=== PATIENT | male | born 1930 | race Caucasian/White ===

== ENCOUNTER 2017-06-01 20:09 | Inpatient (IN) | payer MEDICARE, MEDICAID ==
[~2017-06-01] VITALS: Ht 172.7 cm; Wt 104.2 kg
[2017-06-01 20:31] LABS: ADD SCAN DIFF NO
[2017-06-01 20:34] LABS: AADO2 Arterial 125.3 mmHg (7.0-24.0); Allen Test ACCEPTAB; Arterial Base Excess 6.6 mmol/L (-3.0-3); Arterial COHb 0.5 % (0.0-3.0); Arterial Fraction of Oxyhgb 78.7 % (93.0-99.0); Arterial HCO3 32.7 mmol/L (22.0-26.0); Arterial MetHb 0.9 % (0.0-1.5); MODE NASAL CANNULA
[2017-06-01 20:36] LABS: ABNORMAL IP MESSAGE 1; BASOPHILS % 0.1 % (0.0-2.0); EOSINOPHILS % 0.2 % (0.0-7.0); HEMOGLOBIN 7.2 g/dl (14.0-18.0); LYMPHOCYTES # 1.5 10^3/ul (0.8-2.9); LYMPHOCYTES % 13.6 % (15.0-51.0); MEAN CORPUSCULAR HEMOGLOBIN 25.4 pg (29.0-33.0); MEAN CORPUSCULAR HGB CONC 28.8 g/dl (32.0-37.0); MEAN CORPUSCULAR VOLUME 88.3 fl (82.0-101.0); MEAN PLATELET VOLUME 10.5 fl (7.4-10.4); MONOCYTE # 1.1 10^3/ul (0.3-0.9); MONOCYTES % 9.6 % (0.0-11.0); NEUTROPHIL # 8.3 10^3/ul (1.6-7.5); NEUTROPHILS % 75.5 % (39.0-77.0); PLATELET COUNT 152 10^3/UL (140-415); RED BLOOD COUNT 2.83 10^6/ul (4.70-6.10)
[2017-06-01] MEDS ORDERED: ACET-2047 PO (20:42)
[2017-06-01] MEDS ORDERED: ACET250T22 PO (20:43)
[2017-06-01] MEDS ORDERED: ASPI81TA3 PO (20:45)
[2017-06-01] MEDS ORDERED: ALBU2.5V3 NEB (20:45)
[2017-06-01] MEDS ORDERED: DOCU250C58 PO (20:46)
[2017-06-01] MEDS ORDERED: ENOX40DI2 SC (20:46)
[2017-06-01] MEDS ORDERED: MULT-105 PO (20:49)
[2017-06-01] MEDS ORDERED: UDMYL PO (20:50)
[2017-06-01] MEDS ORDERED: NIT4 SL (20:50)
[2017-06-01] MEDS ORDERED: HYDR-906 PO (20:51)
[2017-06-01] MEDS ORDERED: PROT946L PO (20:53)
[2017-06-01] MEDS ORDERED: PANT40TA3 PO (20:54)
[2017-06-01] MEDS ORDERED: TUBE5VIA3 ID (20:59)
[2017-06-01] MEDS ORDERED: ASCO500C7 PO (21:00)
[2017-06-01] MEDS ORDERED: ONDA-43 PO (21:01)
[2017-06-01 21:02] LABS: INR 1.16; PROTIME 14.8 Sec (12.2-14.2); PT RATIO 1.2
[2017-06-01 21:03] LABS: PARTIAL THROMBOPLASTIN TIME 33.2 Sec (25.0-35.0)
[2017-06-01 21:05] LABS: ALBUMIN 2.8 g/dl (3.3-4.9); ALBUMIN/GLOBULIN RATIO 0.66; BILIRUBIN,INDIRECT 0.3 mg/dl (0-1.1); BILIRUBIN,TOTAL 0.3 mg/dl (0.2-1.3); CALCIUM 9.7 mg/dl (8.4-10.2); CREATININE 1.29 mg/dl (0.61-1.24); POTASSIUM 4.7 mmol/L (3.5-5.1)
[2017-06-01 21:16] LABS: TROPONIN-I 0.028 ng/ml (0.00-0.12)
--- NOTE | 2017-06-01 21:38 | RADRPT ---
PROCEDURE: XR Chest. CLINICAL INDICATION: Possible sepsis. TECHNIQUE: Single frontal view of the chest. COMPARISON: None. FINDINGS: Cardiomegaly. Pulmonary vascular congestion and bilateral patchy air space disease with elevated le ft hemidiaphragm. No signs of pleural fluid or pneumothorax are seen. The osseous structures and sof t tissues are unremarkable. IMPRESSION: Moderate failure. RPTAT: [facility] Physician Sara Date Time Electronically viewed and signed by Thomas Fenton Physician on 06/01/2017 21:38 RS/
[2017-06-01] MEDS ORDERED: ONDANSETRON 4 MG INJ IV PRN (22:00)
[2017-06-01] MEDS ORDERED: FUROSEMIDE 40 MG INJ IV ONE (22:00)
[2017-06-01] MEDS ORDERED: ACETAMINOPHEN 325 MG TAB PO PRN (22:00)
[2017-06-01 22:07] LABS: AADO2 Arterial 282.8 mmHg (7.0-24.0); Allen Test ACCEPTAB; Arterial Base Excess 5.5 mmol/L (-3.0-3); Arterial COHb 0.7 % (0.0-3.0); Arterial HCO3 33.7 mmol/L (22.0-26.0); Blood Gas IEPAP 18/6; MODE MASK - BIPAP
--- NOTE | 2017-06-01 22:11 | ERA ---
ER Documentation Chief Complaint Date/Time DATE: 06/01/17 TIME: 22:02 Chief Complaint HPI This 86-year-old male presents to the emergency room after being brought in by EMS from his nursing facility for evaluation of respiratory distress. This patient does have a history of lymphoma and according to EMS when they arrived at the patient's [facility] the patient did have a pulse ox of 85% on room air. The patient was placed on supplemental oxygen and was transported to the emergency room for further evaluation. The patient is unable to give a detailed history secondary to his clinical condition at this time. EMS stated that this patient was recently transferred to a fci after a long hospital stay at [facility] where he was originally diagnosed with lymphoma ROS All systems reviewed and are negative except as per history of present illness. Medications Home Meds Reported Medications Ondansetron Hcl* (Zofran*) 4 Mg Tab, 4 MG PO Q6H Y for NAUSEA AND OR VOMITING, TAB 06/01/17 Ascorbic Acid* (Vitamin C*) 500 Mg Capsule.sa, 500 MG PO DAILY, CAP 06/01/17 Tuberculin,Purif.prot.deriv. (Tubersol) 5 Tub Unit/0.1 Ml Vial, 5 TUB ID QHS, VIAL INJECT 0.1ML QHS FOR TB SCREENING FOR 1 DAY 2ND STEP PPD; END DATE 06/06/17 06/01/17 Pantoprazole* (Protonix*) 40 Mg Tablet.dr, 40 MG PO DAILY, TAB 06/01/17 Protein Supplement (Promod) 946 Ml Liquid, 30 ML PO TID 06/01/17 Hydrocodone/Acetaminophen ([place] 5-325 Tablet) 1 Each Tablet, 1 EACH PO Q6H Y for PAIN PL 4-10/10, TAB AND FOR WOUND CARE 06/01/17 Nitroglycerin* (Nitrostat*) 0.4 Mg Tab.subl, 0.4 MG SL Q5MIN Y for CHEST PAIN, BOTTLE 06/01/17 Magaldrate/Simethicone* (Mag-Al Plus Suspension*) 30 Ml Oral.susp, 30 ML PO QID , ML 06/01/17 Multivitamin with Minerals (Multivitamins with Minerals) 1 Each Tablet, 1 EACH PO DAILY, TAB 06/01/17 Enoxaparin Sodium* (Enoxaparin Sodium*) 40 Mg/0.4 Ml Syringe, 40 MG SC DAILY, SYR 06/01/17 Docusate Sodium* (Colace*) 250 Mg Capsule, 250 MG PO BID, #60 CAP 06/01/17 Aspirin* (Aspirin* Chew) 81 Mg Tab.chew, 81 MG PO DAILY, TAB.CHEW 06/01/17 Albuterol Sulfate* (Albuterol Sulfate* Neb) 0.083%-3 Ml Neb, 2.5 MG NEB Q6H Y for WHEEZING AND SOB, #30 VIAL OR Q4H NEEDED 06/01/17 Acetazolamide* (Acetazolamide*) 250 Mg Tablet, 250 MG PO DAILY, #30 TAB 06/01/17 Acetaminophen* (Acetaminophen*) 650 Mg Tablet, 650 MG PO Q4H Y for PAIN PL 1-, #30 TAB FOR TEMP>100F 06/01/17 Allergies Allergies: Coded Allergies: No Known Allergy (Unverified , 06/01/17) PMhx/Soc Hx Neurological Disorder: No Hx Miscellaneous Medical Probl: Yes (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 EOMI. There is no scleral icterus. NECK: C-spine is soft and supple, there is no meningismus. There is no cervical lymphadenopathy. LUNGS: Coarse breath sounds bilaterally with rales auscultated in the upper and lower lobes bilaterally HEART: Tachycardic, no murmurs, clicks, rubs or gallops. ABDOMEN: Soft, non-tender, non-distended. There are bowel sounds in all four quadrants. No rebound or guarding. EXTREMITIES: 1+ pitting edema in the bilateral lower extremities. NEUROLOGICAL: The patient moves all four extremities with 5/5 strength. Alert and oriented to person place SKIN: There is no apparent rash or petechiae. HEME/LYMPHATIC: There is no evidence of excessive bruising or lymphedema. PSYCHIATRIC: The patient does not appear anxious or depressed. Result Diagram: 06/01/17201906/01/172019 Results 24 hrs Laboratory Tests Test 06/01/17 20:10 06/01/17 20:20 06/01/17 21:43 06/01/17 22:32 Blood Gas Specimen Source Blood arterial Blood arterial Arterial Blood Date Drawn 06/01/2017 8:10:12 PM 06/01/2017 9:53:31 PM Arterial Blood pH (Temp corrected) 7.378 7.257 Arterial Blood pCO2 (Temp correct) 56.8mmhg 77.3mmhg Arterial Blood pO2 (Temp corrected) 43.7mmHG 352.9mmHG Arterial Blood HCO3 32.7mmol/L 33.7mmol/L Arterial Blood Base Excess 6.6mmol/L 5.5mmol/L Arterial Blood Oxygen Saturation 79.8mmHG 99.7mmHG Bakari Test ACCEPTAB ACCEPTAB Arterial Blood Gas Puncture Site Right Radial Right Radial Arterial Blood Carboxyhemoglobin 0.5% 0.7% Arterial Blood Methemoglobin 0.9% 1.0% Blood Gas A-a O2 Differential 125.3mmHg 282.8mmHg Oxyhemoglobin Percent 78.7% 98.0% Total Hemoglobin 8.0g/dl 8.0g/dl Blood Gas Temperature 37.0C 37.0C Blood Gas Modality NASAL CANNULA MASK - BIPAP FiO2 33.0% 100.0% Blood Gas Critical Value Read Back Reymundo QUIÑONEZ MD, K MD Blood Gas Notified Whom OCTAVIO EVETTE Blood Gas Notified Time 06/01/2017 8:34:08 PM 06/01/2017 10:07:40 PM White Blood Count 11.010^3/ul Red Blood Count 2.8310^6/ul Hemoglobin 7.2g/dl Hematocrit 25.0% Mean Corpuscular Volume 88.3fl Mean Corpuscular Hemoglobin 25.4pg Mean Corpuscular Hemoglobin Concent 28.8g/dl Red Cell Distribution Width 21.0% Platelet Count 36980^3/UL Mean Platelet Volume 10.5fl Neutrophils % 75.5% Lymphocytes % 13.6% Monocytes % 9.6% Eosinophils % 0.2% Basophils % 0.1% Neutrophils # 8.310^3/ul Lymphocytes # 1.510^3/ul Monocytes # 1.110^3/ul Eosinophils # 0.010^3/ul Basophils # 0.010^3/ul Nucleated Red Blood Cells # 0.010^3/ul Prothrombin Time 14.8Sec Prothrombin Time Ratio 1.2 INR International Normalized Ratio 1.16 Activated Partial Thromboplast Time 33.2Sec Sodium Level 150mmol/L Potassium Level 4.7mmol/L Chloride Level 103mmol/L Carbon Dioxide Level 36mmol/L Anion Gap 16 Blood Urea Nitrogen 35mg/dl Creatinine 1.29mg/dl Glucose Level 135mg/dl Lactic Acid Level 2.4mmol/L Calcium Level 9.7mg/dl Total Bilirubin 0.3mg/dl Direct Bilirubin 0.00mg/dl Indirect Bilirubin 0.3mg/dl Aspartate Amino Transf (AST/SGOT) 28IU/L Alanine Aminotransferase (ALT/SGPT) 33IU/L Alkaline Phosphatase 60IU/L Troponin I 0.028ng/ml Total Protein 7.0g/dl Albumin 2.8g/dl Globulin 4.20g/dl Albumin/Globulin Ratio 0.66 Blood Gas Respiration Rate 20.0 Blood Gas Actual Respiration Rate 22 Blood Gas Inspiratory Time 1.0 Blood Gas IPAP/EPAP Ratio 18/6 Urine Color YELLOW Urine Clarity CLEAR Urine pH 5.0 Urine Specific [place] 1.012 Urine Ketones NEGATIVEmg/dL Urine Nitrite NEGATIVEmg/dL Urine Bilirubin NEGATIVEmg/dL Urine Urobilinogen NEGATIVEmg/dL Urine Leukocyte Esterase NEGATIVELeu/ul Urine Microscopic RBC 1/HPF Urine Microscopic WBC 0/HPF Urine Bacteria FEW/HPF Urine Hemoglobin NEGATIVEmg/dL Urine Glucose NEGATIVEmg/dL Urine Total Protein 1+mg/dl Test 06/01/17 22:40 Blood Gas Specimen Source Blood arterial Arterial Blood Date Drawn 06/01/2017 10:40:00 PM Arterial Blood pH (Temp corrected) 7.320 Arterial Blood pCO2 (Temp correct) 63.9mmhg Arterial Blood pO2 (Temp corrected) 61.6mmHG Arterial Blood HCO3 32.2mmol/L Arterial Blood Base Excess 5.2mmol/L Arterial Blood Oxygen Saturation 90.2mmHG Bakari Test ACCEPTAB Arterial Blood Gas Puncture Site Right Radial Arterial Blood Carboxyhemoglobin 0.5% Arterial Blood Methemoglobin 0.9% Blood Gas A-a O2 Differential 150.1mmHg Oxyhemoglobin Percent 88.9% Total Hemoglobin 7.9g/dl Blood Gas Temperature 37.0C Blood Gas Respiration Rate 24.0 Blood Gas Actual Respiration Rate 26 Blood Gas Modality MASK - BIPAP FiO2 40.0% Blood Gas Inspiratory Time 0.7 Blood Gas IPAP/EPAP Ratio 20/5 Blood Gas Notified Whom AA Blood Gas Notified Time 06/01/2017 10:52:57 PM Current Medications Medications (Trade) Dose Ordered Sig/Crista Route PRN Reason Start Time Stop Time Status Last Admin Dose Admin Furosemide (Lasix) 40 mg ONCE ONCE IV 06/01/17 22:00 06/01/17 22:01 DC 06/01/17 21:48 Ondansetron HCl (Zofran Inj) 4 mg ER BRIDGE PRN IV NAUSEA AND/OR VOMITING 06/01/17 22:00 06/02/17 21:59 Acetaminophen (Tylenol Tab) 650 mg ER BRIDGE PRN PO MILD PAIN/FEVER 06/01/17 22:00 06/02/17 21:59 Procedures/MDM EKG: Rate/Rhythm: Sinus tachycardia QRS, ST, T-waves: [No changes consistent w/ acute ischemia] Impression: [No evidence of ischemia or arrhythmia] Chest X-ray 1V Interpreted by me: Soft Tissue: No acute abnormalities Bones: No acute abnormalities Mediastinum/Cardiac Silhouette/Lungs: Fluid overload This 86-year-old male presents to the emergency room for evaluation of shortness of breath. When I evaluated this patient he was in respiratory distress and prior to being placed on the gurney this patient's pulse oxygen level was 88%. The patient did have coarse breath sounds bilaterally with audible rales. This patient was immediately placed on a BiPAP. This patient's initial ABG does show hypercapnia. Lab work was obtained including a chest x- ray which shows fluid overload. The patient was given 40 mg of Lasix IV. His blood pressure has been stable in the emergency room with no need for nitro glycerin drip at this time. This patient is doing clinically better on my reevaluation after being on the BiPAP for approximately 1 hour. His second arterial blood gas did show an increased CO2. At that time I did increase the rate to 24, and change his settings to 20/5 with an FiO2 15%. Repeat ABG does show decreasing CO2 levels and improving pH. The patient is mentating appropriately and does not have any signs of lethargy at this time. He is alert oriented to person place and time at this time. This patient will be admitted at this time to the telemetry floor under the care of Dr. russell for acute hypoxic respiratory failure Critical Care: Excluding all billable procedures Time: 44 minutes Treatments/Evaluations: Emergent and rapid respiratory assessment and management with continuous monitoring. Advanced airway equipment at the ready, while the patient's respiratory symptoms were stabilized. Departure Diagnosis: Primary Impression: Acute respiratory failure with hypoxia Additional Impression: Acute decompensated heart failure Condition: Serious MAKAYLA QUIÑONEZ DO Jun 01, 2017 22:11
[2017-06-01 22:53] LABS: AADO2 Arterial 150.1 mmHg (7.0-24.0); Allen Test ACCEPTAB; Arterial Base Excess 5.2 mmol/L (-3.0-3); Arterial COHb 0.5 % (0.0-3.0); Arterial Fraction of Oxyhgb 88.9 % (93.0-99.0); Arterial HCO3 32.2 mmol/L (22.0-26.0); Arterial MetHb 0.9 % (0.0-1.5); Arterial Total Hemglobin 7.9 g/dl (12.0-18.0); Blood Gas IEPAP 20/5; MODE MASK - BIPAP
[2017-06-01 22:54] LABS: ADD UMIC YES; UR ASCORBIC ACID NEGATIVE (NEGATIVE); UR BACTERIA FEW /HPF (NONE SEEN); UR BILIRUBIN (Dip) NEGATIVE (NEGATIVE); UR BLOOD (Dip) NEGATIVE (NEGATIVE); UR CLARITY CLEAR (CLEAR); UR COLOR YELLOW (YELLOW); UR GLUCOSE (Dip) NEGATIVE (NEGATIVE); UR KETONES (Dip) NEGATIVE (NEGATIVE); UR LEUKOCYTE ESTERASE (Dip) NEGATIVE Leu/ul (NEGATIVE); UR NITRITE (Dip) NEGATIVE (NEGATIVE); UR RBC 1 /HPF (0-5); UR SPECIFIC GRAVITY (Dip) 1.012 (1.003-1.030); UR TOTAL PROTEIN (Dip) 1+ mg/dl (NEGATIVE); UR UROBILINOGEN (Dip) NEGATIVE (NEGATIVE)
[2017-06-02] VITALS (24 sets, daily range): BP systolic 99–137; BP diastolic 56–65; PULSE 89–101; RESP 16–20; Ht 172.7 cm; Wt 104.2 kg
[2017-06-02] MEDS ORDERED: DEXTROSE 5% IV ONE (03:00)
[2017-06-02] MEDS ORDERED: BUMETANIDE IV ONE (03:00)
[2017-06-02] MEDS ORDERED: HYDROCODONE/APAP (5/325) TAB PO PRN (03:30)
[2017-06-02] MEDS ORDERED: AL HYDROX/MG HYDROX/SIMETH 30 ML CUP PO PRN (03:30)
[2017-06-02] MEDS ORDERED: NITROGLYCERIN (SL) 0.4 MG TAB SL PRN (03:30)
[2017-06-02] MEDS ORDERED: ASA/ACETAMINOPHEN/CAFF TAB PO PRN (03:30)
[2017-06-02] MEDS ORDERED: ONDANSETRON 4 MG TAB PO PRN (04:00)
[2017-06-02 05:57] LABS: ADD SCAN DIFF NO
[2017-06-02 05:59] LABS: ABNORMAL IP MESSAGE 1; BASOPHILS % 0.1 % (0.0-2.0); EOSINOPHILS % 0.3 % (0.0-7.0); HEMATOCRIT 22.4 % (42.0-52.0); LYMPHOCYTES # 0.9 10^3/ul (0.8-2.9); LYMPHOCYTES % 11.3 % (15.0-51.0); MEAN CORPUSCULAR HEMOGLOBIN 25.4 pg (29.0-33.0); MEAN CORPUSCULAR VOLUME 87.5 fl (82.0-101.0); MONOCYTE # 0.7 10^3/ul (0.3-0.9); MONOCYTES % 9.5 % (0.0-11.0); PLATELET COUNT 145 10^3/UL (140-415); RED BLOOD COUNT 2.56 10^6/ul (4.70-6.10); WHITE BLOOD COUNT 7.7 10^3/ul (4.8-10.8)
[2017-06-02] MEDS: PANTOPRAZOLE (EC) 40 MG TAB PO SCH (06:00)
[2017-06-02 06:36] LABS: HEMOGLOBIN 6.5 g/dl (14.0-18.0)
[2017-06-02 06:55] LABS: CALCIUM 9.6 mg/dl (8.4-10.2); CREATININE 1.13 mg/dl (0.61-1.24); MAGNESIUM 2.2 mg/dl (1.7-2.5); PHOSPHORUS 3.6 mg/dl (2.5-4.9)
[2017-06-02] MEDS ORDERED: FUROSEMIDE 20 MG INJ IV ONE (08:00)
[2017-06-02 08:03] LABS: AADO2 Arterial 131.8 mmHg (7.0-24.0); Allen Test ACCEPTAB; Arterial Base Excess 8.8 mmol/L (-3.0-3); Arterial COHb 1.4 % (0.0-3.0); Arterial Fraction of Oxyhgb 95.1 % (93.0-99.0); Arterial HCO3 34.3 mmol/L (22.0-26.0); Arterial MetHb 0.7 % (0.0-1.5); Arterial Total Hemglobin 7.2 g/dl (12.0-18.0); Blood Gas IEPAP 20/5; MODE MASK - BIPAP
[2017-06-02] MEDS: DOCUSATE SODIUM 250 MG CAP PO SCH ×2 (09:00→21:00)
[2017-06-02] MEDS: ASPIRIN 81 MG TAB PO SCH (09:00)
[2017-06-02] MEDS: MULTIVITAMINS/MINERALS TAB PO SCH (09:00)
[2017-06-02] MEDS: ASCORBIC ACID 500 MG TAB PO SCH (09:00)
--- NOTE | 2017-06-02 09:07 | QN ---
Documentation Comment Patient seen and examined. H&P dictated ERASTO GONZALEZ DO Jun 02, 2017 09:07
--- NOTE | 2017-06-02 09:22 | RADRPT ---
PROCEDURE: XR Chest. CLINICAL INDICATION: RESPIRATORY FAILURE TECHNIQUE: Single frontal view of the chest was obtained COMPARISON: Chest x-ray 06/01/2017 FINDINGS: There are low lung volumes and persistent elevation of left hemidiaphragm. The cardiac silhouette remains enlarged. There has been interval slight decrease in pulmonary vascular congestion and interval slight decreas e in perihilar opacities, possibly representing decreased pulmonary edema. Patchy ill-defined opacities in the right lung persist. No pneumothorax or significant pleural effusion is seen. There are degenerative changes of the visualized spine. IMPRESSION: 1. Interval slight decrease in pulmonary vascular congestion and pulmonary edema. 2. Persistent patchy ill-defined opacities in the right lung which may be infectious in etiology. RPTAT: PP Physician Tayla Date Time Electronically viewed and signed by Physician Tayla on 06/02/2017 09:22 /
[2017-06-02] MEDS: DEXTROSE 5% 1,000 ML IV SCH (10:36)
[2017-06-02] MEDS: HEPARIN 5,000 UNIT/0.5 ML VIAL SC SCH ×2 (10:42→22:05)
[2017-06-02 12:46] LABS: IRON 27 ug/dl (35-150)
[2017-06-02 12:56] LABS: TOTAL IRON BINDING CAPACITY 190 ug/dl (241-421)
--- NOTE | 2017-06-02 13:29 | HP ---
DATE OF ADMISSION: 06/01/2017 CHIEF COMPLAINT: 1. Respiratory failure. 2. Lymphoma, newly diagnosed. HISTORY OF PRESENT ILLNESS: This is an 86-year-old male with past medical history of newly diagnosed lymphoma who presents to [facility] Emergency room with hypoxemic respiratory failure. Patient's history begins approximately 1-2 months ago when patient was noted to have increased weakness. The patient was taken to [facility]. 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 The patient during the hospital course at [place] also had a cardiac cath. The patient's niece stated that it was negative for coronary disease. The patient was set to start chemotherapy as an outpatient by his oncologist at [place], Dr. Fleming. The patient was then transferred to a senior care facility for rehabilitation. However, upon arrival, the patient was desaturating in the 80s and was transferred to the Emergency room at [facility]. Upon arrival in the Emergency room, the patient had a chest x-ray, which shows findings of CHF, congestion, patchy air space disease, vascular congestion and pulmonary edema. The patient in the Emergency room, was placed on a Bumex drip and admitted to telemetry on BiPAP. Upon my evaluation of the patient at this time he is currently on BiPAP, in respiratory distress. Patient is unable to provide history. History is obtained by reviewing medical records, and speaking with the patient's niece. PAST MEDICAL HISTORY: As stated above. History of newly diagnosed lymphoma of the stomach and lungs. PAST SURGICAL HISTORY: Recent cardiac cath. ALLERGIES: NO KNOWN DRUG ALLERGIES. FAMILY HISTORY: Noncontributory. SOCIAL HISTORY: Does not drink, smoke, or do drugs. MEDICATIONS: Patient's medication have been reviewed and reconciled. REVIEW OF SYSTEMS: Unable to adequately review the systems. The patient's pertinent positive have been obtained by reviewing medical records, speaking to hospital staff and HPI was negative. PHYSICAL EXAMINATION: VITAL SIGNS: Blood pressure is 110/56, respirations 20, pulse 93, temperature 99.2. GENERAL APPEARANCE: The patient is tachypneic on BiPAP, in serious condition. HEENT: Head is normocephalic. Pupils are reactive to light. NECK: Neck is supple. HEART: Heart is tachycardic. LUNGS: Show diminished breath sounds a the bases. Positive rhonchi and rales. ABDOMEN: Soft, nontender to palpation. EXTREMITIES: No clubbing, cyanosis, positive edema. DERMATOLOGIC: No rashes. MUSCULOSKELETAL: No joint effusion. NEUROLOGICAL: Limited exam due to lack of patient cooperation. LABORATORY DATA: Shows sodium 150, potassium 4.1, chloride 102, bicarb 37 in 36, creatinine 1.13. White count 7.7, hemoglobin 6.5, hematocrit 22.4, platelet count is 145,000. IMAGING: Imaging studies in HPI. ASSESSMENT AND PLAN: The patient is an 86-year-old male who presents with: 1. Acute hypoxemic respiratory failure. Etiology is likely multifactorial secondary to lymphoma, pulmonary with possible lymphangitic spread, congestive heart failure exacerbation. The patient currently is on BiPAP, receiving Bumex drip. Plan is to place a pulmonary consult for evaluation. Will place a cardiology consult for evaluation. I also spoke with the patient's niece, who agrees with intubation if necessary. We will monitor closely. 2. Volume overload. Etiology may be multifactorial secondary to lymphoma and questionable congestive heart failure. Patient's chest x-ray shows pulmonary congestion. The patient had a recent cardiac cath which was negative, per patient's niece. Plan is continue diuretic regimen, monitor I and Os closely. We will follow up with Cardiology. 3. Newly diagnosed lymphoma, pulmonary and gastric. The patient has not yet started chemotherapy. Will place Hematology consult for evaluation. Patient may require urgent chemotherapy. 4. Hyponatremia. Patient will be placed on D5W. Will monitor closely. 5. Anemia, etiology is unclear. May be secondary to underlying malignancy. No obvious evidence of GI bleed at this time. Will transfuse 2 units of packed red blood cells. We will check an iron panel. Check stool for occult blood and monitor closely. 6. Acute encephalopathy, etiology is toxic metabolic. We will continue to monitor. 7. Gastrointestinal and deep venous thrombosis prophylaxis. Patient will be placed on Proton-pump inhibitors and heparin. Dictated By: Geoff Montiel DO /[email or web address] /Document#: [id number]
--- NOTE | 2017-06-02 14:08 | CONS ---
Date/Time of Note Date/Time of Note DATE: 06/02/17 TIME: 13:45 Assessment/Plan Assessment/Plan Chief Complaint/Hosp Course Newly diagnosed lymphoma, pulmonary and gastric. The patient has not yet started chemotherapy. Patient may require urgent chemotherapy, after being cleared by manager [employer] and pulmonary OBTAIN AND REVIEW ONCOLOGICAL RECORD DR LIDIA RUSSELL ( [phone]), awaiting response D/W NIECE, PACHECO Anemia, N- CYTIC WITH INCREASED RDW WITH DROP H/H DURING HOSPITALIZATION PER NIECE- NO HX ANEMIA, BLEEDING, PRBC TRANSFUSIONS No obvious evidence of GI bleed at this time. PROCEED WITH ANEMIA W-UP Acute hypoxemic respiratory failure. Etiology is likely multifactorial secondary to lymphoma, pulmonary with possible lymphangitic spread, congestive heart failure exacerbation. The patient currently is on BiPAP, receiving Bumex drip. pulmonary consult cardiology consult PER NIECE- agrees with intubation if necessary. check venous doppler Volume overload. Etiology may be multifactorial secondary to lymphoma and questionable congestive heart failure. Patient's chest x-ray shows pulmonary congestion. The patient had a recent cardiac cath which was negative, per patient's niece. Plan is continue diuretic regimen, monitor I and Os closely. Hypernatremia. Patient will be placed on D5W. Will monitor closely. Acute encephalopathy, etiology is toxic metabolic. We will continue to monitor. Gastrointestinal and deep venous thrombosis prophylaxis. Patient will be placed on Proton-pump inhibitors and heparin. ( IF NO EVIDENCE OF BLEEDING) Problems: Consultation Date/Type/Reason Admit Date/Time Jun 01, 2017 at 22:01 Date of Consultation: Jun 02, 2017 Type of Consultation: hemeon Reason for Consultation [facility] Referring Provider: ERASTO GONZALEZ DO Hx of Present Illness This is an 86-year-old male with past medical history of newly diagnosed lymphoma who presents to [facility] Emergency room with hypoxemic respiratory failure. Patient's history begins approximately 1-2 months ago when patient was noted to have increased weakness. The patient was taken to [facility]. 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 The patient during the hospital course at [facility] also had a cardiac cath. The patient's niece stated that it was negative for coronary disease. The patient was set to start chemotherapy as an outpatient by his oncologist at [facility], Dr. Fleming. The patient was then transferred to a assisted facility for rehabilitation. However, upon arrival, the patient was desaturating in the 80s and was transferred to the Emergency room at [facility]. Upon arrival in the Emergency room, the patient had a chest x-ray, which shows findings of CHF, congestion, patchy air space disease, vascular congestion and pulmonary edema. The patient in the Emergency room, was placed on a Bumex drip and admitted to telemetry on BiPAP. I WAS ASKED TO PROVIDE HEMEON CONSULT Upon my evaluation of the patient at this time he is currently on BiPAP, in respiratory distress. Patient is unable to provide history. History is obtained by reviewing medical records, and speaking with the patient's niece. PAST MEDICAL HISTORY: As stated above. History of newly diagnosed lymphoma of the stomach and lungs. PAST SURGICAL HISTORY: Recent cardiac cath. ALLERGIES: NO KNOWN DRUG ALLERGIES. FAMILY HISTORY: Noncontributory. SOCIAL HISTORY: Does not drink, smoke, or do drugs. MEDICATIONS: Patient's medication have been reviewed and reconciled. REVIEW OF SYSTEMS: Unable to adequately review the systems. The patient's pertinent positive have been obtained by reviewing medical records, speaking to hospital staff and HPI was negative. Social History Smoking Status: Unknown if ever smoked Exam/Review of Systems Vital Signs Vitals Vital Signs Date Time Temp Pulse Resp B/P Pulse Ox O2 Delivery O2 Flow Rate FiO2 06/02/17 12:35 89 06/02/17 11:35 99.8 20 113/58 98 06/02/17 11:00 40 06/01/17 23:18 BIPAP Intake and Output 06/01/17 06/01/17 06/02/17 15:00 23:00 07:00 Intake Total 0 ml Balance 0 ml Exam GENERAL APPEARANCE: The patient is tachypneic on BiPAP, in serious condition. HEENT: Head is normocephalic. Pupils are reactive to light. NECK: Neck is supple. HEART: Heart is tachycardic. LUNGS: Show diminished breath sounds a the bases. Positive rhonchi and rales. ABDOMEN: Soft, nontender to palpation. EXTREMITIES: No clubbing, cyanosis, positive edema. DERMATOLOGIC: No rashes. MUSCULOSKELETAL: No joint effusion. NEUROLOGICAL: Limited exam due to lack of patient cooperation. NO PATH LN- VIRI Results Result Diagram: 06/02/17 0546 06/02/17 0546 Results 24 hrs Laboratory Tests Test 06/01/17 20:10 06/01/17 20:20 06/01/17 21:43 06/01/17 22:32 Blood Gas Specimen Source Blood arterial Blood arterial Arterial Blood Date Drawn 06/01/2017 8:10:12 PM 06/01/2017 9:53:31 PM Arterial Blood pH (Temp corrected) 7.378 7.257 *L Arterial Blood pCO2 (Temp correct) 56.8 H 77.3 H Arterial Blood pO2 (Temp corrected) 43.7 *L 352.9 H Arterial Blood HCO3 32.7 H 33.7 H Arterial Blood Base Excess 6.6 H 5.5 H Arterial Blood Oxygen Saturation 79.8 L 99.7 Bakari Test ACCEPTAB ACCEPTAB Arterial Blood Gas Puncture Site Right Radial Right Radial Arterial Blood Carboxyhemoglobin 0.5 0.7 Arterial Blood Methemoglobin 0.9 1.0 Blood Gas A-a O2 Differential 125.3 H 282.8 H Oxyhemoglobin Percent 78.7 L 98.0 Total Hemoglobin 8.0 L 8.0 L Blood Gas Temperature 37.0 37.0 Blood Gas Modality NASAL CANNULA MASK - BIPAP FiO2 33.0 100.0 Blood Gas Critical Value Read Back Reymundo QUIÑONEZ MD, K MD Blood Gas Notified Whom OCTAVIO ALAS Blood Gas Notified Time 06/01/2017 8:34:08 PM 06/01/2017 10:07:40 PM White Blood Count 11.0 H Red Blood Count 2.83 L Hemoglobin 7.2 L Hematocrit 25.0 L Mean Corpuscular Volume 88.3 Mean Corpuscular Hemoglobin 25.4 L Mean Corpuscular Hemoglobin Concent 28.8 L Red Cell Distribution Width 21.0 H Platelet Count 152 Mean Platelet Volume 10.5 H Neutrophils % 75.5 Lymphocytes % 13.6 L Monocytes % 9.6 Eosinophils % 0.2 Basophils % 0.1 Neutrophils # 8.3 H Lymphocytes # 1.5 Monocytes # 1.1 H Eosinophils # 0.0 Basophils # 0.0 Nucleated Red Blood Cells # 0.0 Prothrombin Time 14.8 H Prothrombin Time Ratio 1.2 INR International Normalized Ratio 1.16 Activated Partial Thromboplast Time 33.2 Sodium Level 150 H Potassium Level 4.7 Chloride Level 103 Carbon Dioxide Level 36 H Anion Gap 16 Blood Urea Nitrogen 35 H Creatinine 1.29 H Glucose Level 135 Lactic Acid Level 2.4 *H 1.7 Calcium Level 9.7 Total Bilirubin 0.3 Direct Bilirubin 0.00 Indirect Bilirubin 0.3 Aspartate Amino Transf (AST/SGOT) 28 Alanine Aminotransferase (ALT/SGPT) 33 Alkaline Phosphatase 60 Troponin I 0.028 Total Protein 7.0 Albumin 2.8 L Globulin 4.20 H Albumin/Globulin Ratio 0.66 Blood Gas Respiration Rate 20.0 Blood Gas Actual Respiration Rate 22 Blood Gas Inspiratory Time 1.0 Blood Gas IPAP/EPAP Ratio 18/6 Urine Color YELLOW Urine Clarity CLEAR Urine pH 5.0 Urine Specific [place] 1.012 Urine Ketones NEGATIVE Urine Nitrite NEGATIVE Urine Bilirubin NEGATIVE Urine Urobilinogen NEGATIVE Urine Leukocyte Esterase NEGATIVE Urine Microscopic RBC 1 Urine Microscopic WBC 0 Urine Bacteria FEW A Urine Hemoglobin NEGATIVE Urine Glucose NEGATIVE Urine Total Protein 1+ H B-Type Natriuretic Peptide 6520 H Test 06/01/17 22:40 06/02/17 02:26 06/02/17 05:46 06/02/17 07:00 Blood Gas Specimen Source Blood arterial Blood arterial Arterial Blood Date Drawn 06/01/2017 10:40:00 PM 06/02/2017 7:30:23 AM Arterial Blood pH (Temp corrected) 7.320 L 7.411 Arterial Blood pCO2 (Temp correct) 63.9 H 55.3 H Arterial Blood pO2 (Temp corrected) 61.6 L 89.8 Arterial Blood HCO3 32.2 H 34.3 H Arterial Blood Base Excess 5.2 H 8.8 H Arterial Blood Oxygen Saturation 90.2 L 97.1 Bakari Test ACCEPTAB ACCEPTAB Arterial Blood Gas Puncture Site Right Radial Right Radial Arterial Blood Carboxyhemoglobin 0.5 1.4 Arterial Blood Methemoglobin 0.9 0.7 Blood Gas A-a O2 Differential 150.1 H 131.8 H Oxyhemoglobin Percent 88.9 L 95.1 Total Hemoglobin 7.9 L 7.2 L Blood Gas Temperature 37.0 37.0 Blood Gas Respiration Rate 24.0 24.0 Blood Gas Actual Respiration Rate 26 27 Blood Gas Modality MASK - BIPAP MASK - BIPAP FiO2 40.0 40.0 Blood Gas Inspiratory Time 0.7 Blood Gas IPAP/EPAP Ratio 01/04 01/04 Blood Gas Notified Whom EVETTE BARKLEY Blood Gas Notified Time 06/01/2017 10:52:57 PM 06/02/2017 8:03:25 AM Lactic Acid Level 1.6 White Blood Count 7.7 # Red Blood Count 2.56 L Hemoglobin 6.5 *L Hematocrit 22.4 L Mean Corpuscular Volume 87.5 Mean Corpuscular Hemoglobin 25.4 L Mean Corpuscular Hemoglobin Concent 29.0 L Red Cell Distribution Width 21.0 H Platelet Count 145 Mean Platelet Volume 11.0 H Neutrophils % 78.0 H Lymphocytes % 11.3 L Monocytes % 9.5 Eosinophils % 0.3 Basophils % 0.1 Neutrophils # 6.0 Lymphocytes # 0.9 Monocytes # 0.7 Eosinophils # 0.0 Basophils # 0.0 Nucleated Red Blood Cells # 0.0 Sodium Level 150 H Potassium Level 4.0 Chloride Level 102 Carbon Dioxide Level 37 H Anion Gap 15 Blood Urea Nitrogen 36 H Creatinine 1.13 Glucose Level 110 Calcium Level 9.6 Phosphorus Level 3.6 Magnesium Level 2.2 Iron Level 27 L Total Iron Binding Capacity 190 L Percent Iron Saturation 14 L Troponin I 0.032 Test 06/02/17 12:41 Troponin I 0.019 Medications Medications Current Medications Heparin Sodium (Porcine) (Heparin (5000 Units/0.5 ml)) 5,000 unit BID SC Last administered on 06/02/17t 10:42; Admin Dose 5,000 UNIT; Start 06/02/17 at 09:00 Acetaminophen/ Aspirin/Caffeine (Excedrin) 2 tab Q4 PRN PO ELEVATED TEMPERATURE ; Start 06/02/17 at 03:30 Aspirin (Aspirin) 81 mg DAILY PO ; Start 06/02/17 at 09:00 Docusate Sodium (Colace) 250 mg BID PO ; Start 06/02/17 at 09:00 Multivitamins/ Minerals (Theragran-M) 1 tab DAILY PO ; Start 06/02/17 at 09:00 Al Hydrox/Mg Hydrox/Simethicone (Mag-Al Plus) 30 ml Q6H PRN PO GASTROINTESTINAL UPSET; Start 06/02/17 at 03:30 Nitroglycerin (Nitroglycerin (Sl Tab) 0.4 Mg) 1 tab Q5M PRN SL ANGINA; Start at 03:30 Acetaminophen/ Hydrocodone Bitart ([place] (5/325)) 1 tab Q6H PRN PO MODERATE PAIN LEVEL 4-6; Start 06/02/17 at 03:30 Pantoprazole (Protonix Tab) 40 mg DAILY@06 PO ; Start 06/02/17 at 06:00 Ascorbic Acid (Vitamin C) 500 mg DAILY PO ; Start 06/02/17 at 09:00 Ondansetron HCl 4 mg 4 mg Q6H PRN PO NAUSEA AND/OR VOMITING; Start 06/02/17 at 04:00 Dextrose (D5W) 1,000 ml @ 50 mls/hr Q20H IV Last administered on 06/02/17t 10: 36; Admin Dose 50 MLS/HR; Start 06/02/17 at 09:30 Procedures Procedures [place] [id number] Radiology Main Line: [phone] DIAGNOSTIC IMAGING REPORT Patient: CHRISTINA RODRÍGUEZ : 1930 Age: 86 Sex: M MR #: [id number] DOS: 06/01/172021 Ordering MD: MAKAYLA QUIÑONEZ DO Location: E/R Room/Bed: PROCEDURE: XR Chest. CLINICAL INDICATION: Possible sepsis. TECHNIQUE: Single frontal view of the chest. COMPARISON: None. FINDINGS: Cardiomegaly. Pulmonary vascular congestion and bilateral patchy air space disease with elevated left hemidiaphragm. No signs of pleural fluid or pneumothorax are seen. The osseous structures and soft tissues are unremarkable. IMPRESSION: Moderate failure. RPTAT: UU Physician Sara Date Time Electronically viewed and signed by Physician Sara on 06/01/2017 21:38 RS/ CC: MAKAYLA QUIÑONEZ VERA M MD Jun 02, 2017 13:56
--- NOTE | 2017-06-02 14:57 | RADRPT ---
Echocardiogram Report Patient Name: CHRISTINA RODRÍGUEZ Gender: Male Date: 1930 Study Date: 02-Jun-2017 Living Specialist: Pranav [facility] Location: 532 Ref. Physician: DASIA TIERNEY Quality: Adequate Procedures: Transthoracic echocardiogram with complete 2D, M-Mode, and doppler examination. Indications: PER MD. 2D/M Mode Doppler Measurement Value Normal Ranges Measurement Value Normal Ranges LVIDd 2D 4.2 3.5 - 5.6 cm AV Peak Arron 1.5 m/sec LVIDs 2D 2.9 2.1 - 4.1 cm AV Peak PG 9.0 mmHg FS 2D 30.0 % LVOT Peak Arron 1.2 m/sec LVPWd 2D 1.5 0.6 - 1.1 cm LVOT Peak PG 6.0 mmHg IVSd 2D 1.5 0.6 - 1.1 cm MV E Peak Arron 0.6 m/sec IVS/LVPW 2D 1.0 MV A Peak Arron 0.8 m/sec AoR Diam 2D 2.7 2.0 - 3.7 cm MV E/A 0.7 LA/Ao 2D 1 0 - 1 MV Decel Time 236 msec EDV 2D 74.1 cm3 MV E/A 0.7 ESV 2D 25.4 cm3 TR Peak Arron 2.8 m/sec LA Dimen 2D 3.9 2.3 - 4.0 cm TR Peak PG 30.0 mmHg RVSP 33.0 mmHg Findings Left Ventricle: Hyperdynamic left ventricular systolic function. Normal left ventricular cavity size. Moderate concentric left ventricular hypertrophy. Ejection fraction is visually estimated at 65 %. Abnormal Diastolic Function. Right Ventricle: Normal right ventricular size. Normal right ventricular systolic function. Left Atrium: The left atrium is normal in size. Right Atrium: There is mild enlargement of right atrium. Mitral Valve: Mitral valve leaflets appear mildly thickened. Mild mitral annular calcification. Trace mitral regurgitation. Aortic Valve: Aortic sclerosis without stenosis. Trace aortic valve regurgitation. Tricuspid Valve: Normal appearance of the tricuspid valve. Estimated peak PA systolic pressure 33 mmHg. There is mild tricuspid regurgitation. Pulmonic Valve: Pulmonic valve not well visualized. There is trace pulmonic regurgitation. Pericardium: Small pericardial effusion. Aorta: Normal aortic root. IVC: Normal size and normal respiratory collapse consistent with normal right atrial pressure. Conclusions 1.Hyperdynamic left ventricular systolic function. Normal left ventricular cavity size. Moderate concentric left ventricular hypertrophy. Ejection fraction is visually estimated at 65 %. Abnormal Diastolic Function. 2.Mitral valve leaflets appear mildly thickened. Mild mitral annular calcification. Trace mitral regurgitation. 3.Aortic sclerosis without stenosis. Trace aortic valve regurgitation. 4.Normal appearance of the tricuspid valve. Estimated peak PA systolic pressure 33 mmHg. There is mild tricuspid regurgitation. 5.Small pericardial effusion. 6.Normal size and normal respiratory collapse consistent with normal right atrial pressure. Electronically Signed By: Dasia Tierney 02-Jun-2017 14:56:45 -0700 Patient Name: CHRISTINA RODRÍGUEZ Study Date: 02-Jun-2017 [id number]
--- NOTE | 2017-06-02 16:34 | CONS ---
Date/Time of Note Date/Time of Note DATE: 06/02/17 TIME: 16:33 Consultation Date/Type/Reason Admit Date/Time Jun 01, 2017 at 22:01 Type of Consultation: ID Reason for Consultation This is Dr. Shadi Wheeler dictating infectious disease consult on Naeem Olson, date of admission 720 date of consultation and dictation 06/02/2017, reason for consultation is antibiotic management. Naeem Olson is an 86-year-old male admitted with respiratory failure, and newly diagnosed lymphoma. Patient presented to [facility] with hypoxemic respiratory failure which began approximately 1-2 months ago when he noted to have increased weakness. He was diagnosed with lymphoma predominantly of the lungs and stomach. Patient was sent to a intermediate facility for rehabilitation, but was noted to be desaturating in the 80s. A chest x-ray showed findings of congestive heart failure, congestion, patchy airspace disease , vascular congestion and pulmonary edema. He was initially placed on BiPAP and then transferred to telemetry. He is currently off BiPAP. On admission his white count was 11.0, H&H of 7.2 and 25 platelet count 152,000 on the his white count was 7.7 H&H still very low at 6.5 and 22.4. BUN/ creatinine 36 of 1.13, urine is negative for nitrite and leukocyte esterase and chest x-ray on the shows interval slight decrease in pulmonary vascular congestion and pulmonary edema. Persistent patchy ill-defined opacities in the right lung which may be infectious in etiology. Past medical history is as outlined Past surgical history: Recent cardiac catheterization Family history is noncontributory Social history: He does not smoke drink or abuse drugs No known allergies Medications per chart Review of systems is as per HPI On physical examination patient is an elderly appearing male who is awake, but weak. Family by the bedside. Vital signs are stable he is afebrile SHEENT within normal limits Neck is supple without neck vein distention Chest decreased breath sounds at the bases with occasional rales and rhonchi Heart without murmur gallop Abdomen is soft and nontender without organosplenomegaly or masses Extremities without cyanosis clubbing; 1+ edema Rectal/genital exams deferred Neurological evaluation: No focal neurological abnormalities Impression/plan: Patient is an elderly male recently diagnosed with lymphoma of the lung and stomach who presents with hypoxemia. He is on BiPAP and has an infiltrate in his lung consistent with pneumonitis. We will get sputum cultures and start him on cefepime to treat possible pneumonia. I will dictate my findings to Dr. Montiel, Dr. Kinney and Dr. Tierney. Thank you for this crepe maker. Social History Smoking Status: Unknown if ever smoked Exam/Review of Systems Vital Signs Vitals Vital Signs Date Time Temp Pulse Resp B/P Pulse Ox O2 Delivery O2 Flow Rate FiO2 06/02/17 15:45 96 6.0 06/02/17 15:06 98.4 95 19 118/60 06/02/17 15:00 40 06/01/17 23:18 BIPAP Intake and Output 06/01/17 06/01/17 06/02/17 15:00 23:00 07:00 Intake Total 0 ml Balance 0 ml Results Result Diagram: 06/02/17 0546 06/02/17 0546 Results 24 hrs Laboratory Tests Test 06/01/17 20:10 06/01/17 20:20 06/01/17 21:43 06/01/17 22:32 Blood Gas Specimen Source Blood arterial Blood arterial Arterial Blood Date Drawn 06/01/2017 8:10:12 PM 06/01/2017 9:53:31 PM Arterial Blood pH (Temp corrected) 7.378 7.257 *L Arterial Blood pCO2 (Temp correct) 56.8 H 77.3 H Arterial Blood pO2 (Temp corrected) 43.7 *L 352.9 H Arterial Blood HCO3 32.7 H 33.7 H Arterial Blood Base Excess 6.6 H 5.5 H Arterial Blood Oxygen Saturation 79.8 L 99.7 Bakari Test ACCEPTAB ACCEPTAB Arterial Blood Gas Puncture Site Right Radial Right Radial Arterial Blood Carboxyhemoglobin 0.5 0.7 Arterial Blood Methemoglobin 0.9 1.0 Blood Gas A-a O2 Differential 125.3 H 282.8 H Oxyhemoglobin Percent 78.7 L 98.0 Total Hemoglobin 8.0 L 8.0 L Blood Gas Temperature 37.0 37.0 Blood Gas Modality NASAL CANNULA MASK - BIPAP FiO2 33.0 100.0 Blood Gas Critical Value Read Back Reymundo QUIÑONEZ MD, K MD Blood Gas Notified Whom OCTAVIO ALAS Blood Gas Notified Time 06/01/2017 8:34:08 PM 06/01/2017 10:07:40 PM White Blood Count 11.0 H Red Blood Count 2.83 L Hemoglobin 7.2 L Hematocrit 25.0 L Mean Corpuscular Volume 88.3 Mean Corpuscular Hemoglobin 25.4 L Mean Corpuscular Hemoglobin Concent 28.8 L Red Cell Distribution Width 21.0 H Platelet Count 152 Mean Platelet Volume 10.5 H Neutrophils % 75.5 Lymphocytes % 13.6 L Monocytes % 9.6 Eosinophils % 0.2 Basophils % 0.1 Neutrophils # 8.3 H Lymphocytes # 1.5 Monocytes # 1.1 H Eosinophils # 0.0 Basophils # 0.0 Nucleated Red Blood Cells # 0.0 Prothrombin Time 14.8 H Prothrombin Time Ratio 1.2 INR International Normalized Ratio 1.16 Activated Partial Thromboplast Time 33.2 Sodium Level 150 H Potassium Level 4.7 Chloride Level 103 Carbon Dioxide Level 36 H Anion Gap 16 Blood Urea Nitrogen 35 H Creatinine 1.29 H Glucose Level 135 Lactic Acid Level 2.4 *H 1.7 Calcium Level 9.7 Total Bilirubin 0.3 Direct Bilirubin 0.00 Indirect Bilirubin 0.3 Aspartate Amino Transf (AST/SGOT) 28 Alanine Aminotransferase (ALT/SGPT) 33 Alkaline Phosphatase 60 Troponin I 0.028 Total Protein 7.0 Albumin 2.8 L Globulin 4.20 H Albumin/Globulin Ratio 0.66 Blood Gas Respiration Rate 20.0 Blood Gas Actual Respiration Rate 22 Blood Gas Inspiratory Time 1.0 Blood Gas IPAP/EPAP Ratio 18/6 Urine Color YELLOW Urine Clarity CLEAR Urine pH 5.0 Urine Specific [place] 1.012 Urine Ketones NEGATIVE Urine Nitrite NEGATIVE Urine Bilirubin NEGATIVE Urine Urobilinogen NEGATIVE Urine Leukocyte Esterase NEGATIVE Urine Microscopic RBC 1 Urine Microscopic WBC 0 Urine Bacteria FEW A Urine Hemoglobin NEGATIVE Urine Glucose NEGATIVE Urine Total Protein 1+ H B-Type Natriuretic Peptide 6520 H Test 06/01/17 22:40 06/02/17 02:26 06/02/17 05:46 06/02/17 07:00 Blood Gas Specimen Source Blood arterial Blood arterial Arterial Blood Date Drawn 06/01/2017 10:40:00 PM 06/02/2017 7:30:23 AM Arterial Blood pH (Temp corrected) 7.320 L 7.411 Arterial Blood pCO2 (Temp correct) 63.9 H 55.3 H Arterial Blood pO2 (Temp corrected) 61.6 L 89.8 Arterial Blood HCO3 32.2 H 34.3 H Arterial Blood Base Excess 5.2 H 8.8 H Arterial Blood Oxygen Saturation 90.2 L 97.1 Bakari Test ACCEPTAB ACCEPTAB Arterial Blood Gas Puncture Site Right Radial Right Radial Arterial Blood Carboxyhemoglobin 0.5 1.4 Arterial Blood Methemoglobin 0.9 0.7 Blood Gas A-a O2 Differential 150.1 H 131.8 H Oxyhemoglobin Percent 88.9 L 95.1 Total Hemoglobin 7.9 L 7.2 L Blood Gas Temperature 37.0 37.0 Blood Gas Respiration Rate 24.0 24.0 Blood Gas Actual Respiration Rate 26 27 Blood Gas Modality MASK - BIPAP MASK - BIPAP FiO2 40.0 40.0 Blood Gas Inspiratory Time 0.7 Blood Gas IPAP/EPAP Ratio 01/04 01/04 Blood Gas Notified Whom EVETTE BARKLEY Blood Gas Notified Time 06/01/2017 10:52:57 PM 06/02/2017 8:03:25 AM Lactic Acid Level 1.6 White Blood Count 7.7 # Red Blood Count 2.56 L Hemoglobin 6.5 *L Hematocrit 22.4 L Mean Corpuscular Volume 87.5 Mean Corpuscular Hemoglobin 25.4 L Mean Corpuscular Hemoglobin Concent 29.0 L Red Cell Distribution Width 21.0 H Platelet Count 145 Mean Platelet Volume 11.0 H Neutrophils % 78.0 H Lymphocytes % 11.3 L Monocytes % 9.5 Eosinophils % 0.3 Basophils % 0.1 Neutrophils # 6.0 Lymphocytes # 0.9 Monocytes # 0.7 Eosinophils # 0.0 Basophils # 0.0 Nucleated Red Blood Cells # 0.0 Sodium Level 150 H Potassium Level 4.0 Chloride Level 102 Carbon Dioxide Level 37 H Anion Gap 15 Blood Urea Nitrogen 36 H Creatinine 1.13 Glucose Level 110 Calcium Level 9.6 Phosphorus Level 3.6 Magnesium Level 2.2 Iron Level 27 L Total Iron Binding Capacity 190 L Percent Iron Saturation 14 L Ferritin 1350.0 H Troponin I 0.032 Test 06/02/17 12:41 Troponin I 0.019 Medications Medications Current Medications Heparin Sodium (Porcine) (Heparin (5000 Units/0.5 ml)) 5,000 unit BID SC Last administered on 06/02/17t 10:42; Admin Dose 5,000 UNIT; Start 06/02/17 at 09:00 Acetaminophen/ Aspirin/Caffeine (Excedrin) 2 tab Q4 PRN PO ELEVATED TEMPERATURE ; Start 06/02/17 at 03:30 Aspirin (Aspirin) 81 mg DAILY PO ; Start 06/02/17 at 09:00 Docusate Sodium (Colace) 250 mg BID PO ; Start 06/02/17 at 09:00 Multivitamins/ Minerals (Theragran-M) 1 tab DAILY PO ; Start 06/02/17 at 09:00 Al Hydrox/Mg Hydrox/Simethicone (Mag-Al Plus) 30 ml Q6H PRN PO GASTROINTESTINAL UPSET; Start 06/02/17 at 03:30 Nitroglycerin (Nitroglycerin (Sl Tab) 0.4 Mg) 1 tab Q5M PRN SL ANGINA; Start at 03:30 Acetaminophen/ Hydrocodone Bitart ([place] (5/325)) 1 tab Q6H PRN PO MODERATE PAIN LEVEL 4-6; Start 06/02/17 at 03:30 Pantoprazole (Protonix Tab) 40 mg DAILY@06 PO ; Start 06/02/17 at 06:00 Ascorbic Acid (Vitamin C) 500 mg DAILY PO ; Start 06/02/17 at 09:00 Ondansetron HCl 4 mg 4 mg Q6H PRN PO NAUSEA AND/OR VOMITING; Start 06/02/17 at 04:00 Dextrose (D5W) 1,000 ml @ 50 mls/hr Q20H IV Last administered on 06/02/17t 10: 36; Admin Dose 50 MLS/HR; Start 06/02/17 at 09:30 Collagenase (Santyl) 1 applic DAILY TOP ; Start 06/03/17 at 09:00 SHADI WHEELER MD Jun 02, 2017 16:34
[2017-06-02] MEDS: CEFEPIME 1GM/50 ML (PMX) 50 ML IVPB SCH (18:05)
[2017-06-02 18:21] LABS: RETICULOCYTE COUNT % 1.8 % (0.5-1.5)
[2017-06-02 18:31] LABS: IRON 26 ug/dl (35-150)
[2017-06-02 18:32] LABS: URIC ACID 10.7 mg/dl (3.1-7.9)
--- NOTE | 2017-06-02 18:37 | CONS ---
Date/Time of Note Date/Time of Note DATE: 06/02/17 TIME: 18:29 Assessment/Plan Assessment/Plan Chief Complaint/Hosp Course Assessment 1. Hypoxemic respiratory failure likely secondary to congestive cardiac failure or possibly secondary to underlying lymphoma 2. Significant anemia unclear whether this is a GI bleed or a consumptive process. 3. Encephalopathy questionable toxic metabolic. 4. Incomplete data. Plan 1. Echocardiogram and diuresis 2. Hematology oncology recommendations for lymphoma management and workup of anemia 3. DVT and GI prophylaxis per primary team 4. Aspiration precautions I had an extensive discussion with family at bedside. They wish to continue on extensive measures including intubation and mechanical ventilation and CPR if necessary Problems: Consultation Date/Type/Reason Admit Date/Time Jun 01, 2017 at 22:01 Date of Consultation: Jun 02, 2017 Type of Consultation: Pulmonary Reason for Consultation Respiratory distress Hx of Present Illness 83-year-old gentleman with recently diagnosed lymphoma at [facility] presented to [facility] with increasing weakness lethargy and hypoxemia. Patient was set to start chemotherapy however this was not done. He presents here with significant shortness of breath orthopnea PND requiring initiation of noninvasive positive pressure ventilation. 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 Following admission patient was placed on Bumex drip and this afternoon has improvement in his oxygenation now on nasal cannula oxygen. Patient is awake alert appears somewhat confused. Currently unable to perform. Past Medical History Lymphoma affecting lungs and stomach Hypoxemic respiratory failure Social History Smoking Status: Unknown if ever smoked Exam/Review of Systems Vital Signs Vitals Vital Signs Date Time Temp Pulse Resp B/P Pulse Ox O2 Delivery O2 Flow Rate FiO2 06/02/17 17:01 97 06/02/17 16:42 98 40 06/02/17 15:45 6.0 06/02/17 15:06 98.4 19 118/60 06/01/17 23:18 BIPAP Intake and Output 06/01/17 06/01/17 06/02/17 14:59 22:59 06:59 Intake Total 0 ml Balance 0 ml Exam GENERAL: Elderly appearing gentleman appears comfortable at rest no acute distress no accessory muscle use VITAL SIGNS: per chart NECK: Supple. No JVD or lymphadenopathy. CARDIAC EXAM: S1, S2. No added sounds or murmurs. CHEST: Diminished air entry both lung hong. ABDOMEN: Soft, nontender. No guarding or rebound. EXTREMITIES: No cyanosis, clubbing or edema. NEUROLOGIC: Generalized weakness. Results Result Diagram: 06/02/17 0546 06/02/17 0546 Results 24 hrs Laboratory Tests Test 06/01/17 20:10 06/01/17 20:20 06/01/17 21:43 06/01/17 22:32 Blood Gas Specimen Source Blood arterial Blood arterial Arterial Blood Date Drawn 06/01/2017 8:10:12 PM 06/01/2017 9:53:31 PM Arterial Blood pH (Temp corrected) 7.378 7.257 *L Arterial Blood pCO2 (Temp correct) 56.8 H 77.3 H Arterial Blood pO2 (Temp corrected) 43.7 *L 352.9 H Arterial Blood HCO3 32.7 H 33.7 H Arterial Blood Base Excess 6.6 H 5.5 H Arterial Blood Oxygen Saturation 79.8 L 99.7 Bakari Test ACCEPTAB ACCEPTAB Arterial Blood Gas Puncture Site Right Radial Right Radial Arterial Blood Carboxyhemoglobin 0.5 0.7 Arterial Blood Methemoglobin 0.9 1.0 Blood Gas A-a O2 Differential 125.3 H 282.8 H Oxyhemoglobin Percent 78.7 L 98.0 Total Hemoglobin 8.0 L 8.0 L Blood Gas Temperature 37.0 37.0 Blood Gas Modality NASAL CANNULA MASK - BIPAP FiO2 33.0 100.0 Blood Gas Critical Value Read Back Reymundo QUIÑONEZ MD, K MD Blood Gas Notified Whom OCTAVIO ALAS Blood Gas Notified Time 06/01/2017 8:34:08 PM 06/01/2017 10:07:40 PM White Blood Count 11.0 H Red Blood Count 2.83 L Hemoglobin 7.2 L Hematocrit 25.0 L Mean Corpuscular Volume 88.3 Mean Corpuscular Hemoglobin 25.4 L Mean Corpuscular Hemoglobin Concent 28.8 L Red Cell Distribution Width 21.0 H Platelet Count 152 Mean Platelet Volume 10.5 H Neutrophils % 75.5 Lymphocytes % 13.6 L Monocytes % 9.6 Eosinophils % 0.2 Basophils % 0.1 Neutrophils # 8.3 H Lymphocytes # 1.5 Monocytes # 1.1 H Eosinophils # 0.0 Basophils # 0.0 Nucleated Red Blood Cells # 0.0 Prothrombin Time 14.8 H Prothrombin Time Ratio 1.2 INR International Normalized Ratio 1.16 Activated Partial Thromboplast Time 33.2 Sodium Level 150 H Potassium Level 4.7 Chloride Level 103 Carbon Dioxide Level 36 H Anion Gap 16 Blood Urea Nitrogen 35 H Creatinine 1.29 H Glucose Level 135 Lactic Acid Level 2.4 *H 1.7 Calcium Level 9.7 Total Bilirubin 0.3 Direct Bilirubin 0.00 Indirect Bilirubin 0.3 Aspartate Amino Transf (AST/SGOT) 28 Alanine Aminotransferase (ALT/SGPT) 33 Alkaline Phosphatase 60 Troponin I 0.028 Total Protein 7.0 Albumin 2.8 L Globulin 4.20 H Albumin/Globulin Ratio 0.66 Blood Gas Respiration Rate 20.0 Blood Gas Actual Respiration Rate 22 Blood Gas Inspiratory Time 1.0 Blood Gas IPAP/EPAP Ratio 18/6 Urine Color YELLOW Urine Clarity CLEAR Urine pH 5.0 Urine Specific [place] 1.012 Urine Ketones NEGATIVE Urine Nitrite NEGATIVE Urine Bilirubin NEGATIVE Urine Urobilinogen NEGATIVE Urine Leukocyte Esterase NEGATIVE Urine Microscopic RBC 1 Urine Microscopic WBC 0 Urine Bacteria FEW A Urine Hemoglobin NEGATIVE Urine Glucose NEGATIVE Urine Total Protein 1+ H B-Type Natriuretic Peptide 6520 H Test 06/01/17 22:40 06/02/17 02:26 06/02/17 05:46 06/02/17 07:00 Blood Gas Specimen Source Blood arterial Blood arterial Arterial Blood Date Drawn 06/01/2017 10:40:00 PM 06/02/2017 7:30:23 AM Arterial Blood pH (Temp corrected) 7.320 L 7.411 Arterial Blood pCO2 (Temp correct) 63.9 H 55.3 H Arterial Blood pO2 (Temp corrected) 61.6 L 89.8 Arterial Blood HCO3 32.2 H 34.3 H Arterial Blood Base Excess 5.2 H 8.8 H Arterial Blood Oxygen Saturation 90.2 L 97.1 Bakari Test ACCEPTAB ACCEPTAB Arterial Blood Gas Puncture Site Right Radial Right Radial Arterial Blood Carboxyhemoglobin 0.5 1.4 Arterial Blood Methemoglobin 0.9 0.7 Blood Gas A-a O2 Differential 150.1 H 131.8 H Oxyhemoglobin Percent 88.9 L 95.1 Total Hemoglobin 7.9 L 7.2 L Blood Gas Temperature 37.0 37.0 Blood Gas Respiration Rate 24.0 24.0 Blood Gas Actual Respiration Rate 26 27 Blood Gas Modality MASK - BIPAP MASK - BIPAP FiO2 40.0 40.0 Blood Gas Inspiratory Time 0.7 Blood Gas IPAP/EPAP Ratio 205 20 Blood Gas Notified Whom AA JLD Blood Gas Notified Time 06/01/2017 10:52:57 PM 06/02/2017 8:03:25 AM Lactic Acid Level 1.6 White Blood Count 7.7 # Red Blood Count 2.56 L Hemoglobin 6.5 *L Hematocrit 22.4 L Mean Corpuscular Volume 87.5 Mean Corpuscular Hemoglobin 25.4 L Mean Corpuscular Hemoglobin Concent 29.0 L Red Cell Distribution Width 21.0 H Platelet Count 145 Mean Platelet Volume 11.0 H Neutrophils % 78.0 H Lymphocytes % 11.3 L Monocytes % 9.5 Eosinophils % 0.3 Basophils % 0.1 Neutrophils # 6.0 Lymphocytes # 0.9 Monocytes # 0.7 Eosinophils # 0.0 Basophils # 0.0 Nucleated Red Blood Cells # 0.0 Sodium Level 150 H Potassium Level 4.0 Chloride Level 102 Carbon Dioxide Level 37 H Anion Gap 15 Blood Urea Nitrogen 36 H Creatinine 1.13 Glucose Level 110 Calcium Level 9.6 Phosphorus Level 3.6 Magnesium Level 2.2 Iron Level 27 L Total Iron Binding Capacity 190 L Percent Iron Saturation 14 L Ferritin 1350.0 H Troponin I 0.032 Test 06/02/17 12:41 06/02/17 17:40 Troponin I 0.019 Absolute Reticulocyte Count 0.058 Percent Reticulocyte Count 1.8 H Medications Medications Current Medications Heparin Sodium (Porcine) (Heparin (5000 Units/0.5 ml)) 5,000 unit BID SC Last administered on 06/02/17t 10:42; Admin Dose 5,000 UNIT; Start 06/02/17 at 09:00 Acetaminophen/ Aspirin/Caffeine (Excedrin) 2 tab Q4 PRN PO ELEVATED TEMPERATURE ; Start 06/02/17 at 03:30 Aspirin (Aspirin) 81 mg DAILY PO ; Start 06/02/17 at 09:00 Docusate Sodium (Colace) 250 mg BID PO ; Start 06/02/17 at 09:00 Multivitamins/ Minerals (Theragran-M) 1 tab DAILY PO ; Start 06/02/17 at 09:00 Al Hydrox/Mg Hydrox/Simethicone (Mag-Al Plus) 30 ml Q6H PRN PO GASTROINTESTINAL UPSET; Start 06/02/17 at 03:30 Nitroglycerin (Nitroglycerin (Sl Tab) 0.4 Mg) 1 tab Q5M PRN SL ANGINA; Start at 03:30 Acetaminophen/ Hydrocodone Bitart ([place] (5/325)) 1 tab Q6H PRN PO MODERATE PAIN LEVEL 4-6; Start 06/02/17 at 03:30 Pantoprazole (Protonix Tab) 40 mg DAILY@06 PO ; Start 06/02/17 at 06:00 Ascorbic Acid (Vitamin C) 500 mg DAILY PO ; Start 06/02/17 at 09:00 Ondansetron HCl 4 mg 4 mg Q6H PRN PO NAUSEA AND/OR VOMITING; Start 06/02/17 at 04:00 Dextrose (D5W) 1,000 ml @ 50 mls/hr Q20H IV Last administered on 06/02/17 10: 36; Admin Dose 50 MLS/HR; Start 06/02/17 at 09:30 Collagenase 1 applic 1 applic DAILY TOP ; Start 06/03/17 at 09:00 Cefepime HCl (Maxipime 1gm/50 ml (Pmx)) 50 ml @ 100 mls/hr Q12 IVPB Last administered on 06/02/17 18:05; Admin Dose 100 MLS/HR; Start 06/02/17 at 17:00 HIRO RIVERA MD, [facility] Jun 02, 2017 18:37
[2017-06-02 18:40] LABS: TOTAL IRON BINDING CAPACITY 197 ug/dl (241-421)
[2017-06-02 19:39] LABS: FOLATE 2.3 ng/ml (2.8-20.0)
[2017-06-02 22:06] LABS: THYROID STIMULATING HORMONE 2.84 MIU/L (0.465-4.680)
[2017-06-03] VITALS (27 sets, daily range): BP systolic 100–131; BP diastolic 60–78; PULSE 85–105; RESP 16–29
[2017-06-03] MEDS: CEFEPIME 1GM/50 ML (PMX) 50 ML IVPB SCH ×3 (01:00→21:08)
[2017-06-03 03:40] LABS: PROTEIN, TOTAL 6.3 g/dL (6.1-8.1)
[2017-06-03] MEDS: DEXTROSE 5% 1,000 ML IV SCH ×2 (05:30→19:00)
[2017-06-03] MEDS: PANTOPRAZOLE (EC) 40 MG TAB PO SCH (06:00)
[2017-06-03 07:40] LABS: BASOPHILS % 0.2 % (0.0-2.0); EOSINOPHILS % 0.3 % (0.0-7.0); HEMOGLOBIN 8.8 g/dl (14.0-18.0); MEAN CORPUSCULAR HGB CONC 30.3 g/dl (32.0-37.0); MEAN CORPUSCULAR VOLUME 85.8 fl (82.0-101.0); MEAN PLATELET VOLUME 10.9 fl (7.4-10.4); MONOCYTE # 0.8 10^3/ul (0.3-0.9); MONOCYTES % 8.2 % (0.0-11.0); NEUTROPHIL # 7.7 10^3/ul (1.6-7.5); NEUTROPHILS % 80.6 % (39.0-77.0); PLATELET COUNT 158 10^3/UL (140-415); RED BLOOD COUNT 3.38 10^6/ul (4.70-6.10); RED CELL DISTRIBUTION WIDTH 20.1 % (11.5-14.5); WHITE BLOOD COUNT 9.5 10^3/ul (4.8-10.8)
[2017-06-03 07:49] LABS: CALCIUM 9.4 mg/dl (8.4-10.2); CREATININE 1.12 mg/dl (0.61-1.24); PHOSPHORUS 2.8 mg/dl (2.5-4.9); POTASSIUM 3.6 mmol/L (3.5-5.1)
[2017-06-03] MEDS: ASPIRIN 81 MG TAB PO SCH (09:00)
[2017-06-03] MEDS: DOCUSATE SODIUM 250 MG CAP PO SCH ×2 (09:00→21:00)
[2017-06-03] MEDS: MULTIVITAMINS/MINERALS TAB PO SCH (09:00)
[2017-06-03] MEDS: ASCORBIC ACID 500 MG TAB PO SCH (09:00)
[2017-06-03] MEDS: COLLAGENASE 30 GM TUBE TOP SCH (09:03)
[2017-06-03] MEDS: HEPARIN 5,000 UNIT/0.5 ML VIAL SC SCH ×2 (09:05→21:08)
--- NOTE | 2017-06-03 09:29 | PN ---
Date/Time of Note Date/Time of Note DATE: 06/03/17 TIME: :22 Assessment/Plan VTE Prophylaxis VTE Prophylaxis Intervention: other Lines/Catheters [facility] Saline Lock Urinary Cath still in place: Yes Reason Cath still needed: urinary retention Assessment/Plan Chief Complaint/Hosp Course 1. Acute hypoxemic respiratory failure. Etiology is likely multifactorial secondary to lymphoma, pulmonary with possible lymphangitic spread, congestive heart failure exacerbation. Patient currently on BiPAP no significant change Patient may require emergent chemotherapy We will give additional dose of Lasix Monitor closely patient may require intubation Follow-up with pulmonary 2. Volume overload. Etiology may be multifactorial secondary to lymphoma and questionable congestive heart failure. Continue intermittent diuretic therapy Follow-up with cardiology Monitor I's and O's closely 3. Newly diagnosed lymphoma, pulmonary and gastric Patient may require emergent chemotherapy Appreciate hematology evaluation Monitor closely 4. Hypernatremia Continue D5 water . 5. Anemia, Etiology likely from chronic disease No evidence of GI bleed Patient status post blood transfusion Follow-up with hematology 6. Acute encephalopathy, etiology is toxic metabolic. No significant change Continue to monitor 7. Gastrointestinal and deep venous thrombosis prophylaxis. Patient will be placed on Proton-pump inhibitors and heparin. Problems: Subjective 24 Hr Interval Summary Free Text/Dictation Patient remains critically on BiPAP Good urinary output overnight Patient may require emergent chemotherapy No other events noted Exam/Review of Systems Vital Signs Vitals Vital Signs Date Time Temp Pulse Resp B/P Pulse Ox O2 Delivery O2 Flow Rate FiO2 06/03/17 08:40 99 06/03/17 07:51 99.5 20 119/64 97 06/03/17 05:09 40 06/02/17 15:45 6.0 06/01/17 23:18 BIPAP Intake and Output 06/02/17 06/02/17 06/03/17 15:00 23:00 07:00 Intake Total 930 ml 550 ml Output Total 3000 ml 1000 ml Balance -2070 ml -450 ml Exam GENERAL APPEARANCE: The patient is tachypneic on BiPAP, in serious condition. HEENT: Head is normocephalic. Pupils are reactive to light. NECK: Neck is supple. HEART: Heart is tachycardic. LUNGS: Show diminished breath sounds a the bases. Positive rhonchi and rales. ABDOMEN: Soft, nontender to palpation. EXTREMITIES: No clubbing, cyanosis, positive edema. DERMATOLOGIC: No rashes. MUSCULOSKELETAL: No joint effusion. NEUROLOGICAL: Limited exam due to lack of patient cooperation. Results Result Diagram: 06/03/17 0708 06/03/17 0708 Results 24 hrs Laboratory Tests Test 06/02/17 12:41 06/02/17 17:35 06/02/17 17:40 06/03/17 07:08 Troponin I 0.019 0.020 Erythrocyte Sedimentation Rate 58 H Absolute Reticulocyte Count 0.058 Percent Reticulocyte Count 1.8 H Haptoglobin Pending Uric Acid 10.7 H Iron Level 26 L Total Iron Binding Capacity 197 L Percent Iron Saturation 13 L Ferritin 1280.0 H Lactate Dehydrogenase 948 H Total Protein (PEP) 6.3 Albumin (PEP) Pending [id number] Pending Hucjc-1-Njcpsxsrs Pending Beta Globulins Pending Gamma Globulins Pending Protein Electrophoresis Interpret Pending Free Prostate Specific Antigen Pending % Free Prostate Specific Ag Calc Pending Prostate Specific Antigen Total Pending Vitamin B12 Level 521 25-Hydroxy Vitamin D Total Pending 25-Hydroxy Vitamin D2 Pending 25-Hydroxy Vitamin D3 Pending Folate 2.3 L Thyroid Stimulating Hormone (TSH) 2.840 White Blood Count 9.5 # Red Blood Count 3.38 #L Hemoglobin 8.8 #L Hematocrit 29.0 #L Mean Corpuscular Volume 85.8 Mean Corpuscular Hemoglobin 26.0 L Mean Corpuscular Hemoglobin Concent 30.3 L Red Cell Distribution Width 20.1 H Platelet Count 158 Mean Platelet Volume 10.9 H Neutrophils % 80.6 H Lymphocytes % 10.0 L Monocytes % 8.2 Eosinophils % 0.3 Basophils % 0.2 Nucleated Red Blood Cells % 0.0 Neutrophils # 7.7 H Lymphocytes # 1.0 Monocytes # 0.8 Eosinophils # 0.0 Basophils # 0.0 Nucleated Red Blood Cells # 0.0 Sodium Level 149 H Potassium Level 3.6 Chloride Level 99 Carbon Dioxide Level 39 H Anion Gap 15 Blood Urea Nitrogen 38 H Creatinine 1.12 Glucose Level 116 Calcium Level 9.4 Phosphorus Level 2.8 Magnesium Level 2.0 Medications Medications Current Medications Heparin Sodium (Porcine) (Heparin (5000 Units/0.5 ml)) 5,000 unit BID SC Last administered on 06/03/17t 09:05; Admin Dose 5,000 UNIT; Start 06/02/17 at 09:00 Acetaminophen/ Aspirin/Caffeine (Excedrin) 2 tab Q4 PRN PO ELEVATED TEMPERATURE ; Start 06/02/17 at 03:30 Aspirin (Aspirin) 81 mg DAILY PO ; Start 06/02/17 at 09:00 Docusate Sodium (Colace) 250 mg BID PO ; Start 06/02/17 at 09:00 Multivitamins/ Minerals (Theragran-M) 1 tab DAILY PO ; Start 06/02/17 at 09:00 Al Hydrox/Mg Hydrox/Simethicone (Mag-Al Plus) 30 ml Q6H PRN PO GASTROINTESTINAL UPSET; Start 06/02/17 at 03:30 Nitroglycerin (Nitroglycerin (Sl Tab) 0.4 Mg) 1 tab Q5M PRN SL ANGINA; Start at 03:30 Acetaminophen/ Hydrocodone Bitart ([place] (5/325)) 1 tab Q6H PRN PO MODERATE PAIN LEVEL 4-6; Start 06/02/17 at 03:30 Pantoprazole (Protonix Tab) 40 mg DAILY@06 PO ; Start 06/02/17 at 06:00 Ascorbic Acid (Vitamin C) 500 mg DAILY PO ; Start 06/02/17 at 09:00 Ondansetron HCl 4 mg 4 mg Q6H PRN PO NAUSEA AND/OR VOMITING; Start 06/02/17 at 04:00 Dextrose (D5W) 1,000 ml @ 50 mls/hr Q20H IV Last administered on 06/02/17 10: 36; Admin Dose 50 MLS/HR; Start 06/02/17 at 09:30 Collagenase 1 applic 1 applic DAILY TOP Last administered on 06/03/17 09:03; Admin Dose 1 APPLIC; Start 06/03/17 at 09:00 Cefepime HCl (Maxipime 1gm/50 ml (Pmx)) 50 ml @ 100 mls/hr Q12 IVPB Last administered on 06/03/17 09:02; Admin Dose 100 MLS/HR; Start 06/02/17 at 17:00 ERASTO GONZALEZ DO Jun 03, 2017 09:29
[2017-06-03] MEDS ORDERED: FUROSEMIDE 40 MG INJ IV ONE (09:30)
--- NOTE | 2017-06-03 12:23 | CONS ---
Date/Time of Note Date/Time of Note DATE: 06/03/17 TIME: 12:19 Assessment/Plan Assessment/Plan Additional Assessment/Plan Assessment recommendations; next 1. Patient admitted with anemia 2. Bilateral pneumonia with lymphoma involvement of the lung. 3. Hypoxemic and hypercapnic respiratory failure. 4. Very poor mental status. Patient will need to be intubated. He will be transferred to ICU. Once the patient is in ICU I will reevaluate him shortly. Prognosis is very guarded. Code Status needs to be discussed with the family. Apparently the son wants everything done including intubation if required. Consultation Date/Type/Reason Admit Date/Time Jun 01, 2017 at 22:01 Initial Consult Date 06/02/17 Type of Consultation: Pulmonary Referring Provider: ERASTO GONZALEZ DO 24 HR Interval Summary Free Text/Dictation Patient condition remains unstable. Despite being on BiPAP the patient is unresponsive. General exam; elderly male, on BiPAP unresponsive. Exam/Review of Systems Vital Signs Vitals Vital Signs Date Time Temp Pulse Resp B/P Pulse Ox O2 Delivery O2 Flow Rate FiO2 06/03/17 11:55 98 98 40 06/03/17 11:25 99.0 20 125/70 06/02/17 15:45 6.0 06/01/17 23:18 BIPAP Intake and Output 06/02/17 06/02/17 06/03/17 15:00 23:00 07:00 Intake Total 930 ml 550 ml Output Total 3000 ml 1000 ml Balance -2070 ml -450 ml Exam HEENT exam; supple neck, no JVD. No lymphadenopathy. Midline trachea. No thyromegaly. On BiPAP. Chest exam; diminished breath sounds bilaterally with scattered crackles. S1- S2 audible, no murmurs. Regular rhythm. Abdomen exam; soft, no organomegaly. Bowel sounds are audible. Extremity exam; no peripheral edema. [employer] exam; patient remains essentially unresponsive. Results Result Diagram: 06/03/17 0708 06/03/17 0708 Results 24 hrs Laboratory Tests Test 06/02/17 12:41 06/02/17 17:35 06/02/17 17:40 06/03/17 07:08 Troponin I 0.019 0.020 Erythrocyte Sedimentation Rate 58 H Absolute Reticulocyte Count 0.058 Percent Reticulocyte Count 1.8 H Haptoglobin Pending Uric Acid 10.7 H Iron Level 26 L Total Iron Binding Capacity 197 L Percent Iron Saturation 13 L Ferritin 1280.0 H Lactate Dehydrogenase 948 H Total Protein (PEP) 6.3 Albumin (PEP) Pending [id number] Pending [id number] Pending Beta Globulins Pending Gamma Globulins Pending Protein Electrophoresis Interpret Pending Free Prostate Specific Antigen Pending % Free Prostate Specific Ag Calc Pending Prostate Specific Antigen Total Pending Vitamin B12 Level 521 25-Hydroxy Vitamin D Total Pending 25-Hydroxy Vitamin D2 Pending 25-Hydroxy Vitamin D3 Pending Folate 2.3 L Thyroid Stimulating Hormone (TSH) 2.840 White Blood Count 9.5 # Red Blood Count 3.38 #L Hemoglobin 8.8 #L Hematocrit 29.0 #L Mean Corpuscular Volume 85.8 Mean Corpuscular Hemoglobin 26.0 L Mean Corpuscular Hemoglobin Concent 30.3 L Red Cell Distribution Width 20.1 H Platelet Count 158 Mean Platelet Volume 10.9 H Neutrophils % 80.6 H Lymphocytes % 10.0 L Monocytes % 8.2 Eosinophils % 0.3 Basophils % 0.2 Nucleated Red Blood Cells % 0.0 Neutrophils # 7.7 H Lymphocytes # 1.0 Monocytes # 0.8 Eosinophils # 0.0 Basophils # 0.0 Nucleated Red Blood Cells # 0.0 Sodium Level 149 H Potassium Level 3.6 Chloride Level 99 Carbon Dioxide Level 39 H Anion Gap 15 Blood Urea Nitrogen 38 H Creatinine 1.12 Glucose Level 116 Calcium Level 9.4 Phosphorus Level 2.8 Magnesium Level 2.0 Medications Medications Current Medications Heparin Sodium (Porcine) (Heparin (5000 Units/0.5 ml)) 5,000 unit BID SC Last administered on 06/03/17t 09:05; Admin Dose 5,000 UNIT; Start 06/02/17 at 09:00 Acetaminophen/ Aspirin/Caffeine (Excedrin) 2 tab Q4 PRN PO ELEVATED TEMPERATURE ; Start 06/02/17 at 03:30 Aspirin (Aspirin) 81 mg DAILY PO ; Start 06/02/17 at 09:00 Docusate Sodium (Colace) 250 mg BID PO ; Start 06/02/17 at 09:00 Multivitamins/ Minerals (Theragran-M) 1 tab DAILY PO ; Start 06/02/17 at 09:00 Al Hydrox/Mg Hydrox/Simethicone (Mag-Al Plus) 30 ml Q6H PRN PO GASTROINTESTINAL UPSET; Start 06/02/17 at 03:30 Nitroglycerin (Nitroglycerin (Sl Tab) 0.4 Mg) 1 tab Q5M PRN SL ANGINA; Start at 03:30 Acetaminophen/ Hydrocodone Bitart ([place] (5/325)) 1 tab Q6H PRN PO MODERATE PAIN LEVEL 4-6; Start 06/02/17 at 03:30 Pantoprazole (Protonix Tab) 40 mg DAILY@06 PO ; Start 06/02/17 at 06:00 Ascorbic Acid (Vitamin C) 500 mg DAILY PO ; Start 06/02/17 at 09:00 Ondansetron HCl 4 mg 4 mg Q6H PRN PO NAUSEA AND/OR VOMITING; Start 06/02/17 at 04:00 Dextrose (D5W) 1,000 ml @ 50 mls/hr Q20H IV Last administered on 06/02/17 10: 36; Admin Dose 50 MLS/HR; Start 06/02/17 at 09:30 Collagenase 1 applic 1 applic DAILY TOP Last administered on 06/03/17 09:03; Admin Dose 1 APPLIC; Start 06/03/17 at 09:00 Cefepime HCl (Maxipime 1gm/50 ml (Pmx)) 50 ml @ 100 mls/hr Q12 IVPB Last administered on 06/03/17 09:02; Admin Dose 100 MLS/HR; Start 06/02/17 at 17:00 CARMENCITA JAMESON Jun 03, 2017 12:23
--- NOTE | 2017-06-03 14:32 | CONS ---
Date/Time of Note Date/Time of Note DATE: 06/03/17 TIME: 14:31 Assessment/Plan Assessment/Plan Chief Complaint/Hosp Course Patient is lethargic, on BiPAP, noncommunicative Temperature 99 pulse 104 respirations 20 blood pressure 125/70 saturation 98 on 40 FiO2 WBC 9.5 H&H 8.8 and 29 platelets 158 neutrophils 80.6 BN 38 creatinine 1.12 Microbiology: Blood cultures negative Chest x-ray yesterday revealed persistent patchy ill-defined opacity in the right lung which may be infectious in etiology Antibiotics: Cefepime Physical examination: Well-developed elderly man who is lethargic in no distress. Head atraumatic normocephalic, sclera nonicteric. Neck is supple. Chest rise symmetrical, breath sounds with bilateral scattered rhonchi. Heart: S1, S2, tachycardic. Abdomen soft, bowel tones hypoactive. Extremities without cyanosis. Assessment: 1. Sepsis 2. Acute respiratory failure 2. Bilateral pneumonia 3. Acute encephalopathy 4. Newly diagnosed lymphoma Plan: Continue present care, antibiotics, pulmonary recommendations, may need to be intubated, will try to obtain sputum cultures, follow oncology recommendations Problems: Consultation Date/Type/Reason Admit Date/Time Jun 01, 2017 at 22:01 Initial Consult Date 06/02/17 Type of Consultation: id Referring Provider: ERASTO GONZALEZ DO Exam/Review of Systems Vital Signs Vitals Vital Signs Date Time Temp Pulse Resp B/P Pulse Ox O2 Delivery O2 Flow Rate FiO2 06/03/17 12:42 105 06/03/17 11:55 98 40 06/03/17 11:25 99.0 20 125/70 06/02/17 15:45 6.0 06/01/17 23:18 BIPAP Intake and Output 06/02/17 06/02/17 06/03/17 15:00 23:00 07:00 Intake Total 930 ml 550 ml Output Total 3000 ml 1000 ml Balance -2070 ml -450 ml Results Result Diagram: 06/03/17 0708 06/03/17 0708 Results 24 hrs Laboratory Tests Test 06/02/17 17:35 06/02/17 17:40 06/03/17 05:30 06/03/17 07:08 Erythrocyte Sedimentation Rate 58 H Absolute Reticulocyte Count 0.058 Percent Reticulocyte Count 1.8 H Haptoglobin Pending Uric Acid 10.7 H Iron Level 26 L Total Iron Binding Capacity 197 L Percent Iron Saturation 13 L Ferritin 1280.0 H Lactate Dehydrogenase 948 H Troponin I 0.020 Total Protein (PEP) 6.3 Albumin (PEP) Pending [id number] Pending [id number] Pending Beta Globulins Pending Gamma Globulins Pending Protein Electrophoresis Interpret Pending Free Prostate Specific Antigen Pending % Free Prostate Specific Ag Calc Pending Prostate Specific Antigen Total Pending Vitamin B12 Level 521 25-Hydroxy Vitamin D Total Pending 25-Hydroxy Vitamin D2 Pending 25-Hydroxy Vitamin D3 Pending Folate 2.3 L Thyroid Stimulating Hormone (TSH) 2.840 Stool Occult Blood POSITIVE White Blood Count 9.5 # Red Blood Count 3.38 #L Hemoglobin 8.8 #L Hematocrit 29.0 #L Mean Corpuscular Volume 85.8 Mean Corpuscular Hemoglobin 26.0 L Mean Corpuscular Hemoglobin Concent 30.3 L Red Cell Distribution Width 20.1 H Platelet Count 158 Mean Platelet Volume 10.9 H Neutrophils % 80.6 H Lymphocytes % 10.0 L Monocytes % 8.2 Eosinophils % 0.3 Basophils % 0.2 Nucleated Red Blood Cells % 0.0 Neutrophils # 7.7 H Lymphocytes # 1.0 Monocytes # 0.8 Eosinophils # 0.0 Basophils # 0.0 Nucleated Red Blood Cells # 0.0 Sodium Level 149 H Potassium Level 3.6 Chloride Level 99 Carbon Dioxide Level 39 H Anion Gap 15 Blood Urea Nitrogen 38 H Creatinine 1.12 Glucose Level 116 Calcium Level 9.4 Phosphorus Level 2.8 Magnesium Level 2.0 Medications Medications Current Medications Heparin Sodium (Porcine) (Heparin (5000 Units/0.5 ml)) 5,000 unit BID SC Last administered on 06/03/17t 09:05; Admin Dose 5,000 UNIT; Start 06/02/17 at 09:00 Acetaminophen/ Aspirin/Caffeine (Excedrin) 2 tab Q4 PRN PO ELEVATED TEMPERATURE ; Start 06/02/17 at 03:30 Aspirin (Aspirin) 81 mg DAILY PO ; Start 06/02/17 at 09:00 Docusate Sodium (Colace) 250 mg BID PO ; Start 06/02/17 at 09:00 Multivitamins/ Minerals (Theragran-M) 1 tab DAILY PO ; Start 06/02/17 at 09:00 Al Hydrox/Mg Hydrox/Simethicone (Mag-Al Plus) 30 ml Q6H PRN PO GASTROINTESTINAL UPSET; Start 06/02/17 at 03:30 Nitroglycerin (Nitroglycerin (Sl Tab) 0.4 Mg) 1 tab Q5M PRN SL ANGINA; Start at 03:30 Acetaminophen/ Hydrocodone Bitart ([place] (5/325)) 1 tab Q6H PRN PO MODERATE PAIN LEVEL 4-6; Start 06/02/17 at 03:30 Pantoprazole (Protonix Tab) 40 mg DAILY@06 PO ; Start 06/02/17 at 06:00 Ascorbic Acid (Vitamin C) 500 mg DAILY PO ; Start 06/02/17 at 09:00 Ondansetron HCl 4 mg 4 mg Q6H PRN PO NAUSEA AND/OR VOMITING; Start 06/02/17 at 04:00 Dextrose (D5W) 1,000 ml @ 50 mls/hr Q20H IV Last administered on 06/02/17 10: 36; Admin Dose 50 MLS/HR; Start 06/02/17 at 09:30 Collagenase 1 applic 1 applic DAILY TOP Last administered on 06/03/17 09:03; Admin Dose 1 APPLIC; Start 06/03/17 at 09:00 Cefepime HCl (Maxipime 1gm/50 ml (Pmx)) 50 ml @ 100 mls/hr Q12 IVPB Last administered on 06/03/17 09:02; Admin Dose 100 MLS/HR; Start 06/02/17 at 17:00 JORDY KNOTT NP Jun 03, 2017 14:32
--- NOTE | 2017-06-03 16:20 | PN ---
Date/Time of Note Date/Time of Note DATE: 06/03/17 TIME: 16:15 Assessment/Plan VTE Prophylaxis VTE Prophylaxis Intervention: other Lines/Catheters IV [facility] Saline Lock Urinary Cath still in place: Yes Reason Cath still needed: other (indicate) Assessment/Plan Chief Complaint/Hosp Course 1. Acute hypoxemic respiratory failure. on BIPAP now and may need to be intubated if does not improve on BIPAP. Monitor closely patient may require intubation Follow-up with pulmonary normal EF on ECHO 2. Volume overload. S/P diuresis Monitor I's and O's closely 3. Newly diagnosed lymphoma, pulmonary and gastric Patient may require emergent chemotherapy f/u with hematology evaluation Monitor closely 4. Hypernatremia D5 water per renal . 5. Anemia, Etiology likely from chronic disease f/u with hem/onc 6. Acute encephalopathy, etiology is toxic metabolic. No significant change Continue to monitor \ 7. Small pericardial effusion: will monitor. Problems: Subjective 24 Hr Interval Summary Free Text/Dictation d/w staff and rhythm was reviewed. pt remains in sinus rhythm pt with increasing sob and hypoexemia and had to be placed on BIPAP and transferred to ICU. Pt remains nonverbal OBJECTIVE General: in resp distress. on BIPAP HEENT: pupils are equal. round. NECK: NO JVD. no stridor. CV: RRR. systolic murmur; no gallop or rubs. PULM: + diffuse rhonchi. GI: SOFT, NT, ND, no rebound or guarding Extremity: trace B/L LE edema. no clubbing. neuro: lethargic. Psych: calm rectal: deferred : normal male echo 06/02/17: 1. Hyperdynamic left ventricular systolic function. Normal left ventricular cavity size. Moderate concentric left ventricular hypertrophy. Ejection fraction is visually estimated at 65 %. Abnormal Diastolic Function. 2. Mitral valve leaflets appear mildly thickened. Mild mitral annular calcification. Trace mitral regurgitation. 3. Aortic sclerosis without stenosis. Trace aortic valve regurgitation. 4. Normal appearance of the tricuspid valve. Estimated peak PA systolic pressure 33 mmHg. There is mild tricuspid regurgitation. 5. Small pericardial effusion. 6. Normal size and normal respiratory collapse consistent with normal right atrial pressure. Exam/Review of Systems Vital Signs Vitals Vital Signs Date Time Temp Pulse Resp B/P Pulse Ox O2 Delivery O2 Flow Rate FiO2 06/03/17 12:42 105 06/03/17 11:55 98 40 06/03/17 11:25 99.0 20 125/70 06/02/17 15:45 6.0 06/01/17 23:18 BIPAP Intake and Output 06/02/17 06/02/17 06/03/17 15:00 23:00 07:00 Intake Total 930 ml 550 ml Output Total 3000 ml 1000 ml Balance -2070 ml -450 ml Results Result Diagram: 06/03/17 0708 06/03/17 0708 Results 24 hrs Laboratory Tests Test 06/02/17 17:35 06/02/17 17:40 06/03/17 05:30 06/03/17 07:08 Erythrocyte Sedimentation Rate 58 H Absolute Reticulocyte Count 0.058 Percent Reticulocyte Count 1.8 H Haptoglobin Pending Uric Acid 10.7 H Iron Level 26 L Total Iron Binding Capacity 197 L Percent Iron Saturation 13 L Ferritin 1280.0 H Lactate Dehydrogenase 948 H Troponin I 0.020 Total Protein (PEP) 6.3 Albumin (PEP) Pending [id number] Pending [id number]-[id number] Pending Beta Globulins Pending Gamma Globulins Pending Protein Electrophoresis Interpret Pending Free Prostate Specific Antigen Pending % Free Prostate Specific Ag Calc Pending Prostate Specific Antigen Total Pending Vitamin B12 Level 521 25-Hydroxy Vitamin D Total Pending 25-Hydroxy Vitamin D2 Pending 25-Hydroxy Vitamin D3 Pending Folate 2.3 L Thyroid Stimulating Hormone (TSH) 2.840 Stool Occult Blood POSITIVE White Blood Count 9.5 # Red Blood Count 3.38 #L Hemoglobin 8.8 #L Hematocrit 29.0 #L Mean Corpuscular Volume 85.8 Mean Corpuscular Hemoglobin 26.0 L Mean Corpuscular Hemoglobin Concent 30.3 L Red Cell Distribution Width 20.1 H Platelet Count 158 Mean Platelet Volume 10.9 H Neutrophils % 80.6 H Lymphocytes % 10.0 L Monocytes % 8.2 Eosinophils % 0.3 Basophils % 0.2 Nucleated Red Blood Cells % 0.0 Neutrophils # 7.7 H Lymphocytes # 1.0 Monocytes # 0.8 Eosinophils # 0.0 Basophils # 0.0 Nucleated Red Blood Cells # 0.0 Sodium Level 149 H Potassium Level 3.6 Chloride Level 99 Carbon Dioxide Level 39 H Anion Gap 15 Blood Urea Nitrogen 38 H Creatinine 1.12 Glucose Level 116 Calcium Level 9.4 Phosphorus Level 2.8 Magnesium Level 2.0 Medications Medications Current Medications Heparin Sodium (Porcine) (Heparin (5000 Units/0.5 ml)) 5,000 unit BID SC Last administered on 06/03/17 09:05; Admin Dose 5,000 UNIT; Start 06/02/17 at 09:00 Acetaminophen/ Aspirin/Caffeine (Excedrin) 2 tab Q4 PRN PO ELEVATED TEMPERATURE ; Start 06/02/17 at 03:30 Aspirin (Aspirin) 81 mg DAILY PO ; Start 06/02/17 at 09:00 Docusate Sodium (Colace) 250 mg BID PO ; Start 06/02/17 at 09:00 Multivitamins/ Minerals (Theragran-M) 1 tab DAILY PO ; Start 06/02/17 at 09:00 Al Hydrox/Mg Hydrox/Simethicone (Mag-Al Plus) 30 ml Q6H PRN PO GASTROINTESTINAL UPSET; Start 06/02/17 at 03:30 Nitroglycerin (Nitroglycerin (Sl Tab) 0.4 Mg) 1 tab Q5M PRN SL ANGINA; Start at 03:30 Acetaminophen/ Hydrocodone Bitart ([place] (5/325)) 1 tab Q6H PRN PO MODERATE PAIN LEVEL 4-6; Start 06/02/17 at 03:30 Pantoprazole (Protonix Tab) 40 mg DAILY@06 PO ; Start 06/02/17 at 06:00 Ascorbic Acid (Vitamin C) 500 mg DAILY PO ; Start 06/02/17 at 09:00 Ondansetron HCl 4 mg 4 mg Q6H PRN PO NAUSEA AND/OR VOMITING; Start 06/02/17 at 04:00 Dextrose (D5W) 1,000 ml @ 50 mls/hr Q20H IV Last administered on 06/02/17 10: 36; Admin Dose 50 MLS/HR; Start 06/02/17 at 09:30 Collagenase 1 applic 1 applic DAILY TOP Last administered on 06/03/17 09:03; Admin Dose 1 APPLIC; Start 06/03/17 at 09:00 Cefepime HCl (Maxipime 1gm/50 ml (Pmx)) 50 ml @ 100 mls/hr Q12 IVPB Last administered on 06/03/17 09:02; Admin Dose 100 MLS/HR; Start 06/02/17 at 17:00 DASIA GREEN MD Jun 03, 2017 16:20
[2017-06-03 16:31] LABS: AADO2 Arterial 129.8 mmHg (7.0-24.0); Allen Test ACCEPTAB; Arterial Base Excess 14.1 mmol/L (-3.0-3); Arterial COHb 0.8 % (0.0-3.0); Arterial Fraction of Oxyhgb 94.9 % (93.0-99.0); Arterial HCO3 40.6 mmol/L (22.0-26.0); Arterial MetHb 0.6 % (0.0-1.5); Arterial Total Hemglobin 9.8 g/dl (12.0-18.0); Blood Gas IEPAP 20/5; Blood Gas PS 15; MODE MASK - BIPAP
[2017-06-03 18:08] LABS: ALBUMIN 2.3 g/dL (3.8-4.8)
--- NOTE | 2017-06-03 18:42 | RADRPT ---
PROCEDURE: XR Chest. CLINICAL INDICATION: Shortness of breath. TECHNIQUE: Single frontal view. COMPARISON: 06/02/2017. FINDINGS: There are low lung volumes and persistent elevation of left hemidiaphragm. The cardiac silhouette remains enlarged. Interstitial pulmonary edema is unchanged. Patchy ill-defined opacities in the right lung persist. No pneumothorax or significant pleural effusion is seen. There are degenerative changes of the visualized spine. IMPRESSION: 1. No change from 06/02/2017. RPTAT: QQ .Timoteo Palumbo MD, MD Date Time Electronically viewed and signed by .Timoteo Palumbo MD, MD on 06/03/2017 18:41 .R/
--- NOTE | 2017-06-03 21:45 | CONS ---
Date/Time of Note Date/Time of Note DATE: 06/03/17 TIME: 21:44 Assessment/Plan Assessment/Plan Chief Complaint/Hosp Course Newly diagnosed lymphoma, pulmonary and gastric. The patient has not yet started chemotherapy. 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 COMPLETE ANEMIA W-UP Acute hypoxemic respiratory failure. Etiology is likely multifactorial secondary to lymphoma, pulmonary with possible lymphangitic spread, congestive heart failure exacerbation. The patient currently is on BiPAP, receiving Bumex drip. pulmonary F-UP cardiology F-UP PER NIECE- agrees with intubation if necessary. Volume overload. Etiology may be multifactorial secondary to lymphoma and questionable congestive heart failure. Patient's chest x-ray shows pulmonary congestion. The patient had a recent cardiac cath which was negative, per patient's niece. Plan is continue diuretic regimen, monitor I and Os closely. Hypernatremia. Patient will be placed on D5W. Will monitor closely. Acute encephalopathy, etiology is toxic metabolic. We will continue to monitor. Gastrointestinal and deep venous thrombosis prophylaxis. Patient will be placed on Proton-pump inhibitors and heparin. ( IF NO EVIDENCE OF BLEEDING) Problems: Consultation Date/Type/Reason Admit Date/Time Jun 01, 2017 at 22:01 Initial Consult Date 06/02/17 [facility] Referring Provider: ERASTO GONZALEZ DO 24 HR Interval Summary Free Text/Dictation all noted Patient remains critically on BiPAP Good urinary output overnight Patient may require emergent chemotherapy No other events noted RECORD - P Exam/Review of Systems Vital Signs Vitals Vital Signs Date Time Temp Pulse Resp B/P Pulse Ox O2 Delivery O2 Flow Rate FiO2 06/03/17 21:22 89 100 40 06/03/17 18:00 22 116/66 BIPAP 06/03/17 16:15 100.5 06/02/17 15:45 6.0 Intake and Output 7/21/17 7/21/17 7/22/17 15:00 23:00 07:00 Intake Total 930 ml 550 ml Output Total 3000 ml 1000 ml Balance -2070 ml -450 ml Exam GENERAL APPEARANCE: The patient is tachypneic on BiPAP, in serious condition. HEENT: Head is normocephalic. Pupils are reactive to light. NECK: Neck is supple. HEART: Heart is tachycardic. LUNGS: Show diminished breath sounds a the bases. Positive rhonchi and rales. ABDOMEN: Soft, nontender to palpation. EXTREMITIES: No clubbing, cyanosis, positive edema. DERMATOLOGIC: No rashes. MUSCULOSKELETAL: No joint effusion. NEUROLOGICAL: Limited exam due to lack of patient cooperation. Results Result Diagram: 06/03/17 0708 06/03/17 0708 Results 24 hrs Laboratory Tests Test 06/03/17 05:30 06/03/17 07:08 06/03/17 16:25 Stool Occult Blood POSITIVE White Blood Count 9.5 # Red Blood Count 3.38 #L Hemoglobin 8.8 #L Hematocrit 29.0 #L Mean Corpuscular Volume 85.8 Mean Corpuscular Hemoglobin 26.0 L Mean Corpuscular Hemoglobin Concent 30.3 L Red Cell Distribution Width 20.1 H Platelet Count 158 Mean Platelet Volume 10.9 H Neutrophils % 80.6 H Lymphocytes % 10.0 L Monocytes % 8.2 Eosinophils % 0.3 Basophils % 0.2 Nucleated Red Blood Cells % 0.0 Neutrophils # 7.7 H Lymphocytes # 1.0 Monocytes # 0.8 Eosinophils # 0.0 Basophils # 0.0 Nucleated Red Blood Cells # 0.0 Sodium Level 149 H Potassium Level 3.6 Chloride Level 99 Carbon Dioxide Level 39 H Anion Gap 15 Blood Urea Nitrogen 38 H Creatinine 1.12 Glucose Level 116 Calcium Level 9.4 Phosphorus Level 2.8 Magnesium Level 2.0 Blood Gas Specimen Source Blood arterial Arterial Blood Date Drawn 06/03/2017 4:15:28 PM Arterial Blood pH (Temp corrected) 7.424 Arterial Blood pCO2 (Temp correct) 63.5 H Arterial Blood pO2 (Temp corrected) 82.4 Arterial Blood HCO3 40.6 *H Arterial Blood Base Excess 14.1 H Arterial Blood Oxygen Saturation 96.2 Bakari Test ACCEPTAB Arterial Blood Gas Puncture Site Right Radial Arterial Blood Carboxyhemoglobin 0.8 Arterial Blood Methemoglobin 0.6 Blood Gas A-a O2 Differential 129.8 H Oxyhemoglobin Percent 94.9 Total Hemoglobin 9.8 L Blood Gas Temperature 37.0 Blood Gas Respiration Rate 24.0 Blood Gas Actual Respiration Rate 27 Blood Gas Modality MASK - BIPAP FiO2 40.0 Blood Gas Pressure Support 15 Blood Gas IPAP/EPAP Ratio 20/5 Blood Gas Critical Value Read Back L TOBIAS RN Blood Gas Notified Whom TM Blood Gas Notified Time 06/03/2017 4:30:25 PM Medications Medications Current Medications Heparin Sodium (Porcine) (Heparin (5000 Units/0.5 ml)) 5,000 unit BID SC Last administered on 06/03/17 21:08; Admin Dose 5,000 UNIT; Start 06/02/17 at 09:00 Acetaminophen/ Aspirin/Caffeine (Excedrin) 2 tab Q4 PRN PO ELEVATED TEMPERATURE ; Start 06/02/17 at 03:30 Aspirin (Aspirin) 81 mg DAILY PO ; Start 06/02/17 at 09:00 Docusate Sodium (Colace) 250 mg BID PO ; Start 06/02/17 at 09:00 Multivitamins/ Minerals (Theragran-M) 1 tab DAILY PO ; Start 06/02/17 at 09:00 Al Hydrox/Mg Hydrox/Simethicone (Mag-Al Plus) 30 ml Q6H PRN PO GASTROINTESTINAL UPSET; Start 06/02/17 at 03:30 Nitroglycerin (Nitroglycerin (Sl Tab) 0.4 Mg) 1 tab Q5M PRN SL ANGINA; Start at 03:30 Acetaminophen/ Hydrocodone Bitart ([place] (5/325)) 1 tab Q6H PRN PO MODERATE PAIN LEVEL 4-6; Start 06/02/17 at 03:30 Pantoprazole (Protonix Tab) 40 mg DAILY@06 PO ; Start 06/02/17 at 06:00 Ascorbic Acid (Vitamin C) 500 mg DAILY PO ; Start 06/02/17 at 09:00 Ondansetron HCl 4 mg 4 mg Q6H PRN PO NAUSEA AND/OR VOMITING; Start 06/02/17 at 04:00 Dextrose (D5W) 1,000 ml @ 50 mls/hr Q20H IV Last administered on 06/02/17 10: 36; Admin Dose 50 MLS/HR; Start 06/02/17 at 09:30 Collagenase 1 applic 1 applic DAILY TOP Last administered on 06/03/17 09:03; Admin Dose 1 APPLIC; Start 06/03/17 at 09:00 Cefepime HCl (Maxipime 1gm/50 ml (Pmx)) 50 ml @ 100 mls/hr Q12 IVPB Last administered on 06/03/17 21:08; Admin Dose 100 MLS/HR; Start 06/02/17 at 17:00 SALOMON OVIEDO MD Jun 03, 2017 21:45
[2017-06-04] VITALS (40 sets, daily range): BP systolic 85–114; BP diastolic 46–70; PULSE 75–99; RESP 12–27
[2017-06-04] MEDS: DEXTROSE 5% 1,000 ML IV SCH ×2 (01:15→21:14)
[2017-06-04 05:29] LABS: BASOPHILS % 0.2 % (0.0-2.0); EOSINOPHILS # 0.1 10^3/ul (0.0-0.5); EOSINOPHILS % 0.5 % (0.0-7.0); HEMATOCRIT 30.9 % (42.0-52.0); HEMOGLOBIN 9.1 g/dl (14.0-18.0); LYMPHOCYTES # 1.3 10^3/ul (0.8-2.9); LYMPHOCYTES % 11.9 % (15.0-51.0); MEAN CORPUSCULAR HEMOGLOBIN 26.2 pg (29.0-33.0); MEAN CORPUSCULAR HGB CONC 29.4 g/dl (32.0-37.0); MEAN PLATELET VOLUME 10.8 fl (7.4-10.4); MONOCYTE # 0.9 10^3/ul (0.3-0.9); MONOCYTES % 8.1 % (0.0-11.0); NEUTROPHIL # 8.4 10^3/ul (1.6-7.5); NEUTROPHILS % 78.6 % (39.0-77.0); PLATELET COUNT 134 10^3/UL (140-415); RED BLOOD COUNT 3.47 10^6/ul (4.70-6.10); RED CELL DISTRIBUTION WIDTH 20.7 % (11.5-14.5); WHITE BLOOD COUNT 10.7 10^3/ul (4.8-10.8)
[2017-06-04 05:48] LABS: CALCIUM 9.5 mg/dl (8.4-10.2); CREATININE 1.81 mg/dl (0.61-1.24); MAGNESIUM 2.1 mg/dl (1.7-2.5); PHOSPHORUS 4.5 mg/dl (2.5-4.9); POTASSIUM 3.6 mmol/L (3.5-5.1)
[2017-06-04] MEDS: PANTOPRAZOLE (EC) 40 MG TAB PO SCH (06:00)
[2017-06-04] MEDS ORDERED: SOD CHLORIDE 0.9% 500 ML IV ONE (08:30)
--- NOTE | 2017-06-04 08:37 | PN ---
Date/Time of Note Date/Time of Note DATE: 06/04/17 TIME: 08:32 Assessment/Plan VTE Prophylaxis VTE Prophylaxis Intervention: other Lines/Catheters IV Catheter Type (from [facility]): Saline Lock Urinary Cath still in place: Yes Reason Cath still needed: other (indicate) Assessment/Plan Chief Complaint/Hosp Course 1. Acute hypoxemic respiratory failure. Etiology is likely multifactorial secondary to lymphoma, pulmonary with possible lymphangitic spread, pulmonary interstitial edema Patient currently on BiPAP no significant change We will give a fluid challenge, monitor closely Patient may require emergent chemotherapy Monitor closely patient may require intubation Follow-up with pulmonary 2. Oligo anuric acute kidney injury with previously normal baseline creatinine Etiology was secondary to volume depletion from recent diuretic use Plan is check a UA with microanalysis, urine lites We will give a fluid challenge with IV albumin and normal saline Monitor I's and O's volume status closely 2. Volume overload. Etiology may be multifactorial secondary to lymphoma and questionable congestive heart failure. Patient status post diuretics Patient now may be volume depleted We will hold diuretics and give fluid challenge Monitor I's and O's closely 3. Newly diagnosed lymphoma, pulmonary and gastric Patient may require emergent chemotherapy Appreciate hematology evaluation Monitor closely 4. Hypernatremia Continue hypotonic fluid . 5. Anemia, Etiology likely from chronic disease No evidence of GI bleed Patient status post blood transfusion Follow-up with hematology 6. Acute encephalopathy, etiology is toxic metabolic. No significant change Continue to monitor 7. Gastrointestinal and deep venous thrombosis prophylaxis. Patient will be placed on Proton-pump inhibitors and heparin. I spoke with the patient's daughter Jane as stated above informing of the critical nature of her uncle She understood and wishes to continue with aggressive care Please note spent over 40 minutes critical care time with this patient Problems: Subjective 24 Hr Interval Summary Free Text/Dictation Patient is critically ill remains on BiPAP Was transferred to ICU overnight I spoke with the patient's niece Jane informing her of the critical nature of her uncle and the possibility of intubation She was aware and wishes to proceed by doing everything we can Patient's urinary output has declined only 120 cc in the last 24 hours Exam/Review of Systems Vital Signs Vitals Vital Signs Date Time Temp Pulse Resp B/P Pulse Ox O2 Delivery O2 Flow Rate FiO2 06/04/17 06:00 93 20 99/59 97 BIPAP 06/04/17 05:12 40 06/04/17 04:00 97.5 06/02/17 15:45 6.0 Intake and Output 06/03/17 06/03/17 06/04/17 15:00 23:00 07:00 Intake Total 50 ml 700 ml 350 ml Output Total 145 ml 35 ml Balance 50 ml 555 ml 315 ml Exam HEENT: Head is normocephalic, NECK: Supple. HEART: Irregular LUNGS: Show diminished breath sounds at base. ABDOMEN: Soft, nontender to palpation without rebound or guarding. EXTREMITIES: Negative for clubbing, cyanosis. DERMATOLOGIC: No rashes. MUSCULOSKELETAL: No joint effusions, NEUROLOGIC: No change in exam. Results Result Diagram: 06/04/17 0425 06/04/17 0438 Results 24 hrs Laboratory Tests Test 06/03/17 16:25 06/04/17 04:25 06/04/17 04:38 06/04/17 07:00 Blood Gas Specimen Source Blood arterial Arterial Blood Date Drawn 06/03/2017 4:15:28 PM Arterial Blood pH (Temp corrected) 7.424 Arterial Blood pCO2 (Temp correct) 63.5 H Arterial Blood pO2 (Temp corrected) 82.4 Arterial Blood HCO3 40.6 *H Arterial Blood Base Excess 14.1 H Arterial Blood Oxygen Saturation 96.2 Bakari Test ACCEPTAB Arterial Blood Gas Puncture Site Right Radial Arterial Blood Carboxyhemoglobin 0.8 Arterial Blood Methemoglobin 0.6 Blood Gas A-a O2 Differential 129.8 H Oxyhemoglobin Percent 94.9 Total Hemoglobin 9.8 L Blood Gas Temperature 37.0 Blood Gas Respiration Rate 24.0 Blood Gas Actual Respiration Rate 27 Blood Gas Modality MASK - BIPAP FiO2 40.0 Blood Gas Pressure Support 15 Blood Gas IPAP/EPAP Ratio 20/5 Blood Gas Critical Value Read Back L TOBIAS BOSCH Blood Gas Notified Whom TM Blood Gas Notified Time 06/03/2017 4:30:25 PM White Blood Count 10.7 Red Blood Count 3.47 L Hemoglobin 9.1 L Hematocrit 30.9 L Mean Corpuscular Volume 89.0 Mean Corpuscular Hemoglobin 26.2 L Mean Corpuscular Hemoglobin Concent 29.4 L Red Cell Distribution Width 20.7 H Platelet Count 134 L Mean Platelet Volume 10.8 H Neutrophils % 78.6 H Lymphocytes % 11.9 L Monocytes % 8.1 Eosinophils % 0.5 Basophils % 0.2 Nucleated Red Blood Cells % 0.0 Neutrophils # 8.4 H Lymphocytes # 1.3 Monocytes # 0.9 Eosinophils # 0.1 Basophils # 0.0 Nucleated Red Blood Cells # 0.0 Sodium Level 149 H Potassium Level 3.6 Chloride Level 97 Carbon Dioxide Level 40 H Anion Gap 16 Blood Urea Nitrogen 47 H Creatinine 1.81 H Glucose Level 116 Calcium Level 9.5 Phosphorus Level 4.5 Magnesium Level 2.1 Lab Scanned Report BLOOD TRANSFUSION Medications Medications Current Medications Heparin Sodium (Porcine) (Heparin (5000 Units/0.5 ml)) 5,000 unit BID SC Last administered on 06/03/17 21:08; Admin Dose 5,000 UNIT; Start 06/02/17 at 09:00 Acetaminophen/ Aspirin/Caffeine (Excedrin) 2 tab Q4 PRN PO ELEVATED TEMPERATURE ; Start 06/02/17 at 03:30 Aspirin (Aspirin) 81 mg DAILY PO ; Start 06/02/17 at 09:00 Docusate Sodium (Colace) 250 mg BID PO ; Start 06/02/17 at 09:00 Multivitamins/ Minerals (Theragran-M) 1 tab DAILY PO ; Start 06/02/17 at 09:00 Al Hydrox/Mg Hydrox/Simethicone (Mag-Al Plus) 30 ml Q6H PRN PO GASTROINTESTINAL UPSET; Start 06/02/17 at 03:30 Nitroglycerin (Nitroglycerin (Sl Tab) 0.4 Mg) 1 tab Q5M PRN SL ANGINA; Start at 03:30 Acetaminophen/ Hydrocodone Bitart ([place] (5/325)) 1 tab Q6H PRN PO MODERATE PAIN LEVEL 4-6; Start 06/02/17 at 03:30 Pantoprazole (Protonix Tab) 40 mg DAILY@06 PO ; Start 06/02/17 at 06:00 Ascorbic Acid (Vitamin C) 500 mg DAILY PO ; Start 06/02/17 at 09:00 Ondansetron HCl 4 mg 4 mg Q6H PRN PO NAUSEA AND/OR VOMITING; Start 06/02/17 at 04:00 Dextrose (D5W) 1,000 ml @ 50 mls/hr Q20H IV Last administered on 06/04/17 01: 15; Admin Dose 50 MLS/HR; Start 06/02/17 at 09:30 Collagenase 1 applic 1 applic DAILY TOP Last administered on 06/03/17 09:03; Admin Dose 1 APPLIC; Start 06/03/17 at 09:00 Cefepime HCl (Maxipime 1gm/50 ml (Pmx)) 50 ml @ 100 mls/hr Q12 IVPB Last administered on 06/03/17 21:08; Admin Dose 100 MLS/HR; Start 06/02/17 at 17:00 ERASTO GONZALEZ DO Jun 04, 2017 08:36
[2017-06-04] MEDS: ALBUMIN HUMAN 25% 100 ML IV SCH ×4 (08:43→23:41)
[2017-06-04] MEDS: HEPARIN 5,000 UNIT/0.5 ML VIAL SC SCH ×2 (08:48→21:11)
[2017-06-04] MEDS: CEFEPIME 1GM/50 ML (PMX) 50 ML IVPB SCH ×2 (08:48→21:09)
[2017-06-04] MEDS: SOD CHLORIDE 0.45% 1,000 ML IV SCH ×2 (08:57→18:48)
[2017-06-04] MEDS: COLLAGENASE 30 GM TUBE TOP SCH (08:57)
[2017-06-04] MEDS: ASCORBIC ACID 500 MG TAB PO SCH (09:00)
[2017-06-04] MEDS: DOCUSATE SODIUM 250 MG CAP PO SCH ×2 (09:00→21:09)
[2017-06-04] MEDS: MULTIVITAMINS/MINERALS TAB PO SCH (09:00)
[2017-06-04] MEDS: ASPIRIN 81 MG TAB PO SCH (09:00)
--- NOTE | 2017-06-04 09:21 | RADRPT ---
PROCEDURE: Renal US. CLINICAL INDICATION: Acute kidney injury. TECHNIQUE: Multiple sonographic images of the kidneys and urinary bladder were obtained. The imag es were reviewed on a PACS workstation. COMPARISON: No prior studies are available for comparison. FINDINGS: The right kidney measures 10.5 x 6.0 cm. The left kidney measures 10.5 x 5.9 cm. There is no solid renal mass. There is mild bilateral hydronephrosis. There is no renal calculus. Renal parenchymal thickness is normal bilaterally. Echogenicity is normal bilaterally. The perirenal regions are normal with no fluid collection or mass. The urinary bladder is distended with a volume of 404 ml. IMPRESSION: 1. Mild bilateral hydronephrosis. 2. Distended urinary bladder. 3. Otherwise unremarkable study. RPTAT: QQ .Timoteo Palumbo MD, Date Time Electronically viewed and signed by .Timoteo Palumbo MD, on 06/04/2017 09:20 .R/
--- NOTE | 2017-06-04 10:58 | CONS ---
Date/Time of Note Date/Time of Note DATE: 06/04/17 TIME: 10:56 Assessment/Plan Assessment/Plan Additional Assessment/Plan Chest x-ray was reviewed from late yesterday evening which is showing bilateral interstitial prominence. Assessment recommendations; 1. Patient admitted with anemia 2. History of lymphoma with pulmonary involvement. 3. Hypercapnic respiratory failure. 4. Renal insufficiency. Continue current treatment. Continue BiPAP. Continue current antibiotics. Prognosis is poor. Consultation Date/Type/Reason Admit Date/Time Jun 01, 2017 at 22:01 Initial Consult Date 06/02/17 Type of Consultation: Pulmonary/critical care Referring Provider: ERASTO GONZALEZ DO 24 HR Interval Summary Free Text/Dictation Patient condition has improved over the last 24 hours. He was transferred to ICU because of very poor mental status as well as hypercapnic respiratory failure. Patient has remained on BiPAP with significant improvement in mental status to the point where the patient is now readily arousable. Has remained hemodynamically stable. General exam; elderly male, awake, currently in no distress. On BiPAP. Exam/Review of Systems Vital Signs Vitals Vital Signs Date Time Temp Pulse Resp B/P Pulse Ox O2 Delivery O2 Flow Rate FiO2 06/04/17 09:05 90 99 40 06/04/17 06:00 20 99/59 BIPAP 06/04/17 04:00 97.5 06/02/17 15:45 6.0 Intake and Output 06/03/17 06/03/17 06/04/17 15:00 23:00 07:00 Intake Total 50 ml 700 ml 350 ml Output Total 145 ml 35 ml Balance 50 ml 555 ml 315 ml Exam HEENT exam; supple neck, no JVD. No lymphadenopathy. Midline trachea. No thyromegaly. Patient is edentulous. Chest exam; diminished breath sounds bilaterally. No added sound. S1-S2 audible, no murmurs. Regular rhythm. Abdomen exam; soft, no organomegaly. Bowel sounds audible. Extremity exam; no peripheral edema. [employer] CONS[employer] exam; patient is awake and follows simple commands. Results Result Diagram: 06/04/17 0425 06/04/17 0438 Results 24 hrs Laboratory Tests Test 06/03/17 16:25 06/04/17 04:25 06/04/17 04:38 06/04/17 07:00 Blood Gas Specimen Source Blood arterial Arterial Blood Date Drawn 06/03/2017 4:15:28 PM Arterial Blood pH (Temp corrected) 7.424 Arterial Blood pCO2 (Temp correct) 63.5 H Arterial Blood pO2 (Temp corrected) 82.4 Arterial Blood HCO3 40.6 *H Arterial Blood Base Excess 14.1 H Arterial Blood Oxygen Saturation 96.2 Bakari Test ACCEPTAB Arterial Blood Gas Puncture Site Right Radial Arterial Blood Carboxyhemoglobin 0.8 Arterial Blood Methemoglobin 0.6 Blood Gas A-a O2 Differential 129.8 H Oxyhemoglobin Percent 94.9 Total Hemoglobin 9.8 L Blood Gas Temperature 37.0 Blood Gas Respiration Rate 24.0 Blood Gas Actual Respiration Rate 27 Blood Gas Modality MASK - BIPAP FiO2 40.0 Blood Gas Pressure Support 15 Blood Gas IPAP/EPAP Ratio 20/5 Blood Gas Critical Value Read Back L TOBIAS RN Blood Gas Notified Whom TM Blood Gas Notified Time 06/03/2017 4:30:25 PM White Blood Count 10.7 Red Blood Count 3.47 L Hemoglobin 9.1 L Hematocrit 30.9 L Mean Corpuscular Volume 89.0 Mean Corpuscular Hemoglobin 26.2 L Mean Corpuscular Hemoglobin Concent 29.4 L Red Cell Distribution Width 20.7 H Platelet Count 134 L Mean Platelet Volume 10.8 H Neutrophils % 78.6 H Lymphocytes % 11.9 L Monocytes % 8.1 Eosinophils % 0.5 Basophils % 0.2 Nucleated Red Blood Cells % 0.0 Neutrophils # 8.4 H Lymphocytes # 1.3 Monocytes # 0.9 Eosinophils # 0.1 Basophils # 0.0 Nucleated Red Blood Cells # 0.0 Sodium Level 149 H Potassium Level 3.6 Chloride Level 97 Carbon Dioxide Level 40 H Anion Gap 16 Blood Urea Nitrogen 47 H Creatinine 1.81 H Glucose Level 116 Calcium Level 9.5 Phosphorus Level 4.5 Magnesium Level 2.1 Lab Scanned Report BLOOD TRANSFUSION Medications Medications Current Medications Heparin Sodium (Porcine) (Heparin (5000 Units/0.5 ml)) 5,000 unit BID SC Last administered on 06/04/17t 08:48; Admin Dose 5,000 UNIT; Start 06/02/17 at 09:00 Acetaminophen/ Aspirin/Caffeine (Excedrin) 2 tab Q4 PRN PO ELEVATED TEMPERATURE ; Start 06/02/17 at 03:30 Aspirin (Aspirin) 81 mg DAILY PO ; Start 06/02/17 at 09:00 Docusate Sodium (Colace) 250 mg BID PO ; Start 06/02/17 at 09:00 Multivitamins/ Minerals (Theragran-M) 1 tab DAILY PO ; Start 06/02/17 at 09:00 Al Hydrox/Mg Hydrox/Simethicone (Mag-Al Plus) 30 ml Q6H PRN PO GASTROINTESTINAL UPSET; Start 06/02/17 at 03:30 Nitroglycerin (Nitroglycerin (Sl Tab) 0.4 Mg) 1 tab Q5M PRN SL ANGINA; Start at 03:30 Acetaminophen/ Hydrocodone Bitart ([place] (5/325)) 1 tab Q6H PRN PO MODERATE PAIN LEVEL 4-6; Start 06/02/17 at 03:30 Pantoprazole (Protonix Tab) 40 mg DAILY@06 PO ; Start 06/02/17 at 06:00 Ascorbic Acid (Vitamin C) 500 mg DAILY PO ; Start 06/02/17 at 09:00 Ondansetron HCl 4 mg 4 mg Q6H PRN PO NAUSEA AND/OR VOMITING; Start 06/02/17 at 04:00 Dextrose (D5W) 1,000 ml @ 50 mls/hr Q20H IV Last administered on 06/04/17 01: 15; Admin Dose 50 MLS/HR; Start 06/02/17 at 09:30 Collagenase 1 applic 1 applic DAILY TOP Last administered on 06/04/17 08:57; Admin Dose 1 APPLIC; Start 06/03/17 at 09:00 Cefepime HCl 50 ml @ 100 mls/hr Q12 IVPB Last administered on 06/04/17 08:48 ; Admin Dose 100 MLS/HR; Start 06/02/17 at 17:00 Albumin Human 100 ml @ 100 mls/hr Q6 IV Last administered on 06/04/17 08:43; Admin Dose 100 MLS/HR; Start 06/04/17 at 08:30; Stop 06/05/17 at 00:59 Sodium Chloride (1/2 NS) 1,000 ml @ 100 mls/hr Q10H IV Last administered on 08:57; Admin Dose 100 MLS/HR; Start 06/04/17 at 08:30 CARMENCITA JAMESON Jun 04, 2017 10:58
[2017-06-04] MEDS ORDERED: LIDOCAINE 1% (MPF) 5 ML VIAL SC ONE (13:30)
--- NOTE | 2017-06-04 13:34 | CONS ---
Date/Time of Note Date/Time of Note DATE: 06/04/17 TIME: 13:32 Assessment/Plan Assessment/Plan Chief Complaint/Hosp Course Patient was transferred to ICU, remains on BiPAP, lethargic T-max 100.5 T-current 97.1 pulse 88 respirations 24 blood pressure 114/67 saturation 100 on BiPAP WBC 10.7 H&H 9.1 and 30.9 platelet count 134 neutrophils 78.6 BN 47 creatinine 1.81 Renal ultrasound revealed mild bilateral hydronephrosis Indwelling Bean catheter peripheral IV Microbiology: Blood cultures negative Chest x-ray on admission revealed persistent patchy ill-defined opacity in the right lung which may be infectious in etiology Antibiotics: Cefepime Physical examination: Well-developed elderly man who is lethargic in no distress. Head atraumatic normocephalic, sclera nonicteric. Neck is supple. Chest rise symmetrical, breath sounds with bilateral scattered rhonchi. Heart: S1, S2, tachycardic. Abdomen soft, bowel tones hypoactive. Extremities without cyanosis. Assessment: 1. Sepsis 2. Acute respiratory failure 2. Bilateral pneumonia 3. Acute encephalopathy 4. Newly diagnosed lymphoma Plan: Remains unchanged, continue present care, antibiotics, follow pulmonary and oncology recommendations, prognosis guarded Discussed with staff Problems: Consultation Date/Type/Reason Admit Date/Time Jun 01, 2017 at 22:01 Initial Consult Date 06/02/17 Type of Consultation: id Referring Provider: ERASTO GONZALEZ DO Exam/Review of Systems Vital Signs Vitals Vital Signs Date Time Temp Pulse Resp B/P Pulse Ox O2 Delivery O2 Flow Rate FiO2 06/04/17 12:00 85 06/04/17 11:30 99 40 06/04/17 11:00 24 114/67 BIPAP 06/04/17 08:00 97.1 06/02/17 15:45 6.0 Intake and Output 06/03/17 06/03/17 06/04/17 15:00 23:00 07:00 Intake Total 50 ml 700 ml 400 ml Output Total 145 ml 35 ml Balance 50 ml 555 ml 365 ml Results Result Diagram: 06/04/17 0425 06/04/17 0438 Results 24 hrs Laboratory Tests Test 06/03/17 16:25 06/04/17 04:25 06/04/17 04:38 06/04/17 07:00 Blood Gas Specimen Source Blood arterial Arterial Blood Date Drawn 06/03/2017 4:15:28 PM Arterial Blood pH (Temp corrected) 7.424 Arterial Blood pCO2 (Temp correct) 63.5 H Arterial Blood pO2 (Temp corrected) 82.4 Arterial Blood HCO3 40.6 *H Arterial Blood Base Excess 14.1 H Arterial Blood Oxygen Saturation 96.2 Bakari Test ACCEPTAB Arterial Blood Gas Puncture Site Right Radial Arterial Blood Carboxyhemoglobin 0.8 Arterial Blood Methemoglobin 0.6 Blood Gas A-a O2 Differential 129.8 H Oxyhemoglobin Percent 94.9 Total Hemoglobin 9.8 L Blood Gas Temperature 37.0 Blood Gas Respiration Rate 24.0 Blood Gas Actual Respiration Rate 27 Blood Gas Modality MASK - BIPAP FiO2 40.0 Blood Gas Pressure Support 15 Blood Gas IPAP/EPAP Ratio 20/5 Blood Gas Critical Value Read Back L TOBIAS RN Blood Gas Notified Whom TM Blood Gas Notified Time 06/03/2017 4:30:25 PM White Blood Count 10.7 Red Blood Count 3.47 L Hemoglobin 9.1 L Hematocrit 30.9 L Mean Corpuscular Volume 89.0 Mean Corpuscular Hemoglobin 26.2 L Mean Corpuscular Hemoglobin Concent 29.4 L Red Cell Distribution Width 20.7 H Platelet Count 134 L Mean Platelet Volume 10.8 H Neutrophils % 78.6 H Lymphocytes % 11.9 L Monocytes % 8.1 Eosinophils % 0.5 Basophils % 0.2 Nucleated Red Blood Cells % 0.0 Neutrophils # 8.4 H Lymphocytes # 1.3 Monocytes # 0.9 Eosinophils # 0.1 Basophils # 0.0 Nucleated Red Blood Cells # 0.0 Sodium Level 149 H Potassium Level 3.6 Chloride Level 97 Carbon Dioxide Level 40 H Anion Gap 16 Blood Urea Nitrogen 47 H Creatinine 1.81 H Glucose Level 116 Calcium Level 9.5 Phosphorus Level 4.5 Magnesium Level 2.1 Lab Scanned Report BLOOD TRANSFUSION Medications Medications Current Medications Heparin Sodium (Porcine) (Heparin (5000 Units/0.5 ml)) 5,000 unit BID SC Last administered on 06/04/17t 08:48; Admin Dose 5,000 UNIT; Start 06/02/17 at 09:00 Acetaminophen/ Aspirin/Caffeine (Excedrin) 2 tab Q4 PRN PO ELEVATED TEMPERATURE ; Start 06/02/17 at 03:30 Aspirin (Aspirin) 81 mg DAILY PO ; Start 06/02/17 at 09:00 Docusate Sodium (Colace) 250 mg BID PO ; Start 06/02/17 at 09:00 Multivitamins/ Minerals (Theragran-M) 1 tab DAILY PO ; Start 06/02/17 at 09:00 Al Hydrox/Mg Hydrox/Simethicone (Mag-Al Plus) 30 ml Q6H PRN PO GASTROINTESTINAL UPSET; Start 06/02/17 at 03:30 Nitroglycerin (Nitroglycerin (Sl Tab) 0.4 Mg) 1 tab Q5M PRN SL ANGINA; Start at 03:30 Acetaminophen/ Hydrocodone Bitart ([place] (5/325)) 1 tab Q6H PRN PO MODERATE PAIN LEVEL 4-6; Start 06/02/17 at 03:30 Pantoprazole (Protonix Tab) 40 mg DAILY@06 PO ; Start 06/02/17 at 06:00 Ascorbic Acid (Vitamin C) 500 mg DAILY PO ; Start 06/02/17 at 09:00 Ondansetron HCl 4 mg 4 mg Q6H PRN PO NAUSEA AND/OR VOMITING; Start 06/02/17 at 04:00 Dextrose (D5W) 1,000 ml @ 50 mls/hr Q20H IV Last administered on 06/04/17 01: 15; Admin Dose 50 MLS/HR; Start 06/02/17 at 09:30 Collagenase 1 applic 1 applic DAILY TOP Last administered on 06/04/17 08:57; Admin Dose 1 APPLIC; Start 06/03/17 at 09:00 Cefepime HCl 50 ml @ 100 mls/hr Q12 IVPB Last administered on 06/04/17 08:48 ; Admin Dose 100 MLS/HR; Start 06/02/17 at 17:00 Albumin Human 100 ml @ 100 mls/hr Q6 IV Last administered on 06/04/17 13:10; Admin Dose 100 MLS/HR; Start 06/04/17 at 08:30; Stop 06/05/17 at 00:59 Sodium Chloride (1/2 NS) 1,000 ml @ 100 mls/hr Q10H IV Last administered on 08:57; Admin Dose 100 MLS/HR; Start 06/04/17 at 08:30 Lidocaine (Xylocaine 1% (Mpf)) 5 ml ONCE ONCE SC ; Start 06/04/17 at 13:30; Stop 06/04/17 at 13:31 JORDY KNOTT NP Jun 04, 2017 13:34
--- NOTE | 2017-06-04 16:34 | PN ---
Date/Time of Note Date/Time of Note DATE: 06/04/17 TIME: 16:32 Assessment/Plan VTE Prophylaxis VTE Prophylaxis Intervention: other Lines/Catheters IV [facility]ter Type (from [facility] Saline Lock Urinary Cath still in place: Yes Reason Cath still needed: other (indicate) Assessment/Plan Chief Complaint/Hosp Course 1. Acute hypoxemic respiratory failure. on BIPAP now and may need to be intubated if does not improve on BIPAP. Monitor closely patient may require intubation Follow-up with pulmonary normal EF on ECHO 2. Volume overload. S/P diuresis Monitor I's and O's closely 3. Newly diagnosed lymphoma, pulmonary and gastric Patient may require emergent chemotherapy f/u with hematology evaluation Monitor closely 4. Hypernatremia D5 water per renal . 5. Anemia, Etiology likely from chronic disease f/u with hem/onc 6. Acute encephalopathy, etiology is toxic metabolic. No significant change Continue to monitor \ 7. Small pericardial effusion: will monitor. Problems: Subjective 24 Hr Interval Summary Free Text/Dictation CARDIOLOGY FOLLOW UP NOTE: d/w staff and rhythm was reviewed. pt remains in sinus rhythm pt with increasing sob and hypoexemia and is still on BIPAP and in ICU. Pt remains nonverbal OBJECTIVE General: in resp distress. on BIPAP HEENT: pupils are equal. round. NECK: NO JVD. no stridor. CV: RRR. systolic murmur; no gallop or rubs. PULM: + diffuse rhonchi. GI: SOFT, NT, ND, no rebound or guarding Extremity: trace B/L LE edema. no clubbing. neuro: lethargic. Psych: calm rectal: deferred : normal male echo 06/02/17: 1. Hyperdynamic left ventricular systolic function. Normal left ventricular cavity size. Moderate concentric left ventricular hypertrophy. Ejection fraction is visually estimated at 65 %. Abnormal Diastolic Function. 2. Mitral valve leaflets appear mildly thickened. Mild mitral annular calcification. Trace mitral regurgitation. 3. Aortic sclerosis without stenosis. Trace aortic valve regurgitation. 4. Normal appearance of the tricuspid valve. Estimated peak PA systolic pressure 33 mmHg. There is mild tricuspid regurgitation. 5. Small pericardial effusion. 6. Normal size and normal respiratory collapse consistent with normal right atrial pressure. Exam/Review of Systems Vital Signs Vitals Vital Signs Date Time Temp Pulse Resp B/P Pulse Ox O2 Delivery O2 Flow Rate FiO2 06/04/17 13:00 83 100 40 06/04/17 11:00 24 114/67 BIPAP 06/04/17 08:00 97.1 06/02/17 15:45 6.0 Intake and Output 06/03/17 06/03/17 06/04/17 15:00 23:00 07:00 Intake Total 50 ml 700 ml 400 ml Output Total 145 ml 35 ml Balance 50 ml 555 ml 365 ml Results Result Diagram: 06/04/17 0425 06/04/17 0438 Results 24 hrs Laboratory Tests Test 06/04/17 04:25 06/04/17 04:38 06/04/17 07:00 White Blood Count 10.7 Red Blood Count 3.47 L Hemoglobin 9.1 L Hematocrit 30.9 L Mean Corpuscular Volume 89.0 Mean Corpuscular Hemoglobin 26.2 L Mean Corpuscular Hemoglobin Concent 29.4 L Red Cell Distribution Width 20.7 H Platelet Count 134 L Mean Platelet Volume 10.8 H Neutrophils % 78.6 H Lymphocytes % 11.9 L Monocytes % 8.1 Eosinophils % 0.5 Basophils % 0.2 Nucleated Red Blood Cells % 0.0 Neutrophils # 8.4 H Lymphocytes # 1.3 Monocytes # 0.9 Eosinophils # 0.1 Basophils # 0.0 Nucleated Red Blood Cells # 0.0 Sodium Level 149 H Potassium Level 3.6 Chloride Level 97 Carbon Dioxide Level 40 H Anion Gap 16 Blood Urea Nitrogen 47 H Creatinine 1.81 H Glucose Level 116 Calcium Level 9.5 Phosphorus Level 4.5 Magnesium Level 2.1 Lab Scanned Report BLOOD TRANSFUSION Medications Medications Current Medications Heparin Sodium (Porcine) (Heparin (5000 Units/0.5 ml)) 5,000 unit BID SC Last administered on 06/04/17t 08:48; Admin Dose 5,000 UNIT; Start 06/02/17 at 09:00 Acetaminophen/ Aspirin/Caffeine (Excedrin) 2 tab Q4 PRN PO ELEVATED TEMPERATURE ; Start 06/02/17 at 03:30 Aspirin (Aspirin) 81 mg DAILY PO ; Start 06/02/17 at 09:00 Docusate Sodium (Colace) 250 mg BID PO ; Start 06/02/17 at 09:00 Multivitamins/ Minerals (Theragran-M) 1 tab DAILY PO ; Start 06/02/17 at 09:00 Al Hydrox/Mg Hydrox/Simethicone (Mag-Al Plus) 30 ml Q6H PRN PO GASTROINTESTINAL UPSET; Start 06/02/17 at 03:30 Nitroglycerin (Nitroglycerin (Sl Tab) 0.4 Mg) 1 tab Q5M PRN SL ANGINA; Start at 03:30 Acetaminophen/ Hydrocodone Bitart ([place] (5/325)) 1 tab Q6H PRN PO MODERATE PAIN LEVEL 4-6; Start 06/02/17 at 03:30 Pantoprazole (Protonix Tab) 40 mg DAILY@06 PO ; Start 06/02/17 at 06:00 Ascorbic Acid (Vitamin C) 500 mg DAILY PO ; Start 06/02/17 at 09:00 Ondansetron HCl 4 mg 4 mg Q6H PRN PO NAUSEA AND/OR VOMITING; Start 06/02/17 at 04:00 Dextrose (D5W) 1,000 ml @ 50 mls/hr Q20H IV Last administered on 06/04/17 01: 15; Admin Dose 50 MLS/HR; Start 06/02/17 at 09:30 Collagenase 1 applic 1 applic DAILY TOP Last administered on 06/04/17 08:57; Admin Dose 1 APPLIC; Start 06/03/17 at 09:00 Cefepime HCl 50 ml @ 100 mls/hr Q12 IVPB Last administered on 06/04/17 08:48 ; Admin Dose 100 MLS/HR; Start 06/02/17 at 17:00 Albumin Human 100 ml @ 100 mls/hr Q6 IV Last administered on 06/04/17 13:10; Admin Dose 100 MLS/HR; Start 06/04/17 at 08:30; Stop 06/05/17 at 00:59 Sodium Chloride (1/2 NS) 1,000 ml @ 100 mls/hr Q10H IV Last administered on 08:57; Admin Dose 100 MLS/HR; Start 06/04/17 at 08:30 DASIA GREEN MD Jun 04, 2017 16:33
[2017-06-04 17:34] LABS: AADO2 Arterial 121.5 mmHg (7.0-24.0); Allen Test ACCEPTAB; Arterial Base Excess 8.1 mmol/L (-3.0-3); Arterial COHb 0.9 % (0.0-3.0); Arterial Fraction of Oxyhgb 91.9 % (93.0-99.0); Arterial HCO3 36.4 mmol/L (22.0-26.0); Arterial MetHb 0.7 % (0.0-1.5); Blood Gas IEPAP 20/5; Blood Gas PS 15; MODE MASK - BIPAP
[2017-06-04] MEDS: FENTAnyl (DRIP) 1000 mcg/100mL 100 ML IV SCH (18:39)
--- NOTE | 2017-06-04 19:28 | QN ---
Documentation Comment Called to room 108 for emergent intubation and central line placement: ET intubation note: Patient was preoxygenated with bag mask ventilation, RSI was used with 20 mg of etomidate 100 mg rocuronium. Size 7.5 tube was easily introduced through visualized vocal cords using a MAC 4 blade. Entitled CO2 was positive. Patient actually had 100% afterward. Patient told procedure with no complications. Central line placement note, right femoral vein: Patient was prepped and draped in sterile fashion with, gown, mask, gloves, ultrasound probe cover, chlorhexidine wipe. Ultrasound guidance was used to easily introduce a 7 Armenian triple-lumen central line catheter using Seldinger technique into the visualized right femoral vein. Ports flushed well there is good blood flow. No complications. Tolerated well. Sutured in place with 2 simple interrupted 3 -0 silk sutures. EDUARDO HUERTA DO Jun 04, 2017 19:28
--- NOTE | 2017-06-04 19:32 | RADRPT ---
PROCEDURE: XR, Chest. CLINICAL INDICATION: Follow up for respiratory distress. TECHNIQUE: AP chest. COMPARISON: Chest, 06/03/2017. FINDINGS: The heart remains enlarged with interstitial pulmonary edema/pulmonary venous congestion, unchanged. No pleural effusion. The ET tube remains in good position. IMPRESSION: 1. Cardiomegaly with interstitial pulmonary edema/pulmonary venous congestion, unchanged. RPTAT: GG .Sukhi Drew MD, MD Date Time Electronically viewed and signed by .Sukhi Drew MD, on 06/04/2017 19:32 .Y/
--- NOTE | 2017-06-04 19:50 | CONS ---
Date/Time of Note Date/Time of Note DATE: 06/04/17 TIME: 19:47 Assessment/Plan Assessment/Plan Chief Complaint/Hosp Course Newly diagnosed lymphoma, pulmonary and gastric. The patient has not yet started chemotherapy. 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 + COMPONENT ACD INCREASE URIC ACID ALLOPURINOL, RENAL DOSE CHECK FOR TUMOR LYSIS Acute hypoxemic respiratory failure. Etiology is likely multifactorial secondary to lymphoma, pulmonary with possible lymphangitic spread, congestive heart failure exacerbation. The patient currently is on BiPAP, receiving Bumex drip. pulmonary F-UP cardiology F-UP PER NIECE- agrees with intubation if necessary. Volume overload. Etiology may be multifactorial secondary to lymphoma and questionable congestive heart failure. Patient's chest x-ray shows pulmonary congestion. The patient had a recent cardiac cath which was negative, per patient's niece. Plan is continue diuretic regimen, monitor I and Os closely. Hypernatremia. Patient will be placed on D5W. Will monitor closely. Acute encephalopathy, etiology is toxic metabolic. We will continue to monitor. Gastrointestinal and deep venous thrombosis prophylaxis. Patient will be placed on Proton-pump inhibitors and heparin. ( IF NO EVIDENCE OF BLEEDING) Problems: Consultation Date/Type/Reason Admit Date/Time Jun 01, 2017 at 22:01 Initial Consult Date 06/02/17 [facility] Referring Provider: ERASTO GONZALEZ DO 24 HR Interval Summary Free Text/Dictation ALL NOTED Patient is critically ill remains on BiPAP Was transferred to ICU overnight + RENAL FAILURE Exam/Review of Systems Vital Signs Vitals Vital Signs Date Time Temp Pulse Resp B/P Pulse Ox O2 Delivery O2 Flow Rate FiO2 06/04/17 19:21 86 19 10 100 06/04/17 18:00 97.1 95/63 BIPAP 06/02/17 15:45 6.0 Intake and Output 06/03/17 06/03/17 06/04/17 15:00 23:00 07:00 Intake Total 50 ml 700 ml 400 ml Output Total 145 ml 35 ml Balance 50 ml 555 ml 365 ml Exam GENERAL APPEARANCE: The patient is tachypneic on BiPAP, in serious condition. HEENT: Head is normocephalic. Pupils are reactive to light. NECK: Neck is supple. HEART: Heart is tachycardic. LUNGS: Show diminished breath sounds a the bases. Positive rhonchi and rales. ABDOMEN: Soft, nontender to palpation. EXTREMITIES: No clubbing, cyanosis, positive edema. DERMATOLOGIC: No rashes. MUSCULOSKELETAL: No joint effusion. NEUROLOGICAL: Limited exam due to lack of patient cooperation. NO PATH LN- VIRI Results Result Diagram: 06/04/17 0425 06/04/17 0438 Results 24 hrs Laboratory Tests Test 06/04/17 04:25 06/04/17 04:38 06/04/17 07:00 06/04/17 17:00 White Blood Count 10.7 Red Blood Count 3.47 L Hemoglobin 9.1 L Hematocrit 30.9 L Mean Corpuscular Volume 89.0 Mean Corpuscular Hemoglobin 26.2 L Mean Corpuscular Hemoglobin Concent 29.4 L Red Cell Distribution Width 20.7 H Platelet Count 134 L Mean Platelet Volume 10.8 H Neutrophils % 78.6 H Lymphocytes % 11.9 L Monocytes % 8.1 Eosinophils % 0.5 Basophils % 0.2 Nucleated Red Blood Cells % 0.0 Neutrophils # 8.4 H Lymphocytes # 1.3 Monocytes # 0.9 Eosinophils # 0.1 Basophils # 0.0 Nucleated Red Blood Cells # 0.0 Sodium Level 149 H Potassium Level 3.6 Chloride Level 97 Carbon Dioxide Level 40 H Anion Gap 16 Blood Urea Nitrogen 47 H Creatinine 1.81 H Glucose Level 116 Calcium Level 9.5 Phosphorus Level 4.5 Magnesium Level 2.1 Lab Scanned Report BLOOD TRANSFUSION Blood Gas Specimen Source Blood arterial Arterial Blood Date Drawn 06/04/2017 5:20:47 PM Arterial Blood pH (Temp corrected) 7.287 *L Arterial Blood pCO2 (Temp correct) 77.9 H Arterial Blood pO2 (Temp corrected) 74.1 L Arterial Blood HCO3 36.4 H Arterial Blood Base Excess 8.1 H Arterial Blood Oxygen Saturation 93.4 L Bakari Test ACCEPTAB Arterial Blood Gas Puncture Site Right Radial Arterial Blood Carboxyhemoglobin 0.9 Arterial Blood Methemoglobin 0.7 Blood Gas A-a O2 Differential 121.5 H Oxyhemoglobin Percent 91.9 L Total Hemoglobin 9.0 L Blood Gas Temperature 37.0 Blood Gas Respiration Rate 24.0 Blood Gas Actual Respiration Rate 26 Blood Gas Modality MASK - BIPAP FiO2 40.0 Blood Gas Pressure Support 15 Blood Gas IPAP/EPAP Ratio 20/5 Blood Gas Critical Value Read Back Meron MULLER Blood Gas Notified Whom [place] BROOKS Blood Gas Notified Time 06/04/2017 5:32:38 PM Medications Medications Current Medications Heparin Sodium (Porcine) (Heparin (5000 Units/0.5 ml)) 5,000 unit BID SC Last administered on 06/04/17t 08:48; Admin Dose 5,000 UNIT; Start 06/02/17 at 09:00 Acetaminophen/ Aspirin/Caffeine (Excedrin) 2 tab Q4 PRN PO ELEVATED TEMPERATURE ; Start 06/02/17 at 03:30 Aspirin (Aspirin) 81 mg DAILY PO ; Start 06/02/17 at 09:00 Docusate Sodium (Colace) 250 mg BID PO ; Start 06/02/17 at 09:00 Multivitamins/ Minerals (Theragran-M) 1 tab DAILY PO ; Start 06/02/17 at 09:00 Al Hydrox/Mg Hydrox/Simethicone (Mag-Al Plus) 30 ml Q6H PRN PO GASTROINTESTINAL UPSET; Start 06/02/17 at 03:30 Nitroglycerin (Nitroglycerin (Sl Tab) 0.4 Mg) 1 tab Q5M PRN SL ANGINA; Start at 03:30 Acetaminophen/ Hydrocodone Bitart ([place] (5/325)) 1 tab Q6H PRN PO MODERATE PAIN LEVEL 4-6; Start 06/02/17 at 03:30 Pantoprazole (Protonix Tab) 40 mg DAILY@06 PO ; Start 06/02/17 at 06:00 Ascorbic Acid (Vitamin C) 500 mg DAILY PO ; Start 06/02/17 at 09:00 Ondansetron HCl 4 mg 4 mg Q6H PRN PO NAUSEA AND/OR VOMITING; Start 06/02/17 at 04:00 Dextrose (D5W) 1,000 ml @ 50 mls/hr Q20H IV Last administered on 06/04/17 01: 15; Admin Dose 50 MLS/HR; Start 06/02/17 at 09:30 Collagenase 1 applic 1 applic DAILY TOP Last administered on 06/04/17 08:57; Admin Dose 1 APPLIC; Start 06/03/17 at 09:00 Cefepime HCl 50 ml @ 100 mls/hr Q12 IVPB Last administered on 06/04/17 08:48 ; Admin Dose 100 MLS/HR; Start 06/02/17 at 17:00 Albumin Human 100 ml @ 100 mls/hr Q6 IV Last administered on 06/04/17 18:41; Admin Dose 100 MLS/HR; Start 06/04/17 at 08:30; Stop 06/05/17 at 00:59 Sodium Chloride 1,000 ml @ 100 mls/hr Q10H IV Last administered on 06/04/17 18:48; Admin Dose 100 MLS/HR; Start 06/04/17 at 08:30 Fentanyl (Sublimaze) 100 ml @ 2.5 mls/hr TITRATE IV Last administered on 18:39; Admin Dose 2.5 MLS/HR; Start 06/04/17 at 18:30 SALOMON OVIEDO MD Jun 04, 2017 19:50
[2017-06-04 19:59] LABS: AADO2 Arterial 188.7 mmHg (7.0-24.0); Allen Test ACCEPTAB; Arterial Base Excess 10.8 mmol/L (-3.0-3); Arterial COHb 0.5 % (0.0-3.0); Arterial Fraction of Oxyhgb 98.5 % (93.0-99.0); Arterial HCO3 38.2 mmol/L (22.0-26.0); Arterial MetHb 0.8 % (0.0-1.5); Arterial Total Hemglobin 8.9 g/dl (12.0-18.0); MODE VENT - AC
[2017-06-04] MEDS: ALLOPURINOL 100 MG TAB PO SCH (21:14)
[2017-06-05] VITALS (51 sets, daily range): BP systolic 83–115; BP diastolic 43–66; PULSE 70–89; RESP 13–27
[2017-06-05] MEDS: SOD CHLORIDE 0.45% 1,000 ML IV SCH (04:16)
[2017-06-05 05:31] LABS: BASOPHILS % 0.1 % (0.0-2.0); EOSINOPHILS # 0.1 10^3/ul (0.0-0.5); EOSINOPHILS % 1.1 % (0.0-7.0); HEMATOCRIT 23.6 % (42.0-52.0); LYMPHOCYTES # 0.7 10^3/ul (0.8-2.9); LYMPHOCYTES % 9.1 % (15.0-51.0); MEAN CORPUSCULAR HEMOGLOBIN 26.4 pg (29.0-33.0); MEAN CORPUSCULAR HGB CONC 29.7 g/dl (32.0-37.0); MEAN CORPUSCULAR VOLUME 89.1 fl (82.0-101.0); MEAN PLATELET VOLUME 11.3 fl (7.4-10.4); MONOCYTE # 0.4 10^3/ul (0.3-0.9); MONOCYTES % 5.6 % (0.0-11.0); NEUTROPHIL # 5.9 10^3/ul (1.6-7.5); NEUTROPHILS % 83.4 % (39.0-77.0); PLATELET COUNT 108 10^3/UL (140-415); POSITIVE DIFF @See below; RED BLOOD COUNT 2.65 10^6/ul (4.70-6.10); RED CELL DISTRIBUTION WIDTH 20.6 % (11.5-14.5); WHITE BLOOD COUNT 7.1 10^3/ul (4.8-10.8)
[2017-06-05] MEDS: PANTOPRAZOLE (EC) 40 MG TAB PO SCH (05:38)
[2017-06-05 06:18] LABS: CALCIUM 8.8 mg/dl (8.4-10.2); CREATININE 2.2 mg/dl (0.61-1.24); MAGNESIUM 1.9 mg/dl (1.7-2.5); PHOSPHORUS 3.9 mg/dl (2.5-4.9); POTASSIUM 3.3 mmol/L (3.5-5.1)
[2017-06-05 07:22] LABS: ADD UMIC YES; UR AMORPHOUS CRYSTAL FEW /HPF (NONE SEEN); UR ASCORBIC ACID NEGATIVE (NEGATIVE); UR BILIRUBIN (Dip) NEGATIVE (NEGATIVE); UR BLOOD (Dip) 2+ mg/dL (NEGATIVE); UR CLARITY CLOUDY (CLEAR); UR COLOR YELLOW (YELLOW); UR GLUCOSE (Dip) NEGATIVE (NEGATIVE); UR KETONES (Dip) TRACE mg/dL (NEGATIVE); UR LEUKOCYTE ESTERASE (Dip) TRACE Leu/ul (NEGATIVE); UR NITRITE (Dip) NEGATIVE (NEGATIVE); UR RBC 44 /HPF (0-5); UR SPECIFIC GRAVITY (Dip) 1.015 (1.003-1.030); UR TOTAL PROTEIN (Dip) 2+ mg/dl (NEGATIVE); UR UROBILINOGEN (Dip) NEGATIVE (NEGATIVE)
[2017-06-05] MEDS: DOCUSATE SODIUM 250 MG CAP PO SCH ×2 (09:00→21:00)
[2017-06-05] MEDS ORDERED: SOD CHLORIDE 0.9% 1,000 ML IV ONE (09:00)
[2017-06-05] MEDS ORDERED: POTASSIUM CHLORIDE 250 ML IVPB ONE (09:00)
--- NOTE | 2017-06-05 09:07 | PN ---
Date/Time of Note Date/Time of Note DATE: 06/05/17 TIME: 09:01 Assessment/Plan VTE Prophylaxis VTE Prophylaxis Intervention: other Lines/Catheters IV Catheter Type (from Nrsg): Central Line Central line still needed: Yes Urinary Cath still in place: Yes Reason Cath still needed: other (indicate) Assessment/Plan Chief Complaint/Hosp Course 1. Acute hypoxemic respiratory failure. Status post intubation Etiology is likely multifactorial secondary to lymphoma, pulmonary with possible lymphangitic spread, pulmonary interstitial edema Chest x-ray ABG reviewed Follow-up with pulmonary recommendations Patient may require emergent chemotherapy 2. Oligo anuric acute kidney injury with previously normal baseline creatinine Etiology was secondary to volume depletion, possible tubular injury Patient noted on renal ultrasound to have mild hydronephrosis with distended bladder urinalysis urine lites were reviewed -Bean catheter was adjusted Continue IV hydration We will check UPEP with immunofixation serum Lambda Light Chains . Interstitial pulmonary edema Etiology may be secondary to lymphoma and questionable congestive heart failure. Monitor I's and O's closely Follow-up with cardiology 3. Newly diagnosed lymphoma, pulmonary and gastric Patient may require emergent chemotherapy Appreciate hematology evaluation Monitor closely 4. Hypernatremia Free water flushes . 5. Anemia, No evidence of GI bleed Hemoglobin levels continue to decline, consider blood transfusion Follow-up with hematology 6. Acute encephalopathy, etiology is toxic metabolic. No significant change Continue to monitor 7. Gastrointestinal and deep venous thrombosis prophylaxis. Patient will be placed on Proton-pump inhibitors and heparin. Hypokalemia Replete with potassium chloride I spoke with the patient's daughter Jane as stated above informing of the critical nature of her uncle She understood and wishes to continue with aggressive care Please note spent over 40 minutes critical care time with this patient Problems: Subjective 24 Hr Interval Summary Free Text/Dictation Patient yesterday was emergently intubated due to respiratory failure Urinary output has been minimal No other events noted no hemoptysis hematemesis Exam/Review of Systems Vital Signs Vitals Vital Signs Date Time Temp Pulse Resp B/P Pulse Ox O2 Delivery O2 Flow Rate FiO2 06/05/17 07:50 76 18 100 40 06/05/17 06:00 91/48 Mechanical Ventilator 06/05/17 03:00 98.6 06/02/17 15:45 6.0 Intake and Output 06/04/17 06/04/17 06/05/17 14:59 22:59 06:59 Intake Total 1400 ml 1012.5 ml 1035 ml Output Total 25 ml 640 ml 160 ml Balance 1375 ml 372.5 ml 875 ml Exam HEENT: Head is normocephalic, NECK: Supple. HEART: Irregular LUNGS: Show diminished breath sounds at base. ABDOMEN: Soft, nontender to palpation without rebound or guarding. EXTREMITIES: Negative for clubbing, cyanosis. DERMATOLOGIC: No rashes. MUSCULOSKELETAL: No joint effusions, NEUROLOGIC: No change in exam. Results Result Diagram: 06/05/17 0410 06/05/17 0410 Results 24 hrs Laboratory Tests Test 06/04/17 17:00 06/04/17 19:30 06/05/17 04:00 06/05/17 04:10 Blood Gas Specimen Source Blood arterial Blood arterial Arterial Blood Date Drawn 06/04/2017 5:20:47 PM 06/04/2017 7:40:30 PM Arterial Blood pH (Temp corrected) 7.287 *L 7.350 Arterial Blood pCO2 (Temp correct) 77.9 H 70.8 H Arterial Blood pO2 (Temp corrected) 74.1 L 453.5 H Arterial Blood HCO3 36.4 H 38.2 H Arterial Blood Base Excess 8.1 H 10.8 H Arterial Blood Oxygen Saturation 93.4 L 99.8 Bakari Test ACCEPTAB ACCEPTAB Arterial Blood Gas Puncture Site Right Radial Left Radial Arterial Blood Carboxyhemoglobin 0.9 0.5 Arterial Blood Methemoglobin 0.7 0.8 Blood Gas A-a O2 Differential 121.5 H 188.7 H Oxyhemoglobin Percent 91.9 L 98.5 Total Hemoglobin 9.0 L 8.9 L Blood Gas Temperature 37.0 37.0 Blood Gas Respiration Rate 24.0 18.0 Blood Gas Actual Respiration Rate 26 20 Blood Gas Modality MASK - BIPAP VENT - AC FiO2 40.0 100.0 Blood Gas Pressure Support 15 Blood Gas IPAP/EPAP Ratio 20/5 Blood Gas Critical Value Read Back Meron ENGLAND RN Blood Gas Notified Whom [place] STOCK Blood Gas Notified Time 06/04/2017 5:32:38 PM 06/04/2017 7:55:57 PM Blood Gas Tidal Volume 500.0 Blood Gas High PEEP Setting 5.0 Blood Gas Low PEEP Setting 5.0 Urine Random Creatinine 116.82 Urine Random Sodium 26 L Urine Total Protein 125.0 H White Blood Count 7.1 # Red Blood Count 2.65 #L Hemoglobin 7.0 #L Hematocrit 23.6 #L Mean Corpuscular Volume 89.1 Mean Corpuscular Hemoglobin 26.4 L Mean Corpuscular Hemoglobin Concent 29.7 L Red Cell Distribution Width 20.6 H Platelet Count 108 L Mean Platelet Volume 11.3 H Neutrophils % 83.4 H Lymphocytes % 9.1 L Monocytes % 5.6 Eosinophils % 1.1 Basophils % 0.1 Nucleated Red Blood Cells % 0.0 Neutrophils # 5.9 Lymphocytes # 0.7 L Monocytes # 0.4 Eosinophils # 0.1 Basophils # 0.0 Nucleated Red Blood Cells # 0.0 Sodium Level 148 H Potassium Level 3.3 L Chloride Level 99 Carbon Dioxide Level 35 H Anion Gap 17 H Blood Urea Nitrogen 52 H Creatinine 2.20 H Glucose Level 83 Calcium Level 8.8 Phosphorus Level 3.9 Magnesium Level 1.9 Medications Medications Current Medications Heparin Sodium (Porcine) (Heparin (5000 Units/0.5 ml)) 5,000 unit BID SC Last administered on 06/04/17 21:11; Admin Dose 5,000 UNIT; Start 06/02/17 at 09:00 Acetaminophen/ Aspirin/Caffeine (Excedrin) 2 tab Q4 PRN PO ELEVATED TEMPERATURE ; Start 06/02/17 at 03:30 Aspirin (Aspirin) 81 mg DAILY PO ; Start 06/02/17 at 09:00 Docusate Sodium (Colace) 250 mg BID PO Last administered on 06/04/17 21:09; Admin Dose 250 MG; Start 06/02/17 at 09:00 Multivitamins/ Minerals (Theragran-M) 1 tab DAILY PO ; Start 06/02/17 at 09:00 Al Hydrox/Mg Hydrox/Simethicone (Mag-Al Plus) 30 ml Q6H PRN PO GASTROINTESTINAL UPSET; Start 06/02/17 at 03:30 Nitroglycerin (Nitroglycerin (Sl Tab) 0.4 Mg) 1 tab Q5M PRN SL ANGINA; Start at 03:30 Acetaminophen/ Hydrocodone Bitart ([place] (5/325)) 1 tab Q6H PRN PO MODERATE PAIN LEVEL 4-6; Start 06/02/17 at 03:30 Pantoprazole (Protonix Tab) 40 mg DAILY@06 PO Last administered on 06/05/17 05 :38; Admin Dose 40 MG; Start 06/02/17 at 06:00 Ascorbic Acid (Vitamin C) 500 mg DAILY PO ; Start 06/02/17 at 09:00 Ondansetron HCl (Zofran Tab) 4 mg Q6H PRN PO NAUSEA AND/OR VOMITING; Start at 04:00 Collagenase 1 applic 1 applic DAILY TOP Last administered on 06/04/17 08:57; Admin Dose 1 APPLIC; Start 06/03/17 at 09:00 Cefepime HCl 50 ml @ 100 mls/hr Q12 IVPB Last administered on 06/04/17 21:09 ; Admin Dose 100 MLS/HR; Start 06/02/17 at 17:00 Fentanyl (Sublimaze) 100 ml @ 2.5 mls/hr TITRATE IV Last administered on 18:39; Admin Dose 2.5 MLS/HR; Start 06/04/17 at 18:30 Allopurinol 100 mg 100 mg DAILY PO Last administered on 06/04/17 21:14; Admin Dose 100 MG; Start 06/04/17 at 20:00 Sodium Chloride 1,000 ml @ 1,000 mls/hr Q1H ONCE IV ; Start 06/05/17 at 09:00; Stop 06/05/17 at 09:59 Sodium Chloride 1,000 ml @ 100 mls/hr Q10H IV ; Start 06/05/17 at 09:00 Potassium Chloride (KCl 40 MEQ/250 ML NS) 250 ml @ 62.5 mls/hr ONCE ONCE IVPB ; Start 06/05/17 at 09:00; Stop 06/05/17 at 12:59; Status ERASTO WIGGINS DO Jun 05, 2017 09:07
[2017-06-05] MEDS: ASCORBIC ACID 500 MG TAB PO SCH (09:59)
[2017-06-05] MEDS: ALLOPURINOL 100 MG TAB PO SCH (09:59)
[2017-06-05] MEDS: MULTIVITAMINS/MINERALS TAB PO SCH (09:59)
[2017-06-05] MEDS: CEFEPIME 1GM/50 ML (PMX) 50 ML IVPB SCH (09:59)
[2017-06-05] MEDS: ASPIRIN 81 MG TAB PO SCH (09:59)
[2017-06-05] MEDS: HEPARIN 5,000 UNIT/0.5 ML VIAL SC SCH ×2 (10:01→21:00)
[2017-06-05] MEDS: COLLAGENASE 30 GM TUBE TOP SCH (10:02)
[2017-06-05] MEDS: SOD CHLORIDE 0.9% 1,000 ML IV SCH ×2 (11:05→19:00)
--- NOTE | 2017-06-05 11:15 | CONS ---
Date/Time of Note Date/Time of Note DATE: 06/05/17 TIME: 11:11 Assessment/Plan Assessment/Plan Chief Complaint/Hosp Course Patient was intubated last night he is on fentanyl drip blood pressure is low, he is getting fluid bolus, he is in no distress Temperature 98 pulse 77 respirations 20 blood pressure 84/47 saturation 98 on 40 FiO2 WBC 7.1 H&H 7 and 23.6 platelets 108 neutrophils 83.4 BN 52 creatinine 2.20 Urinalysis from yesterday revealed cloudy yellow urine with a trace leukocyte esterase and presence of white blood cell count Microbiology: Pending repeat urine culture, blood cultures have been negative Chest x-ray this morning revealed cardiomegaly with interstitial pulmonary edema , unchanged Indwelling: ET tube, Bean, NG tube Physical examination: Well-developed elderly man who is intubated in no distress. Head atraumatic normocephalic, sclera nonicteric. Neck is supple. Chest rise symmetrical, breath sounds with bilateral scattered rhonchi. Heart: S1, S2, tachycardic. Abdomen soft, bowel tones hypoactive. Extremities without cyanosis. Assessment: 1. Septic shock 2. Acute respiratory failure/pulmonary edema 2. Bilateral pneumonia 3. Acute encephalopathy 4. Newly diagnosed lymphoma 5. Acute renal failure Plan: Doing poorly, continue present care, antibiotics, vent support per pulmonary, f/u oncology recommendations, prognosis guarded. Follow urine and sputum cultures Discussed with staff Problems: Consultation Date/Type/Reason Admit Date/Time Jun 01, 2017 at 22:01 Initial Consult Date 06/02/17 Type of Consultation: id Referring Provider: ERASTO GONZALEZ DO Exam/Review of Systems Vital Signs Vitals Vital Signs Date Time Temp Pulse Resp B/P Pulse Ox O2 Delivery O2 Flow Rate FiO2 06/05/17 10:30 73 17 91/47 100 06/05/17 10:00 Mechanical Ventilator 06/05/17 09:53 40 06/05/17 08:00 98.0 06/02/17 15:45 6.0 Intake and Output 06/04/17 06/04/17 06/05/17 15:00 23:00 07:00 Intake Total 1450 ml 1012.5 ml 935 ml Output Total 525 ml 140 ml 160 ml Balance 925 ml 872.5 ml 775 ml Results Result Diagram: 06/05/17 0410 06/05/17 0410 Results 24 hrs Laboratory Tests Test 06/04/17 17:00 06/04/17 19:30 06/05/17 04:00 06/05/17 04:10 Blood Gas Specimen Source Blood arterial Blood arterial Arterial Blood Date Drawn 06/04/2017 5:20:47 PM 06/04/2017 7:40:30 PM Arterial Blood pH (Temp corrected) 7.287 *L 7.350 Arterial Blood pCO2 (Temp correct) 77.9 H 70.8 H Arterial Blood pO2 (Temp corrected) 74.1 L 453.5 H Arterial Blood HCO3 36.4 H 38.2 H Arterial Blood Base Excess 8.1 H 10.8 H Arterial Blood Oxygen Saturation 93.4 L 99.8 Bakari Test ACCEPTAB ACCEPTAB Arterial Blood Gas Puncture Site Right Radial Left Radial Arterial Blood Carboxyhemoglobin 0.9 0.5 Arterial Blood Methemoglobin 0.7 0.8 Blood Gas A-a O2 Differential 121.5 H 188.7 H Oxyhemoglobin Percent 91.9 L 98.5 Total Hemoglobin 9.0 L 8.9 L Blood Gas Temperature 37.0 37.0 Blood Gas Respiration Rate 24.0 18.0 Blood Gas Actual Respiration Rate 26 20 Blood Gas Modality MASK - BIPAP VENT - AC FiO2 40.0 100.0 Blood Gas Pressure Support 15 Blood Gas IPAP/EPAP Ratio 20/5 Blood Gas Critical Value Read Back Meron ENGLAND RN Blood Gas Notified Whom [place] STOCK Blood Gas Notified Time 06/04/2017 5:32:38 PM 06/04/2017 7:55:57 PM Blood Gas Tidal Volume 500.0 Blood Gas High PEEP Setting 5.0 Blood Gas Low PEEP Setting 5.0 Urine Random Creatinine 116.82 Urine Random Sodium 26 L Urine Total Protein 125.0 H White Blood Count 7.1 # Red Blood Count 2.65 #L Hemoglobin 7.0 #L Hematocrit 23.6 #L Mean Corpuscular Volume 89.1 Mean Corpuscular Hemoglobin 26.4 L Mean Corpuscular Hemoglobin Concent 29.7 L Red Cell Distribution Width 20.6 H Platelet Count 108 L Mean Platelet Volume 11.3 H Neutrophils % 83.4 H Lymphocytes % 9.1 L Monocytes % 5.6 Eosinophils % 1.1 Basophils % 0.1 Nucleated Red Blood Cells % 0.0 Neutrophils # 5.9 Lymphocytes # 0.7 L Monocytes # 0.4 Eosinophils # 0.1 Basophils # 0.0 Nucleated Red Blood Cells # 0.0 Sodium Level 148 H Potassium Level 3.3 L Chloride Level 99 Carbon Dioxide Level 35 H Anion Gap 17 H Blood Urea Nitrogen 52 H Creatinine 2.20 H Glucose Level 83 Calcium Level 8.8 Phosphorus Level 3.9 Magnesium Level 1.9 Medications Medications Current Medications Heparin Sodium (Porcine) (Heparin (5000 Units/0.5 ml)) 5,000 unit BID SC Last administered on 06/05/17 10:01; Admin Dose 5,000 UNIT; Start 06/02/17 at 09:00 Acetaminophen/ Aspirin/Caffeine (Excedrin) 2 tab Q4 PRN PO ELEVATED TEMPERATURE ; Start 06/02/17 at 03:30 Aspirin (Aspirin) 81 mg DAILY PO Last administered on 06/05/17 09:59; Admin Dose 81 MG; Start 06/02/17 at 09:00 Docusate Sodium (Colace) 250 mg BID PO Last administered on 06/04/17 21:09; Admin Dose 250 MG; Start 06/02/17 at 09:00 Multivitamins/ Minerals (Theragran-M) 1 tab DAILY PO Last administered on 09:59; Admin Dose 1 TAB; Start 06/02/17 at 09:00 Al Hydrox/Mg Hydrox/Simethicone (Mag-Al Plus) 30 ml Q6H PRN PO GASTROINTESTINAL UPSET; Start 06/02/17 at 03:30 Nitroglycerin (Nitroglycerin (Sl Tab) 0.4 Mg) 1 tab Q5M PRN SL ANGINA; Start at 03:30 Acetaminophen/ Hydrocodone Bitart ([place] (5/325)) 1 tab Q6H PRN PO MODERATE PAIN LEVEL 4-6; Start 06/02/17 at 03:30 Pantoprazole (Protonix Tab) 40 mg DAILY@06 PO Last administered on 06/05/17 05 :38; Admin Dose 40 MG; Start 06/02/17 at 06:00 Ascorbic Acid (Vitamin C) 500 mg DAILY PO Last administered on 06/05/17 09:59 ; Admin Dose 500 MG; Start 06/02/17 at 09:00 Ondansetron HCl (Zofran Tab) 4 mg Q6H PRN PO NAUSEA AND/OR VOMITING; Start at 04:00 Collagenase 1 applic 1 applic DAILY TOP Last administered on 06/05/17 10:02; Admin Dose 1 APPLIC; Start 06/03/17 at 09:00 Cefepime HCl 50 ml @ 100 mls/hr Q12 IVPB Last administered on 06/05/17 09:59 ; Admin Dose 100 MLS/HR; Start 06/02/17 at 17:00 Fentanyl (Sublimaze) 100 ml @ 2.5 mls/hr TITRATE IV Last administered on 18:39; Admin Dose 2.5 MLS/HR; Start 06/04/17 at 18:30 Allopurinol 100 mg 100 mg DAILY PO Last administered on 06/05/17 09:59; Admin Dose 100 MG; Start 06/04/17 at 20:00 Sodium Chloride 1,000 ml @ 100 mls/hr Q10H IV Last administered on 06/05/17 11:05; Admin Dose 100 MLS/HR; Start 06/05/17 at 09:00 Potassium Chloride (KCl 40 MEQ/250 ML NS) 250 ml @ 62.5 mls/hr ONCE ONCE IVPB Last administered on 06/05/17 11:00; Admin Dose 62.5 MLS/HR; Start 06/05/17 at 09:00; Stop 06/05/17 at 12:59 JORDY KNOTT NP Jun 05, 2017 11:15
--- NOTE | 2017-06-05 11:36 | CONS ---
Date/Time of Note Date/Time of Note DATE: 06/05/17 TIME: 11:34 Consult Date/Type/Reason Admit Date/Time Jun 01, 2017 at 22:01 Initial Consult Date 06/02/17 Type of Consultation: Pulmonary Ordering Provider: ERASTO GONZALEZ DO Subjective Respiratory distress overnight requiring intubation mechanical ventilation. Objective Vital Signs Date Time Temp Pulse Resp B/P Pulse Ox O2 Delivery O2 Flow Rate FiO2 06/05/17 10:30 73 17 91/47 100 06/05/17 10:00 Mechanical Ventilator 06/05/17 09:53 40 06/05/17 08:00 98.0 06/02/17 15:45 6.0 Intake and Output 06/04/17 06/04/17 06/05/17 14:59 22:59 06:59 Intake Total 1400 ml 1012.5 ml 1035 ml Output Total 25 ml 640 ml 160 ml Balance 1375 ml 372.5 ml 875 ml Exam GENERAL: Elderly gentleman intubated on mechanical ventilation appears comfortable at rest. VITAL SIGNS: per chart NECK: Supple. No JVD or lymphadenopathy. CARDIAC EXAM: S1, S2. No added sounds or murmurs. CHEST: Diminished air entry bilaterally ABDOMEN: Soft, nontender. No guarding or rebound. EXTREMITIES: No cyanosis, clubbing or edema. NEUROLOGIC: Generalized weakness. No focal deficits. Results/Medications Result Diagram: 06/05/1740906/05/17409 Results 24 hrs Chest x-ray IMPRESSION: 1. Cardiomegaly with interstitial pulmonary edema/pulmonary venous congestion, unchanged. Laboratory Tests Test 06/04/17 17:00 06/04/17 19:30 06/05/17 04:00 06/05/17 04:10 Blood Gas Specimen Source Blood arterial Blood arterial Arterial Blood Date Drawn 06/04/2017 5:20:47 PM 06/04/2017 7:40:30 PM Arterial Blood pH (Temp corrected) 7.287 *L 7.350 Arterial Blood pCO2 (Temp correct) 77.9 H 70.8 H Arterial Blood pO2 (Temp corrected) 74.1 L 453.5 H Arterial Blood HCO3 36.4 H 38.2 H Arterial Blood Base Excess 8.1 H 10.8 H Arterial Blood Oxygen Saturation 93.4 L 99.8 Bakari Test ACCEPTAB ACCEPTAB Arterial Blood Gas Puncture Site Right Radial Left Radial Arterial Blood Carboxyhemoglobin 0.9 0.5 Arterial Blood Methemoglobin 0.7 0.8 Blood Gas A-a O2 Differential 121.5 H 188.7 H Oxyhemoglobin Percent 91.9 L 98.5 Total Hemoglobin 9.0 L 8.9 L Blood Gas Temperature 37.0 37.0 Blood Gas Respiration Rate 24.0 18.0 Blood Gas Actual Respiration Rate 26 20 Blood Gas Modality MASK - BIPAP VENT - AC FiO2 40.0 100.0 Blood Gas Pressure Support 15 Blood Gas IPAP/EPAP Ratio 20/5 Blood Gas Critical Value Read Back Meron ENGLAND RN Blood Gas Notified Whom [place] STOCK Blood Gas Notified Time 06/04/2017 5:32:38 PM 06/04/2017 7:55:57 PM Blood Gas Tidal Volume 500.0 Blood Gas High PEEP Setting 5.0 Blood Gas Low PEEP Setting 5.0 Urine Random Creatinine 116.82 Urine Random Sodium 26 L Urine Total Protein 125.0 H White Blood Count 7.1 # Red Blood Count 2.65 #L Hemoglobin 7.0 #L Hematocrit 23.6 #L Mean Corpuscular Volume 89.1 Mean Corpuscular Hemoglobin 26.4 L Mean Corpuscular Hemoglobin Concent 29.7 L Red Cell Distribution Width 20.6 H Platelet Count 108 L Mean Platelet Volume 11.3 H Neutrophils % 83.4 H Lymphocytes % 9.1 L Monocytes % 5.6 Eosinophils % 1.1 Basophils % 0.1 Nucleated Red Blood Cells % 0.0 Neutrophils # 5.9 Lymphocytes # 0.7 L Monocytes # 0.4 Eosinophils # 0.1 Basophils # 0.0 Nucleated Red Blood Cells # 0.0 Sodium Level 148 H Potassium Level 3.3 L Chloride Level 99 Carbon Dioxide Level 35 H Anion Gap 17 H Blood Urea Nitrogen 52 H Creatinine 2.20 H Glucose Level 83 Calcium Level 8.8 Phosphorus Level 3.9 Magnesium Level 1.9 Medications Current Medications Heparin Sodium (Porcine) (Heparin (5000 Units/0.5 ml)) 5,000 unit BID SC Last administered on 06/05/17t 10:01; Admin Dose 5,000 UNIT; Start 06/02/17 at 09:00 Acetaminophen/ Aspirin/Caffeine (Excedrin) 2 tab Q4 PRN PO ELEVATED TEMPERATURE ; Start 06/02/17 at 03:30 Aspirin (Aspirin) 81 mg DAILY PO Last administered on 06/05/17 09:59; Admin Dose 81 MG; Start 06/02/17 at 09:00 Docusate Sodium (Colace) 250 mg BID PO Last administered on 06/04/17 21:09; Admin Dose 250 MG; Start 06/02/17 at 09:00 Multivitamins/ Minerals (Theragran-M) 1 tab DAILY PO Last administered on 09:59; Admin Dose 1 TAB; Start 06/02/17 at 09:00 Al Hydrox/Mg Hydrox/Simethicone (Mag-Al Plus) 30 ml Q6H PRN PO GASTROINTESTINAL UPSET; Start 06/02/17 at 03:30 Nitroglycerin (Nitroglycerin (Sl Tab) 0.4 Mg) 1 tab Q5M PRN SL ANGINA; Start at 03:30 Acetaminophen/ Hydrocodone Bitart ([place] (5/325)) 1 tab Q6H PRN PO MODERATE PAIN LEVEL 4-6; Start 06/02/17 at 03:30 Pantoprazole (Protonix Tab) 40 mg DAILY@06 PO Last administered on 06/05/17 05 :38; Admin Dose 40 MG; Start 06/02/17 at 06:00 Ascorbic Acid (Vitamin C) 500 mg DAILY PO Last administered on 06/05/17 09:59 ; Admin Dose 500 MG; Start 06/02/17 at 09:00 Ondansetron HCl (Zofran Tab) 4 mg Q6H PRN PO NAUSEA AND/OR VOMITING; Start at 04:00 Collagenase 1 applic 1 applic DAILY TOP Last administered on 06/05/17 10:02; Admin Dose 1 APPLIC; Start 06/03/17 at 09:00 Cefepime HCl 50 ml @ 100 mls/hr Q12 IVPB Last administered on 06/05/17 09:59 ; Admin Dose 100 MLS/HR; Start 06/02/17 at 17:00 Fentanyl (Sublimaze) 100 ml @ 2.5 mls/hr TITRATE IV Last administered on 18:39; Admin Dose 2.5 MLS/HR; Start 06/04/17 at 18:30 Allopurinol 100 mg 100 mg DAILY PO Last administered on 7/24/17at 09:59; Admin Dose 100 MG; Start 06/04/17 at 20:00 Sodium Chloride 1,000 ml @ 100 mls/hr Q10H IV Last administered on 06/05/17 11:05; Admin Dose 100 MLS/HR; Start 06/05/17 at 09:00 Potassium Chloride (KCl 40 MEQ/250 ML NS) 250 ml @ 62.5 mls/hr ONCE ONCE IVPB Last administered on 06/05/17 11:00; Admin Dose 62.5 MLS/HR; Start 06/05/17 at 09:00; Stop 06/05/17 at 12:59 Assessment/Plan Chief Complaint/Hosp Course Assessment 1. Hypoxemic respiratory failure likely secondary to congestive cardiac failure or possibly secondary to underlying lymphoma. Now mechanical ventilation 2. Significant anemia unclear whether this is a GI bleed or a consumptive process. 3. Encephalopathy questionable toxic metabolic. Plan 1. Echocardiogram and diuresis as tolerated. 2. Hematology oncology recommendations for lymphoma management and workup of anemia 3. DVT and GI prophylaxis per primary team 4. Aspiration precautions. Consider transfusion 1 unit packed red blood cells 5. Continue mechanical ventilation Disposition Continue ICU care Problems: [facility]IR[facility] RIVERA MD, [facility] Jun 05, 2017 11:36
[2017-06-05] MEDS: FENTAnyl (DRIP) 1000 mcg/100mL 100 ML IV SCH (12:50)
[2017-06-05 17:11] LABS: PSA, FREE 0.1 ng/mL
--- NOTE | 2017-06-05 17:18 | CONS ---
Date/Time of Note Date/Time of Note DATE: 06/05/17 TIME: 10:14 Assessment/Plan Assessment/Plan Chief Complaint/Hosp Course Newly diagnosed lymphoma, pulmonary and gastric. The patient has not yet started chemotherapy. Patient may require urgent chemotherapy, after being cleared by certified endoscopy technician and pulmonary ONCOLOGICAL RECORD-P DR LIDIA RUSSELL ( [phone]), PT'S [employer] [facility]- PT WAS SEND TO SNF TO GET STRONGER, HE WAS TOO UNSTABLE FOR CHEMO D/W NIECE, [facility] STILL NOT CLEAR WHAT TYPE OF LYMPHOMA PT HAD CAN NOT START CHEMO WITHOUT REVIEWING THE PATH REPORT RECORD- WAS NOT AVAILABLE IN AM Anemia, N- CYTIC WITH INCREASED RDW WITH DROP H/H DURING HOSPITALIZATION PER NIECE- NO HX ANEMIA, BLEEDING, PRBC TRANSFUSIONS No obvious evidence of GI bleed at this time. + COMPONENT ACD INCREASE URIC ACID ALLOPURINOL, RENAL DOSE CHECK FOR TUMOR LYSIS Acute hypoxemic respiratory failure. Etiology is likely multifactorial secondary to lymphoma, pulmonary with possible lymphangitic spread, congestive heart failure exacerbation. The patient currently is on BiPAP, receiving Bumex drip. pulmonary F-UP cardiology F-UP PER NIECE- agrees with intubation if necessary. Volume overload. Etiology may be multifactorial secondary to lymphoma and questionable congestive heart failure. Patient's chest x-ray shows pulmonary congestion. The patient had a recent cardiac cath which was negative, per patient's niece. Plan is continue diuretic regimen, monitor I and Os closely. Hypernatremia. Patient will be placed on D5W. Will monitor closely. Acute encephalopathy, etiology is toxic metabolic. We will continue to monitor. Gastrointestinal and deep venous thrombosis prophylaxis. Patient will be placed on Proton-pump inhibitors and heparin. ( IF NO EVIDENCE OF BLEEDING) Problems: Consultation Date/Type/Reason Admit Date/Time Jun 01, 2017 at 22:01 Initial Consult Date 06/02/17 [facility] Provider: ERASTO GONZALEZ DO 24 HR Interval Summary Free Text/Dictation all noted in ICU INTUBATED RECORD- WAS NOT AVAILABLE IN AM Exam/Review of Systems Vital Signs Vitals Vital Signs Date Time Temp Pulse Resp B/P Pulse Ox O2 Delivery O2 Flow Rate FiO2 06/05/17 16:30 75 18 89/49 100 06/05/17 16:00 Mechanical Ventilator 06/05/17 15:15 40 06/05/17 12:00 98.6 06/02/17 15:45 6.0 Intake and Output 06/04/17 06/04/17 06/05/17 15:00 23:00 07:00 Intake Total 1450 ml 1012.5 ml 940 ml Output Total 525 ml 140 ml 160 ml Balance 925 ml 872.5 ml 780 ml Exam GENERAL: Elderly gentleman intubated on mechanical ventilation appears comfortable at rest. VITAL SIGNS: per chart NECK: Supple. No JVD or lymphadenopathy. CARDIAC EXAM: S1, S2. No added sounds or murmurs. CHEST: Diminished air entry bilaterally ABDOMEN: Soft, nontender. No guarding or rebound. EXTREMITIES: No cyanosis, clubbing or edema. NEUROLOGIC: Generalized weakness. No focal deficits. Results Result Diagram: 06/05/17 0410 06/05/17 0410 Results 24 hrs Laboratory Tests Test 06/04/17 19:30 06/05/17 04:00 06/05/17 04:10 Blood Gas Specimen Source Blood arterial Arterial Blood Date Drawn 06/04/2017 7:40:30 PM Arterial Blood pH (Temp corrected) 7.350 Arterial Blood pCO2 (Temp correct) 70.8 H Arterial Blood pO2 (Temp corrected) 453.5 H Arterial Blood HCO3 38.2 H Arterial Blood Base Excess 10.8 H Arterial Blood Oxygen Saturation 99.8 Bakari Test ACCEPTAB Arterial Blood Gas Puncture Site Left Radial Arterial Blood Carboxyhemoglobin 0.5 Arterial Blood Methemoglobin 0.8 Blood Gas A-a O2 Differential 188.7 H Oxyhemoglobin Percent 98.5 Total Hemoglobin 8.9 L Blood Gas Temperature 37.0 Blood Gas Respiration Rate 18.0 Blood Gas Actual Respiration Rate 20 Blood Gas Modality VENT - AC FiO2 100.0 Blood Gas Tidal Volume 500.0 Blood Gas High PEEP Setting 5.0 Blood Gas Low PEEP Setting 5.0 Blood Gas Critical Value Read Back LA NENA ENGLAND RN Blood Gas Notified Whom Tori STOCK Blood Gas Notified Time 06/04/2017 7:55:57 PM Urine Random Creatinine 116.82 Urine Random Sodium 26 L Urine Total Protein 125.0 H White Blood Count 7.1 # Red Blood Count 2.65 #L Hemoglobin 7.0 #L Hematocrit 23.6 #L Mean Corpuscular Volume 89.1 Mean Corpuscular Hemoglobin 26.4 L Mean Corpuscular Hemoglobin Concent 29.7 L Red Cell Distribution Width 20.6 H Platelet Count 108 L Mean Platelet Volume 11.3 H Neutrophils % 83.4 H Lymphocytes % 9.1 L Monocytes % 5.6 Eosinophils % 1.1 Basophils % 0.1 Nucleated Red Blood Cells % 0.0 Neutrophils # 5.9 Lymphocytes # 0.7 L Monocytes # 0.4 Eosinophils # 0.1 Basophils # 0.0 Nucleated Red Blood Cells # 0.0 Sodium Level 148 H Potassium Level 3.3 L Chloride Level 99 Carbon Dioxide Level 35 H Anion Gap 17 H Blood Urea Nitrogen 52 H Creatinine 2.20 H Glucose Level 83 Calcium Level 8.8 Phosphorus Level 3.9 Magnesium Level 1.9 Medications Medications Current Medications Heparin Sodium (Porcine) (Heparin (5000 Units/0.5 ml)) 5,000 unit BID SC Last administered on 06/05/17 10:01; Admin Dose 5,000 UNIT; Start 06/02/17 at 09:00 Acetaminophen/ Aspirin/Caffeine (Excedrin) 2 tab Q4 PRN PO ELEVATED TEMPERATURE ; Start 06/02/17 at 03:30 Aspirin (Aspirin) 81 mg DAILY PO Last administered on 06/05/17 09:59; Admin Dose 81 MG; Start 06/02/17 at 09:00 Docusate Sodium (Colace) 250 mg BID PO Last administered on 06/04/17 21:09; Admin Dose 250 MG; Start 06/02/17 at 09:00 Multivitamins/ Minerals (Theragran-M) 1 tab DAILY PO Last administered on 09:59; Admin Dose 1 TAB; Start 06/02/17 at 09:00 Al Hydrox/Mg Hydrox/Simethicone (Mag-Al Plus) 30 ml Q6H PRN PO GASTROINTESTINAL UPSET; Start 06/02/17 at 03:30 Nitroglycerin (Nitroglycerin (Sl Tab) 0.4 Mg) 1 tab Q5M PRN SL ANGINA; Start at 03:30 Acetaminophen/ Hydrocodone Bitart ([place] (5/325)) 1 tab Q6H PRN PO MODERATE PAIN LEVEL 4-6; Start 06/02/17 at 03:30 Pantoprazole (Protonix Tab) 40 mg DAILY@06 PO Last administered on 06/05/17 05 :38; Admin Dose 40 MG; Start 06/02/17 at 06:00 Ascorbic Acid (Vitamin C) 500 mg DAILY PO Last administered on 06/05/17 09:59 ; Admin Dose 500 MG; Start 06/02/17 at 09:00 Ondansetron HCl (Zofran Tab) 4 mg Q6H PRN PO NAUSEA AND/OR VOMITING; Start at 04:00 Collagenase 1 applic 1 applic DAILY TOP Last administered on 06/05/17 10:02; Admin Dose 1 APPLIC; Start 06/03/17 at 09:00 Fentanyl (Sublimaze) 100 ml @ 2.5 mls/hr TITRATE IV Last administered on 12:50; Admin Dose 5 MLS/HR; Start 06/04/17 at 18:30 Allopurinol 100 mg 100 mg DAILY PO Last administered on 06/05/17 09:59; Admin Dose 100 MG; Start 06/04/17 at 20:00 Sodium Chloride 1,000 ml @ 100 mls/hr Q10H IV Last administered on 06/05/17 11:05; Admin Dose 100 MLS/HR; Start 06/05/17 at 09:00 Cefepime HCl (Maxipime 1gm/50 ml (Pmx)) 50 ml @ 100 mls/hr Q24H IVPB ; Start at 09:00 SALOMON OVIEDO MD Jun 05, 2017 17:18
--- NOTE | 2017-06-05 17:20 | PN ---
Date/Time of Note Date/Time of Note DATE: 06/05/17 TIME: 17:16 Assessment/Plan VTE Prophylaxis VTE Prophylaxis Intervention: other Lines/Catheters IV Catheter Type (from Nrs): Central Line Central line still needed: Yes Urinary Cath still in place: Yes Reason Cath still needed: other (indicate) Assessment/Plan Chief Complaint/Hosp Course 1. Acute hypoxemic respiratory failure. intubated now Follow-up with pulmonary normal EF on ECHO 2. Volume overload. S/P diuresis Monitor I's and O's closely 3. Newly diagnosed lymphoma, pulmonary and gastric Patient may require emergent chemotherapy f/u with hematology evaluation Monitor closely 4. Hypernatremia D5 water per renal . 5. Anemia, Etiology likely from chronic disease f/u with hem/onc 6. Acute encephalopathy, etiology is toxic metabolic. No significant change Continue to monitor \ 7. Small pericardial effusion: will monitor. 8. SHANTELLE: defer to renal. CONT ICU CARE. Problems: Subjective 24 Hr Interval Summary Free Text/Dictation CARDIOLOGY FOLLOW UP NOTE: d/w staff and rhythm was reviewed. pt remains in sinus rhythm pt has had to be intubated and is vent now Pt remains nonverbal OBJECTIVE General: intubated on vent HEENT: pupils are equal. round. NECK: NO JVD. no stridor. CV: RRR. systolic murmur; no gallop or rubs. PULM: + diffuse rhonchi. GI: SOFT, NT, ND, no rebound or guarding Extremity: trace B/L LE edema. no clubbing. neuro: lethargic. Psych: calm rectal: deferred : normal male echo 06/02/17: 1. Hyperdynamic left ventricular systolic function. Normal left ventricular cavity size. Moderate concentric left ventricular hypertrophy. Ejection fraction is visually estimated at 65 %. Abnormal Diastolic Function. 2. Mitral valve leaflets appear mildly thickened. Mild mitral annular calcification. Trace mitral regurgitation. 3. Aortic sclerosis without stenosis. Trace aortic valve regurgitation. 4. Normal appearance of the tricuspid valve. Estimated peak PA systolic pressure 33 mmHg. There is mild tricuspid regurgitation. 5. Small pericardial effusion. 6. Normal size and normal respiratory collapse consistent with normal right atrial pressure. Exam/Review of Systems Vital Signs Vitals Vital Signs Date Time Temp Pulse Resp B/P Pulse Ox O2 Delivery O2 Flow Rate FiO2 06/05/17 16:30 75 18 89/49 100 06/05/17 16:00 Mechanical Ventilator 06/05/17 15:15 40 06/05/17 12:00 98.6 06/02/17 15:45 6.0 Intake and Output 06/04/17 06/04/17 06/05/17 15:00 23:00 07:00 Intake Total 1450 ml 1012.5 ml 940 ml Output Total 525 ml 140 ml 160 ml Balance 925 ml 872.5 ml 780 ml Results Result Diagram: 06/05/17 0410 06/05/17 0410 Results 24 hrs Laboratory Tests Test 06/04/17 19:30 06/05/17 04:00 06/05/17 04:10 Blood Gas Specimen Source Blood arterial Arterial Blood Date Drawn 06/04/2017 7:40:30 PM Arterial Blood pH (Temp corrected) 7.350 Arterial Blood pCO2 (Temp correct) 70.8 H Arterial Blood pO2 (Temp corrected) 453.5 H Arterial Blood HCO3 38.2 H Arterial Blood Base Excess 10.8 H Arterial Blood Oxygen Saturation 99.8 Bakari Test ACCEPTAB Arterial Blood Gas Puncture Site Left Radial Arterial Blood Carboxyhemoglobin 0.5 Arterial Blood Methemoglobin 0.8 Blood Gas A-a O2 Differential 188.7 H Oxyhemoglobin Percent 98.5 Total Hemoglobin 8.9 L Blood Gas Temperature 37.0 Blood Gas Respiration Rate 18.0 Blood Gas Actual Respiration Rate 20 Blood Gas Modality VENT - AC FiO2 100.0 Blood Gas Tidal Volume 500.0 Blood Gas High PEEP Setting 5.0 Blood Gas Low PEEP Setting 5.0 Blood Gas Critical Value Read Back LA NENA ENGLAND RN Blood Gas Notified Whom Tori STOCK Blood Gas Notified Time 06/04/2017 7:55:57 PM Urine Random Creatinine 116.82 Urine Random Sodium 26 L Urine Total Protein 125.0 H White Blood Count 7.1 # Red Blood Count 2.65 #L Hemoglobin 7.0 #L Hematocrit 23.6 #L Mean Corpuscular Volume 89.1 Mean Corpuscular Hemoglobin 26.4 L Mean Corpuscular Hemoglobin Concent 29.7 L Red Cell Distribution Width 20.6 H Platelet Count 108 L Mean Platelet Volume 11.3 H Neutrophils % 83.4 H Lymphocytes % 9.1 L Monocytes % 5.6 Eosinophils % 1.1 Basophils % 0.1 Nucleated Red Blood Cells % 0.0 Neutrophils # 5.9 Lymphocytes # 0.7 L Monocytes # 0.4 Eosinophils # 0.1 Basophils # 0.0 Nucleated Red Blood Cells # 0.0 Sodium Level 148 H Potassium Level 3.3 L Chloride Level 99 Carbon Dioxide Level 35 H Anion Gap 17 H Blood Urea Nitrogen 52 H Creatinine 2.20 H Glucose Level 83 Calcium Level 8.8 Phosphorus Level 3.9 Magnesium Level 1.9 Medications Medications Current Medications Heparin Sodium (Porcine) (Heparin (5000 Units/0.5 ml)) 5,000 unit BID SC Last administered on 06/05/17 10:01; Admin Dose 5,000 UNIT; Start 06/02/17 at 09:00 Acetaminophen/ Aspirin/Caffeine (Excedrin) 2 tab Q4 PRN PO ELEVATED TEMPERATURE ; Start 06/02/17 at 03:30 Aspirin (Aspirin) 81 mg DAILY PO Last administered on 06/05/17 09:59; Admin Dose 81 MG; Start 06/02/17 at 09:00 Docusate Sodium (Colace) 250 mg BID PO Last administered on 06/04/17 21:09; Admin Dose 250 MG; Start 06/02/17 at 09:00 Multivitamins/ Minerals (Theragran-M) 1 tab DAILY PO Last administered on 09:59; Admin Dose 1 TAB; Start 06/02/17 at 09:00 Al Hydrox/Mg Hydrox/Simethicone (Mag-Al Plus) 30 ml Q6H PRN PO GASTROINTESTINAL UPSET; Start 06/02/17 at 03:30 Nitroglycerin (Nitroglycerin (Sl Tab) 0.4 Mg) 1 tab Q5M PRN SL ANGINA; Start at 03:30 Acetaminophen/ Hydrocodone Bitart ([place] (5/325)) 1 tab Q6H PRN PO MODERATE PAIN LEVEL 4-6; Start 06/02/17 at 03:30 Pantoprazole (Protonix Tab) 40 mg DAILY@06 PO Last administered on 06/05/17 05 :38; Admin Dose 40 MG; Start 06/02/17 at 06:00 Ascorbic Acid (Vitamin C) 500 mg DAILY PO Last administered on 06/05/17 09:59 ; Admin Dose 500 MG; Start 06/02/17 at 09:00 Ondansetron HCl (Zofran Tab) 4 mg Q6H PRN PO NAUSEA AND/OR VOMITING; Start at 04:00 Collagenase 1 applic 1 applic DAILY TOP Last administered on 06/05/17 10:02; Admin Dose 1 APPLIC; Start 06/03/17 at 09:00 Fentanyl (Sublimaze) 100 ml @ 2.5 mls/hr TITRATE IV Last administered on 12:50; Admin Dose 5 MLS/HR; Start 06/04/17 at 18:30 Allopurinol 100 mg 100 mg DAILY PO Last administered on 06/05/17 09:59; Admin Dose 100 MG; Start 06/04/17 at 20:00 Sodium Chloride 1,000 ml @ 100 mls/hr Q10H IV Last administered on 06/05/17 11:05; Admin Dose 100 MLS/HR; Start 06/05/17 at 09:00 Cefepime HCl (Maxipime 1gm/50 ml (Pmx)) 50 ml @ 100 mls/hr Q24H IVPB ; Start at 09:00 DASIA GREEN MD Jun 05, 2017 17:20
--- NOTE | 2017-06-05 17:20 | EN ---
Date/Time of Note Date/Time of Note DATE: 06/05/17 TIME: 17:17 Event Note Medicine Medicine Event Note Posterior view patient. Loss of volume from endotracheal tube cuff Endotracheal tube was exchanged over tube exchanger. Procedure was tolerated without resistance. New endotracheal tube was secured at 26 cm to the lip. Chest x-ray was requested to determine position of new endotracheal tube. HIRO RIVERA MD, [facility] Jun 05, 2017 17:20
[2017-06-05] MEDS ORDERED: SOD CHLORIDE 0.9% 100 ML ONE (19:53)
[2017-06-06] VITALS (47 sets, daily range): BP systolic 82–113; BP diastolic 44–60; PULSE 66–91; RESP 12–25
[2017-06-06] MEDS: SOD CHLORIDE 0.9% 1,000 ML IV SCH ×2 (02:03→15:00)
[2017-06-06 05:20] LABS: ABNORMAL IP MESSAGE 1; BASOPHILS % 0.1 % (0.0-2.0); EOSINOPHILS # 0.1 10^3/ul (0.0-0.5); EOSINOPHILS % 0.8 % (0.0-7.0); HEMATOCRIT 24.9 % (42.0-52.0); HEMOGLOBIN 7.4 g/dl (14.0-18.0); LYMPHOCYTES # 0.8 10^3/ul (0.8-2.9); LYMPHOCYTES % 10.7 % (15.0-51.0); MEAN CORPUSCULAR HEMOGLOBIN 26.5 pg (29.0-33.0); MEAN CORPUSCULAR HGB CONC 29.7 g/dl (32.0-37.0); MEAN CORPUSCULAR VOLUME 89.2 fl (82.0-101.0); MEAN PLATELET VOLUME 11.4 fl (7.4-10.4); MONOCYTE # 0.6 10^3/ul (0.3-0.9); MONOCYTES % 7.6 % (0.0-11.0); NEUTROPHILS % 80.1 % (39.0-77.0); PLATELET COUNT 98 10^3/UL (140-415); POSITIVE DIFF @See below; RED BLOOD COUNT 2.79 10^6/ul (4.70-6.10); RED CELL DISTRIBUTION WIDTH 20.9 % (11.5-14.5); WHITE BLOOD COUNT 7.5 10^3/ul (4.8-10.8)
[2017-06-06 06:02] LABS: CALCIUM 8.8 mg/dl (8.4-10.2); CREATININE 2.48 mg/dl (0.61-1.24); MAGNESIUM 1.9 mg/dl (1.7-2.5); PHOSPHORUS 4.1 mg/dl (2.5-4.9); POTASSIUM 3.9 mmol/L (3.5-5.1)
[2017-06-06] MEDS: PANTOPRAZOLE (EC) 40 MG TAB PO SCH (06:05)
--- NOTE | 2017-06-06 07:21 | RADRPT ---
PROCEDURE: XR Chest. CLINICAL INDICATION: Check Line Placement TECHNIQUE: PA and Lateral views of the chest were obtained. COMPARISON: Chest x-ray 06/05/2017 at 07:16 p.m. FINDINGS: The left PICC line terminates in the lower superior vena cava, near the cavoatrial junction. The endotracheal tube and nasogastric tubes are in stable positions. The cardiac silhouette is difficult to evaluate due to adjacent opacities. There are persistent low lung volumes. There is persistent apparent elevation of the left hemidiaph ragm. Diffuse bilateral air space disease appears unchanged. No pneumothorax is identified. Bibasilar atelectasis is noted. IMPRESSION: 1. Left PICC line terminating in the lower superior vena cava, near the cavoatrial junction. 2. Diffuse air space disease, unchanged. 3. Bibasilar atelectasis, unchanged. RPTAT: PP Physician Tayla Date Time Electronically viewed and signed by Physician Tayla on 06/06/2017 07:21 ARTIS/
--- NOTE | 2017-06-06 07:53 | CONS ---
Date/Time of Note Date/Time of Note DATE: 06/06/17 TIME: 07:45 Assessment/Plan Assessment/Plan Chief Complaint/Hosp Course Newly diagnosed lymphoma, pulmonary and gastric. The patient has not yet started chemotherapy. 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 + COMPONENT ACD Evaluation reveals a faint restricted band (M-spike) migrating in the gamma globulin region. - CAN BE SEEN IN NHL INCREASED URIC ACID ALLOPURINOL, RENAL DOSE NO EVIDENCE OF TUMOR LYSIS S-M Acute hypoxemic respiratory failure. Etiology is likely multifactorial secondary to lymphoma, pulmonary with possible lymphangitic spread, congestive heart failure exacerbation. The patient currently is on BiPAP, receiving Bumex drip. pulmonary F-UP cardiology F-UP PER RN- WILL TRY WEANING TODAY Volume overload. Etiology may be multifactorial secondary to lymphoma and questionable congestive heart failure. Patient's chest x-ray shows pulmonary congestion. The patient had a recent cardiac cath which was negative, per patient's niece. Plan is continue diuretic regimen, monitor I and Os closely. Hypernatremia. Patient will be placed on D5W. Will monitor closely. Acute encephalopathy, etiology is toxic metabolic. We will continue to monitor. Gastrointestinal and deep venous thrombosis prophylaxis. Patient will be placed on Proton-pump inhibitors and heparin. ( IF NO EVIDENCE OF BLEEDING) Problems: Consultation Date/Type/Reason Admit Date/Time Jun 01, 2017 at 22:01 Initial Consult Date 06/02/17 Type of Consultation: [facility] Referring Provider: ERASTO GONZALEZ DO 24 HR Interval Summary Free Text/Dictation all noted chemo order faxed D/W DR GONZALEZ AND JORDY Exam/Review of Systems Vital Signs Vitals Vital Signs Date Time Temp Pulse Resp B/P Pulse Ox O2 Delivery O2 Flow Rate FiO2 06/06/17 06:00 89 25 113/60 100 Mechanical Ventilator 06/06/17 05:58 40 06/06/17 04:00 98.8 06/02/17 15:45 6.0 Intake and Output 06/05/17 06/05/17 06/06/17 15:00 23:00 07:00 Intake Total 740 ml 1195 ml 1245 ml Output Total 240 ml 215 ml 185 ml Balance 500 ml 980 ml 1060 ml Exam GENERAL: Elderly gentleman intubated on mechanical ventilation appears comfortable at rest. VITAL SIGNS: per chart NECK: Supple. No JVD or lymphadenopathy. CARDIAC EXAM: S1, S2. No added sounds or murmurs. CHEST: Diminished air entry bilaterally ABDOMEN: Soft, nontender. No guarding or rebound. EXTREMITIES: No cyanosis, clubbing or edema. NEUROLOGIC: Generalized weakness. No focal deficits. Results Result Diagram: 06/06/17 0430 06/06/17 0430 Results 24 hrs Laboratory Tests Test 06/06/17 04:30 White Blood Count 7.5 Red Blood Count 2.79 L Hemoglobin 7.4 L Hematocrit 24.9 L Mean Corpuscular Volume 89.2 Mean Corpuscular Hemoglobin 26.5 L Mean Corpuscular Hemoglobin Concent 29.7 L Red Cell Distribution Width 20.9 H Platelet Count 98 L Mean Platelet Volume 11.4 H Neutrophils % 80.1 H Lymphocytes % 10.7 L Monocytes % 7.6 Eosinophils % 0.8 Basophils % 0.1 Nucleated Red Blood Cells % 0.0 Neutrophils # 6.0 Lymphocytes # 0.8 Monocytes # 0.6 Eosinophils # 0.1 Basophils # 0.0 Nucleated Red Blood Cells # 0.0 Sodium Level 149 H Potassium Level 3.9 Chloride Level 103 Carbon Dioxide Level 34 H Anion Gap 16 Blood Urea Nitrogen 56 H Creatinine 2.48 H Glucose Level 86 Calcium Level 8.8 Phosphorus Level 4.1 Magnesium Level 1.9 Medications Medications Current Medications Heparin Sodium (Porcine) (Heparin (5000 Units/0.5 ml)) 5,000 unit BID SC Last administered on 06/05/17t 21:00; Admin Dose 5,000 UNIT; Start 06/02/17 at 09:00 Acetaminophen/ Aspirin/Caffeine (Excedrin) 2 tab Q4 PRN PO ELEVATED TEMPERATURE ; Start 06/02/17 at 03:30 Aspirin (Aspirin) 81 mg DAILY PO Last administered on 06/05/17 09:59; Admin Dose 81 MG; Start 06/02/17 at 09:00 Docusate Sodium (Colace) 250 mg BID PO Last administered on 06/05/17 21:00; Admin Dose 250 MG; Start 06/02/17 at 09:00 Multivitamins/ Minerals (Theragran-M) 1 tab DAILY PO Last administered on 09:59; Admin Dose 1 TAB; Start 06/02/17 at 09:00 Al Hydrox/Mg Hydrox/Simethicone (Mag-Al Plus) 30 ml Q6H PRN PO GASTROINTESTINAL UPSET; Start 06/02/17 at 03:30 Nitroglycerin (Nitroglycerin (Sl Tab) 0.4 Mg) 1 tab Q5M PRN SL ANGINA; Start at 03:30 Acetaminophen/ Hydrocodone Bitart ([place] (5/325)) 1 tab Q6H PRN PO MODERATE PAIN LEVEL 4-6; Start 06/02/17 at 03:30 Pantoprazole (Protonix Tab) 40 mg DAILY@06 PO Last administered on 06/06/17 06 :05; Admin Dose 40 MG; Start 06/02/17 at 06:00 Ascorbic Acid (Vitamin C) 500 mg DAILY PO Last administered on 06/05/17 09:59 ; Admin Dose 500 MG; Start 06/02/17 at 09:00 Ondansetron HCl (Zofran Tab) 4 mg Q6H PRN PO NAUSEA AND/OR VOMITING; Start at 04:00 Collagenase 1 applic 1 applic DAILY TOP Last administered on 06/05/17 10:02; Admin Dose 1 APPLIC; Start 06/03/17 at 09:00 Fentanyl (Sublimaze) 100 ml @ 2.5 mls/hr TITRATE IV Last administered on 12:50; Admin Dose 5 MLS/HR; Start 06/04/17 at 18:30 Allopurinol 100 mg 100 mg DAILY PO Last administered on 06/05/17 09:59; Admin Dose 100 MG; Start 06/04/17 at 20:00 Sodium Chloride 1,000 ml @ 100 mls/hr Q10H IV Last administered on 06/06/17 02:03; Admin Dose 100 MLS/HR; Start 06/05/17 at 09:00 Cefepime HCl (Maxipime 1gm/50 ml (Pmx)) 50 ml @ 100 mls/hr Q24H IVPB ; Start at 09:00 IV Flush (NS 10 ml) 10 ml PRN PRN IV IV PROTOCOL; Start 06/05/17 at 20:00 SALOMON OVIEDO MD Jun 06, 2017 07:53
[2017-06-06] MEDS: FENTAnyl (DRIP) 1000 mcg/100mL 100 ML IV SCH (08:10)
--- NOTE | 2017-06-06 08:36 | PN ---
Date/Time of Note Date/Time of Note DATE: 06/06/17 TIME: 08:33 Assessment/Plan Lines/Catheters IV [facility]ter Type (from [facility]): PICC Line Urinary Cath still in place: Yes Assessment/Plan Chief Complaint/Hosp Course 1. Acute hypoxemic respiratory failure. Status post intubation Etiology is likely multifactorial secondary to lymphoma, pulmonary with possible lymphangitic spread, pulmonary interstitial edema Chest x-ray ABG reviewed Follow-up with pulmonary recommendations Patient may require emergent chemotherapy 2. Oligouric acute kidney injury with previously normal baseline creatinine Etiology was secondary to ATN due to hemodynamics, septic AK I Patient remains in injury phase of ATN Patient noted on renal ultrasound to have mild hydronephrosis with distended bladder urinalysis urine lites were reviewed -Bean catheter was adjusted Continue IV hydration We will check UPEP with immunofixation serum Lambda Light Chains . Interstitial pulmonary edema Etiology may be secondary to lymphoma and questionable congestive heart failure. Monitor I's and O's closely Follow-up with cardiology 3. Newly diagnosed lymphoma, pulmonary and gastric Anticipate chemotherapy once clinically stable Monitor closely 4. Hypernatremia Free water flushes . 5. Anemia, No evidence of GI bleed Hemoglobin levels continue to decline, consider blood transfusion Follow-up with hematology 6. Acute encephalopathy, etiology is toxic metabolic. No significant change Continue to monitor 7. Gastrointestinal and deep venous thrombosis prophylaxis. Patient will be placed on Proton-pump inhibitors and heparin. Hypokalemia Replete with potassium chloride I spoke with the patient's daughter Jane as stated above informing of the critical nature of her uncle She understood and wishes to continue with aggressive care Please note spent over 40 minutes critical care time with this patient Problems: Subjective 24 Hr Interval Summary Free Text/Dictation Patient seen and examined I spoke yesterday with the patient's niece Jane informing over the critical nature of her uncle. I discussed possible chemotherapy, she agrees to do chemotherapy if able to be given I discussed case with Dr. Kinney oncologist Exam/Review of Systems Vital Signs Vitals Vital Signs Date Time Temp Pulse Resp B/P Pulse Ox O2 Delivery O2 Flow Rate FiO2 06/06/17 06:00 89 25 113/60 100 Mechanical Ventilator 06/06/17 05:58 40 06/06/17 04:00 98.8 06/02/17 15:45 6.0 Intake and Output 06/05/17 06/05/17 06/06/17 15:00 23:00 07:00 Intake Total 740 ml 1195 ml 1245 ml Output Total 240 ml 215 ml 185 ml Balance 500 ml 980 ml 1060 ml Exam HEENT: Head is normocephalic, NECK: Supple. HEART: Irregular LUNGS: Show diminished breath sounds at base. ABDOMEN: Soft, nontender to palpation without rebound or guarding. EXTREMITIES: Negative for clubbing, cyanosis. DERMATOLOGIC: No rashes. MUSCULOSKELETAL: No joint effusions, NEUROLOGIC: No change in exam. Results Result Diagram: 06/06/17 0430 06/06/17 043 Results 24 hrs Laboratory Tests Test 06/06/17 04:30 White Blood Count 7.5 Red Blood Count 2.79 L Hemoglobin 7.4 L Hematocrit 24.9 L Mean Corpuscular Volume 89.2 Mean Corpuscular Hemoglobin 26.5 L Mean Corpuscular Hemoglobin Concent 29.7 L Red Cell Distribution Width 20.9 H Platelet Count 98 L Mean Platelet Volume 11.4 H Neutrophils % 80.1 H Lymphocytes % 10.7 L Monocytes % 7.6 Eosinophils % 0.8 Basophils % 0.1 Nucleated Red Blood Cells % 0.0 Neutrophils # 6.0 Lymphocytes # 0.8 Monocytes # 0.6 Eosinophils # 0.1 Basophils # 0.0 Nucleated Red Blood Cells # 0.0 Sodium Level 149 H Potassium Level 3.9 Chloride Level 103 Carbon Dioxide Level 34 H Anion Gap 16 Blood Urea Nitrogen 56 H Creatinine 2.48 H Glucose Level 86 Calcium Level 8.8 Phosphorus Level 4.1 Magnesium Level 1.9 Medications Medications Current Medications Heparin Sodium (Porcine) (Heparin (5000 Units/0.5 ml)) 5,000 unit BID SC Last administered on 06/05/17 21:00; Admin Dose 5,000 UNIT; Start 06/02/17 at 09:00 Acetaminophen/ Aspirin/Caffeine (Excedrin) 2 tab Q4 PRN PO ELEVATED TEMPERATURE ; Start 06/02/17 at 03:30 Aspirin (Aspirin) 81 mg DAILY PO Last administered on 06/05/17 09:59; Admin Dose 81 MG; Start 06/02/17 at 09:00 Docusate Sodium (Colace) 250 mg BID PO Last administered on 06/05/17 21:00; Admin Dose 250 MG; Start 06/02/17 at 09:00 Multivitamins/ Minerals (Theragran-M) 1 tab DAILY PO Last administered on 09:59; Admin Dose 1 TAB; Start 06/02/17 at 09:00 Al Hydrox/Mg Hydrox/Simethicone (Mag-Al Plus) 30 ml Q6H PRN PO GASTROINTESTINAL UPSET; Start 06/02/17 at 03:30 Nitroglycerin (Nitroglycerin (Sl Tab) 0.4 Mg) 1 tab Q5M PRN SL ANGINA; Start at 03:30 Acetaminophen/ Hydrocodone Bitart ([place] (5/325)) 1 tab Q6H PRN PO MODERATE PAIN LEVEL 4-6; Start 06/02/17 at 03:30 Pantoprazole (Protonix Tab) 40 mg DAILY@06 PO Last administered on 06/06/17 06 :05; Admin Dose 40 MG; Start 06/02/17 at 06:00 Ascorbic Acid (Vitamin C) 500 mg DAILY PO Last administered on 06/05/17 09:59 ; Admin Dose 500 MG; Start 06/02/17 at 09:00 Ondansetron HCl (Zofran Tab) 4 mg Q6H PRN PO NAUSEA AND/OR VOMITING; Start at 04:00 Collagenase 1 applic 1 applic DAILY TOP Last administered on 06/05/17 10:02; Admin Dose 1 APPLIC; Start 06/03/17 at 09:00 Fentanyl (Sublimaze) 100 ml @ 2.5 mls/hr TITRATE IV Last administered on 08:10; Admin Dose 5 MLS/HR; Start 06/04/17 at 18:30 Allopurinol 100 mg 100 mg DAILY PO Last administered on 06/05/17 09:59; Admin Dose 100 MG; Start 06/04/17 at 20:00 Sodium Chloride 1,000 ml @ 100 mls/hr Q10H IV Last administered on 06/06/17 02:03; Admin Dose 100 MLS/HR; Start 06/05/17 at 09:00 Cefepime HCl (Maxipime 1gm/50 ml (Pmx)) 50 ml @ 100 mls/hr Q24H IVPB ; Start at 09:00 IV Flush (NS 10 ml) 10 ml PRN PRN IV IV PROTOCOL; Start 06/05/17 at 20:00 ERASTO GONZALEZ DO Jun 06, 2017 08:36
[2017-06-06] MEDS: DOCUSATE SODIUM 250 MG CAP PO SCH ×2 (09:00→20:21)
--- NOTE | 2017-06-06 09:36 | RADRPT ---
PROCEDURE: XR Chest. CLINICAL INDICATION: Check Line Placement TECHNIQUE: PA and Lateral views of the chest were obtained. COMPARISON: Chest x-ray 06/05/2017 at 07:16 p.m. FINDINGS: The left PICC line terminates in the lower superior vena cava, near the cavoatrial junction. The endotracheal tube and nasogastric tubes are and stable positions. The cardiac silhouette is obscured by adjacent opacities. There are persistent low lung volumes. Diffuse bilateral air space disease has not changed significantly. No pneumothorax is identified. IMPRESSION: 1. Left PICC line terminating in the lower superior vena cava, near the cavoatrial junction. 2. Diffuse air space disease, unchanged compared to prior study. 3. Bibasilar atelectasis, unchanged. RPTAT: PP Physician Tayla Date Time Electronically viewed and signed by Physician Tayla on 06/06/2017 09:36 ARTIS/
[2017-06-06] MEDS: CEFEPIME 1GM/50 ML (PMX) 50 ML IVPB SCH (09:54)
[2017-06-06] MEDS: ASPIRIN 81 MG TAB PO SCH (09:54)
[2017-06-06] MEDS: MULTIVITAMINS/MINERALS TAB PO SCH (09:54)
[2017-06-06] MEDS: ALLOPURINOL 100 MG TAB PO SCH (09:55)
[2017-06-06] MEDS: ASCORBIC ACID 500 MG TAB PO SCH (09:55)
[2017-06-06] MEDS: COLLAGENASE 30 GM TUBE TOP SCH (09:55)
[2017-06-06] MEDS: HEPARIN 5,000 UNIT/0.5 ML VIAL SC SCH ×2 (09:59→20:21)
--- NOTE | 2017-06-06 10:43 | CONS ---
Date/Time of Note Date/Time of Note DATE: 06/06/17 TIME: 10:42 Consult Date/Type/Reason Admit Date/Time Jun 01, 2017 at 22:01 Initial Consult Date 06/02/17 Type of Consultation: Pulmonary ICU Ordering Provider: ERASTO GONZALEZ DO Subjective Opens eyes to voice but not following commands. Objective Vital Signs Date Time Temp Pulse Resp B/P Pulse Ox O2 Delivery O2 Flow Rate FiO2 06/06/17 08:00 69 06/06/17 06:00 25 113/60 100 Mechanical Ventilator 06/06/17 05:58 40 06/06/17 04:00 98.8 06/02/17 15:45 6.0 Intake and Output 06/05/17 06/05/17 06/06/17 15:00 23:00 07:00 Intake Total 740 ml 1195 ml 1245 ml Output Total 240 ml 215 ml 185 ml Balance 500 ml 980 ml 1060 ml Exam GENERAL: Elderly gentleman intubated on mechanical ventilation appears comfortable at rest. VITAL SIGNS: per chart NECK: Supple. No JVD or lymphadenopathy. CARDIAC EXAM: S1, S2. No added sounds or murmurs. CHEST: Diminished air entry bilaterally ABDOMEN: Soft, nontender. No guarding or rebound. EXTREMITIES: No cyanosis, clubbing or edema. NEUROLOGIC: Generalized weakness. No focal deficits. Results/Medications Result Diagram: 06/06/17 0430 06/06/17 0430 Results 24 hrs Laboratory Tests Test 06/06/17 04:30 White Blood Count 7.5 Red Blood Count 2.79 L Hemoglobin 7.4 L Hematocrit 24.9 L Mean Corpuscular Volume 89.2 Mean Corpuscular Hemoglobin 26.5 L Mean Corpuscular Hemoglobin Concent 29.7 L Red Cell Distribution Width 20.9 H Platelet Count 98 L Mean Platelet Volume 11.4 H Neutrophils % 80.1 H Lymphocytes % 10.7 L Monocytes % 7.6 Eosinophils % 0.8 Basophils % 0.1 Nucleated Red Blood Cells % 0.0 Neutrophils # 6.0 Lymphocytes # 0.8 Monocytes # 0.6 Eosinophils # 0.1 Basophils # 0.0 Nucleated Red Blood Cells # 0.0 Sodium Level 149 H Potassium Level 3.9 Chloride Level 103 Carbon Dioxide Level 34 H Anion Gap 16 Blood Urea Nitrogen 56 H Creatinine 2.48 H Glucose Level 86 Calcium Level 8.8 Phosphorus Level 4.1 Magnesium Level 1.9 Medications Current Medications Heparin Sodium (Porcine) (Heparin (5000 Units/0.5 ml)) 5,000 unit BID SC Last administered on 06/06/17 09:59; Admin Dose 5,000 UNIT; Start 06/02/17 at 09:00 Acetaminophen/ Aspirin/Caffeine (Excedrin) 2 tab Q4 PRN PO ELEVATED TEMPERATURE ; Start 06/02/17 at 03:30 Aspirin (Aspirin) 81 mg DAILY PO Last administered on 06/06/17 09:54; Admin Dose 81 MG; Start 06/02/17 at 09:00 Docusate Sodium (Colace) 250 mg BID PO Last administered on 06/05/17 21:00; Admin Dose 250 MG; Start 06/02/17 at 09:00 Multivitamins/ Minerals (Theragran-M) 1 tab DAILY PO Last administered on 09:54; Admin Dose 1 TAB; Start 06/02/17 at 09:00 Al Hydrox/Mg Hydrox/Simethicone (Mag-Al Plus) 30 ml Q6H PRN PO GASTROINTESTINAL UPSET; Start 06/02/17 at 03:30 Nitroglycerin (Nitroglycerin (Sl Tab) 0.4 Mg) 1 tab Q5M PRN SL ANGINA; Start at 03:30 Acetaminophen/ Hydrocodone Bitart ([place] (5/325)) 1 tab Q6H PRN PO MODERATE PAIN LEVEL 4-6; Start 06/02/17 at 03:30 Pantoprazole (Protonix Tab) 40 mg DAILY@06 PO Last administered on 06/06/17 06 :05; Admin Dose 40 MG; Start 06/02/17 at 06:00 Ascorbic Acid (Vitamin C) 500 mg DAILY PO Last administered on 06/06/17 09:55 ; Admin Dose 500 MG; Start 06/02/17 at 09:00 Ondansetron HCl (Zofran Tab) 4 mg Q6H PRN PO NAUSEA AND/OR VOMITING; Start at 04:00 Collagenase 1 applic 1 applic DAILY TOP Last administered on 06/06/17 09:55; Admin Dose 1 APPLIC; Start 06/03/17 at 09:00 Fentanyl (Sublimaze) 100 ml @ 2.5 mls/hr TITRATE IV Last administered on 08:10; Admin Dose 5 MLS/HR; Start 06/04/17 at 18:30 Allopurinol 100 mg 100 mg DAILY PO Last administered on 06/06/17 09:55; Admin Dose 100 MG; Start 06/04/17 at 20:00 Sodium Chloride 1,000 ml @ 100 mls/hr Q10H IV Last administered on 06/06/17 02:03; Admin Dose 100 MLS/HR; Start 06/05/17 at 09:00 Cefepime HCl (Maxipime 1gm/50 ml (Pmx)) 50 ml @ 100 mls/hr Q24H IVPB Last administered on 06/06/17 09:54; Admin Dose 100 MLS/HR; Start 06/06/17 at 09:00 IV Flush (NS 10 ml) 10 ml PRN PRN IV IV PROTOCOL; Start 06/05/17 at 20:00 Assessment/Plan Chief Complaint/Hosp Course Assessment 1. Hypoxemic respiratory failure likely secondary to congestive cardiac failure or possibly secondary to underlying lymphoma. Now mechanical ventilation 2. Significant anemia unclear whether this is a GI bleed or a consumptive process. 3. Encephalopathy questionable toxic metabolic. 4. History of lymphoma recent diagnosis Plan 1. Gentle diuresis as tolerated 2. Hematology oncology recommendations for lymphoma management and workup of anemia down patient stable for chemotherapy and sees on mechanical ventilation. 3. DVT and GI prophylaxis per primary team 4. Aspiration precautions. Consider transfusion 1 unit packed red blood cells , will defer to hematology oncology 5. Continue mechanical ventilation currently not amenable secondary to altered mental status Disposition Continue ICU care, critical care time 40 minutes. Palliative care consult would be advisable. Problems: HIRO RIVERA MD, [facility] Jun 06, 2017 10:43
--- NOTE | 2017-06-06 11:48 | CONS ---
Date/Time of Note Date/Time of Note DATE: 06/06/17 TIME: 11:48 Assessment/Plan Assessment/Plan Chief Complaint/Hosp Course ID PROGRESS NOTE TOTAL ABX DAY #5=> CEFEPIME 24H INTERVAL SUMMARY * Awake, alert, No fevers, WBC normalized -- 86 yo M seen in ICU - noncommunicative on the Vent/orally intubated * (+)copious oral secretions w/ RESPIRATORY CULTURE Preliminary Culture too young to evaluate * URINE: URINE CULTURE Final Organism 1 YEAST,NOT FLROY ALBICANS COLONY COUNT >100,000 CFU/ml * Microbiology: Pending repeat urine culture, blood cultures have been negative * CXR w/ (+CM & Pulm Edema PHYSICAL EXAMINATION: GENERAL: VSS,NAD, no fevers HEENT: NGT->Secure / ETT secure NECK: Supple, trach-> midline CHEST: Equal chest rise bilaterally, Vented w/scattered rhonchi HEART: Pulse RRR ABDOMEN: Soft EXTREMITIES: Warm, no edema SKIN: Warm, dry ID ASSESSMENT: 86 yo Obese M w/newly Dx LYMPHOMA admitted with: 1. Septic shock, on pressors, w/lactic acidosis 2.4, mild leukocytosis, tachycardia on admission => due to # 2. Acute respiratory failure/pulmonary edema 3. Bilateral pneumonia 4. Acute CHF as evidenced by pulmonary edema and elevated BNP on admission 5. Yeast UTI w/pyuria * Mixed GP Organisms on admission => DDx includes early UTI vs Prostatitis 6. Acute renal failure 7. Acute encephalopathy 8. GERD 9. Buttock decub (-)MRSA NARES INVASIVES: * PIV, ETT, FC, NGT ABX ALLERGIES: KNDA CURRENT ABX: #5=> CEFEPIME #5 + Cancidas #1 + AZITH #1 ID RECOMMENDATIONS: 1. Continue CEFEPIME = Start Cancidas for YEAST UTI + Short course Azith cover atypicals == await sputum results 2. Change FC due to (+)Yeast, not C.Albicans UTI (yeast attaches to catheter) 3. Avoid renal Toxic ABX 4. F/U on final RESPIRATORY CULTURE Preliminary Culture too young to evaluate . Problems: Consultation Date/Type/Reason Admit Date/Time Jun 01, 2017 at 22:01 Initial Consult Date 06/02/17 Type of Consultation: ID Referring Provider: ERASTO GONZALEZ DO Exam/Review of Systems Vital Signs Vitals Vital Signs Date Time Temp Pulse Resp B/P Pulse Ox O2 Delivery O2 Flow Rate FiO2 06/06/17 08:00 69 06/06/17 06:00 25 113/60 100 Mechanical Ventilator 06/06/17 05:58 40 06/06/17 04:00 98.8 06/02/17 15:45 6.0 Intake and Output 06/05/17 06/05/17 06/06/17 15:00 23:00 07:00 Intake Total 740 ml 1195 ml 1245 ml Output Total 240 ml 215 ml 185 ml Balance 500 ml 980 ml 1060 ml Results Result Diagram: 06/06/17 0430 06/06/17 0430 Results 24 hrs Laboratory Tests Test 06/06/17 04:30 White Blood Count 7.5 Red Blood Count 2.79 L Hemoglobin 7.4 L Hematocrit 24.9 L Mean Corpuscular Volume 89.2 Mean Corpuscular Hemoglobin 26.5 L Mean Corpuscular Hemoglobin Concent 29.7 L Red Cell Distribution Width 20.9 H Platelet Count 98 L Mean Platelet Volume 11.4 H Neutrophils % 80.1 H Lymphocytes % 10.7 L Monocytes % 7.6 Eosinophils % 0.8 Basophils % 0.1 Nucleated Red Blood Cells % 0.0 Neutrophils # 6.0 Lymphocytes # 0.8 Monocytes # 0.6 Eosinophils # 0.1 Basophils # 0.0 Nucleated Red Blood Cells # 0.0 Sodium Level 149 H Potassium Level 3.9 Chloride Level 103 Carbon Dioxide Level 34 H Anion Gap 16 Blood Urea Nitrogen 56 H Creatinine 2.48 H Glucose Level 86 Calcium Level 8.8 Phosphorus Level 4.1 Magnesium Level 1.9 Medications Medications Current Medications Heparin Sodium (Porcine) (Heparin (5000 Units/0.5 ml)) 5,000 unit BID SC Last administered on 06/06/17 09:59; Admin Dose 5,000 UNIT; Start 06/02/17 at 09:00 Acetaminophen/ Aspirin/Caffeine (Excedrin) 2 tab Q4 PRN PO ELEVATED TEMPERATURE ; Start 06/02/17 at 03:30 Aspirin (Aspirin) 81 mg DAILY PO Last administered on 06/06/17 09:54; Admin Dose 81 MG; Start 06/02/17 at 09:00 Docusate Sodium (Colace) 250 mg BID PO Last administered on 06/05/17 21:00; Admin Dose 250 MG; Start 06/02/17 at 09:00 Multivitamins/ Minerals (Theragran-M) 1 tab DAILY PO Last administered on 09:54; Admin Dose 1 TAB; Start 06/02/17 at 09:00 Al Hydrox/Mg Hydrox/Simethicone (Mag-Al Plus) 30 ml Q6H PRN PO GASTROINTESTINAL UPSET; Start 06/02/17 at 03:30 Nitroglycerin (Nitroglycerin (Sl Tab) 0.4 Mg) 1 tab Q5M PRN SL ANGINA; Start at 03:30 Acetaminophen/ Hydrocodone Bitart ([place] (5/325)) 1 tab Q6H PRN PO MODERATE PAIN LEVEL 4-6; Start 06/02/17 at 03:30 Pantoprazole (Protonix Tab) 40 mg DAILY@06 PO Last administered on 06/06/17 06 :05; Admin Dose 40 MG; Start 06/02/17 at 06:00 Ascorbic Acid (Vitamin C) 500 mg DAILY PO Last administered on 06/06/17 09:55 ; Admin Dose 500 MG; Start 06/02/17 at 09:00 Ondansetron HCl (Zofran Tab) 4 mg Q6H PRN PO NAUSEA AND/OR VOMITING; Start at 04:00 Collagenase 1 applic 1 applic DAILY TOP Last administered on 06/06/17 09:55; Admin Dose 1 APPLIC; Start 06/03/17 at 09:00 Fentanyl (Sublimaze) 100 ml @ 2.5 mls/hr TITRATE IV Last administered on 08:10; Admin Dose 5 MLS/HR; Start 06/04/17 at 18:30 Allopurinol 100 mg 100 mg DAILY PO Last administered on 06/06/17 09:55; Admin Dose 100 MG; Start 06/04/17 at 20:00 Sodium Chloride 1,000 ml @ 100 mls/hr Q10H IV Last administered on 06/06/17 02:03; Admin Dose 100 MLS/HR; Start 06/05/17 at 09:00 Cefepime HCl (Maxipime 1gm/50 ml (Pmx)) 50 ml @ 100 mls/hr Q24H IVPB Last administered on 06/06/17 09:54; Admin Dose 100 MLS/HR; Start 06/06/17 at 09:00 IV Flush (NS 10 ml) 10 ml PRN PRN IV IV PROTOCOL; Start 06/05/17 at 20:00 LORETTA BUCIO NP Jun 06, 2017 11:48 Lymphocytes # 0.8 Monocytes # 0.6 Eosinophils # 0.1 Basophils # 0.0 Nucleated Red Blood Cells # 0.0 Sodium Level 149 H Potassium Level 3.9 Chloride Level 103 Carbon Dioxide Level 34 H Anion Gap 16 Blood Urea Nitrogen 56 H Creatinine 2.48 H Glucose Level 86 Calcium Level 8.8 Phosphorus Level 4.1 Magnesium Level 1.9 Medications Medications Current Medications Heparin Sodium (Porcine) (Heparin (5000 Units/0.5 ml)) 5,000 unit BID SC Last administered on 06/06/17 09:59; Admin Dose 5,000 UNIT; Start 06/02/17 at 09:00 Acetaminophen/ Aspirin/Caffeine (Excedrin) 2 tab Q4 PRN PO ELEVATED TEMPERATURE ; Start 06/02/17 at 03:30 Aspirin (Aspirin) 81 mg DAILY PO Last administered on 06/06/17 09:54; Admin Dose 81 MG; Start 06/02/17 at 09:00 Docusate Sodium (Colace) 250 mg BID PO Last administered on 06/05/17 21:00; Admin Dose 250 MG; Start 06/02/17 at 09:00 Multivitamins/ Minerals (Theragran-M) 1 tab DAILY PO Last administered on 09:54; Admin Dose 1 TAB; Start 06/02/17 at 09:00 Al Hydrox/Mg Hydrox/Simethicone (Mag-Al Plus) 30 ml Q6H PRN PO GASTROINTESTINAL UPSET; Start 06/02/17 at 03:30 Nitroglycerin (Nitroglycerin (Sl Tab) 0.4 Mg) 1 tab Q5M PRN SL ANGINA; Start at 03:30 Acetaminophen/ Hydrocodone Bitart ([place] (5/325)) 1 tab Q6H PRN PO MODERATE PAIN LEVEL 4-6; Start 06/02/17 at 03:30 Pantoprazole (Protonix Tab) 40 mg DAILY@06 PO Last administered on 06/06/17 06 :05; Admin Dose 40 MG; Start 06/02/17 at 06:00 Ascorbic Acid (Vitamin C) 500 mg DAILY PO Last administered on 06/06/17 09:55 ; Admin Dose 500 MG; Start 06/02/17 at 09:00 Ondansetron HCl (Zofran Tab) 4 mg Q6H PRN PO NAUSEA AND/OR VOMITING; Start at 04:00 Collagenase 1 applic 1 applic DAILY TOP Last administered on 06/06/17 09:55; Admin Dose 1 APPLIC; Start 06/03/17 at 09:00 Fentanyl (Sublimaze) 100 ml @ 2.5 mls/hr TITRATE IV Last administered on 08:10; Admin Dose 5 MLS/HR; Start 06/04/17 at 18:30 Allopurinol 100 mg 100 mg DAILY PO Last administered on 06/06/17 09:55; Admin Dose 100 MG; Start 06/04/17 at 20:00 Sodium Chloride 1,000 ml @ 100 mls/hr Q10H IV Last administered on 06/06/17 02:03; Admin Dose 100 MLS/HR; Start 06/05/17 at 09:00 Cefepime HCl (Maxipime 1gm/50 ml (Pmx)) 50 ml @ 100 mls/hr Q24H IVPB Last administered on 06/06/17 09:54; Admin Dose 100 MLS/HR; Start 06/06/17 at 09:00 IV Flush (NS 10 ml) 10 ml PRN PRN IV IV PROTOCOL; Start 06/05/17 at 20:00 LORETTA BUCIO NP Jun 06, 2017 11:48
--- NOTE | 2017-06-06 14:00 | CONS ---
Date/Time of Note Date/Time of Note DATE: 06/06/17 TIME: 13:58 Assessment/Plan Assessment/Plan Chief Complaint/Hosp Course Newly diagnosed lymphoma, pulmonary and gastric. The patient has not yet started chemotherapy. 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 + COMPONENT ACD Evaluation reveals a faint restricted band (M-spike) migrating in the gamma globulin region. - CAN BE SEEN IN NHL INCREASED URIC ACID ALLOPURINOL, RENAL DOSE NO EVIDENCE OF TUMOR LYSIS S-M Acute hypoxemic respiratory failure. Etiology is likely multifactorial secondary to lymphoma, pulmonary with possible lymphangitic spread, congestive heart failure exacerbation. The patient currently is on BiPAP, receiving Bumex drip. pulmonary F-UP cardiology F-UP PER RN- WILL TRY WEANING TODAY Volume overload. Etiology may be multifactorial secondary to lymphoma and questionable congestive heart failure. Patient's chest x-ray shows pulmonary congestion. The patient had a recent cardiac cath which was negative, per patient's niece. Plan is continue diuretic regimen, monitor I and Os closely. Hypernatremia. Patient will be placed on D5W. Will monitor closely. Acute encephalopathy, etiology is toxic metabolic. We will continue to monitor. Gastrointestinal and deep venous thrombosis prophylaxis. Patient will be placed on Proton-pump inhibitors and heparin. ( IF NO EVIDENCE OF BLEEDING) Problems: Consultation Date/Type/Reason Admit Date/Time Jun 01, 2017 at 22:01 Initial Consult Date 06/02/17 Type of Consultation: ID Referring Provider: ERASTO GONZALEZ DO 24 HR Interval Summary Free Text/Dictation on vent no new events Exam/Review of Systems Vital Signs Vitals Vital Signs Date Time Temp Pulse Resp B/P Pulse Ox O2 Delivery O2 Flow Rate FiO2 06/06/17 12:00 80 06/06/17 11:30 18 100 40 06/06/17 11:30 99/52 06/06/17 11:00 Mechanical Ventilator 06/06/17 08:00 98.6 06/02/17 15:45 6.0 Intake and Output 06/05/17 06/05/17 06/06/17 15:00 23:00 07:00 Intake Total 740 ml 1195 ml 1350 ml Output Total 240 ml 215 ml 185 ml Balance 500 ml 980 ml 1165 ml Exam GENERAL: Elderly gentleman intubated on mechanical ventilation appears comfortable at rest. VITAL SIGNS: per chart NECK: Supple. No JVD or lymphadenopathy. CARDIAC EXAM: S1, S2. No added sounds or murmurs. CHEST: Diminished air entry bilaterally ABDOMEN: Soft, nontender. No guarding or rebound. EXTREMITIES: No cyanosis, clubbing or edema. NEUROLOGIC: Generalized weakness. No focal deficits. Results Result Diagram: 06/06/17 0430 06/06/17 0430 Results 24 hrs Laboratory Tests Test 06/06/17 04:30 White Blood Count 7.5 Red Blood Count 2.79 L Hemoglobin 7.4 L Hematocrit 24.9 L Mean Corpuscular Volume 89.2 Mean Corpuscular Hemoglobin 26.5 L Mean Corpuscular Hemoglobin Concent 29.7 L Red Cell Distribution Width 20.9 H Platelet Count 98 L Mean Platelet Volume 11.4 H Neutrophils % 80.1 H Lymphocytes % 10.7 L Monocytes % 7.6 Eosinophils % 0.8 Basophils % 0.1 Nucleated Red Blood Cells % 0.0 Neutrophils # 6.0 Lymphocytes # 0.8 Monocytes # 0.6 Eosinophils # 0.1 Basophils # 0.0 Nucleated Red Blood Cells # 0.0 Sodium Level 149 H Potassium Level 3.9 Chloride Level 103 Carbon Dioxide Level 34 H Anion Gap 16 Blood Urea Nitrogen 56 H Creatinine 2.48 H Glucose Level 86 Calcium Level 8.8 Phosphorus Level 4.1 Magnesium Level 1.9 Medications Medications Current Medications Heparin Sodium (Porcine) (Heparin (5000 Units/0.5 ml)) 5,000 unit BID SC Last administered on 06/06/17t 09:59; Admin Dose 5,000 UNIT; Start 06/02/17 at 09:00 Acetaminophen/ Aspirin/Caffeine (Excedrin) 2 tab Q4 PRN PO ELEVATED TEMPERATURE ; Start 06/02/17 at 03:30 Aspirin (Aspirin) 81 mg DAILY PO Last administered on 06/06/17 09:54; Admin Dose 81 MG; Start 06/02/17 at 09:00 Docusate Sodium (Colace) 250 mg BID PO Last administered on 06/05/17 21:00; Admin Dose 250 MG; Start 06/02/17 at 09:00 Multivitamins/ Minerals (Theragran-M) 1 tab DAILY PO Last administered on 09:54; Admin Dose 1 TAB; Start 06/02/17 at 09:00 Al Hydrox/Mg Hydrox/Simethicone (Mag-Al Plus) 30 ml Q6H PRN PO GASTROINTESTINAL UPSET; Start 06/02/17 at 03:30 Nitroglycerin (Nitroglycerin (Sl Tab) 0.4 Mg) 1 tab Q5M PRN SL ANGINA; Start at 03:30 Acetaminophen/ Hydrocodone Bitart ([place] (5/325)) 1 tab Q6H PRN PO MODERATE PAIN LEVEL 4-6; Start 06/02/17 at 03:30 Pantoprazole (Protonix Tab) 40 mg DAILY@06 PO Last administered on 06/06/17 06 :05; Admin Dose 40 MG; Start 06/02/17 at 06:00 Ascorbic Acid (Vitamin C) 500 mg DAILY PO Last administered on 06/06/17 09:55 ; Admin Dose 500 MG; Start 06/02/17 at 09:00 Ondansetron HCl (Zofran Tab) 4 mg Q6H PRN PO NAUSEA AND/OR VOMITING; Start at 04:00 Collagenase 1 applic 1 applic DAILY TOP Last administered on 06/06/17 09:55; Admin Dose 1 APPLIC; Start 06/03/17 at 09:00 Fentanyl (Sublimaze) 100 ml @ 2.5 mls/hr TITRATE IV Last administered on 08:10; Admin Dose 5 MLS/HR; Start 06/04/17 at 18:30 Allopurinol 100 mg 100 mg DAILY PO Last administered on 06/06/17 09:55; Admin Dose 100 MG; Start 06/04/17 at 20:00 Sodium Chloride 1,000 ml @ 100 mls/hr Q10H IV Last administered on 06/06/17 02:03; Admin Dose 100 MLS/HR; Start 06/05/17 at 09:00 Cefepime HCl (Maxipime 1gm/50 ml (Pmx)) 50 ml @ 100 mls/hr Q24H IVPB Last administered on 06/06/17 09:54; Admin Dose 100 MLS/HR; Start 06/06/17 at 09:00 IV Flush 10 ml 10 ml PRN PRN IV IV PROTOCOL; Start 06/05/17 at 20:00 Caspofungin 70 mg/ Sodium Chloride 250 ml @ 250 mls/hr ONCE IVPB ; Start at 14:30; Stop 06/06/17 at 15:29 Caspofungin 50 mg/ Sodium Chloride 250 ml @ 250 mls/hr Q24H IVPB ; Start at 15:00; Stop 06/11/17 at 14:59 Azithromycin (Zithromax 500mg/ NS (Pmx)) 250 ml @ 250 mls/hr Q24H IVPB ; Start 06/06/17 at 14:00 SALOMON OVIEDO MD Jun 06, 2017 14:00
[2017-06-06 14:20] LABS: MICROALBUMIN 26.8 mg/dL
[2017-06-06] MEDS: AZITHROMYCIN 500MG/NS (PMX) 250 ML IVPB SCH (14:25)
--- NOTE | 2017-06-06 14:28 | PN ---
Date/Time of Note Date/Time of Note DATE: 06/06/17 TIME: 14:25 Assessment/Plan VTE Prophylaxis VTE Prophylaxis Intervention: other Lines/Catheters IV Catheter Type (from Nrs): PICC Line Central line still needed: Yes Urinary Cath still in place: Yes Reason Cath still needed: other (indicate) Assessment/Plan Chief Complaint/Hosp Course 1. Acute hypoxemic respiratory failure. intubated now Follow-up with pulmonary normal EF on ECHO 2. Volume overload. S/P diuresis Monitor I's and O's closely 3. Newly diagnosed lymphoma, pulmonary and gastric Patient may require emergent chemotherapy f/u with hematology evaluation Monitor closely 4. Hypernatremia D5 water per renal . 5. Anemia, Etiology likely from chronic disease f/u with hem/onc 6. Acute encephalopathy, etiology is toxic metabolic. No significant change Continue to monitor \ 7. Small pericardial effusion: will monitor. 8. SHANTELLE: defer to renal. CONT ICU CARE. Problems: Subjective 24 Hr Interval Summary Free Text/Dictation CARDIOLOGY FOLLOW UP NOTE: d/w staff and rhythm was reviewed. pt remains in sinus rhythm pt remains intubated and is vent now Pt remains nonverbal OBJECTIVE General: intubated on vent HEENT: pupils are equal. round. NECK: NO JVD. no stridor. CV: RRR. systolic murmur; no gallop or rubs. PULM: + diffuse rhonchi. GI: SOFT, NT, ND, no rebound or guarding Extremity: trace B/L LE edema. no clubbing. neuro: awake Psych: calm rectal: deferred : normal male echo 06/02/17: 1. Hyperdynamic left ventricular systolic function. Normal left ventricular cavity size. Moderate concentric left ventricular hypertrophy. Ejection fraction is visually estimated at 65 %. Abnormal Diastolic Function. 2. Mitral valve leaflets appear mildly thickened. Mild mitral annular calcification. Trace mitral regurgitation. 3. Aortic sclerosis without stenosis. Trace aortic valve regurgitation. 4. Normal appearance of the tricuspid valve. Estimated peak PA systolic pressure 33 mmHg. There is mild tricuspid regurgitation. 5. Small pericardial effusion. 6. Normal size and normal respiratory collapse consistent with normal right atrial pressure. Exam/Review of Systems Vital Signs Vitals Vital Signs Date Time Temp Pulse Resp B/P Pulse Ox O2 Delivery O2 Flow Rate FiO2 06/06/17 12:00 80 06/06/17 11:30 18 100 40 06/06/17 11:30 99/52 06/06/17 11:00 Mechanical Ventilator 06/06/17 08:00 98.6 06/02/17 15:45 6.0 Intake and Output 06/05/17 06/05/17 06/06/17 15:00 23:00 07:00 Intake Total 740 ml 1195 ml 1350 ml Output Total 240 ml 215 ml 185 ml Balance 500 ml 980 ml 1165 ml Results Result Diagram: 06/06/17 0430 06/06/17 0430 Results 24 hrs Laboratory Tests Test 06/06/17 04:30 White Blood Count 7.5 Red Blood Count 2.79 L Hemoglobin 7.4 L Hematocrit 24.9 L Mean Corpuscular Volume 89.2 Mean Corpuscular Hemoglobin 26.5 L Mean Corpuscular Hemoglobin Concent 29.7 L Red Cell Distribution Width 20.9 H Platelet Count 98 L Mean Platelet Volume 11.4 H Neutrophils % 80.1 H Lymphocytes % 10.7 L Monocytes % 7.6 Eosinophils % 0.8 Basophils % 0.1 Nucleated Red Blood Cells % 0.0 Neutrophils # 6.0 Lymphocytes # 0.8 Monocytes # 0.6 Eosinophils # 0.1 Basophils # 0.0 Nucleated Red Blood Cells # 0.0 Sodium Level 149 H Potassium Level 3.9 Chloride Level 103 Carbon Dioxide Level 34 H Anion Gap 16 Blood Urea Nitrogen 56 H Creatinine 2.48 H Glucose Level 86 Calcium Level 8.8 Phosphorus Level 4.1 Magnesium Level 1.9 Medications Medications Current Medications Heparin Sodium (Porcine) (Heparin (5000 Units/0.5 ml)) 5,000 unit BID SC Last administered on 06/06/17 09:59; Admin Dose 5,000 UNIT; Start 06/02/17 at 09:00 Acetaminophen/ Aspirin/Caffeine (Excedrin) 2 tab Q4 PRN PO ELEVATED TEMPERATURE ; Start 06/02/17 at 03:30 Aspirin (Aspirin) 81 mg DAILY PO Last administered on 06/06/17 09:54; Admin Dose 81 MG; Start 06/02/17 at 09:00 Docusate Sodium (Colace) 250 mg BID PO Last administered on 06/05/17 21:00; Admin Dose 250 MG; Start 06/02/17 at 09:00 Multivitamins/ Minerals (Theragran-M) 1 tab DAILY PO Last administered on 09:54; Admin Dose 1 TAB; Start 06/02/17 at 09:00 Al Hydrox/Mg Hydrox/Simethicone (Mag-Al Plus) 30 ml Q6H PRN PO GASTROINTESTINAL UPSET; Start 06/02/17 at 03:30 Nitroglycerin (Nitroglycerin (Sl Tab) 0.4 Mg) 1 tab Q5M PRN SL ANGINA; Start at 03:30 Acetaminophen/ Hydrocodone Bitart ([place] (5/325)) 1 tab Q6H PRN PO MODERATE PAIN LEVEL 4-6; Start 06/02/17 at 03:30 Pantoprazole (Protonix Tab) 40 mg DAILY@06 PO Last administered on 06/06/17 06 :05; Admin Dose 40 MG; Start 06/02/17 at 06:00 Ascorbic Acid (Vitamin C) 500 mg DAILY PO Last administered on 06/06/17 09:55 ; Admin Dose 500 MG; Start 06/02/17 at 09:00 Ondansetron HCl (Zofran Tab) 4 mg Q6H PRN PO NAUSEA AND/OR VOMITING; Start at 04:00 Collagenase 1 applic 1 applic DAILY TOP Last administered on 06/06/17 09:55; Admin Dose 1 APPLIC; Start 06/03/17 at 09:00 Fentanyl (Sublimaze) 100 ml @ 2.5 mls/hr TITRATE IV Last administered on 08:10; Admin Dose 5 MLS/HR; Start 06/04/17 at 18:30 Allopurinol 100 mg 100 mg DAILY PO Last administered on 06/06/17 09:55; Admin Dose 100 MG; Start 06/04/17 at 20:00 Sodium Chloride 1,000 ml @ 100 mls/hr Q10H IV Last administered on 06/06/17 02:03; Admin Dose 100 MLS/HR; Start 06/05/17 at 09:00 Cefepime HCl (Maxipime 1gm/50 ml (Pmx)) 50 ml @ 100 mls/hr Q24H IVPB Last administered on 06/06/17 09:54; Admin Dose 100 MLS/HR; Start 06/06/17 at 09:00 IV Flush 10 ml 10 ml PRN PRN IV IV PROTOCOL; Start 06/05/17 at 20:00 Caspofungin 70 mg/ Sodium Chloride 250 ml @ 250 mls/hr ONCE IVPB ; Start at 14:30; Stop 06/06/17 at 15:29 Caspofungin 50 mg/ Sodium Chloride 250 ml @ 250 mls/hr Q24H IVPB ; Start at 15:00; Stop 06/11/17 at 14:59 Azithromycin (Zithromax 500mg/ NS (Pmx)) 250 ml @ 250 mls/hr Q24H IVPB ; Start 06/06/17 at 14:00 DASIA GREEN MD Jun 06, 2017 14:28
[2017-06-06] MEDS ORDERED: CASPOFUNGIN 70 MG in SOD CHLORIDE 0.9% 250 ML IVPB SCH (14:30)
--- NOTE | 2017-06-06 15:13 | RADRPT ---
PROCEDURE: Ultrasound guidance for placement of needle in left upper extremity vein. CLINICAL INDICATION: Venous access. TECHNIQUE: Limited sonography of the left upper extremity was performed. Ultrasound images were recorded and s tored in the patient's medical record. COMPARISON: None. FINDINGS: The ultrasound images demonstrate a patent left upper extremity vein. The PICC line was inserted by the PICC line nurse. IMPRESSION: 1. Ultrasound guidance for a needle placement in a left upper extremity vein. 2. The left upper extremity vein is patent. RPTAT: QQ .Timoteo Palumbo MD, MD Date Time Electronically viewed and signed by .Timoteo Palumbo MD, MD on 06/06/2017 15:13 .R/
[2017-06-06] MEDS ORDERED: NORepinephrine 8MG/250 ML (PMX 250 ML IV SCH (21:00)
[2017-06-07] VITALS (94 sets, daily range): BP systolic 78–130; BP diastolic 39–84; PULSE 75–116; RESP 6–26
[2017-06-07] MEDS: SOD CHLORIDE 0.9% 1,000 ML IV SCH ×3 (03:10→18:45)
[2017-06-07 05:25] LABS: ABNORMAL IP MESSAGE 1; BASOPHILS % 0.1 % (0.0-2.0); EOSINOPHILS # 0.1 10^3/ul (0.0-0.5); EOSINOPHILS % 0.7 % (0.0-7.0); HEMATOCRIT 24.9 % (42.0-52.0); HEMOGLOBIN 7.3 g/dl (14.0-18.0); LYMPHOCYTES # 0.9 10^3/ul (0.8-2.9); LYMPHOCYTES % 10.6 % (15.0-51.0); MEAN CORPUSCULAR HEMOGLOBIN 26.2 pg (29.0-33.0); MEAN CORPUSCULAR HGB CONC 29.3 g/dl (32.0-37.0); MEAN CORPUSCULAR VOLUME 89.2 fl (82.0-101.0); MEAN PLATELET VOLUME 11.8 fl (7.4-10.4); MONOCYTE # 0.6 10^3/ul (0.3-0.9); MONOCYTES % 7.5 % (0.0-11.0); NEUTROPHIL # 6.7 10^3/ul (1.6-7.5); NEUTROPHILS % 80.5 % (39.0-77.0); PLATELET COUNT 90 10^3/UL (140-415); POSITIVE DIFF @See below; RED BLOOD COUNT 2.79 10^6/ul (4.70-6.10); WHITE BLOOD COUNT 8.3 10^3/ul (4.8-10.8)
[2017-06-07 05:41] LABS: CALCIUM 8.9 mg/dl (8.4-10.2); CREATININE 2.24 mg/dl (0.61-1.24); MAGNESIUM 1.9 mg/dl (1.7-2.5); PHOSPHORUS 3.6 mg/dl (2.5-4.9); POTASSIUM 3.9 mmol/L (3.5-5.1)
[2017-06-07] MEDS: FENTAnyl (DRIP) 1000 mcg/100mL 100 ML IV SCH (05:49)
[2017-06-07] MEDS: PANTOPRAZOLE (EC) 40 MG TAB PO SCH (05:49)
--- NOTE | 2017-06-07 07:50 | PN ---
Date/Time of Note Date/Time of Note DATE: 06/07/17 TIME: 07:48 Assessment/Plan VTE Prophylaxis VTE Prophylaxis Intervention: other Lines/Catheters IV Catheter Type (from [facility]): PICC Line Central line still needed: Yes Urinary Cath still in place: Yes Reason Cath still needed: other (indicate) Assessment/Plan Chief Complaint/Hosp Course 1. Acute hypoxemic respiratory failure. intubated now Follow-up with pulmonary normal EF on ECHO 2. septic shock: now on levophed drip. 3. Newly diagnosed lymphoma, pulmonary and gastric f/u with hematology evaluation Monitor closely 4. Hypernatremia defer to renal . 5. Anemia, Etiology likely from chronic disease f/u with hem/onc 6. Acute encephalopathy, etiology is toxic metabolic. No significant change Continue to monitor \ 7. Small pericardial effusion: will monitor. 8. SHANTELLE: defer to renal. CONT ICU CARE. Problems: Subjective 24 Hr Interval Summary Free Text/Dictation CARDIOLOGY FOLLOW UP NOTE: d/w staff and rhythm was reviewed. pt remains in sinus rhythm pt remains intubated and is vent now Pt remains nonverbal pt has been hypotensive and is on levophed drip now. OBJECTIVE General: intubated on vent HEENT: pupils are equal. round. NECK: NO JVD. no stridor. CV: RRR. systolic murmur; no gallop or rubs. PULM: + diffuse rhonchi. GI: SOFT, NT, ND, no rebound or guarding Extremity: trace B/L LE edema. no clubbing. neuro: awake Psych: calm rectal: deferred : normal male echo 06/02/17: 1. Hyperdynamic left ventricular systolic function. Normal left ventricular cavity size. Moderate concentric left ventricular hypertrophy. Ejection fraction is visually estimated at 65 %. Abnormal Diastolic Function. 2. Mitral valve leaflets appear mildly thickened. Mild mitral annular calcification. Trace mitral regurgitation. 3. Aortic sclerosis without stenosis. Trace aortic valve regurgitation. 4. Normal appearance of the tricuspid valve. Estimated peak PA systolic pressure 33 mmHg. There is mild tricuspid regurgitation. 5. Small pericardial effusion. 6. Normal size and normal respiratory collapse consistent with normal right atrial pressure. Exam/Review of Systems Vital Signs Vitals Vital Signs Date Time Temp Pulse Resp B/P Pulse Ox O2 Delivery O2 Flow Rate FiO2 06/07/17 06:30 90 16 87/45 98 06/07/17 06:00 Mechanical Ventilator 06/07/17 05:28 40 06/07/17 04:00 98.0 Intake and Output 06/06/17 06/06/17 06/07/17 15:00 23:00 07:00 Intake Total 945 ml 1383 ml 1408.50 ml Output Total 145 ml 220 ml Balance 945 ml 1238 ml 1188.50 ml Results Result Diagram: 06/07/17 0415 06/07/17 0415 Results 24 hrs Laboratory Tests Test 06/07/17 04:15 White Blood Count 8.3 Red Blood Count 2.79 L Hemoglobin 7.3 L Hematocrit 24.9 L Mean Corpuscular Volume 89.2 Mean Corpuscular Hemoglobin 26.2 L Mean Corpuscular Hemoglobin Concent 29.3 L Red Cell Distribution Width 21.0 H Platelet Count 90 L Mean Platelet Volume 11.8 H Neutrophils % 80.5 H Lymphocytes % 10.6 L Monocytes % 7.5 Eosinophils % 0.7 Basophils % 0.1 Nucleated Red Blood Cells % 0.0 Neutrophils # 6.7 Lymphocytes # 0.9 Monocytes # 0.6 Eosinophils # 0.1 Basophils # 0.0 Nucleated Red Blood Cells # 0.0 Sodium Level 146 H Potassium Level 3.9 Chloride Level 101 Carbon Dioxide Level 34 H Anion Gap 15 Blood Urea Nitrogen 60 H Creatinine 2.24 H Glucose Level 119 Calcium Level 8.9 Phosphorus Level 3.6 Magnesium Level 1.9 Medications Medications Current Medications Heparin Sodium (Porcine) (Heparin (5000 Units/0.5 ml)) 5,000 unit BID SC Last administered on 06/06/17 09:59; Admin Dose 5,000 UNIT; Start 06/02/17 at 09:00 Acetaminophen/ Aspirin/Caffeine (Excedrin) 2 tab Q4 PRN PO ELEVATED TEMPERATURE ; Start 06/02/17 at 03:30 Aspirin (Aspirin) 81 mg DAILY PO Last administered on 06/06/17 09:54; Admin Dose 81 MG; Start 06/02/17 at 09:00 Docusate Sodium (Colace) 250 mg BID PO Last administered on 06/06/17 20:21; Admin Dose 250 MG; Start 06/02/17 at 09:00 Multivitamins/ Minerals (Theragran-M) 1 tab DAILY PO Last administered on 09:54; Admin Dose 1 TAB; Start 06/02/17 at 09:00 Al Hydrox/Mg Hydrox/Simethicone (Mag-Al Plus) 30 ml Q6H PRN PO GASTROINTESTINAL UPSET; Start 06/02/17 at 03:30 Nitroglycerin (Nitroglycerin (Sl Tab) 0.4 Mg) 1 tab Q5M PRN SL ANGINA; Start at 03:30 Acetaminophen/ Hydrocodone Bitart ([place] (5/325)) 1 tab Q6H PRN PO MODERATE PAIN LEVEL 4-6; Start 06/02/17 at 03:30 Pantoprazole (Protonix Tab) 40 mg DAILY@06 PO Last administered on 06/07/17 05 :49; Admin Dose 40 MG; Start 06/02/17 at 06:00 Ascorbic Acid (Vitamin C) 500 mg DAILY PO Last administered on 06/06/17 09:55 ; Admin Dose 500 MG; Start 06/02/17 at 09:00 Ondansetron HCl (Zofran Tab) 4 mg Q6H PRN PO NAUSEA AND/OR VOMITING; Start at 04:00 Collagenase 1 applic 1 applic DAILY TOP Last administered on 06/06/17 09:55; Admin Dose 1 APPLIC; Start 06/03/17 at 09:00 Fentanyl (Sublimaze) 100 ml @ 2.5 mls/hr TITRATE IV Last administered on 05:49; Admin Dose 4 MLS/HR; Start 06/04/17 at 18:30 Allopurinol 100 mg 100 mg DAILY PO Last administered on 06/06/17 09:55; Admin Dose 100 MG; Start 06/04/17 at 20:00 Sodium Chloride 1,000 ml @ 100 mls/hr Q10H IV Last administered on 06/07/17 03:10; Admin Dose 100 MLS/HR; Start 06/05/17 at 09:00 Cefepime HCl (Maxipime 1gm/50 ml (Pmx)) 50 ml @ 100 mls/hr Q24H IVPB Last administered on 06/06/17 09:54; Admin Dose 100 MLS/HR; Start 06/06/17 at 09:00 IV Flush 10 ml 10 ml PRN PRN IV IV PROTOCOL; Start 7/24/17 at 20:00 Caspofungin 50 mg/ Sodium Chloride 250 ml @ 250 mls/hr Q24H IVPB ; Start at 15:00; Stop 06/11/17 at 14:59 Azithromycin 250 ml @ 250 mls/hr Q24H IVPB Last administered on 06/06/17 14: 25; Admin Dose 250 MLS/HR; Start 06/06/17 at 14:00 Norepinephrine (Levophed) 250 ml @ 1.875 mls/ hr TITRATE IV Last administered on 06/06/17 23:32; Admin Dose 1.875 MLS/HR; Start 06/06/17 at 21:00 DASIA GREEN MD Jun 07, 2017 07:50
[2017-06-07] MEDS: CEFEPIME 1GM/50 ML (PMX) 50 ML IVPB SCH (08:11)
[2017-06-07] MEDS: MULTIVITAMINS/MINERALS TAB PO SCH (08:12)
[2017-06-07] MEDS: HEPARIN 5,000 UNIT/0.5 ML VIAL SC SCH ×2 (08:12→20:20)
[2017-06-07] MEDS: COLLAGENASE 30 GM TUBE TOP SCH (08:12)
[2017-06-07] MEDS: ASPIRIN 81 MG TAB PO SCH (08:12)
[2017-06-07] MEDS: ASCORBIC ACID 500 MG TAB PO SCH (08:12)
[2017-06-07] MEDS: ALLOPURINOL 100 MG TAB PO SCH (08:12)
--- NOTE | 2017-06-07 08:31 | RADRPT ---
PROCEDURE: XR Chest. CLINICAL INDICATION: Congestive heart failure. TECHNIQUE: Single frontal chest x-ray. COMPARISON: 06/08/2017 FINDINGS: Endotracheal tube, nasogastric tube, left arm PICC lines in place unchanged. Low lung volumes with elevated left hemidiaphragm and bibasilar atelectasis is seen. Diffuse bilateral interstitial and m ild alveolar infiltrates or edema are unchanged. .. Cardiomediastinal silhouette is stable.. The o sseous structures are intact. IMPRESSION: Tubes and lines unchanged. Diffuse bilateral interstitial and mild alveolar edema or infiltrates are unchanged. Low lung volumes with elevated left hemidiaphragm and mild bibasilar atelectasis is stable. RPTAT: JJ .Vin Schwarz MD, MD Date Time Electronically viewed and signed by .Vin Schwarz MD, MD on 06/07/2017 08:31 .L/
--- NOTE | 2017-06-07 08:51 | PN ---
Date/Time of Note Date/Time of Note DATE: 06/07/17 TIME: 08:49 Assessment/Plan Lines/Catheters IV Catheter Type (from Nrs): PICC Line Urinary Cath still in place: Yes Assessment/Plan Chief Complaint/Hosp Course 1. Acute hypoxemic respiratory failure. Status post intubation Etiology is likely multifactorial secondary to lymphoma, pulmonary with possible lymphangitic spread, pulmonary interstitial edema Chest x-ray ABG reviewed Follow-up with pulmonary recommendations 2. Oligouric acute kidney injury with previously normal baseline creatinine Etiology was secondary to ATN due to hemodynamics, septic AK I Patient remains in maintenance phase ATN Patient noted on renal ultrasound to have mild hydronephrosis with distended bladder urinalysis urine lites were reviewed -Bean catheter was adjusted Continue supportive care renally dose all meds, avoid nephrotoxins . Interstitial pulmonary edema Etiology may be secondary to lymphoma and questionable congestive heart failure. Monitor I's and O's closely Follow-up with cardiology 3. Newly diagnosed lymphoma, pulmonary and gastric Anticipate chemotherapy once clinically stable Monitor closely 4. Hypernatremia Free water flushes . 5. Anemia, No evidence of GI bleed Hemoglobin levels continue to decline, consider blood transfusion Follow-up with hematology 6. Acute encephalopathy, etiology is toxic metabolic. No significant change Continue to monitor 7. Gastrointestinal and deep venous thrombosis prophylaxis. Patient will be placed on Proton-pump inhibitors and heparin. Hypokalemia Replete with potassium chloride I spoke with the patient's daughter Jane as stated above informing of the critical nature of her uncle Please note spent over 40 minutes critical care time with this patient Problems: Subjective 24 Hr Interval Summary Free Text/Dictation Patient seen and examined Critically ill started on pressure support overnight Urinary output has been marginal Exam/Review of Systems Vital Signs Vitals Vital Signs Date Time Temp Pulse Resp B/P Pulse Ox O2 Delivery O2 Flow Rate FiO2 06/07/17 06:30 90 16 87/45 98 06/07/17 06:00 Mechanical Ventilator 06/07/17 05:28 40 06/07/17 04:00 98.0 Intake and Output 06/06/17 06/06/17 06/07/17 15:00 23:00 07:00 Intake Total 945 ml 1383 ml 1408.50 ml Output Total 145 ml 220 ml Balance 945 ml 1238 ml 1188.50 ml Exam HEENT: Head is normocephalic, NECK: Supple., HEART: Irregular LUNGS: Show diminished breath sounds at base. ABDOMEN: Soft, nontender to palpation without rebound or guarding. EXTREMITIES: Negative for clubbing, cyanosis. Positive edema DERMATOLOGIC: No rashes. MUSCULOSKELETAL: No joint effusions, NEUROLOGIC: No change in exam Results Result Diagram: 06/07/175 06/07/175 Results 24 hrs Laboratory Tests Test 06/07/17 04:15 White Blood Count 8.3 Red Blood Count 2.79 L Hemoglobin 7.3 L Hematocrit 24.9 L Mean Corpuscular Volume 89.2 Mean Corpuscular Hemoglobin 26.2 L Mean Corpuscular Hemoglobin Concent 29.3 L Red Cell Distribution Width 21.0 H Platelet Count 90 L Mean Platelet Volume 11.8 H Neutrophils % 80.5 H Lymphocytes % 10.6 L Monocytes % 7.5 Eosinophils % 0.7 Basophils % 0.1 Nucleated Red Blood Cells % 0.0 Neutrophils # 6.7 Lymphocytes # 0.9 Monocytes # 0.6 Eosinophils # 0.1 Basophils # 0.0 Nucleated Red Blood Cells # 0.0 Sodium Level 146 H Potassium Level 3.9 Chloride Level 101 Carbon Dioxide Level 34 H Anion Gap 15 Blood Urea Nitrogen 60 H Creatinine 2.24 H Glucose Level 119 Calcium Level 8.9 Phosphorus Level 3.6 Magnesium Level 1.9 Medications Medications Current Medications Heparin Sodium (Porcine) (Heparin (5000 Units/0.5 ml)) 5,000 unit BID SC Last administered on 06/07/17 08:12; Admin Dose 5,000 UNIT; Start 06/02/17 at 09:00 Acetaminophen/ Aspirin/Caffeine (Excedrin) 2 tab Q4 PRN PO ELEVATED TEMPERATURE ; Start 06/02/17 at 03:30 Aspirin (Aspirin) 81 mg DAILY PO Last administered on 06/07/17 08:12; Admin Dose 81 MG; Start 06/02/17 at 09:00 Docusate Sodium (Colace) 250 mg BID PO Last administered on 06/06/17 20:21; Admin Dose 250 MG; Start 06/02/17 at 09:00 Multivitamins/ Minerals (Theragran-M) 1 tab DAILY PO Last administered on 08:12; Admin Dose 1 TAB; Start 06/02/17 at 09:00 Al Hydrox/Mg Hydrox/Simethicone (Mag-Al Plus) 30 ml Q6H PRN PO GASTROINTESTINAL UPSET; Start 06/02/17 at 03:30 Nitroglycerin (Nitroglycerin (Sl Tab) 0.4 Mg) 1 tab Q5M PRN SL ANGINA; Start at 03:30 Acetaminophen/ Hydrocodone Bitart ([place] (5/325)) 1 tab Q6H PRN PO MODERATE PAIN LEVEL 4-6; Start 06/02/17 at 03:30 Pantoprazole (Protonix Tab) 40 mg DAILY@06 PO Last administered on 06/07/17 05 :49; Admin Dose 40 MG; Start 06/02/17 at 06:00 Ascorbic Acid (Vitamin C) 500 mg DAILY PO Last administered on 06/07/17 08:12 ; Admin Dose 500 MG; Start 06/02/17 at 09:00 Ondansetron HCl (Zofran Tab) 4 mg Q6H PRN PO NAUSEA AND/OR VOMITING; Start at 04:00 Collagenase 1 applic 1 applic DAILY TOP Last administered on 06/07/17 08:12; Admin Dose 1 APPLIC; Start 06/03/17 at 09:00 Fentanyl (Sublimaze) 100 ml @ 2.5 mls/hr TITRATE IV Last administered on 05:49; Admin Dose 4 MLS/HR; Start 06/04/17 at 18:30 Allopurinol 100 mg 100 mg DAILY PO Last administered on 06/07/17 08:12; Admin Dose 100 MG; Start 06/04/17 at 20:00 Sodium Chloride 1,000 ml @ 100 mls/hr Q10H IV Last administered on 06/07/17 03:10; Admin Dose 100 MLS/HR; Start 06/05/17 at 09:00 Cefepime HCl (Maxipime 1gm/50 ml (Pmx)) 50 ml @ 100 mls/hr Q24H IVPB Last administered on 06/07/17 08:11; Admin Dose 100 MLS/HR; Start 06/06/17 at 09:00 IV Flush 10 ml 10 ml PRN PRN IV IV PROTOCOL; Start 06/05/17 at 20:00 Caspofungin 50 mg/ Sodium Chloride 250 ml @ 250 mls/hr Q24H IVPB ; Start at 15:00; Stop 06/11/17 at 14:59 Azithromycin 250 ml @ 250 mls/hr Q24H IVPB Last administered on 06/06/17 14: 25; Admin Dose 250 MLS/HR; Start 06/06/17 at 14:00 Norepinephrine (Levophed) 250 ml @ 1.875 mls/ hr TITRATE IV Last administered on 06/06/17 23:32; Admin Dose 1.875 MLS/HR; Start 06/06/17 at 21:00 ERASTO GONZALEZ DO Jun 07, 2017 08:51
[2017-06-07] MEDS: DOCUSATE SODIUM 250 MG CAP PO SCH ×2 (09:00→20:19)
[2017-06-07 09:26] LABS: AADO2 Arterial 97.9 mmHg (7.0-24.0); Allen Test ACCEPTAB; Arterial Base Excess 2.3 mmol/L (-3.0-3); Arterial COHb 0.8 % (0.0-3.0); Arterial Fraction of Oxyhgb 96.5 % (93.0-99.0); Arterial HCO3 29.2 mmol/L (22.0-26.0); Arterial MetHb 0.9 % (0.0-1.5); MODE VENT - AC
--- NOTE | 2017-06-07 10:36 | CONS ---
Date/Time of Note Date/Time of Note DATE: 06/07/17 TIME: 10:32 Consult Date/Type/Reason Admit Date/Time Jun 01, 2017 at 22:01 Initial Consult Date 06/02/17 Type of Consultation: Pulmonary ICU Ordering Provider: ERASTO GONZALEZ DO Subjective Patient continues mechanical ventilation. Started on Levophed. Opens eyes but not following commands. Continues low-dose fentanyl. Objective Vital Signs Date Time Temp Pulse Resp B/P Pulse Ox O2 Delivery O2 Flow Rate FiO2 06/07/17 06:30 90 16 87/45 98 06/07/17 06:00 Mechanical Ventilator 06/07/17 05:28 40 06/07/17 04:00 98.0 Intake and Output 06/06/17 06/06/17 06/07/17 15:00 23:00 07:00 Intake Total 945 ml 1383 ml 1408.50 ml Output Total 145 ml 220 ml Balance 945 ml 1238 ml 1188.50 ml Exam PHYSICAL EXAMINATION GENERAL: Elderly gentleman, intubated on mechanical ventilation, opens eyes and appears somewhat agitated. VITAL SIGNS: see below. HEENT: Pupils equal, round, and reactive to light. CARDIAC: S1, S2, 1/6 systolic ejection murmur CHEST: Diminished air entry bilaterally. ABDOMEN: Mildly distended. Bowel sounds present no guarding or rebound EXTREMITIES: No cyanosis, clubbing edema +1 NEUROLOGIC: Generalized weakness Results/Medications Result Diagram: 06/07/17 0415 06/07/17 0415 Results 24 hrs Laboratory Tests Test 06/07/17 04:15 06/07/17 07:00 White Blood Count 8.3 Red Blood Count 2.79 L Hemoglobin 7.3 L Hematocrit 24.9 L Mean Corpuscular Volume 89.2 Mean Corpuscular Hemoglobin 26.2 L Mean Corpuscular Hemoglobin Concent 29.3 L Red Cell Distribution Width 21.0 H Platelet Count 90 L Mean Platelet Volume 11.8 H Neutrophils % 80.5 H Lymphocytes % 10.6 L Monocytes % 7.5 Eosinophils % 0.7 Basophils % 0.1 Nucleated Red Blood Cells % 0.0 Neutrophils # 6.7 Lymphocytes # 0.9 Monocytes # 0.6 Eosinophils # 0.1 Basophils # 0.0 Nucleated Red Blood Cells # 0.0 Sodium Level 146 H Potassium Level 3.9 Chloride Level 101 Carbon Dioxide Level 34 H Anion Gap 15 Blood Urea Nitrogen 60 H Creatinine 2.24 H Glucose Level 119 Calcium Level 8.9 Phosphorus Level 3.6 Magnesium Level 1.9 Blood Gas Specimen Source Blood arterial Arterial Blood Date Drawn 06/07/2017 7:20:19 AM Arterial Blood pH (Temp corrected) 7.302 L Arterial Blood pCO2 (Temp correct) 60.5 H Arterial Blood pO2 (Temp corrected) 117.7 H Arterial Blood HCO3 29.2 H Arterial Blood Base Excess 2.3 Arterial Blood Oxygen Saturation 98.2 Bakari Test ACCEPTAB Arterial Blood Gas Puncture Site Right Radial Arterial Blood Carboxyhemoglobin 0.8 Arterial Blood Methemoglobin 0.9 Blood Gas A-a O2 Differential 97.9 H Oxyhemoglobin Percent 96.5 Total Hemoglobin 8.0 L Blood Gas Temperature 37.0 Blood Gas Respiration Rate 18.0 Blood Gas Actual Respiration Rate 18 Blood Gas Modality VENT - AC FiO2 40.0 Blood Gas Tidal Volume 500.0 Blood Gas Low PEEP Setting 5.0 Blood Gas Notified Whom JLD Blood Gas Notified Time 06/07/2017 7:55:57 AM Medications Current Medications Heparin Sodium (Porcine) (Heparin (5000 Units/0.5 ml)) 5,000 unit BID SC Last administered on 06/07/17 08:12; Admin Dose 5,000 UNIT; Start 06/02/17 at 09:00 Acetaminophen/ Aspirin/Caffeine (Excedrin) 2 tab Q4 PRN PO ELEVATED TEMPERATURE ; Start 06/02/17 at 03:30 Aspirin (Aspirin) 81 mg DAILY PO Last administered on 06/07/17 08:12; Admin Dose 81 MG; Start 06/02/17 at 09:00 Docusate Sodium (Colace) 250 mg BID PO Last administered on 06/06/17 20:21; Admin Dose 250 MG; Start 06/02/17 at 09:00 Multivitamins/ Minerals (Theragran-M) 1 tab DAILY PO Last administered on 08:12; Admin Dose 1 TAB; Start 06/02/17 at 09:00 Al Hydrox/Mg Hydrox/Simethicone (Mag-Al Plus) 30 ml Q6H PRN PO GASTROINTESTINAL UPSET; Start 06/02/17 at 03:30 Nitroglycerin (Nitroglycerin (Sl Tab) 0.4 Mg) 1 tab Q5M PRN SL ANGINA; Start at 03:30 Acetaminophen/ Hydrocodone Bitart ([place] (5/325)) 1 tab Q6H PRN PO MODERATE PAIN LEVEL 4-6; Start 06/02/17 at 03:30 Pantoprazole (Protonix Tab) 40 mg DAILY@06 PO Last administered on 06/07/17 05 :49; Admin Dose 40 MG; Start 06/02/17 at 06:00 Ascorbic Acid (Vitamin C) 500 mg DAILY PO Last administered on 06/07/17 08:12 ; Admin Dose 500 MG; Start 06/02/17 at 09:00 Ondansetron HCl (Zofran Tab) 4 mg Q6H PRN PO NAUSEA AND/OR VOMITING; Start at 04:00 Collagenase 1 applic 1 applic DAILY TOP Last administered on 06/07/17 08:12; Admin Dose 1 APPLIC; Start 06/03/17 at 09:00 Fentanyl (Sublimaze) 100 ml @ 2.5 mls/hr TITRATE IV Last administered on 05:49; Admin Dose 4 MLS/HR; Start 06/04/17 at 18:30 Allopurinol 100 mg 100 mg DAILY PO Last administered on 06/07/17 08:12; Admin Dose 100 MG; Start 06/04/17 at 20:00 Sodium Chloride 1,000 ml @ 100 mls/hr Q10H IV Last administered on 06/07/17 03:10; Admin Dose 100 MLS/HR; Start 06/05/17 at 09:00 Cefepime HCl (Maxipime 1gm/50 ml (Pmx)) 50 ml @ 100 mls/hr Q24H IVPB Last administered on 06/07/17 08:11; Admin Dose 100 MLS/HR; Start 06/06/17 at 09:00 IV Flush 10 ml 10 ml PRN PRN IV IV PROTOCOL; Start 06/05/17 at 20:00 Caspofungin 50 mg/ Sodium Chloride 250 ml @ 250 mls/hr Q24H IVPB ; Start at 15:00; Stop 06/11/17 at 14:59 Azithromycin 250 ml @ 250 mls/hr Q24H IVPB Last administered on 06/06/17 14: 25; Admin Dose 250 MLS/HR; Start 06/06/17 at 14:00 Norepinephrine (Levophed) 250 ml @ 1.875 mls/ hr TITRATE IV Last administered on 06/06/17t 23:32; Admin Dose 1.875 MLS/HR; Start 06/06/17 at 21:00 Assessment/Plan Chief Complaint/Hosp Course Assessment 1. Hypoxemic respiratory failure likely secondary to congestive cardiac failure or possibly secondary to underlying lymphoma. Continues mechanical ventilation 2. Significant anemia unclear whether this is a GI bleed or a consumptive process. 3. Encephalopathy questionable toxic metabolic. 4. History of lymphoma recent diagnosis Plan 1. Gentle diuresis as tolerated 2. Hematology oncology recommendations for lymphoma management and workup of anemia currently I do not think this patient is stable for chemotherapy as he is vasopressor and ventilator dependent. 3. DVT and GI prophylaxis per primary team 4. Aspiration precautions. Consider transfusion 1 unit packed red blood cells , will defer to hematology oncology 5. Continue mechanical ventilation currently not amenable secondary to altered mental status Disposition Continue ICU care, critical care time 40 minutes. Palliative care consult would be advisable. Problems: HIRO RIVERA MD, [facility] Jun 07, 2017 10:36
--- NOTE | 2017-06-07 14:47 | CONS ---
Date/Time of Note Date/Time of Note DATE: 06/07/17 TIME: 14:42 Assessment/Plan Assessment/Plan Chief Complaint/Hosp Course ID PROGRESS NOTE TOTAL ABX DAY #6=> CEFEPIME + Azith #2 + Cancidas #2 24H INTERVAL SUMMARY * Low grade temps 99.5, WBC normal * Resting comfortably on the Vent - noncommunicative on the Vent/orally intubated * 06/05 TRACH CULTURE: RESPIRATORY CULTURE Preliminary Organism 1 GRAM NEGATIVE MARY QUANTITY SCANT GROWTH Organism 2 YEAST QUANTITY 1+ * URINE: URINE CULTURE Final Organism 1 YEAST,NOT FLORY ALBICANS COLONY COUNT >100,000 CFU/ml * Microbiology: Pending repeat urine culture, blood cultures have been negative * CXR 06/07/17 IMPRESSION: Tubes and lines unchanged. Diffuse bilateral interstitial and mild alveolar edema or infiltrates are unchanged. Low lung volumes with elevated left hemidiaphragm and mild bibasilar atelectasis is stable. PHYSICAL EXAMINATION: GENERAL: VSS,NAD,Awake, calm HEENT: NGT->Secure / ETT secure NECK: Supple, trach-> midline CHEST: Equal chest rise bilaterally, Vented w/scattered rhonchi HEART: Pulse RRR ABDOMEN: Soft EXTREMITIES: Warm, no edema SKIN: Warm, dry ID ASSESSMENT: 86 yo Obese M w/newly Dx LYMPHOMA admitted with: 1. Septic shock, on pressors, w/lactic acidosis 2.4, mild leukocytosis, tachycardia on admission => due to # 2. Acute respiratory failure/pulmonary edema 3. Bilateral pneumonia-> RESPIRATORY CULTURE Preliminary Organism 1 GRAM NEGATIVE MARY QUANTITY SCANT GROWTH Organism 2 YEAST QUANTITY 1+ 4. Acute CHF as evidenced by pulmonary edema and elevated BNP on admission 5. Yeast UTI w/pyuria 06/03/17 * Mixed GP Organisms on admission => DDx includes early UTI vs Prostatitis * FC Changed 06/06/17 due to yeast 6. Acute renal failure 7. Acute encephalopathy 8. GERD 9. Buttock decub (-)MRSA NARES INVASIVES: * PIV, ETT, FC, NGT ABX ALLERGIES: KNDA CURRENT ABX: #6 => CEFEPIME + Azith #2 + Cancidas #2 ID RECOMMENDATIONS: 1. Continue CEFEPIME, Cancidas for YEAST UTI + Short course Azith cover atypicals == await sputum results 2. FC Changed yesterday due to yeast uti 06/03 3. Avoid renal Toxic ABX 4. F/U on final RESPIRATORY CULTURE = GNR + Yeast pending . Problems: Consultation Date/Type/Reason Admit Date/Time Jun 01, 2017 at 22:01 Initial Consult Date 06/02/17 Type of Consultation: ID Referring Provider: ERASTO GONZALEZ DO Exam/Review of Systems Vital Signs Vitals Vital Signs Date Time Temp Pulse Resp B/P Pulse Ox O2 Delivery O2 Flow Rate FiO2 06/07/17 14:30 97 23 108/49 98 06/07/17 14:00 Mechanical Ventilator 06/07/17 12:00 99.4 06/07/17 11:40 40 Intake and Output 06/06/17 06/06/17 06/07/17 14:59 22:59 06:59 Intake Total 945 ml 1344 ml 1552.50 ml Output Total 115 ml 250 ml Balance 945 ml 1229 ml 1302.50 ml Results Result Diagram: 06/07/17 0415 06/07/17 0415 Results 24 hrs Laboratory Tests Test 06/07/17 04:15 06/07/17 07:00 White Blood Count 8.3 Red Blood Count 2.79 L Hemoglobin 7.3 L Hematocrit 24.9 L Mean Corpuscular Volume 89.2 Mean Corpuscular Hemoglobin 26.2 L Mean Corpuscular Hemoglobin Concent 29.3 L Red Cell Distribution Width 21.0 H Platelet Count 90 L Mean Platelet Volume 11.8 H Neutrophils % 80.5 H Lymphocytes % 10.6 L Monocytes % 7.5 Eosinophils % 0.7 Basophils % 0.1 Nucleated Red Blood Cells % 0.0 Neutrophils # 6.7 Lymphocytes # 0.9 Monocytes # 0.6 Eosinophils # 0.1 Basophils # 0.0 Nucleated Red Blood Cells # 0.0 Sodium Level 146 H Potassium Level 3.9 Chloride Level 101 Carbon Dioxide Level 34 H Anion Gap 15 Blood Urea Nitrogen 60 H Creatinine 2.24 H Glucose Level 119 Calcium Level 8.9 Phosphorus Level 3.6 Magnesium Level 1.9 Blood Gas Specimen Source Blood arterial Arterial Blood Date Drawn 06/07/2017 7:20:19 AM Arterial Blood pH (Temp corrected) 7.302 L Arterial Blood pCO2 (Temp correct) 60.5 H Arterial Blood pO2 (Temp corrected) 117.7 H Arterial Blood HCO3 29.2 H Arterial Blood Base Excess 2.3 Arterial Blood Oxygen Saturation 98.2 Bakari Test ACCEPTAB Arterial Blood Gas Puncture Site Right Radial Arterial Blood Carboxyhemoglobin 0.8 Arterial Blood Methemoglobin 0.9 Blood Gas A-a O2 Differential 97.9 H Oxyhemoglobin Percent 96.5 Total Hemoglobin 8.0 L Blood Gas Temperature 37.0 Blood Gas Respiration Rate 18.0 Blood Gas Actual Respiration Rate 18 Blood Gas Modality VENT - AC FiO2 40.0 Blood Gas Tidal Volume 500.0 Blood Gas Low PEEP Setting 5.0 Blood Gas Notified Whom JLD Blood Gas Notified Time 06/07/2017 7:55:57 AM Medications Medications Current Medications Heparin Sodium (Porcine) (Heparin (5000 Units/0.5 ml)) 5,000 unit BID SC Last administered on 06/07/17 08:12; Admin Dose 5,000 UNIT; Start 06/02/17 at 09:00 Acetaminophen/ Aspirin/Caffeine (Excedrin) 2 tab Q4 PRN PO ELEVATED TEMPERATURE ; Start 06/02/17 at 03:30 Aspirin (Aspirin) 81 mg DAILY PO Last administered on 06/07/17 08:12; Admin Dose 81 MG; Start 06/02/17 at 09:00 Docusate Sodium (Colace) 250 mg BID PO Last administered on 06/06/17 20:21; Admin Dose 250 MG; Start 06/02/17 at 09:00 Multivitamins/ Minerals (Theragran-M) 1 tab DAILY PO Last administered on 08:12; Admin Dose 1 TAB; Start 06/02/17 at 09:00 Al Hydrox/Mg Hydrox/Simethicone (Mag-Al Plus) 30 ml Q6H PRN PO GASTROINTESTINAL UPSET; Start 06/02/17 at 03:30 Nitroglycerin (Nitroglycerin (Sl Tab) 0.4 Mg) 1 tab Q5M PRN SL ANGINA; Start at 03:30 Acetaminophen/ Hydrocodone Bitart ([place] (5/325)) 1 tab Q6H PRN PO MODERATE PAIN LEVEL 4-6; Start 06/02/17 at 03:30 Pantoprazole (Protonix Tab) 40 mg DAILY@06 PO Last administered on 06/07/17 05 :49; Admin Dose 40 MG; Start 06/02/17 at 06:00 Ascorbic Acid (Vitamin C) 500 mg DAILY PO Last administered on 06/07/17 08:12 ; Admin Dose 500 MG; Start 06/02/17 at 09:00 Ondansetron HCl (Zofran Tab) 4 mg Q6H PRN PO NAUSEA AND/OR VOMITING; Start at 04:00 Collagenase 1 applic 1 applic DAILY TOP Last administered on 06/07/17 08:12; Admin Dose 1 APPLIC; Start 06/03/17 at 09:00 Fentanyl (Sublimaze) 100 ml @ 2.5 mls/hr TITRATE IV Last administered on 05:49; Admin Dose 4 MLS/HR; Start 06/04/17 at 18:30 Allopurinol 100 mg 100 mg DAILY PO Last administered on 06/07/17 08:12; Admin Dose 100 MG; Start 06/04/17 at 20:00 Sodium Chloride 1,000 ml @ 100 mls/hr Q10H IV Last administered on 06/07/17 03:10; Admin Dose 100 MLS/HR; Start 06/05/17 at 09:00 Cefepime HCl (Maxipime 1gm/50 ml (Pmx)) 50 ml @ 100 mls/hr Q24H IVPB Last administered on 06/07/17 08:11; Admin Dose 100 MLS/HR; Start 06/06/17 at 09:00 IV Flush 10 ml 10 ml PRN PRN IV IV PROTOCOL; Start 06/05/17 at 20:00 Caspofungin 50 mg/ Sodium Chloride 250 ml @ 250 mls/hr Q24H IVPB ; Start at 15:00; Stop 06/11/17 at 14:59 Azithromycin 250 ml @ 250 mls/hr Q24H IVPB Last administered on 06/06/17 14: 25; Admin Dose 250 MLS/HR; Start 06/06/17 at 14:00 Norepinephrine (Levophed) 250 ml @ 1.875 mls/ hr TITRATE IV Last administered on 06/06/17 23:32; Admin Dose 1.875 MLS/HR; Start 06/06/17 at 21:00 LORETTA BUCIO NP Jun 07, 2017 14:47
[2017-06-07] MEDS: AZITHROMYCIN 500MG/NS (PMX) 250 ML IVPB SCH (14:58)
[2017-06-07] MEDS: CASPOFUNGIN 50 MG in SOD CHLORIDE 0.9% 250 ML IVPB SCH (16:40)
--- NOTE | 2017-06-07 18:49 | CONS ---
Date/Time of Note Date/Time of Note DATE: 06/07/17 TIME: 18:47 Assessment/Plan Assessment/Plan Chief Complaint/Hosp Course Newly diagnosed lymphoma, pulmonary and gastric. The patient has not yet started chemotherapy. 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 + COMPONENT ACD Evaluation reveals a faint restricted band (M-spike) migrating in the gamma globulin region. - CAN BE SEEN IN NHL TRANSFUSE PRBC NEEDED INCREASED URIC ACID ALLOPURINOL, RENAL DOSE NO EVIDENCE OF TUMOR LYSIS S-M Acute hypoxemic respiratory failure. Etiology is likely multifactorial secondary to lymphoma, pulmonary with possible lymphangitic spread, congestive heart failure exacerbation. The patient currently is on BiPAP, receiving Bumex drip. pulmonary F-UP cardiology F-UP PER RN- WILL TRY WEANING TODAY Volume overload. Etiology may be multifactorial secondary to lymphoma and questionable congestive heart failure. Patient's chest x-ray shows pulmonary congestion. The patient had a recent cardiac cath which was negative, per patient's niece. Plan is continue diuretic regimen, monitor I and Os closely. Hypernatremia. Patient will be placed on D5W. Will monitor closely. Acute encephalopathy, etiology is toxic metabolic. We will continue to monitor. Gastrointestinal and deep venous thrombosis prophylaxis. Patient will be placed on Proton-pump inhibitors and heparin. ( IF NO EVIDENCE OF BLEEDING) Problems: Consultation Date/Type/Reason Admit Date/Time Jun 01, 2017 at 22:01 Initial Consult Date 06/02/17 Type of Consultation: [facility] Referring Provider: ERASTO GONZALEZ DO 24 HR Interval Summary Free Text/Dictation ALL NOTED ON VENT LOW-GRADE FEVER AWAITING PULM CLEARANCE FOR CHEMO Exam/Review of Systems Vital Signs Vitals Vital Signs Date Time Temp Pulse Resp B/P Pulse Ox O2 Delivery O2 Flow Rate FiO2 06/07/17 18:00 96 22 107/51 96 Mechanical Ventilator 06/07/17 17:40 40 06/07/17 16:00 99.6 Intake and Output 06/06/17 06/06/17 06/07/17 15:00 23:00 07:00 Intake Total 945 ml 1383 ml 1514.30 ml Output Total 145 ml 220 ml Balance 945 ml 1238 ml 1294.30 ml Exam GENERAL: Elderly gentleman intubated on mechanical ventilation appears comfortable at rest. VITAL SIGNS: per chart NECK: Supple. No JVD or lymphadenopathy. CARDIAC EXAM: S1, S2. No added sounds or murmurs. CHEST: Diminished air entry bilaterally ABDOMEN: Soft, nontender. No guarding or rebound. EXTREMITIES: No cyanosis, clubbing or edema. NEUROLOGIC: Generalized weakness. No focal deficits. Results Result Diagram: 06/07/17 0415 06/07/17 0415 Results 24 hrs Laboratory Tests Test 06/07/17 04:15 06/07/17 07:00 White Blood Count 8.3 Red Blood Count 2.79 L Hemoglobin 7.3 L Hematocrit 24.9 L Mean Corpuscular Volume 89.2 Mean Corpuscular Hemoglobin 26.2 L Mean Corpuscular Hemoglobin Concent 29.3 L Red Cell Distribution Width 21.0 H Platelet Count 90 L Mean Platelet Volume 11.8 H Neutrophils % 80.5 H Lymphocytes % 10.6 L Monocytes % 7.5 Eosinophils % 0.7 Basophils % 0.1 Nucleated Red Blood Cells % 0.0 Neutrophils # 6.7 Lymphocytes # 0.9 Monocytes # 0.6 Eosinophils # 0.1 Basophils # 0.0 Nucleated Red Blood Cells # 0.0 Sodium Level 146 H Potassium Level 3.9 Chloride Level 101 Carbon Dioxide Level 34 H Anion Gap 15 Blood Urea Nitrogen 60 H Creatinine 2.24 H Glucose Level 119 Calcium Level 8.9 Phosphorus Level 3.6 Magnesium Level 1.9 Blood Gas Specimen Source Blood arterial Arterial Blood Date Drawn 06/07/2017 7:20:19 AM Arterial Blood pH (Temp corrected) 7.302 L Arterial Blood pCO2 (Temp correct) 60.5 H Arterial Blood pO2 (Temp corrected) 117.7 H Arterial Blood HCO3 29.2 H Arterial Blood Base Excess 2.3 Arterial Blood Oxygen Saturation 98.2 Bakari Test ACCEPTAB Arterial Blood Gas Puncture Site Right Radial Arterial Blood Carboxyhemoglobin 0.8 Arterial Blood Methemoglobin 0.9 Blood Gas A-a O2 Differential 97.9 H Oxyhemoglobin Percent 96.5 Total Hemoglobin 8.0 L Blood Gas Temperature 37.0 Blood Gas Respiration Rate 18.0 Blood Gas Actual Respiration Rate 18 Blood Gas Modality VENT - AC FiO2 40.0 Blood Gas Tidal Volume 500.0 Blood Gas Low PEEP Setting 5.0 Blood Gas Notified Whom JLD Blood Gas Notified Time 06/07/2017 7:55:57 AM Medications Medications Current Medications Heparin Sodium (Porcine) (Heparin (5000 Units/0.5 ml)) 5,000 unit BID SC Last administered on 06/07/17 08:12; Admin Dose 5,000 UNIT; Start 06/02/17 at 09:00 Acetaminophen/ Aspirin/Caffeine (Excedrin) 2 tab Q4 PRN PO ELEVATED TEMPERATURE ; Start 06/02/17 at 03:30 Aspirin (Aspirin) 81 mg DAILY PO Last administered on 06/07/17 08:12; Admin Dose 81 MG; Start 06/02/17 at 09:00 Docusate Sodium (Colace) 250 mg BID PO Last administered on 06/06/17 20:21; Admin Dose 250 MG; Start 06/02/17 at 09:00 Multivitamins/ Minerals (Theragran-M) 1 tab DAILY PO Last administered on 08:12; Admin Dose 1 TAB; Start 06/02/17 at 09:00 Al Hydrox/Mg Hydrox/Simethicone (Mag-Al Plus) 30 ml Q6H PRN PO GASTROINTESTINAL UPSET; Start 06/02/17 at 03:30 Nitroglycerin (Nitroglycerin (Sl Tab) 0.4 Mg) 1 tab Q5M PRN SL ANGINA; Start at 03:30 Acetaminophen/ Hydrocodone Bitart ([place] (5/325)) 1 tab Q6H PRN PO MODERATE PAIN LEVEL 4-6; Start 06/02/17 at 03:30 Pantoprazole (Protonix Tab) 40 mg DAILY@06 PO Last administered on 06/07/17 05 :49; Admin Dose 40 MG; Start 06/02/17 at 06:00 Ascorbic Acid (Vitamin C) 500 mg DAILY PO Last administered on 06/07/17 08:12 ; Admin Dose 500 MG; Start 06/02/17 at 09:00 Ondansetron HCl (Zofran Tab) 4 mg Q6H PRN PO NAUSEA AND/OR VOMITING; Start at 04:00 Collagenase 1 applic 1 applic DAILY TOP Last administered on 06/07/17 08:12; Admin Dose 1 APPLIC; Start 06/03/17 at 09:00 Fentanyl (Sublimaze) 100 ml @ 2.5 mls/hr TITRATE IV Last administered on 05:49; Admin Dose 4 MLS/HR; Start 06/04/17 at 18:30 Allopurinol 100 mg 100 mg DAILY PO Last administered on 06/07/17 08:12; Admin Dose 100 MG; Start 06/04/17 at 20:00 Sodium Chloride 1,000 ml @ 100 mls/hr Q10H IV Last administered on 06/07/17 03:10; Admin Dose 100 MLS/HR; Start 06/05/17 at 09:00 Cefepime HCl (Maxipime 1gm/50 ml (Pmx)) 50 ml @ 100 mls/hr Q24H IVPB Last administered on 06/07/17 08:11; Admin Dose 100 MLS/HR; Start 06/06/17 at 09:00 IV Flush 10 ml 10 ml PRN PRN IV IV PROTOCOL; Start 06/05/17 at 20:00 Caspofungin 50 mg/ Sodium Chloride 250 ml @ 250 mls/hr Q24H IVPB Last administered on 06/07/17 16:40; Admin Dose 250 MLS/HR; Start 06/07/17 at 15:00 ; Stop 06/11/17 at 14:59 Azithromycin 250 ml @ 250 mls/hr Q24H IVPB Last administered on 06/07/17 14: 58; Admin Dose 250 MLS/HR; Start 06/06/17 at 14:00 Norepinephrine/ Dextrose (Levophed/D5W) 500 ml @ 1.87 mls/hr TITRATE IV ; Start 06/07/17 at 15:30 SALOMON OVIEDO MD Jun 07, 2017 18:49
[2017-06-08] VITALS (37 sets, daily range): BP systolic 88–121; BP diastolic 41–74; PULSE 89–115; RESP 11–30
[2017-06-08] MEDS: SOD CHLORIDE 0.9% 1,000 ML IV SCH ×2 (03:55→17:00)
[2017-06-08] MEDS: PANTOPRAZOLE (EC) 40 MG TAB PO SCH (05:44)
[2017-06-08 05:58] LABS: ABNORMAL IP MESSAGE 1; BASOPHILS % 0.1 % (0.0-2.0); EOSINOPHILS # 0.1 10^3/ul (0.0-0.5); EOSINOPHILS % 0.7 % (0.0-7.0); HEMATOCRIT 23.2 % (42.0-52.0); LYMPHOCYTES # 1.1 10^3/ul (0.8-2.9); LYMPHOCYTES % 12.9 % (15.0-51.0); MEAN CORPUSCULAR HEMOGLOBIN 25.7 pg (29.0-33.0); MEAN CORPUSCULAR HGB CONC 29.3 g/dl (32.0-37.0); MEAN CORPUSCULAR VOLUME 87.5 fl (82.0-101.0); MEAN PLATELET VOLUME 11.1 fl (7.4-10.4); MONOCYTE # 0.6 10^3/ul (0.3-0.9); MONOCYTES % 6.9 % (0.0-11.0); NEUTROPHIL # 6.5 10^3/ul (1.6-7.5); NEUTROPHILS % 78.9 % (39.0-77.0); PLATELET COUNT 92 10^3/UL (140-415); POSITIVE DIFF @See below; RED BLOOD COUNT 2.65 10^6/ul (4.70-6.10); RED CELL DISTRIBUTION WIDTH 21.1 % (11.5-14.5); WHITE BLOOD COUNT 8.2 10^3/ul (4.8-10.8)
[2017-06-08 06:12] LABS: HEMOGLOBIN 6.8 g/dl (14.0-18.0)
[2017-06-08 06:46] LABS: CALCIUM 8.5 mg/dl (8.4-10.2); CREATININE 2.23 mg/dl (0.61-1.24); MAGNESIUM 1.7 mg/dl (1.7-2.5); PHOSPHORUS 2.5 mg/dl (2.5-4.9)
--- NOTE | 2017-06-08 07:39 | PN ---
Date/Time of Note Date/Time of Note DATE: 06/08/17 TIME: 07:38 Assessment/Plan VTE Prophylaxis VTE Prophylaxis Intervention: other Lines/Catheters IV [facility] Type (from [facility] PICC Line Central line still needed: Yes Urinary Cath still in place: Yes Reason Cath still needed: other (indicate) Assessment/Plan Chief Complaint/Hosp Course 1. Acute hypoxemic respiratory failure. intubated now Follow-up with pulmonary normal EF on ECHO 2. septic shock: off of levophed drip now. 3. Newly diagnosed lymphoma, pulmonary and gastric f/u with hematology evaluation Monitor closely 4. Hypernatremia defer to renal . 5. severe Anemia, Etiology likely from chronic disease f/u with hem/onc consider transfusions. 6. Acute encephalopathy, etiology is toxic metabolic. No significant change Continue to monitor \ 7. Small pericardial effusion: will monitor. 8. SHANTELLE: defer to renal. CONT ICU CARE. Problems: Subjective 24 Hr Interval Summary Free Text/Dictation CARDIOLOGY FOLLOW UP NOTE: d/w staff and rhythm was reviewed. D/ W Dr Montiel pt remains in sinus rhythm pt remains intubated and is vent now Pt remains nonverbal BP is better now and is off of levophed drip now. pt with large amount of secretions. OBJECTIVE General: intubated on vent HEENT: pupils are equal. round. NECK: NO JVD. no stridor. CV: RRR. systolic murmur; no gallop or rubs. PULM: + diffuse rhonchi. GI: SOFT, NT, ND, no rebound or guarding Extremity: trace B/L LE edema. no clubbing. neuro: awake Psych: calm rectal: deferred : normal male echo 06/02/17: 1. Hyperdynamic left ventricular systolic function. Normal left ventricular cavity size. Moderate concentric left ventricular hypertrophy. Ejection fraction is visually estimated at 65 %. Abnormal Diastolic Function. 2. Mitral valve leaflets appear mildly thickened. Mild mitral annular calcification. Trace mitral regurgitation. 3. Aortic sclerosis without stenosis. Trace aortic valve regurgitation. 4. Normal appearance of the tricuspid valve. Estimated peak PA systolic pressure 33 mmHg. There is mild tricuspid regurgitation. 5. Small pericardial effusion. 6. Normal size and normal respiratory collapse consistent with normal right atrial pressure. Exam/Review of Systems Vital Signs Vitals Vital Signs Date Time Temp Pulse Resp B/P Pulse Ox O2 Delivery O2 Flow Rate FiO2 7/27/17 06:00 103 29 100/51 95 06/08/17 05:30 Mechanical Ventilator 06/08/17 05:15 30 06/08/17 04:00 99.2 Intake and Output 06/07/17 06/07/17 06/08/17 15:00 23:00 07:00 Intake Total 1646.00 ml 1950 ml 708.02 ml Output Total 240 ml 205 ml Balance 1406.00 ml 1745 ml 708.02 ml Results Result Diagram: 06/08/17 0535 06/08/17 0535 Results 24 hrs Laboratory Tests Test 06/08/17 05:35 White Blood Count 8.2 Red Blood Count 2.65 L Hemoglobin 6.8 *L Hematocrit 23.2 L Mean Corpuscular Volume 87.5 Mean Corpuscular Hemoglobin 25.7 L Mean Corpuscular Hemoglobin Concent 29.3 L Red Cell Distribution Width 21.1 H Platelet Count 92 L Mean Platelet Volume 11.1 H Neutrophils % 78.9 H Lymphocytes % 12.9 L Monocytes % 6.9 Eosinophils % 0.7 Basophils % 0.1 Nucleated Red Blood Cells % 0.0 Neutrophils # 6.5 Lymphocytes # 1.1 Monocytes # 0.6 Eosinophils # 0.1 Basophils # 0.0 Nucleated Red Blood Cells # 0.0 Sodium Level 147 H Potassium Level 4.0 Chloride Level 104 Carbon Dioxide Level 33 H Anion Gap 14 Blood Urea Nitrogen 59 H Creatinine 2.23 H Glucose Level 142 Lactic Acid Level 1.3 Calcium Level 8.5 Phosphorus Level 2.5 Magnesium Level 1.7 Medications Medications Current Medications Heparin Sodium (Porcine) (Heparin (5000 Units/0.5 ml)) 5,000 unit BID SC Last administered on 06/07/17 20:20; Admin Dose 5,000 UNIT; Start 06/02/17 at 09:00 Acetaminophen/ Aspirin/Caffeine (Excedrin) 2 tab Q4 PRN PO ELEVATED TEMPERATURE ; Start 06/02/17 at 03:30 Aspirin (Aspirin) 81 mg DAILY PO Last administered on 06/07/17 08:12; Admin Dose 81 MG; Start 06/02/17 at 09:00 Docusate Sodium (Colace) 250 mg BID PO Last administered on 06/07/17 20:19; Admin Dose 250 MG; Start 06/02/17 at 09:00 Multivitamins/ Minerals (Theragran-M) 1 tab DAILY PO Last administered on 08:12; Admin Dose 1 TAB; Start 06/02/17 at 09:00 Al Hydrox/Mg Hydrox/Simethicone (Mag-Al Plus) 30 ml Q6H PRN PO GASTROINTESTINAL UPSET; Start 06/02/17 at 03:30 Nitroglycerin (Nitroglycerin (Sl Tab) 0.4 Mg) 1 tab Q5M PRN SL ANGINA; Start at 03:30 Acetaminophen/ Hydrocodone Bitart ([place] (5/325)) 1 tab Q6H PRN PO MODERATE PAIN LEVEL 4-6; Start 06/02/17 at 03:30 Pantoprazole (Protonix Tab) 40 mg DAILY@06 PO Last administered on 06/08/17 05 :44; Admin Dose 40 MG; Start 06/02/17 at 06:00 Ascorbic Acid (Vitamin C) 500 mg DAILY PO Last administered on 06/07/17 08:12 ; Admin Dose 500 MG; Start 06/02/17 at 09:00 Ondansetron HCl (Zofran Tab) 4 mg Q6H PRN PO NAUSEA AND/OR VOMITING; Start at 04:00 Collagenase 1 applic 1 applic DAILY TOP Last administered on 06/07/17 08:12; Admin Dose 1 APPLIC; Start 06/03/17 at 09:00 Fentanyl (Sublimaze) 100 ml @ 2.5 mls/hr TITRATE IV Last administered on 05:49; Admin Dose 4 MLS/HR; Start 06/04/17 at 18:30 Allopurinol 100 mg 100 mg DAILY PO Last administered on 06/07/17 08:12; Admin Dose 100 MG; Start 06/04/17 at 20:00 Sodium Chloride 1,000 ml @ 100 mls/hr Q10H IV Last administered on 06/08/17 03:55; Admin Dose 100 MLS/HR; Start 06/05/17 at 09:00 Cefepime HCl (Maxipime 1gm/50 ml (Pmx)) 50 ml @ 100 mls/hr Q24H IVPB Last administered on 06/07/17 08:11; Admin Dose 100 MLS/HR; Start 06/06/17 at 09:00 IV Flush 10 ml 10 ml PRN PRN IV IV PROTOCOL; Start 06/05/17 at 20:00 Caspofungin 50 mg/ Sodium Chloride 250 ml @ 250 mls/hr Q24H IVPB Last administered on 06/07/17 16:40; Admin Dose 250 MLS/HR; Start 06/07/17 at 15:00 ; Stop 06/11/17 at 14:59 Azithromycin 250 ml @ 250 mls/hr Q24H IVPB Last administered on 06/07/17 14: 58; Admin Dose 250 MLS/HR; Start 06/06/17 at 14:00 Norepinephrine/ Dextrose (Levophed/D5W) 500 ml @ 1.87 mls/hr TITRATE IV ; Start 06/07/17 at 15:30 DASIA GREEN MD Jun 08, 2017 07:39
[2017-06-08] MEDS ORDERED: FUROSEMIDE 40 MG INJ IV ONE (08:30)
--- NOTE | 2017-06-08 08:32 | RADRPT ---
PROCEDURE: XR Chest. CLINICAL INDICATION: pna chf TECHNIQUE: PA and Lateral views of the chest were obtained. COMPARISON: Chest x-ray 06/07/2017 FINDINGS: The endotracheal tube is stable position, terminating approximately 6 cm above the isatu. Nasogastric tube and left PICC line are stable in positions. There is persistent low lung volumes and elevation of the left hemidiaphragm. There has been no significant interval change in diffuse bilateral interstitial and mild alveolar ed srini or infiltrates. There are degenerative changes of the visualized spine. IMPRESSION: 1. Stable positions of the endotracheal tube, nasogastric tube, and left PICC line. 2. Stable diffuse bilateral interstitial and mild alveolar edema or infiltrates. 3. Persistent low lung volumes and elevation of the left hemidiaphragm. 4. Stable bibasilar atelectasis. RPTAT: PP Physician Tayla Date Time Electronically viewed and signed by Physician Tayla on 06/08/2017 08:31 /
--- NOTE | 2017-06-08 08:37 | PN ---
Date/Time of Note Date/Time of Note DATE: 06/08/17 TIME: 08:33 Assessment/Plan Lines/Catheters IV Catheter Type (from Nrs): PICC Line Urinary Cath still in place: Yes Assessment/Plan Chief Complaint/Hosp Course 1. Acute hypoxemic respiratory failure. Status post intubation Etiology is likely multifactorial secondary to lymphoma, pulmonary with possible lymphangitic spread, pulmonary interstitial edema Chest x-ray ABG reviewed Follow-up with pulmonary recommendations 2. Oligouric acute kidney injury with previously normal baseline creatinine Etiology was secondary to ATN due to hemodynamics, septic AK I Patient remains in maintenance phase ATN Patient noted on renal ultrasound to have mild hydronephrosis with distended bladder urinalysis urine lites were reviewed -Bean catheter was adjusted Continue supportive care renally dose all meds, avoid nephrotoxins We will give 1 dose of Lasix as patient is currently off pressors Interstitial pulmonary edema Etiology may be secondary to lymphoma and questionable congestive heart failure. Monitor I's and O's closely Follow-up with cardiology Gentle diuresis 3. Newly diagnosed lymphoma, pulmonary and gastric Anticipate chemotherapy once clinically stable Monitor closely 4. Hypernatremia Continue free water flushes . 5. Anemia, No evidence of GI bleed Hemoglobin levels continue to decline, Blood transfusion pending Follow-up with hematology 6. Acute encephalopathy, etiology is toxic metabolic. No significant change Continue to monitor 7. Gastrointestinal and deep venous thrombosis prophylaxis. Patient will be placed on Proton-pump inhibitors and heparin. Hypokalemia Replete with potassium chloride I spoke with the patient's daughter Jane as stated above informing of the critical nature of her uncle Please note spent over 40 minutes critical care time with this patient Problems: Subjective 24 Hr Interval Summary Free Text/Dictation Patient seen and examined Remains critically ill, weaning off pressors Urinary output has been marginal Patient remains on full ventilatory support Currently clinically unstable for chemotherapy Exam/Review of Systems Vital Signs Vitals Vital Signs Date Time Temp Pulse Resp B/P Pulse Ox O2 Delivery O2 Flow Rate FiO2 06/08/17 06:00 103 29 100/51 95 06/08/17 05:30 Mechanical Ventilator 06/08/17 05:15 30 06/08/17 04:00 99.2 Intake and Output 06/07/17 06/07/17 06/08/17 15:00 23:00 07:00 Intake Total 1646.00 ml 1950 ml 708.02 ml Output Total 240 ml 205 ml Balance 1406.00 ml 1745 ml 708.02 ml Exam HEENT: Head is normocephalic, NECK: Supple., HEART: Irregular LUNGS: Show diminished breath sounds at base. ABDOMEN: Soft, nontender to palpation without rebound or guarding. EXTREMITIES: Negative for clubbing, cyanosis. Positive edema DERMATOLOGIC: No rashes. MUSCULOSKELETAL: No joint effusions, NEUROLOGIC: No change in exam Results Result Diagram: 06/08/1735 06/08/1735 Results 24 hrs Laboratory Tests Test 06/08/17 05:35 White Blood Count 8.2 Red Blood Count 2.65 L Hemoglobin 6.8 *L Hematocrit 23.2 L Mean Corpuscular Volume 87.5 Mean Corpuscular Hemoglobin 25.7 L Mean Corpuscular Hemoglobin Concent 29.3 L Red Cell Distribution Width 21.1 H Platelet Count 92 L Mean Platelet Volume 11.1 H Neutrophils % 78.9 H Lymphocytes % 12.9 L Monocytes % 6.9 Eosinophils % 0.7 Basophils % 0.1 Nucleated Red Blood Cells % 0.0 Neutrophils # 6.5 Lymphocytes # 1.1 Monocytes # 0.6 Eosinophils # 0.1 Basophils # 0.0 Nucleated Red Blood Cells # 0.0 Sodium Level 147 H Potassium Level 4.0 Chloride Level 104 Carbon Dioxide Level 33 H Anion Gap 14 Blood Urea Nitrogen 59 H Creatinine 2.23 H Glucose Level 142 Lactic Acid Level 1.3 Calcium Level 8.5 Phosphorus Level 2.5 Magnesium Level 1.7 Medications Medications Current Medications Heparin Sodium (Porcine) (Heparin (5000 Units/0.5 ml)) 5,000 unit BID SC Last administered on 06/07/17 20:20; Admin Dose 5,000 UNIT; Start 06/02/17 at 09:00 Acetaminophen/ Aspirin/Caffeine (Excedrin) 2 tab Q4 PRN PO ELEVATED TEMPERATURE ; Start 06/02/17 at 03:30 Aspirin (Aspirin) 81 mg DAILY PO Last administered on 06/07/17 08:12; Admin Dose 81 MG; Start 06/02/17 at 09:00 Docusate Sodium (Colace) 250 mg BID PO Last administered on 06/07/17 20:19; Admin Dose 250 MG; Start 06/02/17 at 09:00 Multivitamins/ Minerals (Theragran-M) 1 tab DAILY PO Last administered on 08:12; Admin Dose 1 TAB; Start 06/02/17 at 09:00 Al Hydrox/Mg Hydrox/Simethicone (Mag-Al Plus) 30 ml Q6H PRN PO GASTROINTESTINAL UPSET; Start 06/02/17 at 03:30 Nitroglycerin (Nitroglycerin (Sl Tab) 0.4 Mg) 1 tab Q5M PRN SL ANGINA; Start at 03:30 Acetaminophen/ Hydrocodone Bitart ([place] (5/325)) 1 tab Q6H PRN PO MODERATE PAIN LEVEL 4-6; Start 06/02/17 at 03:30 Pantoprazole (Protonix Tab) 40 mg DAILY@06 PO Last administered on 06/08/17 05 :44; Admin Dose 40 MG; Start 06/02/17 at 06:00 Ascorbic Acid (Vitamin C) 500 mg DAILY PO Last administered on 06/07/17 08:12 ; Admin Dose 500 MG; Start 06/02/17 at 09:00 Ondansetron HCl (Zofran Tab) 4 mg Q6H PRN PO NAUSEA AND/OR VOMITING; Start at 04:00 Collagenase 1 applic 1 applic DAILY TOP Last administered on 06/07/17 08:12; Admin Dose 1 APPLIC; Start 06/03/17 at 09:00 Fentanyl (Sublimaze) 100 ml @ 2.5 mls/hr TITRATE IV Last administered on 05:49; Admin Dose 4 MLS/HR; Start 06/04/17 at 18:30 Allopurinol 100 mg 100 mg DAILY PO Last administered on 06/07/17 08:12; Admin Dose 100 MG; Start 06/04/17 at 20:00 Sodium Chloride 1,000 ml @ 100 mls/hr Q10H IV Last administered on 06/08/17 03:55; Admin Dose 100 MLS/HR; Start 06/05/17 at 09:00 Cefepime HCl (Maxipime 1gm/50 ml (Pmx)) 50 ml @ 100 mls/hr Q24H IVPB Last administered on 06/07/17 08:11; Admin Dose 100 MLS/HR; Start 06/06/17 at 09:00 IV Flush 10 ml 10 ml PRN PRN IV IV PROTOCOL; Start 06/05/17 at 20:00 Caspofungin 50 mg/ Sodium Chloride 250 ml @ 250 mls/hr Q24H IVPB Last administered on 06/07/17 16:40; Admin Dose 250 MLS/HR; Start 06/07/17 at 15:00 ; Stop 06/11/17 at 14:59 Azithromycin 250 ml @ 250 mls/hr Q24H IVPB Last administered on 06/07/17 14: 58; Admin Dose 250 MLS/HR; Start 06/06/17 at 14:00 Norepinephrine/ Dextrose (Levophed/D5W) 500 ml @ 1.87 mls/hr TITRATE IV ; Start 06/07/17 at 15:30 ERASTO GONZALEZ DO Jun 08, 2017 08:37
[2017-06-08] MEDS: CEFEPIME 1GM/50 ML (PMX) 50 ML IVPB SCH (08:47)
[2017-06-08] MEDS: MULTIVITAMINS/MINERALS TAB PO SCH (08:47)
[2017-06-08] MEDS: ASPIRIN 81 MG TAB PO SCH (08:47)
[2017-06-08] MEDS: DOCUSATE SODIUM 250 MG CAP PO SCH ×2 (08:47→21:01)
[2017-06-08] MEDS: HEPARIN 5,000 UNIT/0.5 ML VIAL SC SCH ×2 (08:48→21:00)
[2017-06-08] MEDS: ASCORBIC ACID 500 MG TAB PO SCH (08:48)
[2017-06-08] MEDS: ALLOPURINOL 100 MG TAB PO SCH (08:48)
[2017-06-08] MEDS: COLLAGENASE 30 GM TUBE TOP SCH (08:48)
[2017-06-08] MEDS ORDERED: SOD CHLORIDE 0.9% 250 ML IV* ONE (09:40)
--- NOTE | 2017-06-08 09:58 | CONS ---
Date/Time of Note Date/Time of Note DATE: 06/08/17 TIME: 09:57 Consult Date/Type/Reason Admit Date/Time Jun 01, 2017 at 22:01 Initial Consult Date 06/02/17 Type of Consultation: Pulmonary ICU Ordering Provider: ERASTO GONZALEZ DO Subjective Patient comfortable this morning opens eyes but not following commands. Off vasopressors. Objective Vital Signs Date Time Temp Pulse Resp B/P Pulse Ox O2 Delivery O2 Flow Rate FiO2 06/08/17 08:00 101 06/08/17 06:00 29 100/51 95 06/08/17 05:30 Mechanical Ventilator 06/08/17 05:15 30 06/08/17 04:00 99.2 Intake and Output 06/07/17 06/07/17 06/08/17 15:00 23:00 07:00 Intake Total 1646.00 ml 1950 ml 708.02 ml Output Total 240 ml 205 ml Balance 1406.00 ml 1745 ml 708.02 ml Exam PHYSICAL EXAMINATION GENERAL: Elderly gentleman, intubated on mechanical ventilation, opens eyes and appears somewhat agitated. Orally intubated. VITAL SIGNS: see below. HEENT: Pupils equal, round, and reactive to light. CARDIAC: S1, S2, 1/6 systolic ejection murmur CHEST: Diminished air entry bilaterally. ABDOMEN: Mildly distended. Bowel sounds present no guarding or rebound EXTREMITIES: No cyanosis, clubbing edema +1 NEUROLOGIC: Generalized weakness Results/Medications Result Diagram: 06/08/17 0535 06/08/17 0535 Results 24 hrs Laboratory Tests Test 06/08/17 05:35 White Blood Count 8.2 Red Blood Count 2.65 L Hemoglobin 6.8 *L Hematocrit 23.2 L Mean Corpuscular Volume 87.5 Mean Corpuscular Hemoglobin 25.7 L Mean Corpuscular Hemoglobin Concent 29.3 L Red Cell Distribution Width 21.1 H Platelet Count 92 L Mean Platelet Volume 11.1 H Neutrophils % 78.9 H Lymphocytes % 12.9 L Monocytes % 6.9 Eosinophils % 0.7 Basophils % 0.1 Nucleated Red Blood Cells % 0.0 Neutrophils # 6.5 Lymphocytes # 1.1 Monocytes # 0.6 Eosinophils # 0.1 Basophils # 0.0 Nucleated Red Blood Cells # 0.0 Sodium Level 147 H Potassium Level 4.0 Chloride Level 104 Carbon Dioxide Level 33 H Anion Gap 14 Blood Urea Nitrogen 59 H Creatinine 2.23 H Glucose Level 142 Lactic Acid Level 1.3 Calcium Level 8.5 Phosphorus Level 2.5 Magnesium Level 1.7 Medications Current Medications Heparin Sodium (Porcine) (Heparin (5000 Units/0.5 ml)) 5,000 unit BID SC Last administered on 06/08/17 08:48; Admin Dose 5,000 UNIT; Start 06/02/17 at 09:00 Acetaminophen/ Aspirin/Caffeine (Excedrin) 2 tab Q4 PRN PO ELEVATED TEMPERATURE ; Start 06/02/17 at 03:30 Aspirin (Aspirin) 81 mg DAILY PO Last administered on 06/08/17 08:47; Admin Dose 81 MG; Start 06/02/17 at 09:00 Docusate Sodium (Colace) 250 mg BID PO Last administered on 06/08/17 08:47; Admin Dose 250 MG; Start 06/02/17 at 09:00 Multivitamins/ Minerals (Theragran-M) 1 tab DAILY PO Last administered on 08:47; Admin Dose 1 TAB; Start 06/02/17 at 09:00 Al Hydrox/Mg Hydrox/Simethicone (Mag-Al Plus) 30 ml Q6H PRN PO GASTROINTESTINAL UPSET; Start 06/02/17 at 03:30 Nitroglycerin (Nitroglycerin (Sl Tab) 0.4 Mg) 1 tab Q5M PRN SL ANGINA; Start at 03:30 Acetaminophen/ Hydrocodone Bitart ([place] (5/325)) 1 tab Q6H PRN PO MODERATE PAIN LEVEL 4-6; Start 06/02/17 at 03:30 Pantoprazole (Protonix Tab) 40 mg DAILY@06 PO Last administered on 06/08/17 05 :44; Admin Dose 40 MG; Start 06/02/17 at 06:00 Ascorbic Acid (Vitamin C) 500 mg DAILY PO Last administered on 06/08/17 08:48 ; Admin Dose 500 MG; Start 06/02/17 at 09:00 Ondansetron HCl (Zofran Tab) 4 mg Q6H PRN PO NAUSEA AND/OR VOMITING; Start at 04:00 Collagenase 1 applic 1 applic DAILY TOP Last administered on 06/08/17 08:48; Admin Dose 1 APPLIC; Start 06/03/17 at 09:00 Fentanyl (Sublimaze) 100 ml @ 2.5 mls/hr TITRATE IV Last administered on 05:49; Admin Dose 4 MLS/HR; Start 06/04/17 at 18:30 Allopurinol 100 mg 100 mg DAILY PO Last administered on 06/08/17 08:48; Admin Dose 100 MG; Start 06/04/17 at 20:00 Sodium Chloride 1,000 ml @ 100 mls/hr Q10H IV Last administered on 06/08/17 03:55; Admin Dose 100 MLS/HR; Start 06/05/17 at 09:00 Cefepime HCl (Maxipime 1gm/50 ml (Pmx)) 50 ml @ 100 mls/hr Q24H IVPB Last administered on 06/08/17 08:47; Admin Dose 100 MLS/HR; Start 06/06/17 at 09:00 IV Flush 10 ml 10 ml PRN PRN IV IV PROTOCOL; Start 06/05/17 at 20:00 Caspofungin 50 mg/ Sodium Chloride 250 ml @ 250 mls/hr Q24H IVPB Last administered on 06/07/17 16:40; Admin Dose 250 MLS/HR; Start 06/07/17 at 15:00 ; Stop 06/11/17 at 14:59 Azithromycin 250 ml @ 250 mls/hr Q24H IVPB Last administered on 06/07/17 14: 58; Admin Dose 250 MLS/HR; Start 06/06/17 at 14:00 Norepinephrine/ Dextrose (Levophed/D5W) 500 ml @ 1.87 mls/hr TITRATE IV ; Start 06/07/17 at 15:30 Assessment/Plan Chief Complaint/Hosp Course Assessment 1. Hypoxemic respiratory failure likely secondary to congestive cardiac failure or possibly secondary to underlying lymphoma. Continues mechanical ventilation 2. Significant anemia unclear whether this is a GI bleed or a consumptive process. 3. Encephalopathy questionable toxic metabolic. 4. History of lymphoma recent diagnosis Plan 1. Gentle diuresis as tolerated 2. Hematology oncology recommendations for lymphoma 3. DVT and GI prophylaxis per primary team 4. Aspiration precautions. Consider transfusion 1 unit packed red blood cells , 5. Continue mechanical ventilation CPAP trial this morning. Disposition Continue ICU care, critical care time 40 minutes. Problems: HIRO RIVERA MD, [facility] Jun 08, 2017 09:58
[2017-06-08] MEDS: AZITHROMYCIN 500MG/NS (PMX) 250 ML IVPB SCH (14:42)
[2017-06-08] MEDS: CASPOFUNGIN 50 MG in SOD CHLORIDE 0.9% 250 ML IVPB SCH (15:55)
--- NOTE | 2017-06-08 16:45 | CONS ---
Date/Time of Note Date/Time of Note DATE: 06/08/17 TIME: 16:42 Assessment/Plan Assessment/Plan Chief Complaint/Hosp Course ID PROGRESS NOTE TOTAL ABX DAY #7=> CEFEPIME + Azith #3 + Cancidas #3 24H INTERVAL SUMMARY * Not much change, orally intubated, obese M * 06/05 TRACH CULTURE: RESPIRATORY CULTURE Final Organism 1 PSEUDOMONAS AERUGINOSA QUANTITY SCANT GROWTH Organism 2 FLORY SPECIES, NOT ALBICANS QUANTITY 1+ P.AERUG M.I.C. RX --------- --- AMIKACIN <=2 S AZTREONAM S CEFEPIME 2 S CEFTAZIDIME 4 S CIPROFLOXACIN <=0.25 S GENTAMICIN <=1 S IMIPENEM 2 S LEVOFLOXACIN 1 S TOBRAMYCIN <=1 S PIPERACILLIN/TAZOBACTAM 8 S * Microbiology: Pending repeat urine culture, blood cultures have been negative * CXR 06/07/17 IMPRESSION: Tubes and lines unchanged. Diffuse bilateral interstitial and mild alveolar edema or infiltrates are unchanged. Low lung volumes with elevated left hemidiaphragm and mild bibasilar atelectasis is stable. PHYSICAL EXAMINATION: GENERAL: VSS,NAD,Awake, calm HEENT: NGT->Secure / ETT secure NECK: Supple, trach-> midline CHEST: Equal chest rise bilaterally, Vented w/scattered rhonchi HEART: Pulse RRR ABDOMEN: Soft EXTREMITIES: Warm, no edema SKIN: Warm, dry ID ASSESSMENT: 86 yo Obese M w/newly Dx LYMPHOMA admitted with: 1. Septic shock, on pressors, w/lactic acidosis 2.4, mild leukocytosis, tachycardia on admission => due to # 2. Acute respiratory failure/pulmonary edema 3. Bilateral pneumonia-> RESPIRATORY CULTURE Organism 1 PSAR Organism 2 YEAST 4. Acute CHF as evidenced by pulmonary edema and elevated BNP on admission 5. Yeast UTI w/pyuria 06/03/17 * Mixed GP Organisms on admission => DDx includes early UTI vs Prostatitis * FC Changed 06/06/17 due to yeast 6. Acute renal failure 7. Acute encephalopathy 8. GERD 9. Buttock decub (-)MRSA NARES INVASIVES: * PIV, ETT, FC, NGT ABX ALLERGIES: KNDA CURRENT ABX: #7 => CEFEPIME + Azith #4+ Cancidas #3 ID RECOMMENDATIONS: 1. Continue CEFEPIME, Cancidas for YEAST UTI + Short course Azith cover atypicals 2. FC Changed yesterday due to yeast uti 06/03 3. Avoid renal Toxic ABX . Problems: Consultation Date/Type/Reason Admit Date/Time Jun 01, 2017 at 22:01 Initial Consult Date 06/02/17 Type of Consultation: ID Referring Provider: ERASTO GONZALEZ DO Exam/Review of Systems Vital Signs Vitals Vital Signs Date Time Temp Pulse Resp B/P Pulse Ox O2 Delivery O2 Flow Rate FiO2 06/08/17 16:00 98.6 110 11 103/57 92 Mechanical Ventilator 06/08/17 13:40 30 Intake and Output 06/07/17 06/07/17 06/08/17 15:00 23:00 07:00 Intake Total 1646.00 ml 1950 ml 708.02 ml Output Total 240 ml 205 ml Balance 1406.00 ml 1745 ml 708.02 ml Results Result Diagram: 06/08/17 0535 06/08/17 0535 Results 24 hrs Laboratory Tests Test 06/08/17 05:35 White Blood Count 8.2 Red Blood Count 2.65 L Hemoglobin 6.8 *L Hematocrit 23.2 L Mean Corpuscular Volume 87.5 Mean Corpuscular Hemoglobin 25.7 L Mean Corpuscular Hemoglobin Concent 29.3 L Red Cell Distribution Width 21.1 H Platelet Count 92 L Mean Platelet Volume 11.1 H Neutrophils % 78.9 H Lymphocytes % 12.9 L Monocytes % 6.9 Eosinophils % 0.7 Basophils % 0.1 Nucleated Red Blood Cells % 0.0 Neutrophils # 6.5 Lymphocytes # 1.1 Monocytes # 0.6 Eosinophils # 0.1 Basophils # 0.0 Nucleated Red Blood Cells # 0.0 Sodium Level 147 H Potassium Level 4.0 Chloride Level 104 Carbon Dioxide Level 33 H Anion Gap 14 Blood Urea Nitrogen 59 H Creatinine 2.23 H Glucose Level 142 Lactic Acid Level 1.3 Calcium Level 8.5 Phosphorus Level 2.5 Magnesium Level 1.7 Medications Medications Current Medications Heparin Sodium (Porcine) (Heparin (5000 Units/0.5 ml)) 5,000 unit BID SC Last administered on 06/08/17 08:48; Admin Dose 5,000 UNIT; Start 06/02/17 at 09:00 Acetaminophen/ Aspirin/Caffeine (Excedrin) 2 tab Q4 PRN PO ELEVATED TEMPERATURE ; Start 06/02/17 at 03:30 Aspirin (Aspirin) 81 mg DAILY PO Last administered on 06/08/17 08:47; Admin Dose 81 MG; Start 06/02/17 at 09:00 Docusate Sodium (Colace) 250 mg BID PO Last administered on 06/08/17 08:47; Admin Dose 250 MG; Start 06/02/17 at 09:00 Multivitamins/ Minerals (Theragran-M) 1 tab DAILY PO Last administered on 08:47; Admin Dose 1 TAB; Start 06/02/17 at 09:00 Al Hydrox/Mg Hydrox/Simethicone (Mag-Al Plus) 30 ml Q6H PRN PO GASTROINTESTINAL UPSET; Start 06/02/17 at 03:30 Nitroglycerin (Nitroglycerin (Sl Tab) 0.4 Mg) 1 tab Q5M PRN SL ANGINA; Start at 03:30 Acetaminophen/ Hydrocodone Bitart ([place] (5/325)) 1 tab Q6H PRN PO MODERATE PAIN LEVEL 4-6; Start 06/02/17 at 03:30 Pantoprazole (Protonix Tab) 40 mg DAILY@06 PO Last administered on 06/08/17 05 :44; Admin Dose 40 MG; Start 06/02/17 at 06:00 Ascorbic Acid (Vitamin C) 500 mg DAILY PO Last administered on 06/08/17 08:48 ; Admin Dose 500 MG; Start 06/02/17 at 09:00 Ondansetron HCl (Zofran Tab) 4 mg Q6H PRN PO NAUSEA AND/OR VOMITING; Start at 04:00 Collagenase 1 applic 1 applic DAILY TOP Last administered on 06/08/17 08:48; Admin Dose 1 APPLIC; Start 06/03/17 at 09:00 Fentanyl (Sublimaze) 100 ml @ 2.5 mls/hr TITRATE IV Last administered on 05:49; Admin Dose 4 MLS/HR; Start 06/04/17 at 18:30 Allopurinol 100 mg 100 mg DAILY PO Last administered on 06/08/17 08:48; Admin Dose 100 MG; Start 06/04/17 at 20:00 Sodium Chloride 1,000 ml @ 100 mls/hr Q10H IV Last administered on 06/08/17 03:55; Admin Dose 100 MLS/HR; Start 06/05/17 at 09:00 Cefepime HCl (Maxipime 1gm/50 ml (Pmx)) 50 ml @ 100 mls/hr Q24H IVPB Last administered on 06/08/17 08:47; Admin Dose 100 MLS/HR; Start 06/06/17 at 09:00 IV Flush 10 ml 10 ml PRN PRN IV IV PROTOCOL; Start 06/05/17 at 20:00 Caspofungin 50 mg/ Sodium Chloride 250 ml @ 250 mls/hr Q24H IVPB Last administered on 06/08/17 15:55; Admin Dose 250 MLS/HR; Start 06/07/17 at 15:00 ; Stop 06/11/17 at 14:59 Azithromycin 250 ml @ 250 mls/hr Q24H IVPB Last administered on 06/08/17 14: 42; Admin Dose 250 MLS/HR; Start 06/06/17 at 14:00 Norepinephrine/ Dextrose (Levophed/D5W) 500 ml @ 1.87 mls/hr TITRATE IV ; Start 06/07/17 at 15:30 LORETTA BUCIO NP Jun 08, 2017 16:45
--- NOTE | 2017-06-08 19:28 | CONS ---
Date/Time of Note Date/Time of Note DATE: 06/08/17 TIME: 19:28 Assessment/Plan Assessment/Plan Chief Complaint/Hosp Course Newly diagnosed lymphoma, pulmonary and gastric. The patient has not yet started chemotherapy. 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 + COMPONENT ACD Evaluation reveals a faint restricted band (M-spike) migrating in the gamma globulin region. - CAN BE SEEN IN [facility] TRANSFUSE PRBC NEEDED INCREASED URIC ACID ALLOPURINOL, RENAL DOSE NO EVIDENCE OF TUMOR LYSIS S-M Acute hypoxemic respiratory failure. Etiology is likely multifactorial secondary to lymphoma, pulmonary with possible lymphangitic spread, congestive heart failure exacerbation. The patient currently is on BiPAP, receiving Bumex drip. pulmonary F-UP cardiology F-UP PER RN- WILL TRY WEANING TODAY Volume overload. Etiology may be multifactorial secondary to lymphoma and questionable congestive heart failure. Patient's chest x-ray shows pulmonary congestion. The patient had a recent cardiac cath which was negative, per patient's niece. Plan is continue diuretic regimen, monitor I and Os closely. Hypernatremia. Patient will be placed on D5W. Will monitor closely. Acute encephalopathy, etiology is toxic metabolic. We will continue to monitor. Gastrointestinal and deep venous thrombosis prophylaxis. Patient will be placed on Proton-pump inhibitors and heparin. ( IF NO EVIDENCE OF BLEEDING) Problems: Consultation Date/Type/Reason Admit Date/Time Jun 01, 2017 at 22:01 Initial Consult Date 06/02/17 Type of Consultation: [facility] Referring Provider: ERASTO GONZALEZ DO 24 HR Interval Summary Free Text/Dictation ALL NOTED Exam/Review of Systems Vital Signs Vitals Vital Signs Date Time Temp Pulse Resp B/P Pulse Ox O2 Delivery O2 Flow Rate FiO2 7/27/17 18:00 93 25 101/53 93 Mechanical Ventilator 06/08/17 17:45 30 06/08/17 16:00 98.6 Intake and Output 06/07/17 06/07/17 06/08/17 15:00 23:00 07:00 Intake Total 1646.00 ml 1950 ml 708.02 ml Output Total 240 ml 205 ml Balance 1406.00 ml 1745 ml 708.02 ml Exam Exam PHYSICAL EXAMINATION GENERAL: Elderly gentleman, intubated on mechanical ventilation, opens eyes and appears somewhat agitated. Orally intubated. VITAL SIGNS: see below. HEENT: Pupils equal, round, and reactive to light. CARDIAC: S1, S2, 1/6 systolic ejection murmur CHEST: Diminished air entry bilaterally. ABDOMEN: Mildly distended. Bowel sounds present no guarding or rebound EXTREMITIES: No cyanosis, clubbing edema +1 NEUROLOGIC: Generalized weakness Results Result Diagram: 06/08/17 0535 06/08/17 0535 Results 24 hrs Laboratory Tests Test 06/08/17 05:35 White Blood Count 8.2 Red Blood Count 2.65 L Hemoglobin 6.8 *L Hematocrit 23.2 L Mean Corpuscular Volume 87.5 Mean Corpuscular Hemoglobin 25.7 L Mean Corpuscular Hemoglobin Concent 29.3 L Red Cell Distribution Width 21.1 H Platelet Count 92 L Mean Platelet Volume 11.1 H Neutrophils % 78.9 H Lymphocytes % 12.9 L Monocytes % 6.9 Eosinophils % 0.7 Basophils % 0.1 Nucleated Red Blood Cells % 0.0 Neutrophils # 6.5 Lymphocytes # 1.1 Monocytes # 0.6 Eosinophils # 0.1 Basophils # 0.0 Nucleated Red Blood Cells # 0.0 Sodium Level 147 H Potassium Level 4.0 Chloride Level 104 Carbon Dioxide Level 33 H Anion Gap 14 Blood Urea Nitrogen 59 H Creatinine 2.23 H Glucose Level 142 Lactic Acid Level 1.3 Calcium Level 8.5 Phosphorus Level 2.5 Magnesium Level 1.7 Medications Medications Current Medications Heparin Sodium (Porcine) (Heparin (5000 Units/0.5 ml)) 5,000 unit BID SC Last administered on 06/08/17t 08:48; Admin Dose 5,000 UNIT; Start 06/02/17 at 09:00 Acetaminophen/ Aspirin/Caffeine (Excedrin) 2 tab Q4 PRN PO ELEVATED TEMPERATURE ; Start 06/02/17 at 03:30 Aspirin (Aspirin) 81 mg DAILY PO Last administered on 06/08/17 08:47; Admin Dose 81 MG; Start 06/02/17 at 09:00 Docusate Sodium (Colace) 250 mg BID PO Last administered on 06/08/17 08:47; Admin Dose 250 MG; Start 06/02/17 at 09:00 Multivitamins/ Minerals (Theragran-M) 1 tab DAILY PO Last administered on 08:47; Admin Dose 1 TAB; Start 06/02/17 at 09:00 Al Hydrox/Mg Hydrox/Simethicone (Mag-Al Plus) 30 ml Q6H PRN PO GASTROINTESTINAL UPSET; Start 06/02/17 at 03:30 Nitroglycerin (Nitroglycerin (Sl Tab) 0.4 Mg) 1 tab Q5M PRN SL ANGINA; Start at 03:30 Acetaminophen/ Hydrocodone Bitart ([place] (5/325)) 1 tab Q6H PRN PO MODERATE PAIN LEVEL 4-6; Start 06/02/17 at 03:30 Ascorbic Acid (Vitamin C) 500 mg DAILY PO Last administered on 06/08/17 08:48 ; Admin Dose 500 MG; Start 06/02/17 at 09:00 Ondansetron HCl (Zofran Tab) 4 mg Q6H PRN PO NAUSEA AND/OR VOMITING; Start at 04:00 Collagenase 1 applic 1 applic DAILY TOP Last administered on 06/08/17 08:48; Admin Dose 1 APPLIC; Start 06/03/17 at 09:00 Fentanyl (Sublimaze) 100 ml @ 2.5 mls/hr TITRATE IV Last administered on 05:49; Admin Dose 4 MLS/HR; Start 06/04/17 at 18:30 Allopurinol 100 mg 100 mg DAILY PO Last administered on 06/08/17 08:48; Admin Dose 100 MG; Start 06/04/17 at 20:00 Sodium Chloride 1,000 ml @ 100 mls/hr Q10H IV Last administered on 06/08/17 03:55; Admin Dose 100 MLS/HR; Start 06/05/17 at 09:00 Cefepime HCl (Maxipime 1gm/50 ml (Pmx)) 50 ml @ 100 mls/hr Q24H IVPB Last administered on 06/08/17 08:47; Admin Dose 100 MLS/HR; Start 06/06/17 at 09:00 IV Flush 10 ml 10 ml PRN PRN IV IV PROTOCOL; Start 06/05/17 at 20:00 Caspofungin 50 mg/ Sodium Chloride 250 ml @ 250 mls/hr Q24H IVPB Last administered on 06/08/17 15:55; Admin Dose 250 MLS/HR; Start 06/07/17 at 15:00 ; Stop 06/11/17 at 14:59 Azithromycin 250 ml @ 250 mls/hr Q24H IVPB Last administered on 06/08/17 14: 42; Admin Dose 250 MLS/HR; Start 06/06/17 at 14:00 Norepinephrine/ Dextrose (Levophed/D5W) 500 ml @ 1.87 mls/hr TITRATE IV ; Start 06/07/17 at 15:30 Pantoprazole (Protonix Iv) 40 mg DAILY@06 IV ; Start 06/09/17 at 06:00; Status SALOMON MONK MD Jun 08, 2017 19:28
[2017-06-08 20:35] LABS: HEMATOCRIT 27.7 % (42.0-52.0); HEMOGLOBIN 8.5 g/dl (14.0-18.0)
[2017-06-08] MEDS: FENTAnyl (DRIP) 1000 mcg/100mL 100 ML IV SCH (23:03)
[2017-06-09] VITALS (51 sets, daily range): BP systolic 74–127; BP diastolic 43–68; PULSE 86–136; RESP 18–28
[2017-06-09] MEDS: SOD CHLORIDE 0.9% 1,000 ML IV SCH ×2 (02:22→13:08)
[2017-06-09] MEDS: PANTOPRAZOLE 40 MG INJ IV SCH (05:18)
[2017-06-09 06:48] LABS: ABNORMAL IP MESSAGE 1; EOSINOPHILS # 0.1 10^3/ul (0.0-0.5); EOSINOPHILS % 1.1 % (0.0-7.0); HEMOGLOBIN 8.1 g/dl (14.0-18.0); LYMPHOCYTES # 0.7 10^3/ul (0.8-2.9); LYMPHOCYTES % 13.4 % (15.0-51.0); MEAN CORPUSCULAR HEMOGLOBIN 26.9 pg (29.0-33.0); MEAN CORPUSCULAR VOLUME 89.7 fl (82.0-101.0); MONOCYTE # 0.5 10^3/ul (0.3-0.9); MONOCYTES % 9.6 % (0.0-11.0); NEUTROPHIL # 4.2 10^3/ul (1.6-7.5); NEUTROPHILS % 74.8 % (39.0-77.0); PLATELET COUNT 81 10^3/UL (140-415); POSITIVE DIFF @See below; RED BLOOD COUNT 3.01 10^6/ul (4.70-6.10); RED CELL DISTRIBUTION WIDTH 19.7 % (11.5-14.5); WHITE BLOOD COUNT 5.5 10^3/ul (4.8-10.8)
--- NOTE | 2017-06-09 07:42 | CONS ---
DATE OF ADMISSION: 06/01/2017 DATE OF CONSULTATION: 06/02/2017 CARDIOLOGY CONSULTATION: REFERRING PHYSICIAN: Geoff Montiel DO REASON FOR CONSULTATION: Possible congestive heart failure, respiratory failure. CHIEF COMPLAINT: Respiratory failure. HISTORY OF PRESENT ILLNESS: Thank you for this referral. After review of the old chart and discussion with Dr. Montiel and staff. The patient is not able to [____]. This is an 86-year- old, unfortunate gentleman with history of lymphoma who was admitted to [facility] with hypoxemic respiratory failure. The patient has been in increased respiratory failure, shortness of breath, and has been placed on Bi-PAP. The patient has had multiple hospital course including [____] admission. At that time was diagnosed with lymphoma with [____] of the lung and gastric. During his hospital course per family's report he also had coronary angiography which was told had no significant blockages. He was recently transferred to the halfway facility for rehabilitation, however, was noted to have hypoxic respiratory failure, satting about 80s. He was transferred to the emergency room and has been admitted for further workup. Chest x-ray showed pulmonary vascular congestion, possible congestive heart failure, [____]. The patient also noted to be severely anemia with hemoglobin 6.9. PAST MEDICAL HISTORY: Newly diagnosed lymphoma of the stomach and lung, anemia as above mentioned. ALLERGIES: NO KNOWN DRUG ALLERGIES. PAST SURGICAL HISTORY: Coronary angiography. FAMILY HISTORY: No reported coronary artery. SOCIAL HISTORY: Does not smoke or drink. REVIEW OF SYSTEMS: Unable to obtain except the above mentioned. The patient is lethargic. MEDICATION: As per medication reconciliation, were reviewed. PHYSICAL EXAMINATION: VITAL SIGNS: Temperature 98.4, heart rate 101, blood pressure 118/60, respirations 19, and satting 97 percent. HEENT: Normocephalic, atraumatic. On Bi-PAP. CARDIOVASCULAR: Tachycardia. PULMONARY: With mild rhonchi. GASTROINTESTINAL: Soft, no rebound. EXTREMITIES: [____] lower extremities. NEUROLOGIC: Opens his eyes, but drowsy. LABORATORY: Sodium 150, potassium 4, BUN of 36, creatinine 1.12, glucose of 114. Iron was 27, ferratin is 1350. Troponin 0.032, 0.019. WBC 7.7, hemoglobin 6.5, hematocrit of 22.4, platelets of 145. Echocardiogram was personally reviewed and it showed normal LV size, ejection fraction estimated about 65 percent. There is a small pericardial effusion noted mostly around the LV. EKG was personally reviewed, normal sinus rhythm, right bundle branch block. [____] abnormality on personal review. Chest x-ray showed pulmonary vascular congestion, pulmonary edema. Persistent opacity and defined opacity in the right lung. ASSESSMENT AND PLAN: 1. Hypoxemia [____] respiratory failure. 2. Severe anemia. 3. Lymphoma. 4. Pulmonary vascular congestion. 5. Pericardial effusion. RECOMMENDATIONS: The patient getting transfused now. We will give him Lasix [____] transfusion. Aspirin is on hold. Respiratory care, CPAP will be continued. Ejection fraction appears to be normal. Continue to monitor him on telemetry closely. Thank you for this referral. We will continue to follow along with you. Dictated By: Fili Tierney MD /yasmani/malik /Document#: [id number] CC: Geoff Montiel DO;*EndCC*
--- NOTE | 2017-06-09 08:03 | PN ---
Date/Time of Note Date/Time of Note DATE: 06/09/17 TIME: 08:00 Assessment/Plan Lines/Catheters IV Catheter Type (from Nrs): PICC Line Urinary Cath still in place: Yes Assessment/Plan Chief Complaint/Hosp Course 1. Acute hypoxemic respiratory failure. Status post intubation Etiology is likely multifactorial secondary to lymphoma, pulmonary with possible lymphangitic spread, pulmonary interstitial edema Chest x-ray ABG reviewed Follow-up with pulmonary recommendations 2. Oligouric acute kidney injury with previously normal baseline creatinine Etiology was secondary to ATN due to hemodynamics, septic AK I Patient remains in maintenance phase ATN Continue supportive care renally dose all meds, avoid nephrotoxins Continue Lasix Lasix as patient is currently off pressors Sepsis status post shock Patient is currently on pressors, will discontinue IV fluids Cultures have been reviewed Continue antibiotic therapy Follow-up with infectious disease Interstitial pulmonary edema Etiology may be secondary to lymphoma and questionable congestive heart failure. Monitor I's and O's closely Follow-up with cardiology Gentle diuresis 3. Newly diagnosed lymphoma, pulmonary and gastric Anticipate chemotherapy once clinically stable Monitor closely 4. Hypernatremia Continue free water flushes . 5. Anemia, No evidence of GI bleed Hemoglobin levels continue to decline, Blood transfusion pending Follow-up with hematology 6. Acute encephalopathy, etiology is toxic metabolic. No significant change Continue to monitor 7. Gastrointestinal and deep venous thrombosis prophylaxis. Patient will be placed on Proton-pump inhibitors and heparin. Hypokalemia Replete with potassium chloride I spoke with the patient's daughter Jane as stated above informing of the critical nature of her uncle Please note spent over 40 minutes critical care time with this patient Problems: Subjective 24 Hr Interval Summary Free Text/Dictation Patient seen and examined Remains critically ill Remains off pressor support for 24 hours Urinary output has been marginal Exam/Review of Systems Vital Signs Vitals Vital Signs Date Time Temp Pulse Resp B/P Pulse Ox O2 Delivery O2 Flow Rate FiO2 06/09/17 06:00 102 24 116/61 94 Mechanical Ventilator 06/09/17 05:56 40 06/09/17 04:00 98.9 Intake and Output 06/08/17 06/08/17 06/09/17 15:00 23:00 07:00 Intake Total 1065 ml 2045 ml 1130 ml Output Total 1010 ml 585 ml 185 ml Balance 55 ml 1460 ml 945 ml Exam HEENT: Head is normocephalic, NECK: Supple. HEART: Irregular LUNGS: Show diminished breath sounds at base. ABDOMEN: Soft, nontender to palpation without rebound or guarding. EXTREMITIES: Negative for clubbing, cyanosis. DERMATOLOGIC: No rashes. MUSCULOSKELETAL: No joint effusions, NEUROLOGIC: No change in exam. Results Result Diagram: 06/09/17 0430 06/08/17 0535 Results 24 hrs Laboratory Tests Test 06/08/17 20:27 06/09/17 04:30 06/09/17 05:04 Hemoglobin 8.5 #L 8.1 L Hematocrit 27.7 L 27.0 L White Blood Count 5.5 # Red Blood Count 3.01 L Mean Corpuscular Volume 89.7 Mean Corpuscular Hemoglobin 26.9 L Mean Corpuscular Hemoglobin Concent 30.0 L Red Cell Distribution Width 19.7 H Platelet Count 81 L Mean Platelet Volume Neutrophils % 74.8 Lymphocytes % 13.4 L Monocytes % 9.6 Eosinophils % 1.1 Basophils % 0.0 Nucleated Red Blood Cells % 0.0 Neutrophils # 4.2 Lymphocytes # 0.7 L Monocytes # 0.5 Eosinophils # 0.1 Basophils # 0.0 Nucleated Red Blood Cells # 0.0 Lab Scanned Report BLOOD TRANSFUSION Medications Medications Current Medications Heparin Sodium (Porcine) (Heparin (5000 Units/0.5 ml)) 5,000 unit BID SC Last administered on 06/08/17 08:48; Admin Dose 5,000 UNIT; Start 06/02/17 at 09:00 Acetaminophen/ Aspirin/Caffeine (Excedrin) 2 tab Q4 PRN PO ELEVATED TEMPERATURE ; Start 06/02/17 at 03:30 Aspirin (Aspirin) 81 mg DAILY PO Last administered on 06/08/17 08:47; Admin Dose 81 MG; Start 06/02/17 at 09:00 Docusate Sodium (Colace) 250 mg BID PO Last administered on 06/08/17 21:01; Admin Dose 250 MG; Start 06/02/17 at 09:00 Multivitamins/ Minerals (Theragran-M) 1 tab DAILY PO Last administered on 08:47; Admin Dose 1 TAB; Start 06/02/17 at 09:00 Al Hydrox/Mg Hydrox/Simethicone (Mag-Al Plus) 30 ml Q6H PRN PO GASTROINTESTINAL UPSET; Start 06/02/17 at 03:30 Nitroglycerin (Nitroglycerin (Sl Tab) 0.4 Mg) 1 tab Q5M PRN SL ANGINA; Start at 03:30 Acetaminophen/ Hydrocodone Bitart ([place] (5/325)) 1 tab Q6H PRN PO MODERATE PAIN LEVEL 4-6; Start 06/02/17 at 03:30 Ascorbic Acid (Vitamin C) 500 mg DAILY PO Last administered on 06/08/17 08:48 ; Admin Dose 500 MG; Start 06/02/17 at 09:00 Ondansetron HCl (Zofran Tab) 4 mg Q6H PRN PO NAUSEA AND/OR VOMITING; Start at 04:00 Collagenase 1 applic 1 applic DAILY TOP Last administered on 06/08/17 08:48; Admin Dose 1 APPLIC; Start 06/03/17 at 09:00 Fentanyl (Sublimaze) 100 ml @ 2.5 mls/hr TITRATE IV Last administered on 23:03; Admin Dose 5 MLS/HR; Start 06/04/17 at 18:30 Allopurinol 100 mg 100 mg DAILY PO Last administered on 06/08/17 08:48; Admin Dose 100 MG; Start 06/04/17 at 20:00 Sodium Chloride 1,000 ml @ 100 mls/hr Q10H IV Last administered on 06/09/17 02:22; Admin Dose 100 MLS/HR; Start 06/05/17 at 09:00 Cefepime HCl (Maxipime 1gm/50 ml (Pmx)) 50 ml @ 100 mls/hr Q24H IVPB Last administered on 06/08/17 08:47; Admin Dose 100 MLS/HR; Start 06/06/17 at 09:00 IV Flush 10 ml 10 ml PRN PRN IV IV PROTOCOL; Start 06/05/17 at 20:00 Caspofungin 50 mg/ Sodium Chloride 250 ml @ 250 mls/hr Q24H IVPB Last administered on 06/08/17 15:55; Admin Dose 250 MLS/HR; Start 06/07/17 at 15:00 ; Stop 06/11/17 at 14:59 Azithromycin 250 ml @ 250 mls/hr Q24H IVPB Last administered on 06/08/17 14: 42; Admin Dose 250 MLS/HR; Start 06/06/17 at 14:00 Norepinephrine/ Dextrose (Levophed/D5W) 500 ml @ 1.87 mls/hr TITRATE IV ; Start 06/07/17 at 15:30 Pantoprazole (Protonix Iv) 40 mg DAILY@06 IV Last administered on 06/09/17 05: 18; Admin Dose 40 MG; Start 06/09/17 at 06:00 ERASTO GONZALEZ DO Jun 09, 2017 08:03
[2017-06-09 08:27] LABS: CALCIUM 8.6 mg/dl (8.4-10.2); CREATININE 2.22 mg/dl (0.61-1.24); MAGNESIUM 1.7 mg/dl (1.7-2.5); PHOSPHORUS 3.3 mg/dl (2.5-4.9); POTASSIUM 4.2 mmol/L (3.5-5.1)
[2017-06-09] MEDS: FUROSEMIDE 40 MG INJ IV SCH ×2 (08:55→18:00)
[2017-06-09] MEDS: ASCORBIC ACID 500 MG TAB PO SCH (09:00)
[2017-06-09] MEDS: DOCUSATE SODIUM 250 MG CAP PO SCH (09:00)
[2017-06-09] MEDS: ASPIRIN 81 MG TAB PO SCH (09:00)
[2017-06-09] MEDS: MULTIVITAMINS/MINERALS TAB PO SCH (09:00)
[2017-06-09] MEDS: CEFEPIME 1GM/50 ML (PMX) 50 ML IVPB SCH (09:00)
[2017-06-09] MEDS: ALLOPURINOL 100 MG TAB PO SCH (09:00)
[2017-06-09] MEDS: HEPARIN 5,000 UNIT/0.5 ML VIAL SC SCH (09:00)
[2017-06-09] MEDS: COLLAGENASE 30 GM TUBE TOP SCH (09:01)
--- NOTE | 2017-06-09 09:37 | RADRPT ---
PROCEDURE: Chest Radiograph. CLINICAL INDICATION: Pneumonia. CHF. TECHNIQUE: Single frontal chest radiograph. COMPARISON: Chest radiograph 06/08/2017 FINDINGS: An endotracheal tube, nasogastric tube, left upper extremity PICC remain in place. The patient is r otated which limits evaluation. Heart size is poorly evaluated. There is stable central vascular co ngestion. Extensive interstitial opacities are unchanged which may represent pulmonary edema and/or chronic lung changes. There is stable elevation of the left hemidiaphragm.. The bones are intac t. IMPRESSION: 1. Stable radiographic appearance of chest compared to 06/09/2017 RPTAT: KK .Nito Munoz MD, MD Date Time Electronically viewed and signed by .Nito Munoz MD, on 06/09/2017 09:37 .B/
[2017-06-09] MEDS: FENTAnyl (DRIP) 1000 mcg/100mL 100 ML IV SCH (13:09)
[2017-06-09] MEDS: AZITHROMYCIN 500MG/NS (PMX) 250 ML IVPB SCH (13:10)
--- NOTE | 2017-06-09 14:20 | CONS ---
Date/Time of Note Date/Time of Note DATE: 06/09/17 TIME: 14:19 Consult Date/Type/Reason Admit Date/Time Jun 01, 2017 at 22:01 Initial Consult Date 06/02/17 Type of Consultation: Pulmonary Ordering Provider: ERASTO GONZALEZ DO Subjective Opens eyes but does not follow commands. Significant oral secretions. Currently off vasopressors. Objective Vital Signs Date Time Temp Pulse Resp B/P Pulse Ox O2 Delivery O2 Flow Rate FiO2 06/09/17 12:00 99.9 106 22 95/53 97 06/09/17 08:00 40 06/09/17 07:00 Mechanical Ventilator Intake and Output 06/08/17 06/08/17 06/09/17 15:00 23:00 07:00 Intake Total 1065 ml 2045 ml 1385 ml Output Total 1010 ml 585 ml 235 ml Balance 55 ml 1460 ml 1150 ml Exam PHYSICAL EXAMINATION GENERAL: Elderly gentleman, intubated on mechanical ventilation, opens eyes and appears somewhat agitated. Orally intubated. VITAL SIGNS: see below. HEENT: Pupils equal, round, and reactive to light. CARDIAC: S1, S2, 1/6 systolic ejection murmur CHEST: Diminished air entry bilaterally. ABDOMEN: Mildly distended. Bowel sounds present no guarding or rebound EXTREMITIES: No cyanosis, clubbing edema +1 NEUROLOGIC: Generalized weakness Results/Medications Result Diagram: 06/09/17 0430 06/09/17 0430 Results 24 hrs Laboratory Tests Test 06/08/17 20:27 06/09/17 04:30 06/09/17 05:04 Hemoglobin 8.5 #L 8.1 L Hematocrit 27.7 L 27.0 L White Blood Count 5.5 # Red Blood Count 3.01 L Mean Corpuscular Volume 89.7 Mean Corpuscular Hemoglobin 26.9 L Mean Corpuscular Hemoglobin Concent 30.0 L Red Cell Distribution Width 19.7 H Platelet Count 81 L Mean Platelet Volume Neutrophils % 74.8 Lymphocytes % 13.4 L Monocytes % 9.6 Eosinophils % 1.1 Basophils % 0.0 Nucleated Red Blood Cells % 0.0 Neutrophils # 4.2 Lymphocytes # 0.7 L Monocytes # 0.5 Eosinophils # 0.1 Basophils # 0.0 Nucleated Red Blood Cells # 0.0 Sodium Level 147 H Potassium Level 4.2 Chloride Level 105 Carbon Dioxide Level 30 Anion Gap 16 Blood Urea Nitrogen 63 H Creatinine 2.22 H Glucose Level 120 Calcium Level 8.6 Phosphorus Level 3.3 Magnesium Level 1.7 Lab Scanned Report BLOOD TRANSFUSION Medications Current Medications Heparin Sodium (Porcine) (Heparin (5000 Units/0.5 ml)) 5,000 unit BID SC Last administered on 06/08/17 08:48; Admin Dose 5,000 UNIT; Start 06/02/17 at 09:00 ; Status Future Hold Acetaminophen/ Aspirin/Caffeine (Excedrin) 2 tab Q4 PRN PO ELEVATED TEMPERATURE ; Start 06/02/17 at 03:30 Aspirin (Aspirin) 81 mg DAILY PO Last administered on 06/09/17 09:00; Admin Dose 81 MG; Start 06/02/17 at 09:00 Multivitamins/ Minerals (Theragran-M) 1 tab DAILY PO Last administered on 09:00; Admin Dose 1 TAB; Start 06/02/17 at 09:00 Al Hydrox/Mg Hydrox/Simethicone (Mag-Al Plus) 30 ml Q6H PRN PO GASTROINTESTINAL UPSET; Start 06/02/17 at 03:30 Nitroglycerin (Nitroglycerin (Sl Tab) 0.4 Mg) 1 tab Q5M PRN SL ANGINA; Start at 03:30 Acetaminophen/ Hydrocodone Bitart ([place] (5/325)) 1 tab Q6H PRN PO MODERATE PAIN LEVEL 4-6; Start 06/02/17 at 03:30 Ascorbic Acid (Vitamin C) 500 mg DAILY PO Last administered on 06/09/17 09:00 ; Admin Dose 500 MG; Start 06/02/17 at 09:00 Ondansetron HCl (Zofran Tab) 4 mg Q6H PRN PO NAUSEA AND/OR VOMITING; Start at 04:00 Collagenase 1 applic 1 applic DAILY TOP Last administered on 06/09/17 09:01; Admin Dose 1 APPLIC; Start 06/03/17 at 09:00 Fentanyl (Sublimaze) 100 ml @ 2.5 mls/hr TITRATE IV Last administered on 13:09; Admin Dose 7.5 MLS/HR; Start 06/04/17 at 18:30 Allopurinol 100 mg 100 mg DAILY PO Last administered on 06/09/17 09:00; Admin Dose 100 MG; Start 06/04/17 at 20:00 Sodium Chloride 1,000 ml @ 100 mls/hr Q10H IV Last administered on 06/09/17 13:08; Admin Dose 100 MLS/HR; Start 06/05/17 at 09:00 Cefepime HCl (Maxipime 1gm/50 ml (Pmx)) 50 ml @ 100 mls/hr Q24H IVPB Last administered on 06/09/17 09:00; Admin Dose 100 MLS/HR; Start 06/06/17 at 09:00 IV Flush 10 ml 10 ml PRN PRN IV IV PROTOCOL; Start 06/05/17 at 20:00 Caspofungin 50 mg/ Sodium Chloride 250 ml @ 250 mls/hr Q24H IVPB Last administered on 06/08/17 15:55; Admin Dose 250 MLS/HR; Start 06/07/17 at 15:00 ; Stop 06/11/17 at 14:59 Azithromycin 250 ml @ 250 mls/hr Q24H IVPB Last administered on 06/09/17 13: 10; Admin Dose 250 MLS/HR; Start 06/06/17 at 14:00 Norepinephrine/ Dextrose (Levophed/D5W) 500 ml @ 1.87 mls/hr TITRATE IV ; Start 06/07/17 at 15:30 Pantoprazole (Protonix Iv) 40 mg DAILY@06 IV Last administered on 06/09/17 05: 18; Admin Dose 40 MG; Start 06/09/17 at 06:00 Docusate Sodium (Colace Liquid Cup) 100 mg BID NGT ; Start 06/09/17 at 21:00 Assessment/Plan Chief Complaint/Hosp Course Assessment 1. Hypoxemic respiratory failure likely secondary to congestive cardiac failure or possibly secondary to underlying lymphoma. Continues mechanical ventilation unable to wean secondary to excessive secretions and altered mental status. 2. Significant anemia unclear whether this is a GI bleed or a consumptive process. 3. Encephalopathy questionable toxic metabolic. 4. History of lymphoma recent diagnosis Plan 1. Gentle diuresis as tolerated 2. Hematology oncology recommendations for lymphoma currently not stable for chemotherapy 3. DVT and GI prophylaxis per primary team 4. Aspiration precautions. 5. Continue mechanical ventilation CPAP trial if neurological status improves and decreased oral secretions. Disposition Continue ICU care, critical care time 40 minutes. Problems: VADGAMA,HIRO V. MD, [facility] Jun 09, 2017 14:20
[2017-06-09] MEDS ORDERED: NORepinephrine 8MG/250 ML (PMX 0 ML ONE (15:40)
[2017-06-09] MEDS: CASPOFUNGIN 50 MG in SOD CHLORIDE 0.9% 250 ML IVPB SCH (15:45)
--- NOTE | 2017-06-09 16:13 | CONS ---
Date/Time of Note Date/Time of Note DATE: 06/09/17 TIME: 16:08 Assessment/Plan Assessment/Plan Chief Complaint/Hosp Course ID PROGRESS NOTE TOTAL ABX DAY #8=> CEFEPIME#8 + Azith #4 + Cancidas #4 24H INTERVAL SUMMARY * Obese 86 yo M orally intubated on pressors (+)secretions, low grade TMax 99.9, * Per notes: Acute respiratory failure secondary to lymphoma, pulmonary with possible lymphangitic spread, pulmonary interstitial edema * 06/09/17 CXR: . Extensive interstitial opacities are unchanged which may represent pulmonary edema and/or chronic lung changes. * 06/05 TRACH CULTURE: RESPIRATORY CULTURE Final Organism 1 PSEUDOMONAS AERUGINOSA QUANTITY SCANT GROWTH Organism 2 FLORY SPECIES, NOT ALBICANS * 06/09/17 0430 06/09/17 0430 PHYSICAL EXAMINATION: GENERAL: VSS,NAD,Awake, calm HEENT: NGT->Secure / ETT secure NECK: Supple, trach-> midline CHEST: Equal chest rise bilaterally, Vented w/scattered rhonchi HEART: Pulse RRR ABDOMEN: Soft EXTREMITIES: Warm, no edema SKIN: Warm, dry ID ASSESSMENT: 86 yo Obese M w/newly Dx LYMPHOMA admitted with: 1. Septic shock, on pressors, w/lactic acidosis 2.4, mild leukocytosis, tachycardia on admission => due to # 2. Acute respiratory failure/pulmonary edema * Per notes: Acute respiratory failure secondary to lymphoma, pulmonary with possible lymphangitic spread, pulmonary interstitial edema * 06/09/17 CXR: . Extensive interstitial opacities are unchanged which may represent pulmonary edema and/or chronic lung changes. 3. Acute CHF as evidenced by pulmonary edema and elevated BNP on admission 4. Bilateral pneumonia-> RESPIRATORY CULTURE Organism 1 PSAR Organism 2 YEAST 5. Yeast UTI w/pyuria 06/03/17 * Mixed GP Organisms on admission => DDx includes early UTI vs Prostatitis * FC Changed 06/06/17 due to yeast 6. Acute renal failure 7. Acute encephalopathy 8. GERD 9. Buttock decub (-)MRSA NARES INVASIVES: * PIV, ETT, FC, NGT ABX ALLERGIES: KNDA CURRENT ABX: #8=> CEFEPIME #8 + Azith #4 + Cancidas #4 ID RECOMMENDATIONS: => Continue plan as below: 1. Continue CEFEPIME, Cancidas for YEAST UTI + Short course Azith cover atypicals 2. FC Changed due to yeast uti 06/03 3. Avoid renal Toxic ABX . Problems: Consultation Date/Type/Reason Admit Date/Time Jun 01, 2017 at 22:01 Initial Consult Date 06/02/17 Type of Consultation: ID Referring Provider: ERASTO GONZALEZ DO Exam/Review of Systems Vital Signs Vitals Vital Signs Date Time Temp Pulse Resp B/P Pulse Ox O2 Delivery O2 Flow Rate FiO2 06/09/17 15:30 99.3 108 22 75/46 97 06/09/17 15:10 40 06/09/17 07:00 Mechanical Ventilator Intake and Output 06/08/17 06/08/17 06/09/17 15:00 23:00 07:00 Intake Total 1065 ml 2045 ml 1485 ml Output Total 1010 ml 585 ml 235 ml Balance 55 ml 1460 ml 1250 ml Results Result Diagram: 06/09/17 0430 06/09/17 0430 Results 24 hrs Laboratory Tests Test 06/08/17 20:27 06/09/17 04:30 06/09/17 05:04 Hemoglobin 8.5 #L 8.1 L Hematocrit 27.7 L 27.0 L White Blood Count 5.5 # Red Blood Count 3.01 L Mean Corpuscular Volume 89.7 Mean Corpuscular Hemoglobin 26.9 L Mean Corpuscular Hemoglobin Concent 30.0 L Red Cell Distribution Width 19.7 H Platelet Count 81 L Mean Platelet Volume Neutrophils % 74.8 Lymphocytes % 13.4 L Monocytes % 9.6 Eosinophils % 1.1 Basophils % 0.0 Nucleated Red Blood Cells % 0.0 Neutrophils # 4.2 Lymphocytes # 0.7 L Monocytes # 0.5 Eosinophils # 0.1 Basophils # 0.0 Nucleated Red Blood Cells # 0.0 Sodium Level 147 H Potassium Level 4.2 Chloride Level 105 Carbon Dioxide Level 30 Anion Gap 16 Blood Urea Nitrogen 63 H Creatinine 2.22 H Glucose Level 120 Calcium Level 8.6 Phosphorus Level 3.3 Magnesium Level 1.7 Lab Scanned Report BLOOD TRANSFUSION Medications Medications Current Medications Heparin Sodium (Porcine) (Heparin (5000 Units/0.5 ml)) 5,000 unit BID SC Last administered on 06/08/17t 08:48; Admin Dose 5,000 UNIT; Start 06/02/17 at 09:00 ; Status Future Hold Acetaminophen/ Aspirin/Caffeine (Excedrin) 2 tab Q4 PRN PO ELEVATED TEMPERATURE ; Start 06/02/17 at 03:30 Aspirin (Aspirin) 81 mg DAILY PO Last administered on 06/09/17 09:00; Admin Dose 81 MG; Start 06/02/17 at 09:00 Multivitamins/ Minerals (Theragran-M) 1 tab DAILY PO Last administered on 09:00; Admin Dose 1 TAB; Start 06/02/17 at 09:00 Al Hydrox/Mg Hydrox/Simethicone (Mag-Al Plus) 30 ml Q6H PRN PO GASTROINTESTINAL UPSET; Start 06/02/17 at 03:30 Nitroglycerin (Nitroglycerin (Sl Tab) 0.4 Mg) 1 tab Q5M PRN SL ANGINA; Start at 03:30 Acetaminophen/ Hydrocodone Bitart ([place] (5/325)) 1 tab Q6H PRN PO MODERATE PAIN LEVEL 4-6; Start 06/02/17 at 03:30 Ascorbic Acid (Vitamin C) 500 mg DAILY PO Last administered on 06/09/17 09:00 ; Admin Dose 500 MG; Start 06/02/17 at 09:00 Ondansetron HCl (Zofran Tab) 4 mg Q6H PRN PO NAUSEA AND/OR VOMITING; Start at 04:00 Collagenase 1 applic 1 applic DAILY TOP Last administered on 06/09/17 09:01; Admin Dose 1 APPLIC; Start 06/03/17 at 09:00 Fentanyl (Sublimaze) 100 ml @ 2.5 mls/hr TITRATE IV Last administered on 13:09; Admin Dose 7.5 MLS/HR; Start 06/04/17 at 18:30 Allopurinol 100 mg 100 mg DAILY PO Last administered on 06/09/17 09:00; Admin Dose 100 MG; Start 06/04/17 at 20:00 Sodium Chloride 1,000 ml @ 100 mls/hr Q10H IV Last administered on 06/09/17 13:08; Admin Dose 100 MLS/HR; Start 06/05/17 at 09:00 Cefepime HCl (Maxipime 1gm/50 ml (Pmx)) 50 ml @ 100 mls/hr Q24H IVPB Last administered on 06/09/17 09:00; Admin Dose 100 MLS/HR; Start 06/06/17 at 09:00 IV Flush 10 ml 10 ml PRN PRN IV IV PROTOCOL; Start 06/05/17 at 20:00 Caspofungin 50 mg/ Sodium Chloride 250 ml @ 250 mls/hr Q24H IVPB Last administered on 06/09/17 15:45; Admin Dose 250 MLS/HR; Start 06/07/17 at 15:00 ; Stop 06/11/17 at 14:59 Azithromycin 250 ml @ 250 mls/hr Q24H IVPB Last administered on 06/09/17 13: 10; Admin Dose 250 MLS/HR; Start 06/06/17 at 14:00 Norepinephrine/ Dextrose (Levophed/D5W) 500 ml @ 1.87 mls/hr TITRATE IV ; Start 06/07/17 at 15:30 Pantoprazole (Protonix Iv) 40 mg DAILY@06 IV Last administered on 06/09/17 05: 18; Admin Dose 40 MG; Start 06/09/17 at 06:00 Docusate Sodium (Colace Liquid Cup) 100 mg BID NGT ; Start 06/09/17 at 21:00 LORETTA BUCIO NP Jun 09, 2017 16:13
--- NOTE | 2017-06-09 17:16 | PN ---
Date/Time of Note Date/Time of Note DATE: 06/09/17 TIME: 17:14 Assessment/Plan VTE Prophylaxis VTE Prophylaxis Intervention: other Lines/Catheters IV Catheter Type (from [facility]): PICC Line Central line still needed: Yes Urinary Cath still in place: Yes Reason Cath still needed: other (indicate) Assessment/Plan Chief Complaint/Hosp Course 1. Acute hypoxemic respiratory failure. intubated now Follow-up with pulmonary normal EF on ECHO 2. septic shock: still hypotensive, but off of levophed drip now. 3. Newly diagnosed lymphoma, pulmonary and gastric f/u with hematology evaluation Monitor closely 4. Hypernatremia defer to renal . 5. severe Anemia, s/p transfusions. f/u with hem/onc 6. Acute encephalopathy, etiology is toxic metabolic. No significant change Continue to monitor \ 7. Small pericardial effusion: will monitor. 8. SHANTELLE: stablized. defer to renal. CONT ICU CARE. THANK YOU. Problems: Subjective 24 Hr Interval Summary Free Text/Dictation CARDIOLOGY FOLLOW UP NOTE: d/w staff and rhythm was reviewed. pt remains in sinus rhythm / SINUS TACHYCARDIA. pt remains intubated and is vent now Pt remains nonverbal BP is still low but remains off of levophed drip now. pt still with large amount of secretions. OBJECTIVE General: intubated on vent HEENT: pupils are equal. round. NECK: NO JVD. no stridor. CV: RRR. systolic murmur; no gallop or rubs. PULM: + diffuse rhonchi. GI: SOFT, NT, ND, no rebound or guarding Extremity: trace B/L LE edema. no clubbing. neuro: awake Psych: calm rectal: deferred : normal male echo 06/02/17: 1. Hyperdynamic left ventricular systolic function. Normal left ventricular cavity size. Moderate concentric left ventricular hypertrophy. Ejection fraction is visually estimated at 65 %. Abnormal Diastolic Function. 2. Mitral valve leaflets appear mildly thickened. Mild mitral annular calcification. Trace mitral regurgitation. 3. Aortic sclerosis without stenosis. Trace aortic valve regurgitation. 4. Normal appearance of the tricuspid valve. Estimated peak PA systolic pressure 33 mmHg. There is mild tricuspid regurgitation. 5. Small pericardial effusion. 6. Normal size and normal respiratory collapse consistent with normal right atrial pressure. Exam/Review of Systems Vital Signs Vitals Vital Signs Date Time Temp Pulse Resp B/P Pulse Ox O2 Delivery O2 Flow Rate FiO2 06/09/17 16:00 108 06/09/17 15:30 99.3 22 75/46 97 06/09/17 15:10 40 06/09/17 07:00 Mechanical Ventilator Intake and Output 06/08/17 06/08/17 06/09/17 14:59 22:59 06:59 Intake Total 1015 ml 1940 ml 1285 ml Output Total 870 ml 675 ml 235 ml Balance 145 ml 1265 ml 1050 ml Results Result Diagram: 06/09/17 0430 06/09/17 0430 Results 24 hrs Laboratory Tests Test 06/08/17 20:27 06/09/17 04:30 06/09/17 05:04 Hemoglobin 8.5 #L 8.1 L Hematocrit 27.7 L 27.0 L White Blood Count 5.5 # Red Blood Count 3.01 L Mean Corpuscular Volume 89.7 Mean Corpuscular Hemoglobin 26.9 L Mean Corpuscular Hemoglobin Concent 30.0 L Red Cell Distribution Width 19.7 H Platelet Count 81 L Mean Platelet Volume Neutrophils % 74.8 Lymphocytes % 13.4 L Monocytes % 9.6 Eosinophils % 1.1 Basophils % 0.0 Nucleated Red Blood Cells % 0.0 Neutrophils # 4.2 Lymphocytes # 0.7 L Monocytes # 0.5 Eosinophils # 0.1 Basophils # 0.0 Nucleated Red Blood Cells # 0.0 Sodium Level 147 H Potassium Level 4.2 Chloride Level 105 Carbon Dioxide Level 30 Anion Gap 16 Blood Urea Nitrogen 63 H Creatinine 2.22 H Glucose Level 120 Calcium Level 8.6 Phosphorus Level 3.3 Magnesium Level 1.7 Lab Scanned Report BLOOD TRANSFUSION Medications Medications Current Medications Heparin Sodium (Porcine) (Heparin (5000 Units/0.5 ml)) 5,000 unit BID SC Last administered on 06/08/17 08:48; Admin Dose 5,000 UNIT; Start 06/02/17 at 09:00 ; Status Future Hold Acetaminophen/ Aspirin/Caffeine (Excedrin) 2 tab Q4 PRN PO ELEVATED TEMPERATURE ; Start 06/02/17 at 03:30 Aspirin (Aspirin) 81 mg DAILY PO Last administered on 06/09/17 09:00; Admin Dose 81 MG; Start 06/02/17 at 09:00 Multivitamins/ Minerals (Theragran-M) 1 tab DAILY PO Last administered on 09:00; Admin Dose 1 TAB; Start 06/02/17 at 09:00 Al Hydrox/Mg Hydrox/Simethicone (Mag-Al Plus) 30 ml Q6H PRN PO GASTROINTESTINAL UPSET; Start 06/02/17 at 03:30 Nitroglycerin (Nitroglycerin (Sl Tab) 0.4 Mg) 1 tab Q5M PRN SL ANGINA; Start at 03:30 Acetaminophen/ Hydrocodone Bitart ([place] (5/325)) 1 tab Q6H PRN PO MODERATE PAIN LEVEL 4-6; Start 06/02/17 at 03:30 Ascorbic Acid (Vitamin C) 500 mg DAILY PO Last administered on 06/09/17 09:00 ; Admin Dose 500 MG; Start 06/02/17 at 09:00 Ondansetron HCl (Zofran Tab) 4 mg Q6H PRN PO NAUSEA AND/OR VOMITING; Start at 04:00 Collagenase 1 applic 1 applic DAILY TOP Last administered on 06/09/17 09:01; Admin Dose 1 APPLIC; Start 06/03/17 at 09:00 Fentanyl (Sublimaze) 100 ml @ 2.5 mls/hr TITRATE IV Last administered on 13:09; Admin Dose 7.5 MLS/HR; Start 06/04/17 at 18:30 Allopurinol 100 mg 100 mg DAILY PO Last administered on 06/09/17 09:00; Admin Dose 100 MG; Start 06/04/17 at 20:00 Sodium Chloride 1,000 ml @ 100 mls/hr Q10H IV Last administered on 06/09/17 13:08; Admin Dose 100 MLS/HR; Start 06/05/17 at 09:00 Cefepime HCl (Maxipime 1gm/50 ml (Pmx)) 50 ml @ 100 mls/hr Q24H IVPB Last administered on 06/09/17 09:00; Admin Dose 100 MLS/HR; Start 06/06/17 at 09:00 IV Flush 10 ml 10 ml PRN PRN IV IV PROTOCOL; Start 06/05/17 at 20:00 Caspofungin 50 mg/ Sodium Chloride 250 ml @ 250 mls/hr Q24H IVPB Last administered on 06/09/17 15:45; Admin Dose 250 MLS/HR; Start 06/07/17 at 15:00 ; Stop 06/11/17 at 14:59 Azithromycin 250 ml @ 250 mls/hr Q24H IVPB Last administered on 06/09/17 13: 10; Admin Dose 250 MLS/HR; Start 06/06/17 at 14:00 Norepinephrine/ Dextrose (Levophed/D5W) 500 ml @ 1.87 mls/hr TITRATE IV ; Start 06/07/17 at 15:30 Pantoprazole (Protonix Iv) 40 mg DAILY@06 IV Last administered on 06/09/17 05: 18; Admin Dose 40 MG; Start 06/09/17 at 06:00 Docusate Sodium (Colace Liquid Cup) 100 mg BID NGT ; Start 06/09/17 at 21:00 DASIA GREEN MD Jun 09, 2017 17:16
--- NOTE | 2017-06-09 20:40 | CONS ---
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 Patient may require urgent chemotherapy, after being cleared by assurance analyst and pulmonary ONCOLOGICAL RECORD-reviewed DR LIDIA RUSSELL ( [phone]), PT'S M[employer] S[employer] LEASING CON[employer]ANT AT [facility]- PT WAS SEND TO SNF TO GET STRONGER, HE WAS TOO UNSTABLE FOR CHEMO D/W NIECE, PACHECO RECORD- REVIEWED chemo order faxed D/W DR GONZALEZ AND JORDY D/W RN- PER RN- DR JONAS WANT TO HOLD CHEMO WHILE PT IS INTUBATED AWAITING PULM CLEARANCE FOR CHEMO THROMBOCYTOPENIA- 2 TO NHL MONITOR CLOSELY TRANSFUSE NEEDED Anemia, N- CYTIC WITH INCREASED RDW WITH DROP H/H DURING HOSPITALIZATION PER NIECE- NO HX ANEMIA, BLEEDING, PRBC TRANSFUSIONS No obvious evidence of GI bleed at this time. + COMPONENT ACD Evaluation reveals a faint restricted band (M-spike) migrating in the gamma globulin region. - CAN BE SEEN IN NHL TRANSFUSE PRBC NEEDED INCREASED URIC ACID ALLOPURINOL, RENAL DOSE NO EVIDENCE OF TUMOR LYSIS S-M Acute hypoxemic respiratory failure. Etiology is likely multifactorial secondary to lymphoma, pulmonary with possible lymphangitic spread, congestive heart failure exacerbation. The patient currently is on BiPAP, receiving Bumex drip. pulmonary F-UP cardiology F-UP PER RN- WILL TRY WEANING TODAY Volume overload. Etiology may be multifactorial secondary to lymphoma and questionable congestive heart failure. Patient's chest x-ray shows pulmonary congestion. The patient had a recent cardiac cath which was negative, per patient's niece. Plan is continue diuretic regimen, monitor I and Os closely. Hypernatremia. Patient will be placed on D5W. Will monitor closely. Acute encephalopathy, etiology is toxic metabolic. We will continue to monitor. Gastrointestinal and deep venous thrombosis prophylaxis. Patient will be placed on Proton-pump inhibitors and heparin. ( IF NO EVIDENCE OF BLEEDING) Problems: Consultation Date/Type/Reason Admit Date/Time Jun 01, 2017 at 22:01 Initial Consult Date 06/02/17 [facility] Referring Provider: ERASTO GONZALEZ DO 24 HR Interval Summary Free Text/Dictation Opens eyes but does not follow commands. Significant oral secretions. Currently off vasopressors. D/w dr Jnoas- chemo on hold Exam/Review of Systems Vital Signs Vitals Vital Signs Date Time Temp Pulse Resp B/P Pulse Ox O2 Delivery O2 Flow Rate FiO2 06/09/17 20:00 109 06/09/17 19:30 25 95 40 06/09/17 18:30 90/53 06/09/17 15:30 99.3 06/09/17 07:00 Mechanical Ventilator Intake and Output 06/08/17 06/08/17 06/09/17 15:00 23:00 07:00 Intake Total 1065 ml 2045 ml 1485 ml Output Total 1010 ml 585 ml 235 ml Balance 55 ml 1460 ml 1250 ml Exam Exam PHYSICAL EXAMINATION GENERAL: Elderly gentleman, intubated on mechanical ventilation, opens eyes and appears somewhat agitated. Orally intubated. VITAL SIGNS: see below. HEENT: Pupils equal, round, and reactive to light. CARDIAC: S1, S2, 1/6 systolic ejection murmur CHEST: Diminished air entry bilaterally. ABDOMEN: Mildly distended. Bowel sounds present no guarding or rebound EXTREMITIES: No cyanosis, clubbing edema +1 NEUROLOGIC: Generalized weakness Results Result Diagram: 06/09/17 0430 06/09/17 0430 Results 24 hrs Laboratory Tests Test 06/09/17 04:30 06/09/17 05:04 White Blood Count 5.5 # Red Blood Count 3.01 L Hemoglobin 8.1 L Hematocrit 27.0 L Mean Corpuscular Volume 89.7 Mean Corpuscular Hemoglobin 26.9 L Mean Corpuscular Hemoglobin Concent 30.0 L Red Cell Distribution Width 19.7 H Platelet Count 81 L Mean Platelet Volume Neutrophils % 74.8 Lymphocytes % 13.4 L Monocytes % 9.6 Eosinophils % 1.1 Basophils % 0.0 Nucleated Red Blood Cells % 0.0 Neutrophils # 4.2 Lymphocytes # 0.7 L Monocytes # 0.5 Eosinophils # 0.1 Basophils # 0.0 Nucleated Red Blood Cells # 0.0 Sodium Level 147 H Potassium Level 4.2 Chloride Level 105 Carbon Dioxide Level 30 Anion Gap 16 Blood Urea Nitrogen 63 H Creatinine 2.22 H Glucose Level 120 Calcium Level 8.6 Phosphorus Level 3.3 Magnesium Level 1.7 Lab Scanned Report BLOOD TRANSFUSION Medications Medications Current Medications Heparin Sodium (Porcine) (Heparin (5000 Units/0.5 ml)) 5,000 unit BID SC Last administered on 06/08/17 08:48; Admin Dose 5,000 UNIT; Start 06/02/17 at 09:00 ; Status Future Hold Acetaminophen/ Aspirin/Caffeine (Excedrin) 2 tab Q4 PRN PO ELEVATED TEMPERATURE ; Start 06/02/17 at 03:30 Aspirin (Aspirin) 81 mg DAILY PO Last administered on 06/09/17 09:00; Admin Dose 81 MG; Start 06/02/17 at 09:00 Multivitamins/ Minerals (Theragran-M) 1 tab DAILY PO Last administered on 09:00; Admin Dose 1 TAB; Start 06/02/17 at 09:00 Al Hydrox/Mg Hydrox/Simethicone (Mag-Al Plus) 30 ml Q6H PRN PO GASTROINTESTINAL UPSET; Start 06/02/17 at 03:30 Nitroglycerin (Nitroglycerin (Sl Tab) 0.4 Mg) 1 tab Q5M PRN SL ANGINA; Start at 03:30 Acetaminophen/ Hydrocodone Bitart ([place] (5/325)) 1 tab Q6H PRN PO MODERATE PAIN LEVEL 4-6; Start 06/02/17 at 03:30 Ascorbic Acid (Vitamin C) 500 mg DAILY PO Last administered on 06/09/17 09:00 ; Admin Dose 500 MG; Start 06/02/17 at 09:00 Ondansetron HCl (Zofran Tab) 4 mg Q6H PRN PO NAUSEA AND/OR VOMITING; Start at 04:00 Collagenase 1 applic 1 applic DAILY TOP Last administered on 06/09/17 09:01; Admin Dose 1 APPLIC; Start 06/03/17 at 09:00 Fentanyl (Sublimaze) 100 ml @ 2.5 mls/hr TITRATE IV Last administered on 13:09; Admin Dose 7.5 MLS/HR; Start 06/04/17 at 18:30 Allopurinol 100 mg 100 mg DAILY PO Last administered on 06/09/17 09:00; Admin Dose 100 MG; Start 06/04/17 at 20:00 Sodium Chloride 1,000 ml @ 100 mls/hr Q10H IV Last administered on 06/09/17 13:08; Admin Dose 100 MLS/HR; Start 06/05/17 at 09:00 Cefepime HCl (Maxipime 1gm/50 ml (Pmx)) 50 ml @ 100 mls/hr Q24H IVPB Last administered on 06/09/17 09:00; Admin Dose 100 MLS/HR; Start 06/06/17 at 09:00 IV Flush 10 ml 10 ml PRN PRN IV IV PROTOCOL; Start 06/05/17 at 20:00 Caspofungin 50 mg/ Sodium Chloride 250 ml @ 250 mls/hr Q24H IVPB Last administered on 06/09/17 15:45; Admin Dose 250 MLS/HR; Start 06/07/17 at 15:00 ; Stop 06/11/17 at 14:59 Azithromycin 250 ml @ 250 mls/hr Q24H IVPB Last administered on 06/09/17 13: 10; Admin Dose 250 MLS/HR; Start 06/06/17 at 14:00 Norepinephrine/ Dextrose (Levophed/D5W) 500 ml @ 1.87 mls/hr TITRATE IV ; Start 06/07/17 at 15:30 Pantoprazole (Protonix Iv) 40 mg DAILY@06 IV Last administered on 06/09/17 05: 18; Admin Dose 40 MG; Start 06/09/17 at 06:00 Docusate Sodium (Colace Liquid Cup) 100 mg BID NGT ; Start 06/09/17 at 21:00 Acetaminophen (Tylenol Liquid) 650 mg Q6H PRN NGT PAIN AND OR ELEVATED TEMP; Start 06/09/17 at 20:30 SALOMON OVIEDO MD Jun 09, 2017 20:40
[2017-06-09] MEDS: ACETAMINOPHEN 650MG/20.3ML CUP NGT PRN (20:48)
[2017-06-09] MEDS: DOCUSATE SODIUM 10 MG/ML (10ML CUP) NGT SCH (20:48)
[2017-06-09 23:14] LABS: AADO2 Arterial 145.9 mmHg (7.0-24.0); Allen Test ACCEPTAB; Arterial Base Excess -2.9 mmol/L (-3.0-3); Arterial COHb 0.5 % (0.0-3.0); Arterial Fraction of Oxyhgb 93.7 % (93.0-99.0); Arterial HCO3 24.1 mmol/L (22.0-26.0); Arterial MetHb 0.7 % (0.0-1.5); Arterial Total Hemglobin 9.7 g/dl (12.0-18.0); MODE VENT - AC
[2017-06-10] VITALS (88 sets, daily range): BP systolic 88–141; BP diastolic 49–84; PULSE 108–139; RESP 13–27
[2017-06-10 04:29] LABS: ABNORMAL IP MESSAGE 1; HEMATOCRIT 28.7 % (42.0-52.0); HEMOGLOBIN 8.6 g/dl (14.0-18.0); MEAN CORPUSCULAR VOLUME 90.3 fl (82.0-101.0); POSITIVE DIFF @See below; RED BLOOD COUNT 3.18 10^6/ul (4.70-6.10); RED CELL DISTRIBUTION WIDTH 19.9 % (11.5-14.5); WHITE BLOOD COUNT 6.5 10^3/ul (4.8-10.8)
[2017-06-10 04:30] LABS: PLATELET COUNT 121 10^3/UL (140-415)
[2017-06-10 04:49] LABS: CALCIUM 8.9 mg/dl (8.4-10.2); CREATININE 2.82 mg/dl (0.61-1.24); MAGNESIUM 1.7 mg/dl (1.7-2.5); PHOSPHORUS 3.5 mg/dl (2.5-4.9); POTASSIUM 4.6 mmol/L (3.5-5.1)
[2017-06-10 04:59] LABS: ANISOCYTOSIS 1+ (0-0); EOSINOPHILS % (M) 1 % (0-7); GIANT THROMBO% (M) 25 % (0-0); MONOCYTES % (M) 9 % (0-11); PLATELET ESTIMATE DECREASED; POLYCHROMASIA 3+ (0-0); REACTIVE LYMPHOCYTES% (M) 15 % (0-0)
[2017-06-10] MEDS: PANTOPRAZOLE 40 MG INJ IV SCH ×2 (05:54→18:17)
[2017-06-10] MEDS: FUROSEMIDE 40 MG INJ IV SCH (05:54)
--- NOTE | 2017-06-10 07:27 | PN ---
Date/Time of Note Date/Time of Note DATE: 06/10/17 TIME: 07:22 Assessment/Plan Lines/Catheters IV [facility]ter Type (from [facility] PICC Line Urinary Cath still in place: Yes Assessment/Plan Chief Complaint/Hosp Course 1. Ventilator dependent hypoxemic respiratory failure. Etiology is likely multifactorial secondary to lymphoma, pulmonary with possible lymphangitic spread, pulmonary interstitial edema Chest x-ray ABG reviewed Follow-up with pulmonary recommendations 2. Oligouric acute kidney injury with previously normal baseline creatinine Etiology was secondary to ATN due to hemodynamics, septic AK I Renal function has declined the last 24 hours as urinary output is decreased Continue supportive care renally dose all meds, avoid nephrotoxins Continue treating underlying sepsis Monitor closely Septic shock, etiology likely multifactorial pneumonia, possible UTI Patient is currently on pressors, continue IV fluids normal saline, continue broad-spectrum antibiotics Cultures have been reviewed Follow-up with infectious disease Interstitial pulmonary edema/volume overload Etiology may be secondary to lymphoma and questionable congestive heart failure , capillary leak Monitor I's and O's closely Follow-up with cardiology Holding diuretics in the setting of shock Newly diagnosed lymphoma, pulmonary and gastric Anticipate chemotherapy once clinically stable Monitor closely Hypernatremia Continue free water flushes . Anemia, No evidence of GI bleed Hemoglobin levels continue to decline, Blood transfusion as needed Follow-up with hematology Acute encephalopathy, etiology is toxic metabolic. No significant change Continue to monitor Gastrointestinal and deep venous thrombosis prophylaxis. Patient will be placed on Proton-pump inhibitors , Sequential leg squeezers Hypokalemia Replete with potassium chloride I spoke with the patient's daughter Jane as stated above informing of the critical nature of her uncle Please note spent over 40 minutes critical care time with this patient Problems: Subjective 24 Hr Interval Summary Free Text/Dictation Patient remains critically ill, started on pressors overnight Urinary output has been marginal Patient's on full ventilatory support Exam/Review of Systems Vital Signs Vitals Vital Signs Date Time Temp Pulse Resp B/P Pulse Ox O2 Delivery O2 Flow Rate FiO2 06/10/17 06:45 122 23 110/59 96 06/10/17 06:00 Mechanical Ventilator 06/10/17 05:33 50 06/10/17 04:00 99.2 Intake and Output 06/09/17 06/09/17 06/10/17 15:00 23:00 07:00 Intake Total 1822.5 ml 1379.7780 ml 1074.315 ml Output Total 435 ml 150 ml 20 ml Balance 1387.5 ml 1229.7780 ml 1054.315 ml Exam HEENT: Head is normocephalic, NECK: Supple. HEART: Irregular LUNGS: Show diminished breath sounds at base. ABDOMEN: Soft, nontender to palpation without rebound or guarding. EXTREMITIES: Negative for clubbing, cyanosis. Positive edema DERMATOLOGIC: No rashes. MUSCULOSKELETAL: No joint effusions, NEUROLOGIC: No change in exam. Results Result Diagram: 06/10/17 0400 06/10/17 0400 Results 24 hrs Laboratory Tests Test 06/09/17 23:02 06/09/17 23:09 06/10/17 04:00 Blood Gas Specimen Source Blood arterial Arterial Blood Date Drawn 06/09/2017 11:00:25 PM Arterial Blood pH (Temp corrected) 7.279 *L Arterial Blood pCO2 (Temp correct) 52.6 H Arterial Blood pO2 (Temp corrected) 78.8 L Arterial Blood HCO3 24.1 Arterial Blood Base Excess -2.9 Arterial Blood Oxygen Saturation 94.8 L Bakari Test ACCEPTAB Arterial Blood Gas Puncture Site Left Radial Arterial Blood Carboxyhemoglobin 0.5 Arterial Blood Methemoglobin 0.7 Blood Gas A-a O2 Differential 145.9 H Oxyhemoglobin Percent 93.7 Total Hemoglobin 9.7 L Blood Gas Temperature 37.0 Blood Gas Respiration Rate 18.0 Blood Gas Actual Respiration Rate 31 Blood Gas Modality VENT - AC FiO2 40.0 Blood Gas Tidal Volume 500.0 Blood Gas Low PEEP Setting 5.0 Blood Gas Critical Value Read Back TMEHROTRA RN Blood Gas Notified Whom MA Blood Gas Notified Time 06/09/2017 11:12:07 PM Lactic Acid Level 2.3 *H White Blood Count 6.5 Red Blood Count 3.18 L Hemoglobin 8.6 L Hematocrit 28.7 L Mean Corpuscular Volume 90.3 Mean Corpuscular Hemoglobin 27.0 L Mean Corpuscular Hemoglobin Concent 30.0 L Red Cell Distribution Width 19.9 H Platelet Count 121 #L Mean Platelet Volume Neutrophils % Segmented Neutrophils % (Manual) 29 L Band Neutrophils % (Manual) 9 H Lymphocytes % Lymphocytes % (Manual) 36 Reactive Lymphocytes % (Manual) 15 H Monocytes % Monocytes % (Manual) 9 Eosinophils % Eosinophils % (Manual) 1 Basophils % Nucleated Red Blood Cells % 0.0 Neutrophils # Neutrophils # (Manual) 1.9 Band Neutrophils # 0.5 Absolute Lymphocytes (Manual) 2.3 Lymphocytes # Reactive Lymphocytes # 0.9 H Monocytes # Absolute Monocytes (Manual) 0.5 Eosinophils # Basophils # Nucleated Red Blood Cells # Smudge Cells % 33 H Thrombocytosis 25 H Platelet Estimate DECREASED Platelet Morphology Comment @See below Polychromasia 3+ Anisocytosis 1+ Sodium Level 145 H Potassium Level 4.6 Chloride Level 104 Carbon Dioxide Level 29 Anion Gap 17 H Blood Urea Nitrogen 67 H Creatinine 2.82 H Glucose Level 142 Calcium Level 8.9 Phosphorus Level 3.5 Magnesium Level 1.7 Medications Medications Current Medications Heparin Sodium (Porcine) (Heparin (5000 Units/0.5 ml)) 5,000 unit BID SC Last administered on 06/08/17 08:48; Admin Dose 5,000 UNIT; Start 06/02/17 at 09:00 ; Status Future Hold Acetaminophen/ Aspirin/Caffeine (Excedrin) 2 tab Q4 PRN PO ELEVATED TEMPERATURE ; Start 06/02/17 at 03:30 Aspirin (Aspirin) 81 mg DAILY PO Last administered on 06/09/17 09:00; Admin Dose 81 MG; Start 06/02/17 at 09:00 Multivitamins/ Minerals (Theragran-M) 1 tab DAILY PO Last administered on 09:00; Admin Dose 1 TAB; Start 06/02/17 at 09:00 Al Hydrox/Mg Hydrox/Simethicone (Mag-Al Plus) 30 ml Q6H PRN PO GASTROINTESTINAL UPSET; Start 06/02/17 at 03:30 Nitroglycerin (Nitroglycerin (Sl Tab) 0.4 Mg) 1 tab Q5M PRN SL ANGINA; Start at 03:30 Acetaminophen/ Hydrocodone Bitart ([place] (5/325)) 1 tab Q6H PRN PO MODERATE PAIN LEVEL 4-6; Start 06/02/17 at 03:30 Ascorbic Acid (Vitamin C) 500 mg DAILY PO Last administered on 06/09/17 09:00 ; Admin Dose 500 MG; Start 06/02/17 at 09:00 Ondansetron HCl (Zofran Tab) 4 mg Q6H PRN PO NAUSEA AND/OR VOMITING; Start at 04:00 Collagenase 1 applic 1 applic DAILY TOP Last administered on 06/09/17 09:01; Admin Dose 1 APPLIC; Start 06/03/17 at 09:00 Fentanyl (Sublimaze) 100 ml @ 2.5 mls/hr TITRATE IV Last administered on 13:09; Admin Dose 7.5 MLS/HR; Start 06/04/17 at 18:30 Allopurinol 100 mg 100 mg DAILY PO Last administered on 06/09/17 09:00; Admin Dose 100 MG; Start 06/04/17 at 20:00 Cefepime HCl (Maxipime 1gm/50 ml (Pmx)) 50 ml @ 100 mls/hr Q24H IVPB Last administered on 06/09/17 09:00; Admin Dose 100 MLS/HR; Start 06/06/17 at 09:00 IV Flush 10 ml 10 ml PRN PRN IV IV PROTOCOL; Start 06/05/17 at 20:00 Caspofungin 50 mg/ Sodium Chloride 250 ml @ 250 mls/hr Q24H IVPB Last administered on 06/09/17 15:45; Admin Dose 250 MLS/HR; Start 06/07/17 at 15:00 ; Stop 06/11/17 at 14:59 Azithromycin 250 ml @ 250 mls/hr Q24H IVPB Last administered on 06/09/17 13: 10; Admin Dose 250 MLS/HR; Start 06/06/17 at 14:00 Norepinephrine/ Dextrose (Levophed/D5W) 500 ml @ 1.87 mls/hr TITRATE IV Last administered on 06/09/17 22:28; Admin Dose 1.87 MLS/HR; Start 06/07/17 at 15:30 Pantoprazole (Protonix Iv) 40 mg DAILY@06 IV Last administered on 06/10/17 05: 54; Admin Dose 40 MG; Start 06/09/17 at 06:00 Docusate Sodium (Colace Liquid Cup) 100 mg BID NGT Last administered on 20:48; Admin Dose 100 MG; Start 06/09/17 at 21:00 Acetaminophen 650 mg 650 mg Q6H PRN NGT PAIN AND OR ELEVATED TEMP Last administered on 06/09/17 20:48; Admin Dose 650 MG; Start 06/09/17 at 20:30 Sodium Chloride (NS) 1,000 ml @ 100 mls/hr Q10H IV ; Start 06/10/17 at 07:00; Status ERASTO WIGGINS DO Jun 10, 2017 07:27
[2017-06-10] MEDS: SOD CHLORIDE 0.9% 1,000 ML IV SCH ×2 (07:53→17:00)
[2017-06-10 08:01] LABS: AADO2 Arterial 157.7 mmHg (7.0-24.0); Allen Test ACCEPTAB; Arterial Base Excess -1.2 mmol/L (-3.0-3); Arterial COHb 0.7 % (0.0-3.0); Arterial Fraction of Oxyhgb 97.4 % (93.0-99.0); Arterial HCO3 25.6 mmol/L (22.0-26.0); Arterial MetHb 0.7 % (0.0-1.5); Arterial Total Hemglobin 9.1 g/dl (12.0-18.0); MODE VENT - AC
--- NOTE | 2017-06-10 08:17 | RADRPT ---
PROCEDURE: XR Chest. CLINICAL INDICATION: Respiratory distress. TECHNIQUE: AP view of the chest was performed. COMPARISON: June 09, 2017 FINDINGS: The endotracheal tube, nasogastric tube, and left PICC line remain in good positioning. There is st able, diffuse, bilateral lung infiltrates with mild cardiomegaly suggesting persistent fluid overloa d. Superimposed pneumonia may also be present. No pneumothorax or pleural effusion. Overall, no interval change. IMPRESSION: Support lines and tubes in good positioning. Stable diffuse bilateral lung infiltrates and mild car diomegaly suggesting persistent fluid overload. A superimposed infection may also be present. Over all, no interval change. RPTAT: QQ. .Mecca Wellington MD, MD Date Time Electronically viewed and signed by .Mecca Wellington MD, on 06/10/2017 08:17 .F/
[2017-06-10] MEDS: ASCORBIC ACID 500 MG TAB PO SCH (08:21)
[2017-06-10] MEDS: CEFEPIME 1GM/50 ML (PMX) 50 ML IVPB SCH (08:21)
[2017-06-10] MEDS: ASPIRIN 81 MG TAB PO SCH (08:21)
[2017-06-10] MEDS: DOCUSATE SODIUM 10 MG/ML (10ML CUP) NGT SCH ×2 (08:21→21:58)
[2017-06-10] MEDS: MULTIVITAMINS/MINERALS TAB PO SCH (08:21)
[2017-06-10] MEDS: COLLAGENASE 30 GM TUBE TOP SCH (08:22)
[2017-06-10] MEDS: ALLOPURINOL 100 MG TAB PO SCH (08:22)
--- NOTE | 2017-06-10 08:46 | CONS ---
Date/Time of Note Date/Time of Note DATE: 06/10/17 TIME: 08:42 Assessment/Plan Assessment/Plan Additional Assessment/Plan Chest x-ray was reviewed from today which is showing mild bilateral pulmonary edema. Endotracheal tube is at an adequate level. Ventilator setting; AC of 22, tidal volume 550, PEEP of 5, 50% FiO2. Patient currently on Levophed at 8 mics per minute. Fentanyl 40 mics per hour. Assessment and recommendations; 1. Patient admitted with hypoxemic and hypercapnic respiratory failure requiring intubation. 2. Lymphoma with pulmonary involvement. 3. Possibly superimposed pneumonia. 4. Anemia. 5. Improving thrombocytopenia. 6. Renal insufficiency. 7. Hypotension. Continue current treatment. Prognosis is poor. Consultation Date/Type/Reason Admit Date/Time Jun 01, 2017 at 22:01 Initial Consult Date 06/02/17 Type of Consultation: Pulmonary/critical care Referring Provider: ERASTO GONZALEZ DO 24 HR Interval Summary Free Text/Dictation Patient condition remains critical. Still requiring full ventilator support. Remains hemodynamically unstable requiring Levophed for blood pressure maintenance. General exam; elderly male, orally intubated, sedated, currently in no distress. Exam/Review of Systems Vital Signs Vitals Vital Signs Date Time Temp Pulse Resp B/P Pulse Ox O2 Delivery O2 Flow Rate FiO2 06/10/17 06:45 122 23 110/59 96 06/10/17 06:00 Mechanical Ventilator 06/10/17 05:33 50 06/10/17 04:00 99.2 Intake and Output 06/09/17 06/09/17 06/10/17 15:00 23:00 07:00 Intake Total 1822.5 ml 1379.7780 ml 1074.315 ml Output Total 435 ml 150 ml 20 ml Balance 1387.5 ml 1229.7780 ml 1054.315 ml Exam HEENT exam; supple neck, positive JVD. No lymphadenopathy. Midline trachea. No thyromegaly. Orally intubated. Patient has multiple carious teeth. Pupils are small bilaterally. Chest exam; bilateral mild crackles. S1-S2 audible, no murmurs. Regular rhythm. Abdomen exam; soft, no organomegaly. Bowel sounds audible. Abdomen is nondistended. Extremity exam; patient has chronic lower extremity skin changes. Dorsalis pedis and posterior tibial pulses not palpable bilaterally. AUDIO VISUAL ARTS DIRECTOR exam; patient is sedated. Results Result Diagram: 06/10/17 0400 06/10/17 0400 Results 24 hrs Laboratory Tests Test 06/09/17 23:02 06/09/17 23:09 06/10/17 04:00 06/10/17 07:00 Blood Gas Specimen Source Blood arterial Blood arterial Arterial Blood Date Drawn 06/09/2017 11:00:25 PM 06/10/2017 7:15:31 AM Arterial Blood pH (Temp corrected) 7.279 *L 7.291 *L Arterial Blood pCO2 (Temp correct) 52.6 H 54.4 H Arterial Blood pO2 (Temp corrected) 78.8 L 137.6 H Arterial Blood HCO3 24.1 25.6 Arterial Blood Base Excess -2.9 -1.2 Arterial Blood Oxygen Saturation 94.8 L 98.8 Bakari Test ACCEPTAB ACCEPTAB Arterial Blood Gas Puncture Site Left Radial Right Radial Arterial Blood Carboxyhemoglobin 0.5 0.7 Arterial Blood Methemoglobin 0.7 0.7 Blood Gas A-a O2 Differential 145.9 H 157.7 H Oxyhemoglobin Percent 93.7 97.4 Total Hemoglobin 9.7 L 9.1 L Blood Gas Temperature 37.0 37.0 Blood Gas Respiration Rate 18.0 22.0 Blood Gas Actual Respiration Rate 31 22 Blood Gas Modality VENT - AC VENT - AC FiO2 40.0 50.0 Blood Gas Tidal Volume 500.0 550.0 Blood Gas Low PEEP Setting 5.0 5.0 Blood Gas Critical Value Read Back TALIA BRITTON RN Blood Gas Notified Whom OCTAVIO Saavedra Blood Gas Notified Time 06/09/2017 11:12:07 PM 06/10/2017 8:00:48 AM Lactic Acid Level 2.3 *H White Blood Count 6.5 Red Blood Count 3.18 L Hemoglobin 8.6 L Hematocrit 28.7 L Mean Corpuscular Volume 90.3 Mean Corpuscular Hemoglobin 27.0 L Mean Corpuscular Hemoglobin Concent 30.0 L Red Cell Distribution Width 19.9 H Platelet Count 121 #L Mean Platelet Volume Neutrophils % Segmented Neutrophils % (Manual) 29 L Band Neutrophils % (Manual) 9 H Lymphocytes % Lymphocytes % (Manual) 36 Reactive Lymphocytes % (Manual) 15 H Monocytes % Monocytes % (Manual) 9 Eosinophils % Eosinophils % (Manual) 1 Basophils % Nucleated Red Blood Cells % 0.0 Neutrophils # Neutrophils # (Manual) 1.9 Band Neutrophils # 0.5 Absolute Lymphocytes (Manual) 2.3 Lymphocytes # Reactive Lymphocytes # 0.9 H Monocytes # Absolute Monocytes (Manual) 0.5 Eosinophils # Basophils # Nucleated Red Blood Cells # Smudge Cells % 33 H Thrombocytosis 25 H Platelet Estimate DECREASED Platelet Morphology Comment @See below Polychromasia 3+ Anisocytosis 1+ Sodium Level 145 H Potassium Level 4.6 Chloride Level 104 Carbon Dioxide Level 29 Anion Gap 17 H Blood Urea Nitrogen 67 H Creatinine 2.82 H Glucose Level 142 Calcium Level 8.9 Phosphorus Level 3.5 Magnesium Level 1.7 Medications Medications Current Medications Heparin Sodium (Porcine) (Heparin (5000 Units/0.5 ml)) 5,000 unit BID SC Last administered on 06/08/17 08:48; Admin Dose 5,000 UNIT; Start 06/02/17 at 09:00 ; Status Future Hold Acetaminophen/ Aspirin/Caffeine (Excedrin) 2 tab Q4 PRN PO ELEVATED TEMPERATURE ; Start 06/02/17 at 03:30 Aspirin (Aspirin) 81 mg DAILY PO Last administered on 06/10/17 08:21; Admin Dose 81 MG; Start 06/02/17 at 09:00 Multivitamins/ Minerals (Theragran-M) 1 tab DAILY PO Last administered on 08:21; Admin Dose 1 TAB; Start 06/02/17 at 09:00 Al Hydrox/Mg Hydrox/Simethicone (Mag-Al Plus) 30 ml Q6H PRN PO GASTROINTESTINAL UPSET; Start 06/02/17 at 03:30 Nitroglycerin (Nitroglycerin (Sl Tab) 0.4 Mg) 1 tab Q5M PRN SL ANGINA; Start at 03:30 Acetaminophen/ Hydrocodone Bitart ([place] (5/325)) 1 tab Q6H PRN PO MODERATE PAIN LEVEL 4-6; Start 06/02/17 at 03:30 Ascorbic Acid (Vitamin C) 500 mg DAILY PO Last administered on 06/10/17 08:21 ; Admin Dose 500 MG; Start 06/02/17 at 09:00 Ondansetron HCl (Zofran Tab) 4 mg Q6H PRN PO NAUSEA AND/OR VOMITING; Start at 04:00 Collagenase 1 applic 1 applic DAILY TOP Last administered on 06/10/17 08:22; Admin Dose 1 APPLIC; Start 06/03/17 at 09:00 Fentanyl (Sublimaze) 100 ml @ 2.5 mls/hr TITRATE IV Last administered on 13:09; Admin Dose 7.5 MLS/HR; Start 06/04/17 at 18:30 Allopurinol 100 mg 100 mg DAILY PO Last administered on 06/10/17 08:22; Admin Dose 100 MG; Start 06/04/17 at 20:00 Cefepime HCl (Maxipime 1gm/50 ml (Pmx)) 50 ml @ 100 mls/hr Q24H IVPB Last administered on 06/10/17 08:21; Admin Dose 100 MLS/HR; Start 06/06/17 at 09:00 IV Flush 10 ml 10 ml PRN PRN IV IV PROTOCOL; Start 06/05/17 at 20:00 Caspofungin 50 mg/ Sodium Chloride 250 ml @ 250 mls/hr Q24H IVPB Last administered on 06/09/17 15:45; Admin Dose 250 MLS/HR; Start 06/07/17 at 15:00 ; Stop 06/11/17 at 14:59 Azithromycin 250 ml @ 250 mls/hr Q24H IVPB Last administered on 06/09/17 13: 10; Admin Dose 250 MLS/HR; Start 06/06/17 at 14:00 Norepinephrine/ Dextrose (Levophed/D5W) 500 ml @ 1.87 mls/hr TITRATE IV Last administered on 06/09/17 22:28; Admin Dose 1.87 MLS/HR; Start 06/07/17 at 15:30 Docusate Sodium (Colace Liquid Cup) 100 mg BID NGT Last administered on 08:21; Admin Dose 100 MG; Start 06/09/17 at 21:00 Acetaminophen 650 mg 650 mg Q6H PRN NGT PAIN AND OR ELEVATED TEMP Last administered on 06/09/17 20:48; Admin Dose 650 MG; Start 06/09/17 at 20:30 Sodium Chloride (NS) 1,000 ml @ 100 mls/hr Q10H IV Last administered on 07:53; Admin Dose 100 MLS/HR; Start 06/10/17 at 07:00 Pantoprazole (Protonix Iv) 40 mg BID@06,18 IV ; Start 06/10/17 at 18:00 CARMENCITA JAMESON Jun 10, 2017 08:46
--- NOTE | 2017-06-10 09:07 | RADRPT ---
PROCEDURE: US Lower extremity Venous. CLINICAL INDICATION: Bilateral lower extremity edema TECHNIQUE: Multiple sonographic images of the bilateral lower extremity deep venous system was obt ained utilizing grayscale, color-flow, compressive sonography and doppler imaging with augmentation. The images were reviewed on a PACS workstation. COMPARISON: None. FINDINGS: There is normal compressibility and flow within the bilateral common femoral, femoral , posterior ti bial and popliteal veins. RPTAT: AA IMPRESSION: No sonographic evidence for deep venous thrombosis. .Zi Coughlin MD, MD Date Time Electronically viewed and signed by .Zi Coughlin MD, on 06/10/2017 09:07 .S/
[2017-06-10] MEDS: FENTAnyl (DRIP) 1000 mcg/100mL 100 ML IV SCH (14:53)
[2017-06-10] MEDS: AZITHROMYCIN 500MG/NS (PMX) 250 ML IVPB SCH (14:53)
[2017-06-10] MEDS: CASPOFUNGIN 50 MG in SOD CHLORIDE 0.9% 250 ML IVPB SCH (15:58)
--- NOTE | 2017-06-10 17:03 | CONS ---
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 Patient may require urgent chemotherapy, after being cleared by supervisor heading and pulmonary ONCOLOGICAL RECORD-reviewed DR LIDIA RUSSELL ( [phone]), PT'S CORRECTIVE AND MANUAL ARTS THERAPIST AT [facility]- PT WAS SEND TO SNF TO GET STRONGER, HE WAS TOO UNSTABLE FOR CHEMO D/W NIECE, PACHECO RECORD- REVIEWED chemo order faxed D/W DR GONZALEZ AND JORDY D/W RN- PER RN- DR RIVERA WANT TO HOLD CHEMO WHILE PT IS INTUBATED AWAITING PULM CLEARANCE FOR CHEMO THROMBOCYTOPENIA- 2 TO NHL MONITOR CLOSELY TRANSFUSE NEEDED Anemia, N- CYTIC WITH INCREASED RDW WITH DROP H/H DURING HOSPITALIZATION PER NIECE- NO HX ANEMIA, BLEEDING, PRBC TRANSFUSIONS No obvious evidence of GI bleed at this time. + COMPONENT ACD Evaluation reveals a faint restricted band (M-spike) migrating in the gamma globulin region. - CAN BE SEEN IN NHL TRANSFUSE PRBC NEEDED INCREASED URIC ACID ALLOPURINOL, RENAL DOSE NO EVIDENCE OF TUMOR LYSIS S-M Acute hypoxemic respiratory failure. Etiology is likely multifactorial secondary to lymphoma, pulmonary with possible lymphangitic spread, congestive heart failure exacerbation. The patient currently is on BiPAP, receiving Bumex drip. pulmonary F-UP cardiology F-UP PER RN- WILL TRY WEANING TODAY Volume overload. Etiology may be multifactorial secondary to lymphoma and questionable congestive heart failure. Patient's chest x-ray shows pulmonary congestion. The patient had a recent cardiac cath which was negative, per patient's niece. Plan is continue diuretic regimen, monitor I and Os closely. Hypernatremia. Patient will be placed on D5W. Will monitor closely. Acute encephalopathy, etiology is toxic metabolic. We will continue to monitor. Gastrointestinal and deep venous thrombosis prophylaxis. Patient will be placed on Proton-pump inhibitors and heparin. ( IF NO EVIDENCE OF BLEEDING) Problems: Consultation Date/Type/Reason Admit Date/Time Jun 01, 2017 at 22:01 Initial Consult Date 06/02/17 Type of Consultation: [facility] Referring Provider: ERASTO GONZALEZ DO 24 HR Interval Summary Free Text/Dictation all noted CXR- showing mild bilateral pulmonary edema. ON VENT Exam/Review of Systems Vital Signs Vitals Vital Signs Date Time Temp Pulse Resp B/P Pulse Ox O2 Delivery O2 Flow Rate FiO2 06/10/17 16:00 98.9 123 26 97/59 92 Mechanical Ventilator 06/10/17 15:20 40 Intake and Output 06/09/17 06/09/17 06/10/17 15:00 23:00 07:00 Intake Total 1822.5 ml 1379.7780 ml 1074.315 ml Output Total 435 ml 150 ml 20 ml Balance 1387.5 ml 1229.7780 ml 1054.315 ml Exam GENERAL: Elderly gentleman, intubated on mechanical ventilation, opens eyes and appears somewhat agitated. Orally intubated. VITAL SIGNS: see below. HEENT: Pupils equal, round, and reactive to light. CARDIAC: S1, S2, 1/6 systolic ejection murmur CHEST: Diminished air entry bilaterally. ABDOMEN: Mildly distended. Bowel sounds present no guarding or rebound EXTREMITIES: No cyanosis, clubbing edema +1 NEUROLOGIC: Generalized weakness Results Result Diagram: 06/10/17 0400 06/10/17 0400 Results 24 hrs Laboratory Tests Test 06/09/17 23:02 06/09/17 23:09 06/10/17 04:00 06/10/17 07:00 Blood Gas Specimen Source Blood arterial Blood arterial Arterial Blood Date Drawn 06/09/2017 11:00:25 PM 06/10/2017 7:15:31 AM Arterial Blood pH (Temp corrected) 7.279 *L 7.291 *L Arterial Blood pCO2 (Temp correct) 52.6 H 54.4 H Arterial Blood pO2 (Temp corrected) 78.8 L 137.6 H Arterial Blood HCO3 24.1 25.6 Arterial Blood Base Excess -2.9 -1.2 Arterial Blood Oxygen Saturation 94.8 L 98.8 Bakari Test ACCEPTAB ACCEPTAB Arterial Blood Gas Puncture Site Left Radial Right Radial Arterial Blood Carboxyhemoglobin 0.5 0.7 Arterial Blood Methemoglobin 0.7 0.7 Blood Gas A-a O2 Differential 145.9 H 157.7 H Oxyhemoglobin Percent 93.7 97.4 Total Hemoglobin 9.7 L 9.1 L Blood Gas Temperature 37.0 37.0 Blood Gas Respiration Rate 18.0 22.0 Blood Gas Actual Respiration Rate 31 22 Blood Gas Modality VENT - AC VENT - AC FiO2 40.0 50.0 Blood Gas Tidal Volume 500.0 550.0 Blood Gas Low PEEP Setting 5.0 5.0 Blood Gas Critical Value Read Back TALIA BRITTON RN Blood Gas Notified Whom OCTAVIO Saavedra Blood Gas Notified Time 06/09/2017 11:12:07 PM 06/10/2017 8:00:48 AM Lactic Acid Level 2.3 *H White Blood Count 6.5 Red Blood Count 3.18 L Hemoglobin 8.6 L Hematocrit 28.7 L Mean Corpuscular Volume 90.3 Mean Corpuscular Hemoglobin 27.0 L Mean Corpuscular Hemoglobin Concent 30.0 L Red Cell Distribution Width 19.9 H Platelet Count 121 #L Mean Platelet Volume Neutrophils % Segmented Neutrophils % (Manual) 29 L Band Neutrophils % (Manual) 9 H Lymphocytes % Lymphocytes % (Manual) 36 Reactive Lymphocytes % (Manual) 15 H Monocytes % Monocytes % (Manual) 9 Eosinophils % Eosinophils % (Manual) 1 Basophils % Nucleated Red Blood Cells % 0.0 Neutrophils # Neutrophils # (Manual) 1.9 Band Neutrophils # 0.5 Absolute Lymphocytes (Manual) 2.3 Lymphocytes # Reactive Lymphocytes # 0.9 H Monocytes # Absolute Monocytes (Manual) 0.5 Eosinophils # Basophils # Nucleated Red Blood Cells # Smudge Cells % 33 H Thrombocytosis 25 H Platelet Estimate DECREASED Platelet Morphology Comment @See below Polychromasia 3+ Anisocytosis 1+ Sodium Level 145 H Potassium Level 4.6 Chloride Level 104 Carbon Dioxide Level 29 Anion Gap 17 H Blood Urea Nitrogen 67 H Creatinine 2.82 H Glucose Level 142 Calcium Level 8.9 Phosphorus Level 3.5 Magnesium Level 1.7 Test 06/10/17 09:25 Lactic Acid Level 1.7 Medications Medications Current Medications Heparin Sodium (Porcine) (Heparin (5000 Units/0.5 ml)) 5,000 unit BID SC Last administered on 06/08/17 08:48; Admin Dose 5,000 UNIT; Start 06/02/17 at 09:00 ; Status Future Hold Acetaminophen/ Aspirin/Caffeine (Excedrin) 2 tab Q4 PRN PO ELEVATED TEMPERATURE ; Start 06/02/17 at 03:30 Aspirin (Aspirin) 81 mg DAILY PO Last administered on 06/10/17 08:21; Admin Dose 81 MG; Start 06/02/17 at 09:00 Multivitamins/ Minerals (Theragran-M) 1 tab DAILY PO Last administered on 08:21; Admin Dose 1 TAB; Start 06/02/17 at 09:00 Al Hydrox/Mg Hydrox/Simethicone (Mag-Al Plus) 30 ml Q6H PRN PO GASTROINTESTINAL UPSET; Start 06/02/17 at 03:30 Nitroglycerin (Nitroglycerin (Sl Tab) 0.4 Mg) 1 tab Q5M PRN SL ANGINA; Start at 03:30 Acetaminophen/ Hydrocodone Bitart ([place] (5/325)) 1 tab Q6H PRN PO MODERATE PAIN LEVEL 4-6; Start 06/02/17 at 03:30 Ascorbic Acid (Vitamin C) 500 mg DAILY PO Last administered on 06/10/17 08:21 ; Admin Dose 500 MG; Start 06/02/17 at 09:00 Ondansetron HCl (Zofran Tab) 4 mg Q6H PRN PO NAUSEA AND/OR VOMITING; Start at 04:00 Collagenase 1 applic 1 applic DAILY TOP Last administered on 06/10/17 08:22; Admin Dose 1 APPLIC; Start 06/03/17 at 09:00 Fentanyl (Sublimaze) 100 ml @ 2.5 mls/hr TITRATE IV Last administered on 14:53; Admin Dose 4 MLS/HR; Start 06/04/17 at 18:30 Allopurinol 100 mg 100 mg DAILY PO Last administered on 06/10/17 08:22; Admin Dose 100 MG; Start 06/04/17 at 20:00 Cefepime HCl (Maxipime 1gm/50 ml (Pmx)) 50 ml @ 100 mls/hr Q24H IVPB Last administered on 06/10/17 08:21; Admin Dose 100 MLS/HR; Start 06/06/17 at 09:00 IV Flush 10 ml 10 ml PRN PRN IV IV PROTOCOL; Start 06/05/17 at 20:00 Caspofungin 50 mg/ Sodium Chloride 250 ml @ 250 mls/hr Q24H IVPB Last administered on 06/10/17 15:58; Admin Dose 250 MLS/HR; Start 06/07/17 at 15:00 ; Stop 06/11/17 at 14:59 Azithromycin 250 ml @ 250 mls/hr Q24H IVPB Last administered on 06/10/17 14: 53; Admin Dose 250 MLS/HR; Start 06/06/17 at 14:00 Norepinephrine/ Dextrose (Levophed/D5W) 500 ml @ 1.87 mls/hr TITRATE IV Last administered on 06/09/17 22:28; Admin Dose 1.87 MLS/HR; Start 06/07/17 at 15:30 Docusate Sodium (Colace Liquid Cup) 100 mg BID NGT Last administered on 08:21; Admin Dose 100 MG; Start 06/09/17 at 21:00 Acetaminophen 650 mg 650 mg Q6H PRN NGT PAIN AND OR ELEVATED TEMP Last administered on 06/09/17 20:48; Admin Dose 650 MG; Start 06/09/17 at 20:30 Sodium Chloride (NS) 1,000 ml @ 100 mls/hr Q10H IV Last administered on 07:53; Admin Dose 100 MLS/HR; Start 06/10/17 at 07:00 Pantoprazole (Protonix Iv) 40 mg BID@06,18 IV ; Start 06/10/17 at 18:00 SALOMON OVIEDO MD Jun 10, 2017 17:03
--- NOTE | 2017-06-10 17:10 | CONS ---
Date/Time of Note Date/Time of Note DATE: 06/10/17 TIME: 17:02 Assessment/Plan Assessment/Plan Chief Complaint/Hosp Course ID PROGRESS NOTE TOTAL ABX DAY #9=> CEFEPIME#9 + Azith #5 + Cancidas #5 24H INTERVAL SUMMARY * Remains septic with lactic acidosis persisting @ 2.2; orally intubated, vented * Will broaden IV ABX coverage to Vanco IV + Merrem; was trying to avoid renal cleared meds and keep ABX spectrum narrow; nevertheless, there has not been adequate improvement in concern for sepsis. * Per notes: Acute respiratory failure secondary to lymphoma, pulmonary with possible lymphangitic spread, pulmonary interstitial edema * 06/09/17 CXR: . Extensive interstitial opacities are unchanged which may represent pulmonary edema and/or chronic lung changes. * 06/05 TRACH CULTURE: RESPIRATORY CULTURE Final Organism 1 PSEUDOMONAS AERUGINOSA QUANTITY SCANT GROWTH Organism 2 FLORY SPECIES, NOT ALBICANS * 06/09/17 0430 06/09/17 0430 PHYSICAL EXAMINATION: GENERAL: VSS,NAD,Awake, calm HEENT: NGT->Secure / ETT secure NECK: Supple, trach-> midline CHEST: Equal chest rise bilaterally, Vented w/scattered rhonchi HEART: Pulse RRR ABDOMEN: Soft EXTREMITIES: Warm, no edema SKIN: Warm, dry ID ASSESSMENT: 86 yo Obese M w/newly Dx LYMPHOMA admitted with: 1. Septic shock, on pressors, w/lactic acidosis 2.4, mild leukocytosis, tachycardia on admission => due to # 2. Acute respiratory failure/pulmonary edema * Per notes: Acute respiratory failure secondary to lymphoma, pulmonary with possible lymphangitic spread, pulmonary interstitial edema * 06/09/17 CXR: . Extensive interstitial opacities are unchanged which may represent pulmonary edema and/or chronic lung changes. 3. Acute CHF as evidenced by pulmonary edema and elevated BNP on admission 4. Bilateral pneumonia-> RESPIRATORY CULTURE Organism 1 PSAR Organism 2 YEAST 5. Yeast UTI w/pyuria 06/03/17 * Mixed GP Organisms on admission => DDx includes early UTI vs Prostatitis * FC Changed 06/06/17 due to yeast 6. Acute renal failure 7. Acute encephalopathy 8. GERD 9. Buttock decub (-)MRSA NARES INVASIVES: * PIV, ETT, FC, NGT ABX ALLERGIES: KNDA CURRENT ABX: ##9=> Start Vanco IV + Merrem CEFEPIME#9 + Azith #5 + Cancidas #5 => DC today ID RECOMMENDATIONS: => Continue plan as below: 1. Start Vanco IV + Merrem * DC Cefepim/Azith/Cancidas 2. Continue to monitor for clinical improvement . . Problems: Consultation Date/Type/Reason Admit Date/Time Jun 01, 2017 at 22:01 Initial Consult Date 06/02/17 Type of Consultation: ID Referring Provider: ERASTO GONZALEZ DO Exam/Review of Systems Vital Signs Vitals Vital Signs Date Time Temp Pulse Resp B/P Pulse Ox O2 Delivery O2 Flow Rate FiO2 06/10/17 16:00 98.9 123 26 97/59 92 Mechanical Ventilator 06/10/17 15:20 40 Intake and Output 06/09/17 06/09/17 06/10/17 15:00 23:00 07:00 Intake Total 1822.5 ml 1379.7780 ml 1074.315 ml Output Total 435 ml 150 ml 20 ml Balance 1387.5 ml 1229.7780 ml 1054.315 ml Results Result Diagram: 06/10/17 0400 06/10/17 0400 Results 24 hrs Laboratory Tests Test 06/09/17 23:02 06/09/17 23:09 06/10/17 04:00 06/10/17 07:00 Blood Gas Specimen Source Blood arterial Blood arterial Arterial Blood Date Drawn 06/09/2017 11:00:25 PM 06/10/2017 7:15:31 AM Arterial Blood pH (Temp corrected) 7.279 *L 7.291 *L Arterial Blood pCO2 (Temp correct) 52.6 H 54.4 H Arterial Blood pO2 (Temp corrected) 78.8 L 137.6 H Arterial Blood HCO3 24.1 25.6 Arterial Blood Base Excess -2.9 -1.2 Arterial Blood Oxygen Saturation 94.8 L 98.8 Bakari Test ACCEPTAB ACCEPTAB Arterial Blood Gas Puncture Site Left Radial Right Radial Arterial Blood Carboxyhemoglobin 0.5 0.7 Arterial Blood Methemoglobin 0.7 0.7 Blood Gas A-a O2 Differential 145.9 H 157.7 H Oxyhemoglobin Percent 93.7 97.4 Total Hemoglobin 9.7 L 9.1 L Blood Gas Temperature 37.0 37.0 Blood Gas Respiration Rate 18.0 22.0 Blood Gas Actual Respiration Rate 31 22 Blood Gas Modality VENT - AC VENT - AC FiO2 40.0 50.0 Blood Gas Tidal Volume 500.0 550.0 Blood Gas Low PEEP Setting 5.0 5.0 Blood Gas Critical Value Read Back TALIA BRITTON RN Blood Gas Notified Whom OCTAVIO Saavedra Blood Gas Notified Time 06/09/2017 11:12:07 PM 06/10/2017 8:00:48 AM Lactic Acid Level 2.3 *H White Blood Count 6.5 Red Blood Count 3.18 L Hemoglobin 8.6 L Hematocrit 28.7 L Mean Corpuscular Volume 90.3 Mean Corpuscular Hemoglobin 27.0 L Mean Corpuscular Hemoglobin Concent 30.0 L Red Cell Distribution Width 19.9 H Platelet Count 121 #L Mean Platelet Volume Neutrophils % Segmented Neutrophils % (Manual) 29 L Band Neutrophils % (Manual) 9 H Lymphocytes % Lymphocytes % (Manual) 36 Reactive Lymphocytes % (Manual) 15 H Monocytes % Monocytes % (Manual) 9 Eosinophils % Eosinophils % (Manual) 1 Basophils % Nucleated Red Blood Cells % 0.0 Neutrophils # Neutrophils # (Manual) 1.9 Band Neutrophils # 0.5 Absolute Lymphocytes (Manual) 2.3 Lymphocytes # Reactive Lymphocytes # 0.9 H Monocytes # Absolute Monocytes (Manual) 0.5 Eosinophils # Basophils # Nucleated Red Blood Cells # Smudge Cells % 33 H Thrombocytosis 25 H Platelet Estimate DECREASED Platelet Morphology Comment @See below Polychromasia 3+ Anisocytosis 1+ Sodium Level 145 H Potassium Level 4.6 Chloride Level 104 Carbon Dioxide Level 29 Anion Gap 17 H Blood Urea Nitrogen 67 H Creatinine 2.82 H Glucose Level 142 Calcium Level 8.9 Phosphorus Level 3.5 Magnesium Level 1.7 Test 06/10/17 09:25 Lactic Acid Level 1.7 Medications Medications Current Medications Heparin Sodium (Porcine) (Heparin (5000 Units/0.5 ml)) 5,000 unit BID SC Last administered on 06/08/17 08:48; Admin Dose 5,000 UNIT; Start 06/02/17 at 09:00 ; Status Future Hold Acetaminophen/ Aspirin/Caffeine (Excedrin) 2 tab Q4 PRN PO ELEVATED TEMPERATURE ; Start 06/02/17 at 03:30 Aspirin (Aspirin) 81 mg DAILY PO Last administered on 06/10/17 08:21; Admin Dose 81 MG; Start 06/02/17 at 09:00 Multivitamins/ Minerals (Theragran-M) 1 tab DAILY PO Last administered on 08:21; Admin Dose 1 TAB; Start 06/02/17 at 09:00 Al Hydrox/Mg Hydrox/Simethicone (Mag-Al Plus) 30 ml Q6H PRN PO GASTROINTESTINAL UPSET; Start 06/02/17 at 03:30 Nitroglycerin (Nitroglycerin (Sl Tab) 0.4 Mg) 1 tab Q5M PRN SL ANGINA; Start at 03:30 Acetaminophen/ Hydrocodone Bitart ([place] (5/325)) 1 tab Q6H PRN PO MODERATE PAIN LEVEL 4-6; Start 06/02/17 at 03:30 Ascorbic Acid (Vitamin C) 500 mg DAILY PO Last administered on 06/10/17 08:21 ; Admin Dose 500 MG; Start 06/02/17 at 09:00 Ondansetron HCl (Zofran Tab) 4 mg Q6H PRN PO NAUSEA AND/OR VOMITING; Start at 04:00 Collagenase 1 applic 1 applic DAILY TOP Last administered on 06/10/17 08:22; Admin Dose 1 APPLIC; Start 06/03/17 at 09:00 Fentanyl (Sublimaze) 100 ml @ 2.5 mls/hr TITRATE IV Last administered on 14:53; Admin Dose 4 MLS/HR; Start 06/04/17 at 18:30 Allopurinol 100 mg 100 mg DAILY PO Last administered on 06/10/17 08:22; Admin Dose 100 MG; Start 06/04/17 at 20:00 Cefepime HCl (Maxipime 1gm/50 ml (Pmx)) 50 ml @ 100 mls/hr Q24H IVPB Last administered on 06/10/17 08:21; Admin Dose 100 MLS/HR; Start 06/06/17 at 09:00 IV Flush 10 ml 10 ml PRN PRN IV IV PROTOCOL; Start 06/05/17 at 20:00 Caspofungin 50 mg/ Sodium Chloride 250 ml @ 250 mls/hr Q24H IVPB Last administered on 06/10/17 15:58; Admin Dose 250 MLS/HR; Start 7/26/17 at 15:00 ; Stop 06/11/17 at 14:59 Azithromycin 250 ml @ 250 mls/hr Q24H IVPB Last administered on 06/10/17 14: 53; Admin Dose 250 MLS/HR; Start 06/06/17 at 14:00 Norepinephrine/ Dextrose (Levophed/D5W) 500 ml @ 1.87 mls/hr TITRATE IV Last administered on 06/09/17 22:28; Admin Dose 1.87 MLS/HR; Start 06/07/17 at 15:30 Docusate Sodium (Colace Liquid Cup) 100 mg BID NGT Last administered on 08:21; Admin Dose 100 MG; Start 06/09/17 at 21:00 Acetaminophen 650 mg 650 mg Q6H PRN NGT PAIN AND OR ELEVATED TEMP Last administered on 06/09/17 20:48; Admin Dose 650 MG; Start 06/09/17 at 20:30 Sodium Chloride (NS) 1,000 ml @ 100 mls/hr Q10H IV Last administered on 07:53; Admin Dose 100 MLS/HR; Start 06/10/17 at 07:00 Pantoprazole (Protonix Iv) 40 mg BID@06,18 IV ; Start 06/10/17 at 18:00 LORETTA BUCIO NP Jun 10, 2017 17:10
[2017-06-10] MEDS ORDERED: VANCOMYCIN IV PER PHARMACY XX SCH (17:30)
[2017-06-10] MEDS ORDERED: VANCOMYCIN 2 GM in SOD CHLORIDE 0.9% 500 ML IVPB ONE (18:00)
[2017-06-10] MEDS ORDERED: MEROPENEM 2 GM in SOD CHLORIDE 0.9% 100 ML IVPB SCH (21:00)
[2017-06-10] MEDS: MEROPENEM 500MG/50 ML (PMX) 50 ML IVPB SCH (21:58)
[2017-06-11] VITALS (91 sets, daily range): BP systolic 57–131; BP diastolic 37–80; PULSE 104–145; RESP 0–30
[2017-06-11 00:09] LABS: AADO2 Arterial 169.6 mmHg (7.0-24.0); Allen Test ACCEPTAB; Arterial COHb 1.3 % (0.0-3.0); Arterial Fraction of Oxyhgb 89.9 % (93.0-99.0); Arterial HCO3 24.1 mmol/L (22.0-26.0); Arterial MetHb 0.6 % (0.0-1.5); Arterial Total Hemglobin 9.1 g/dl (12.0-18.0); MODE VENT - AC
[2017-06-11 04:39] LABS: ABNORMAL IP MESSAGE 1; BASOPHILS % 0.2 % (0.0-2.0); EOSINOPHILS # 0.1 10^3/ul (0.0-0.5); EOSINOPHILS % 1.2 % (0.0-7.0); HEMATOCRIT 25.9 % (42.0-52.0); HEMOGLOBIN 7.7 g/dl (14.0-18.0); LYMPHOCYTES # 0.9 10^3/ul (0.8-2.9); MEAN CORPUSCULAR HEMOGLOBIN 26.6 pg (29.0-33.0); MEAN CORPUSCULAR HGB CONC 29.7 g/dl (32.0-37.0); MEAN CORPUSCULAR VOLUME 89.3 fl (82.0-101.0); MEAN PLATELET VOLUME 10.7 fl (7.4-10.4); MONOCYTE # 0.6 10^3/ul (0.3-0.9); MONOCYTES % 9.7 % (0.0-11.0); NEUTROPHIL # 4.4 10^3/ul (1.6-7.5); NEUTROPHILS % 72.6 % (39.0-77.0); PLATELET COUNT 110 10^3/UL (140-415); POSITIVE DIFF @See below; RED CELL DISTRIBUTION WIDTH 20.1 % (11.5-14.5); WHITE BLOOD COUNT 6.1 10^3/ul (4.8-10.8)
[2017-06-11 04:58] LABS: CALCIUM 8.5 mg/dl (8.4-10.2); CREATININE 3.24 mg/dl (0.61-1.24); MAGNESIUM 1.6 mg/dl (1.7-2.5); PHOSPHORUS 3.5 mg/dl (2.5-4.9); POTASSIUM 4.8 mmol/L (3.5-5.1)
[2017-06-11] MEDS: PANTOPRAZOLE 40 MG INJ IV SCH ×2 (05:02→17:10)
[2017-06-11] MEDS ORDERED: MAGNESIUM SULFATE 2 GM/50 ML 50 ML IVPB ONE (07:30)
--- NOTE | 2017-06-11 07:33 | PN ---
Date/Time of Note Date/Time of Note DATE: 06/11/17 TIME: 07:28 Assessment/Plan Lines/Catheters IV Catheter Type (from Nrs): PICC Line Urinary Cath still in place: Yes Assessment/Plan Chief Complaint/Hosp Course 1. Ventilator dependent hypoxemic respiratory failure. Etiology is likely multifactorial secondary to lymphoma, pulmonary with possible lymphangitic spread, pulmonary interstitial edema Chest x-ray ABG reviewed Follow-up with pulmonary recommendations 2. Oligouric acute kidney injury with previously normal baseline creatinine Etiology was secondary to ATN due to hemodynamics, septic AK I Renal function continues to decline, patient's grossly volume overloaded As stated above I spoke with Zaira regarding dialysis, she has agreed Plan for dialysis for volume removal if patient hemodynamically stable, once catheter was placed Monitor closely Septic shock, etiology likely multifactorial pneumonia, possible UTI Patient is currently on pressors, continue IV fluids normal saline, continue broad-spectrum antibiotics Cultures have been reviewed Follow-up with infectious disease Interstitial pulmonary edema/volume overload, worsening Etiology may be secondary to lymphoma and questionable congestive heart failure , capillary leak Monitor I's and O's closely Follow-up with cardiology Plan for ultrafiltration with dialysis if hemodynamically stable large Newly diagnosed lymphoma, pulmonary and gastric Anticipate chemotherapy once clinically stable Monitor closely Hypernatremia Continue free water flushes . Anemia, No evidence of GI bleed Hemoglobin levels continue to decline, Blood transfusion as needed Follow-up with hematology Acute encephalopathy, etiology is toxic metabolic. No significant change Continue to monitor Gastrointestinal and deep venous thrombosis prophylaxis. Patient will be placed on Proton-pump inhibitors , Sequential leg squeezers Hypokalemia Replete with potassium chloride I spoke with the patient's daughter Jane as stated above informing of the critical nature of her uncle Please note spent over 40 minutes critical care time with this patient Problems: Subjective 24 Hr Interval Summary Free Text/Dictation Patient seen and examined Patient remains critically on pressure support, with minimal urinary output, FiO2 levels increasing I spoke with patient's niece Jane discussing the need for dialysis. She agrees plan for dialysis once catheter was placed Exam/Review of Systems Vital Signs Vitals Vital Signs Date Time Temp Pulse Resp B/P Pulse Ox O2 Delivery O2 Flow Rate FiO2 06/11/17 06:00 129 25 101/57 94 Mechanical Ventilator 06/11/17 05:40 60 06/11/17 04:00 98.4 Intake and Output 7/06/10/17 06/11/17 15:00 23:00 07:00 Intake Total 1113.7 ml 2837.48 ml 1862 ml Output Total 315 ml 180 ml 175 ml Balance 798.7 ml 2657.48 ml 1687 ml Exam HEENT: Head is normocephalic, NECK: Supple. HEART: Irregular LUNGS: Show diminished breath sounds at base. ABDOMEN: Soft, nontender to palpation without rebound or guarding. EXTREMITIES: Negative for clubbing, cyanosis. Positive edema DERMATOLOGIC: No rashes. MUSCULOSKELETAL: No joint effusions, NEUROLOGIC: No change in exam. Results Result Diagram: 06/11/17 0430 06/11/17 0430 Results 24 hrs Laboratory Tests Test 06/10/17 09:25 06/10/17 23:30 06/11/17 04:30 Lactic Acid Level 1.7 Blood Gas Specimen Source Blood arterial Arterial Blood Date Drawn 06/11/2017 12:00:47 AM Arterial Blood pH (Temp corrected) 7.322 L Arterial Blood pCO2 (Temp correct) 47.6 H Arterial Blood pO2 (Temp corrected) 60.9 L Arterial Blood HCO3 24.1 Arterial Blood Base Excess -2.0 Arterial Blood Oxygen Saturation 91.6 L Bakari Test ACCEPTAB Arterial Blood Gas Puncture Site Right Radial Arterial Blood Carboxyhemoglobin 1.3 Arterial Blood Methemoglobin 0.6 Blood Gas A-a O2 Differential 169.6 H Oxyhemoglobin Percent 89.9 L Total Hemoglobin 9.1 L Blood Gas Temperature 37.0 Blood Gas Respiration Rate 22.0 Blood Gas Actual Respiration Rate 25 Blood Gas Modality VENT - AC FiO2 40.0 Blood Gas Tidal Volume 550.0 Blood Gas Low PEEP Setting 5.0 Blood Gas Inspiratory Pressure 31.0 Blood Gas Notified Adarsh [facility] Blood Gas Notified Time 06/11/2017 12:08:47 AM White Blood Count 6.1 Red Blood Count 2.90 L Hemoglobin 7.7 L Hematocrit 25.9 L Mean Corpuscular Volume 89.3 Mean Corpuscular Hemoglobin 26.6 L Mean Corpuscular Hemoglobin Concent 29.7 L Red Cell Distribution Width 20.1 H Platelet Count 110 L Mean Platelet Volume 10.7 H Neutrophils % 72.6 Lymphocytes % 15.0 Monocytes % 9.7 Eosinophils % 1.2 Basophils % 0.2 Nucleated Red Blood Cells % 0.0 Neutrophils # 4.4 Lymphocytes # 0.9 Monocytes # 0.6 Eosinophils # 0.1 Basophils # 0.0 Nucleated Red Blood Cells # 0.0 Sodium Level 141 Potassium Level 4.8 Chloride Level 104 Carbon Dioxide Level 28 Anion Gap 14 Blood Urea Nitrogen 74 H Creatinine 3.24 H Glucose Level 152 Calcium Level 8.5 Phosphorus Level 3.5 Magnesium Level 1.6 L Medications Medications Current Medications Heparin Sodium (Porcine) (Heparin (5000 Units/0.5 ml)) 5,000 unit BID SC Last administered on 06/08/17 08:48; Admin Dose 5,000 UNIT; Start 06/02/17 at 09:00 ; Status Future Hold Acetaminophen/ Aspirin/Caffeine (Excedrin) 2 tab Q4 PRN PO ELEVATED TEMPERATURE ; Start 06/02/17 at 03:30 Aspirin (Aspirin) 81 mg DAILY PO Last administered on 06/10/17 08:21; Admin Dose 81 MG; Start 06/02/17 at 09:00 Multivitamins/ Minerals (Theragran-M) 1 tab DAILY PO Last administered on 08:21; Admin Dose 1 TAB; Start 06/02/17 at 09:00 Al Hydrox/Mg Hydrox/Simethicone (Mag-Al Plus) 30 ml Q6H PRN PO GASTROINTESTINAL UPSET; Start 06/02/17 at 03:30 Nitroglycerin (Nitroglycerin (Sl Tab) 0.4 Mg) 1 tab Q5M PRN SL ANGINA; Start at 03:30 Acetaminophen/ Hydrocodone Bitart ([place] (5/325)) 1 tab Q6H PRN PO MODERATE PAIN LEVEL 4-6; Start 06/02/17 at 03:30 Ascorbic Acid (Vitamin C) 500 mg DAILY PO Last administered on 06/10/17 08:21 ; Admin Dose 500 MG; Start 06/02/17 at 09:00 Ondansetron HCl (Zofran Tab) 4 mg Q6H PRN PO NAUSEA AND/OR VOMITING; Start at 04:00 Collagenase 1 applic 1 applic DAILY TOP Last administered on 06/10/17 08:22; Admin Dose 1 APPLIC; Start 06/03/17 at 09:00 Fentanyl (Sublimaze) 100 ml @ 2.5 mls/hr TITRATE IV Last administered on 14:53; Admin Dose 4 MLS/HR; Start 06/04/17 at 18:30 Allopurinol (Zyloprim) 100 mg DAILY PO Last administered on 06/10/17 08:22; Admin Dose 100 MG; Start 06/04/17 at 20:00 IV Flush 10 ml 10 ml PRN PRN IV IV PROTOCOL; Start 06/05/17 at 20:00 Norepinephrine/ Dextrose (Levophed/D5W) 500 ml @ 1.87 mls/hr TITRATE IV Last administered on 06/09/17 22:28; Admin Dose 1.87 MLS/HR; Start 06/07/17 at 15:30 Docusate Sodium (Colace Liquid Cup) 100 mg BID NGT Last administered on 21:58; Admin Dose 100 MG; Start 06/09/17 at 21:00 Acetaminophen 650 mg 650 mg Q6H PRN NGT PAIN AND OR ELEVATED TEMP Last administered on 06/09/17 20:48; Admin Dose 650 MG; Start 06/09/17 at 20:30 Sodium Chloride (NS) 1,000 ml @ 100 mls/hr Q10H IV Last administered on 07:53; Admin Dose 100 MLS/HR; Start 06/10/17 at 07:00 Pantoprazole 40 mg 40 mg BID@06,18 IV Last administered on 06/11/17 05:02; Admin Dose 40 MG; Start 06/10/17 at 18:00 Meropenem/Sodium Chloride 50 ml @ 100 mls/hr Q12 IVPB Last administered on 21:58; Admin Dose 100 MLS/HR; Start 06/10/17 at 21:00 Vancomycin HCl/ Sodium Chloride (Vancocin/NS) 250 ml @ 83.333 mls/ hr Q48H IVPB ; Start 06/12/17 at 18:00 ERASTO GONZALEZ DO Jun 11, 2017 07:33
[2017-06-11] MEDS: ACETAMINOPHEN 650MG/20.3ML CUP NGT PRN (07:41)
[2017-06-11] MEDS: SOD CHLORIDE 0.9% 1,000 ML IV SCH ×4 (07:41→17:10)
[2017-06-11 08:20] LABS: AADO2 Arterial 307.4 mmHg (7.0-24.0); Allen Test ACCEPTAB; Arterial Base Excess -3.8 mmol/L (-3.0-3); Arterial COHb 0.9 % (0.0-3.0); Arterial Fraction of Oxyhgb 91.6 % (93.0-99.0); Arterial HCO3 22.5 mmol/L (22.0-26.0); Arterial MetHb 0.6 % (0.0-1.5); Arterial Total Hemglobin 8.6 g/dl (12.0-18.0); MODE VENT - AC
[2017-06-11] MEDS: MEROPENEM 500MG/50 ML (PMX) 50 ML IVPB SCH (08:27)
[2017-06-11] MEDS: MULTIVITAMINS/MINERALS TAB PO SCH (08:27)
[2017-06-11] MEDS: ASPIRIN 81 MG TAB PO SCH (08:27)
[2017-06-11] MEDS: ALLOPURINOL 100 MG TAB PO SCH (08:27)
[2017-06-11] MEDS: ASCORBIC ACID 500 MG TAB PO SCH (08:27)
[2017-06-11] MEDS: DOCUSATE SODIUM 10 MG/ML (10ML CUP) NGT SCH ×2 (08:57→20:46)
[2017-06-11] MEDS: COLLAGENASE 30 GM TUBE TOP SCH ×2 (09:00→10:03)
--- NOTE | 2017-06-11 09:21 | CONS ---
Date/Time of Note Date/Time of Note DATE: 06/11/17 TIME: 09:19 Assessment/Plan Assessment/Plan Additional Assessment/Plan Ventilator setting; AC of 22, tidal volume 550, PEEP of 5, 60% FiO2. Patient currently on Levophed at 6 mics per minute, fentanyl 800 mics per hour. Assessment and recommendations; 1. Patient admitted with hypercapnic respiratory failure leading to respiratory failure requiring intubation. 2. History of extensive lymphoma with pulmonary involvement. 3. Difficult to rule out superimposed pneumonia as well as pulmonary edema. 4. Worsening renal function. 5. Anemia. 6. Thrombocytopenia. 7. Persistent hypotension. Continue current supportive care. Prognosis is very poor. CODE STATUS needs to be discussed with the family. 35 minutes of critical care time was spent evaluating the patient. Consultation Date/Type/Reason Admit Date/Time Jun 01, 2017 at 22:01 Initial Consult Date 06/02/17 Type of Consultation: Pulmonary/critical care Referring Provider: ERASTO GONZALEZ DO 24 HR Interval Summary Free Text/Dictation Patient condition remains critical. Remains hypotensive. General exam; elderly male, orally intubated, sedated. Currently in no distress. Exam/Review of Systems Vital Signs Vitals Vital Signs Date Time Temp Pulse Resp B/P Pulse Ox O2 Delivery O2 Flow Rate FiO2 06/11/17 09:00 123 23 91/58 95 Mechanical Ventilator 06/11/17 07:00 100.1 06/11/17 05:40 60 Intake and Output 06/10/17 06/10/17 06/11/17 15:00 23:00 07:00 Intake Total 1113.7 ml 2837.48 ml 2026.37 ml Output Total 315 ml 180 ml 215 ml Balance 798.7 ml 2657.48 ml 1811.37 ml Exam HEENT exam; supple neck, positive JVD. No lymphadenopathy. Midline trachea. No thyromegaly. Orally intubated. Pupils are small bilaterally. Patient is edentulous. Chest exam; diminished breath sounds bilaterally with scattered crackles. S1- S2 audible, no murmurs. Regular rhythm. Abdomen exam; soft, nondistended. No organomegaly. Bowel sounds audible. Extremity exam; trace peripheral edema. DONOR TECHNICIAN exam; patient is sedated. Results Result Diagram: 06/11/17 0430 06/11/17 0430 Results 24 hrs Laboratory Tests Test 06/10/17 09:25 06/10/17 23:30 06/11/17 04:30 06/11/17 07:00 Lactic Acid Level 1.7 Blood Gas Specimen Source Blood arterial Blood arterial Arterial Blood Date Drawn 06/11/2017 12:00:47 AM 06/11/2017 8:15:36 AM Arterial Blood pH (Temp corrected) 7.322 L 7.299 *L Arterial Blood pCO2 (Temp correct) 47.6 H 46.8 H Arterial Blood pO2 (Temp corrected) 60.9 L 68.9 L Arterial Blood HCO3 24.1 22.5 Arterial Blood Base Excess -2.0 -3.8 L Arterial Blood Oxygen Saturation 91.6 L 93.0 L Bakari Test ACCEPTAB ACCEPTAB Arterial Blood Gas Puncture Site Right Radial Right Radial Arterial Blood Carboxyhemoglobin 1.3 0.9 Arterial Blood Methemoglobin 0.6 0.6 Blood Gas A-a O2 Differential 169.6 H 307.4 H Oxyhemoglobin Percent 89.9 L 91.6 L Total Hemoglobin 9.1 L 8.6 L Blood Gas Temperature 37.0 37.0 Blood Gas Respiration Rate 22.0 22.0 Blood Gas Actual Respiration Rate 25 26 Blood Gas Modality VENT - AC VENT - AC FiO2 40.0 60.0 Blood Gas Tidal Volume 550.0 550.0 Blood Gas Low PEEP Setting 5.0 5.0 Blood Gas Inspiratory Pressure 31.0 Blood Gas Notified Whom SOPHY VILLALOBOS RT Blood Gas Notified Time 06/11/2017 12:08:47 AM 06/11/2017 8:20:20 AM White Blood Count 6.1 Red Blood Count 2.90 L Hemoglobin 7.7 L Hematocrit 25.9 L Mean Corpuscular Volume 89.3 Mean Corpuscular Hemoglobin 26.6 L Mean Corpuscular Hemoglobin Concent 29.7 L Red Cell Distribution Width 20.1 H Platelet Count 110 L Mean Platelet Volume 10.7 H Neutrophils % 72.6 Lymphocytes % 15.0 Monocytes % 9.7 Eosinophils % 1.2 Basophils % 0.2 Nucleated Red Blood Cells % 0.0 Neutrophils # 4.4 Lymphocytes # 0.9 Monocytes # 0.6 Eosinophils # 0.1 Basophils # 0.0 Nucleated Red Blood Cells # 0.0 Sodium Level 141 Potassium Level 4.8 Chloride Level 104 Carbon Dioxide Level 28 Anion Gap 14 Blood Urea Nitrogen 74 H Creatinine 3.24 H Glucose Level 152 Calcium Level 8.5 Phosphorus Level 3.5 Magnesium Level 1.6 L Blood Gas Critical Value Read Back BHARAT COLLADO R.N. Medications Medications Current Medications Heparin Sodium (Porcine) (Heparin (5000 Units/0.5 ml)) 5,000 unit BID SC Last administered on 06/08/17 08:48; Admin Dose 5,000 UNIT; Start 06/02/17 at 09:00 ; Status Future Hold Acetaminophen/ Aspirin/Caffeine (Excedrin) 2 tab Q4 PRN PO ELEVATED TEMPERATURE ; Start 06/02/17 at 03:30 Aspirin (Aspirin) 81 mg DAILY PO Last administered on 06/11/17 08:27; Admin Dose 81 MG; Start 06/02/17 at 09:00 Multivitamins/ Minerals (Theragran-M) 1 tab DAILY PO Last administered on 08:27; Admin Dose 1 TAB; Start 06/02/17 at 09:00 Al Hydrox/Mg Hydrox/Simethicone (Mag-Al Plus) 30 ml Q6H PRN PO GASTROINTESTINAL UPSET; Start 06/02/17 at 03:30 Nitroglycerin (Nitroglycerin (Sl Tab) 0.4 Mg) 1 tab Q5M PRN SL ANGINA; Start at 03:30 Acetaminophen/ Hydrocodone Bitart ([place] (5/325)) 1 tab Q6H PRN PO MODERATE PAIN LEVEL 4-6; Start 06/02/17 at 03:30 Ascorbic Acid (Vitamin C) 500 mg DAILY PO Last administered on 06/11/17 08:27 ; Admin Dose 500 MG; Start 06/02/17 at 09:00 Ondansetron HCl (Zofran Tab) 4 mg Q6H PRN PO NAUSEA AND/OR VOMITING; Start at 04:00 Collagenase 1 applic 1 applic DAILY TOP Last administered on 06/10/17 08:22; Admin Dose 1 APPLIC; Start 06/03/17 at 09:00 Fentanyl (Sublimaze) 100 ml @ 2.5 mls/hr TITRATE IV Last administered on 14:53; Admin Dose 4 MLS/HR; Start 06/04/17 at 18:30 Allopurinol (Zyloprim) 100 mg DAILY PO Last administered on 06/11/17 08:27; Admin Dose 100 MG; Start 06/04/17 at 20:00 IV Flush 10 ml 10 ml PRN PRN IV IV PROTOCOL; Start 06/05/17 at 20:00 Norepinephrine/ Dextrose (Levophed/D5W) 500 ml @ 1.87 mls/hr TITRATE IV Last administered on 06/09/17 22:28; Admin Dose 1.87 MLS/HR; Start 06/07/17 at 15:30 Docusate Sodium (Colace Liquid Cup) 100 mg BID NGT Last administered on 21:58; Admin Dose 100 MG; Start 06/09/17 at 21:00 Acetaminophen 650 mg 650 mg Q6H PRN NGT PAIN AND OR ELEVATED TEMP Last administered on 06/11/17 07:41; Admin Dose 650 MG; Start 06/09/17 at 20:30 Sodium Chloride (NS) 1,000 ml @ 100 mls/hr Q10H IV Last administered on 07:41; Admin Dose 100 MLS/HR; Start 06/10/17 at 07:00 Pantoprazole 40 mg 40 mg BID@06,18 IV Last administered on 06/11/17 05:02; Admin Dose 40 MG; Start 06/10/17 at 18:00 Meropenem/Sodium Chloride 50 ml @ 100 mls/hr Q12 IVPB Last administered on 08:27; Admin Dose 100 MLS/HR; Start 06/10/17 at 21:00 Vancomycin HCl 1.5 gm/Sodium Chloride 250 ml @ 83.333 mls/ hr Q48H IVPB ; Start 06/12/17 at 18:00 Magnesium Sulfate (Magnesium Sulfate 2 Gm/50 ml) 50 ml @ 25 mls/hr ONCE ONCE IVPB Last administered on 06/11/17 07:42; Admin Dose 25 MLS/HR; Start at 07:30; Stop 06/11/17 at 09:29 CARMENCITA JAMESON Jun 11, 2017 09:21
[2017-06-11] MEDS: FENTAnyl (DRIP) 1000 mcg/100mL 100 ML IV SCH ×2 (10:11→15:45)
[2017-06-11 10:13] LABS: ANISOCYTOSIS 2+ (0-0); BASOPHILS % (M) 1 % (0-2); EOSINOPHILS % (M) 1 % (0-7); ERYTHROBLAST% (NRBC) (M) 1 % (0-0); GIANT THROMBO% (M) 14 % (0-0); HYPOCHROMASIA 1+ (0-0); MONOCYTES % (M) 2 % (0-11); PLATELET ESTIMATE NORMAL; POIKILOCYTOSIS 2+ (0-0); POLYCHROMASIA 3+ (0-0); PROMYELOCYTES #M 0 # (0-0); PROMYELOCYTES % (M) 1 % (0-0)
[2017-06-11] MEDS ORDERED: LIDOCAINE 1% (MDV) 20 ML INJ ONE (14:55)
--- NOTE | 2017-06-11 17:04 | CONS ---
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 Patient may require urgent chemotherapy, after being cleared by electronics hardware design engineer and pulmonary ONCOLOGICAL RECORD-reviewed DR LIDIA RUSSELL ( [phone]), PT'S COURT ATTENDANT AT [facility]- PT WAS SEND TO SNF TO GET STRONGER, HE WAS TOO UNSTABLE FOR CHEMO D/W NIECE, PACHECO RECORD- REVIEWED chemo order faxed D/W DR GONZALEZ AND JORDY D/W RN- PER RN- DR RIVERA WANT TO HOLD CHEMO WHILE PT IS INTUBATED AWAITING PULM CLEARANCE FOR CHEMO THROMBOCYTOPENIA- 2 TO NHL MONITOR CLOSELY TRANSFUSE NEEDED Anemia, N- CYTIC WITH INCREASED RDW WITH DROP H/H DURING HOSPITALIZATION PER NIECE- NO HX ANEMIA, BLEEDING, PRBC TRANSFUSIONS No obvious evidence of GI bleed at this time. + COMPONENT ACD Evaluation reveals a faint restricted band (M-spike) migrating in the gamma globulin region. - CAN BE SEEN IN NHL TRANSFUSE PRBC NEEDED INCREASED URIC ACID ALLOPURINOL, RENAL DOSE NO EVIDENCE OF TUMOR LYSIS S-M Acute hypoxemic respiratory failure. Etiology is likely multifactorial secondary to lymphoma, pulmonary with possible lymphangitic spread, congestive heart failure exacerbation. The patient currently is on BiPAP, receiving Bumex drip. pulmonary F-UP cardiology F-UP PER RN- WILL TRY WEANING TODAY Volume overload. Etiology may be multifactorial secondary to lymphoma and questionable congestive heart failure. Patient's chest x-ray shows pulmonary congestion. The patient had a recent cardiac cath which was negative, per patient's niece. Plan is continue diuretic regimen, monitor I and Os closely. Hypernatremia. Patient will be placed on D5W. Will monitor closely. Acute encephalopathy, etiology is toxic metabolic. We will continue to monitor. Gastrointestinal and deep venous thrombosis prophylaxis. Patient will be placed on Proton-pump inhibitors and heparin. ( IF NO EVIDENCE OF BLEEDING) Problems: Consultation Date/Type/Reason Admit Date/Time Jun 01, 2017 at 22:01 Initial Consult Date 06/02/17 [facility] Referring Provider: ERASTO GONZALEZ DO 24 HR Interval Summary Free Text/Dictation all noted no new events Exam/Review of Systems Vital Signs Vitals Vital Signs Date Time Temp Pulse Resp B/P Pulse Ox O2 Delivery O2 Flow Rate FiO2 06/11/17 16:45 135 21 91/58 93 Mechanical Ventilator 06/11/17 16:00 98.8 06/11/17 11:50 80 Intake and Output 06/10/17 06/10/17 06/11/17 15:00 23:00 07:00 Intake Total 1113.7 ml 2837.48 ml 2026.37 ml Output Total 315 ml 180 ml 215 ml Balance 798.7 ml 2657.48 ml 1811.37 ml Exam GENERAL: Elderly gentleman, intubated on mechanical ventilation, opens eyes and appears somewhat agitated. Orally intubated. VITAL SIGNS: see below. HEENT: Pupils equal, round, and reactive to light. CARDIAC: S1, S2, 1/6 systolic ejection murmur CHEST: Diminished air entry bilaterally. ABDOMEN: Mildly distended. Bowel sounds present no guarding or rebound EXTREMITIES: No cyanosis, clubbing edema +1 NEUROLOGIC: Generalized weakness Results Result Diagram: 06/11/17 0430 06/11/17 0430 Results 24 hrs Laboratory Tests Test 06/10/17 23:30 06/11/17 04:30 06/11/17 07:00 Blood Gas Specimen Source Blood arterial Blood arterial Arterial Blood Date Drawn 06/11/2017 12:00:47 AM 06/11/2017 8:15:36 AM Arterial Blood pH (Temp corrected) 7.322 L 7.299 *L Arterial Blood pCO2 (Temp correct) 47.6 H 46.8 H Arterial Blood pO2 (Temp corrected) 60.9 L 68.9 L Arterial Blood HCO3 24.1 22.5 Arterial Blood Base Excess -2.0 -3.8 L Arterial Blood Oxygen Saturation 91.6 L 93.0 L Bakari Test ACCEPTAB ACCEPTAB Arterial Blood Gas Puncture Site Right Radial Right Radial Arterial Blood Carboxyhemoglobin 1.3 0.9 Arterial Blood Methemoglobin 0.6 0.6 Blood Gas A-a O2 Differential 169.6 H 307.4 H Oxyhemoglobin Percent 89.9 L 91.6 L Total Hemoglobin 9.1 L 8.6 L Blood Gas Temperature 37.0 37.0 Blood Gas Respiration Rate 22.0 22.0 Blood Gas Actual Respiration Rate 25 26 Blood Gas Modality VENT - AC VENT - AC FiO2 40.0 60.0 Blood Gas Tidal Volume 550.0 550.0 Blood Gas Low PEEP Setting 5.0 5.0 Blood Gas Inspiratory Pressure 31.0 Blood Gas Notified Whom SOPHY WISDOMP RT Blood Gas Notified Time 06/11/2017 12:08:47 AM 06/11/2017 8:20:20 AM White Blood Count 6.1 Red Blood Count 2.90 L Hemoglobin 7.7 L Hematocrit 25.9 L Mean Corpuscular Volume 89.3 Mean Corpuscular Hemoglobin 26.6 L Mean Corpuscular Hemoglobin Concent 29.7 L Red Cell Distribution Width 20.1 H Platelet Count 110 L Mean Platelet Volume 10.7 H Neutrophils % 72.6 Segmented Neutrophils % (Manual) 72 Band Neutrophils % (Manual) 4 Lymphocytes % 15.0 Lymphocytes % (Manual) 19 Monocytes % 9.7 Monocytes % (Manual) 2 Eosinophils % 1.2 Eosinophils % (Manual) 1 Basophils % 0.2 Basophils % (Manual) 1 Promyelocytes % (Manual) 1 H Nucleated Red Blood Cells % 1 H Neutrophils # 4.4 Neutrophils # (Manual) 4.4 Band Neutrophils # 0.2 Absolute Lymphocytes (Manual) 1.1 Lymphocytes # 0.9 Monocytes # 0.6 Absolute Monocytes (Manual) 0.1 L Eosinophils # 0.1 Basophils # 0.0 Basophils # (Manual) 0.0 Promyelocytes # 0 Nucleated Red Blood Cells # 0.0 Smudge Cells % 7 H Thrombocytosis 14 H Platelet Estimate NORMAL Polychromasia 3+ Hypochromasia 1+ Poikilocytosis 2+ Anisocytosis 2+ Macrocytosis 2+ Sodium Level 141 Potassium Level 4.8 Chloride Level 104 Carbon Dioxide Level 28 Anion Gap 14 Blood Urea Nitrogen 74 H Creatinine 3.24 H Glucose Level 152 Calcium Level 8.5 Phosphorus Level 3.5 Magnesium Level 1.6 L Blood Gas Critical Value Read Back BHARAT COLLADO R.N. Medications Medications Current Medications Heparin Sodium (Porcine) (Heparin (5000 Units/0.5 ml)) 5,000 unit BID SC Last administered on 06/08/17t 08:48; Admin Dose 5,000 UNIT; Start 06/02/17 at 09:00 ; Status Future Hold Acetaminophen/ Aspirin/Caffeine (Excedrin) 2 tab Q4 PRN PO ELEVATED TEMPERATURE ; Start 06/02/17 at 03:30 Aspirin (Aspirin) 81 mg DAILY PO Last administered on 06/11/17 08:27; Admin Dose 81 MG; Start 06/02/17 at 09:00 Multivitamins/ Minerals (Theragran-M) 1 tab DAILY PO Last administered on 08:27; Admin Dose 1 TAB; Start 06/02/17 at 09:00 Al Hydrox/Mg Hydrox/Simethicone (Mag-Al Plus) 30 ml Q6H PRN PO GASTROINTESTINAL UPSET; Start 06/02/17 at 03:30 Nitroglycerin (Nitroglycerin (Sl Tab) 0.4 Mg) 1 tab Q5M PRN SL ANGINA; Start at 03:30 Acetaminophen/ Hydrocodone Bitart ([place] (5/325)) 1 tab Q6H PRN PO MODERATE PAIN LEVEL 4-6; Start 06/02/17 at 03:30 Ascorbic Acid (Vitamin C) 500 mg DAILY PO Last administered on 06/11/17 08:27 ; Admin Dose 500 MG; Start 06/02/17 at 09:00 Ondansetron HCl (Zofran Tab) 4 mg Q6H PRN PO NAUSEA AND/OR VOMITING; Start at 04:00 Collagenase 1 applic 1 applic DAILY TOP Last administered on 06/11/17 10:03; Admin Dose 1 APPLIC; Start 06/03/17 at 09:00 Fentanyl (Sublimaze) 100 ml @ 2.5 mls/hr TITRATE IV Last administered on 15:45; Admin Dose 10 MLS/HR; Start 06/04/17 at 18:30 Allopurinol (Zyloprim) 100 mg DAILY PO Last administered on 06/11/17 08:27; Admin Dose 100 MG; Start 06/04/17 at 20:00 IV Flush 10 ml 10 ml PRN PRN IV IV PROTOCOL; Start 06/05/17 at 20:00 Norepinephrine/ Dextrose (Levophed/D5W) 500 ml @ 1.87 mls/hr TITRATE IV Last administered on 06/11/17 16:07; Admin Dose 30 MLS/HR; Start 06/07/17 at 15:30 Docusate Sodium (Colace Liquid Cup) 100 mg BID NGT Last administered on 21:58; Admin Dose 100 MG; Start 06/09/17 at 21:00 Acetaminophen 650 mg 650 mg Q6H PRN NGT PAIN AND OR ELEVATED TEMP Last administered on 06/11/17 07:41; Admin Dose 650 MG; Start 06/09/17 at 20:30 Sodium Chloride (NS) 1,000 ml @ 100 mls/hr Q10H IV Last administered on 07:41; Admin Dose 100 MLS/HR; Start 06/10/17 at 07:00 Pantoprazole 40 mg 40 mg BID@06,18 IV Last administered on 06/11/17 05:02; Admin Dose 40 MG; Start 06/10/17 at 18:00 Vancomycin HCl 1.5 gm/Sodium Chloride 250 ml @ 83.333 mls/ hr Q48H IVPB ; Start 06/12/17 at 18:00 Meropenem/Sodium Chloride (Merrem 1 Gm/50 ml (Pmx)) 50 ml @ 100 mls/hr Q24H IVPB ; Start 06/11/17 at 21:00 SALOMON OVIEDO MD Jun 11, 2017 17:04
--- NOTE | 2017-06-11 17:41 | CONS ---
Date/Time of Note Date/Time of Note DATE: 06/11/17 TIME: 17:37 Assessment/Plan Assessment/Plan Chief Complaint/Hosp Course ID PROGRESS NOTE TOTAL ABX DAY #10=> Vanco IV #2 + Merrem #2 CEFEPIME#9 + Azith #5 + Cancidas #5 => DC 06/10 24H INTERVAL SUMMARY * Low grade TMas 100.0+; currently in HD session, pressors, pain meds, sedated * ABX coverage broadened yesterday due to worsening clinical status --> Patient with VDRF orally intubated FiO2 60% * Severe sepsis w/hypotension = multifactorial with lactic acidosis persisting @ 2.2 * Per notes: Acute respiratory failure secondary to lymphoma, pulmonary with possible lymphangitic spread, pulmonary interstitial edema * 06/09/17 CXR: . Extensive interstitial opacities are unchanged which may represent pulmonary edema and/or chronic lung changes. PHYSICAL EXAMINATION: GENERAL: VSS,NAD,Awake, calm HEENT: NGT->Secure / ETT secure NECK: Supple, trach-> midline CHEST: Equal chest rise bilaterally, Vented w/scattered rhonchi HEART: Pulse RRR ABDOMEN: Soft EXTREMITIES: Warm, no edema SKIN: Warm, dry ID ASSESSMENT: 86 yo Obese M w/newly Dx LYMPHOMA admitted with: 1. Septic shock, on pressors, w/lactic acidosis 2.4, mild leukocytosis, tachycardia on admission => due to # 2. Acute respiratory failure/pulmonary edema * Per notes: Acute respiratory failure secondary to lymphoma, pulmonary with possible lymphangitic spread, pulmonary interstitial edema * 06/09/17 CXR: . Extensive interstitial opacities are unchanged which may represent pulmonary edema and/or chronic lung changes. 3. Acute CHF as evidenced by pulmonary edema and elevated BNP on admission 4. Bilateral pneumonia-> RESPIRATORY CULTURE Organism 1 PSAR Organism 2 YEAST 5. Yeast UTI w/pyuria 06/03/17 * Mixed GP Organisms on admission => DDx includes early UTI vs Prostatitis * FC Changed 06/06/17 due to yeast 6. Acute renal failure 7. Acute encephalopathy 8. GERD 9. Buttock decub (-)MRSA NARES INVASIVES: * PIV, ETT, FC, NGT ABX ALLERGIES: KNDA CURRENT ABX: #10=> Vanco IV #2 + Merrem #2 CEFEPIME#9 + Azith #5 + Cancidas #5 => DC 06/10 ID RECOMMENDATIONS: => Continue plan as below: 1. ABX coverage broadened due to worsening clinical status -> Needs HCAP VAP coverage w/Vanco + Merrem 2. Poor prognosis - unstable for chemo tx at this time - age 86 - palliative care appropriate . . . Problems: Consultation Date/Type/Reason Admit Date/Time Jun 01, 2017 at 22:01 Initial Consult Date 06/02/17 Type of Consultation: ID Referring Provider: ERASTO GONZALEZ DO Exam/Review of Systems Vital Signs Vitals Vital Signs Date Time Temp Pulse Resp B/P Pulse Ox O2 Delivery O2 Flow Rate FiO2 06/11/17 17:30 137 22 98/65 98 Mechanical Ventilator 06/11/17 16:00 98.8 06/11/17 11:50 80 Intake and Output 06/10/17 06/10/17 06/11/17 15:00 23:00 07:00 Intake Total 1113.7 ml 2837.48 ml 2026.37 ml Output Total 315 ml 180 ml 215 ml Balance 798.7 ml 2657.48 ml 1811.37 ml Results Result Diagram: 06/11/17 0430 06/11/17 0430 Results 24 hrs Laboratory Tests Test 06/10/17 23:30 06/11/17 04:30 06/11/17 07:00 Blood Gas Specimen Source Blood arterial Blood arterial Arterial Blood Date Drawn 06/11/2017 12:00:47 AM 06/11/2017 8:15:36 AM Arterial Blood pH (Temp corrected) 7.322 L 7.299 *L Arterial Blood pCO2 (Temp correct) 47.6 H 46.8 H Arterial Blood pO2 (Temp corrected) 60.9 L 68.9 L Arterial Blood HCO3 24.1 22.5 Arterial Blood Base Excess -2.0 -3.8 L Arterial Blood Oxygen Saturation 91.6 L 93.0 L Bakari Test ACCEPTAB ACCEPTAB Arterial Blood Gas Puncture Site Right Radial Right Radial Arterial Blood Carboxyhemoglobin 1.3 0.9 Arterial Blood Methemoglobin 0.6 0.6 Blood Gas A-a O2 Differential 169.6 H 307.4 H Oxyhemoglobin Percent 89.9 L 91.6 L Total Hemoglobin 9.1 L 8.6 L Blood Gas Temperature 37.0 37.0 Blood Gas Respiration Rate 22.0 22.0 Blood Gas Actual Respiration Rate 25 26 Blood Gas Modality VENT - AC VENT - AC FiO2 40.0 60.0 Blood Gas Tidal Volume 550.0 550.0 Blood Gas Low PEEP Setting 5.0 5.0 Blood Gas Inspiratory Pressure 31.0 Blood Gas Notified Whom SOPHY CRM MANAGER RT Blood Gas Notified Time 06/11/2017 12:08:47 AM 06/11/2017 8:20:20 AM White Blood Count 6.1 Red Blood Count 2.90 L Hemoglobin 7.7 L Hematocrit 25.9 L Mean Corpuscular Volume 89.3 Mean Corpuscular Hemoglobin 26.6 L Mean Corpuscular Hemoglobin Concent 29.7 L Red Cell Distribution Width 20.1 H Platelet Count 110 L Mean Platelet Volume 10.7 H Neutrophils % 72.6 Segmented Neutrophils % (Manual) 72 Band Neutrophils % (Manual) 4 Lymphocytes % 15.0 Lymphocytes % (Manual) 19 Monocytes % 9.7 Monocytes % (Manual) 2 Eosinophils % 1.2 Eosinophils % (Manual) 1 Basophils % 0.2 Basophils % (Manual) 1 Promyelocytes % (Manual) 1 H Nucleated Red Blood Cells % 1 H Neutrophils # 4.4 Neutrophils # (Manual) 4.4 Band Neutrophils # 0.2 Absolute Lymphocytes (Manual) 1.1 Lymphocytes # 0.9 Monocytes # 0.6 Absolute Monocytes (Manual) 0.1 L Eosinophils # 0.1 Basophils # 0.0 Basophils # (Manual) 0.0 Promyelocytes # 0 Nucleated Red Blood Cells # 0.0 Smudge Cells % 7 H Thrombocytosis 14 H Platelet Estimate NORMAL Polychromasia 3+ Hypochromasia 1+ Poikilocytosis 2+ Anisocytosis 2+ Macrocytosis 2+ Sodium Level 141 Potassium Level 4.8 Chloride Level 104 Carbon Dioxide Level 28 Anion Gap 14 Blood Urea Nitrogen 74 H Creatinine 3.24 H Glucose Level 152 Calcium Level 8.5 Phosphorus Level 3.5 Magnesium Level 1.6 L Blood Gas Critical Value Read Back BHARAT COLLADO R.N. Medications Medications Current Medications Heparin Sodium (Porcine) (Heparin (5000 Units/0.5 ml)) 5,000 unit BID SC Last administered on 06/08/17t 08:48; Admin Dose 5,000 UNIT; Start 06/02/17 at 09:00 ; Status Future Hold Acetaminophen/ Aspirin/Caffeine (Excedrin) 2 tab Q4 PRN PO ELEVATED TEMPERATURE ; Start 06/02/17 at 03:30 Aspirin (Aspirin) 81 mg DAILY PO Last administered on 06/11/17 08:27; Admin Dose 81 MG; Start 06/02/17 at 09:00 Multivitamins/ Minerals (Theragran-M) 1 tab DAILY PO Last administered on 08:27; Admin Dose 1 TAB; Start 06/02/17 at 09:00 Al Hydrox/Mg Hydrox/Simethicone (Mag-Al Plus) 30 ml Q6H PRN PO GASTROINTESTINAL UPSET; Start 06/02/17 at 03:30 Nitroglycerin (Nitroglycerin (Sl Tab) 0.4 Mg) 1 tab Q5M PRN SL ANGINA; Start at 03:30 Acetaminophen/ Hydrocodone Bitart ([place] (5/325)) 1 tab Q6H PRN PO MODERATE PAIN LEVEL 4-6; Start 06/02/17 at 03:30 Ascorbic Acid (Vitamin C) 500 mg DAILY PO Last administered on 06/11/17 08:27 ; Admin Dose 500 MG; Start 06/02/17 at 09:00 Ondansetron HCl (Zofran Tab) 4 mg Q6H PRN PO NAUSEA AND/OR VOMITING; Start at 04:00 Collagenase 1 applic 1 applic DAILY TOP Last administered on 06/11/17 10:03; Admin Dose 1 APPLIC; Start 06/03/17 at 09:00 Fentanyl (Sublimaze) 100 ml @ 2.5 mls/hr TITRATE IV Last administered on 15:45; Admin Dose 10 MLS/HR; Start 06/04/17 at 18:30 Allopurinol (Zyloprim) 100 mg DAILY PO Last administered on 06/11/17 08:27; Admin Dose 100 MG; Start 06/04/17 at 20:00 IV Flush 10 ml 10 ml PRN PRN IV IV PROTOCOL; Start 06/05/17 at 20:00 Norepinephrine/ Dextrose (Levophed/D5W) 500 ml @ 1.87 mls/hr TITRATE IV Last administered on 06/11/17 16:07; Admin Dose 30 MLS/HR; Start 06/07/17 at 15:30 Docusate Sodium (Colace Liquid Cup) 100 mg BID NGT Last administered on 21:58; Admin Dose 100 MG; Start 06/09/17 at 21:00 Acetaminophen 650 mg 650 mg Q6H PRN NGT PAIN AND OR ELEVATED TEMP Last administered on 06/11/17 07:41; Admin Dose 650 MG; Start 06/09/17 at 20:30 Sodium Chloride (NS) 1,000 ml @ 100 mls/hr Q10H IV Last administered on 17:10; Admin Dose 100 MLS/HR; Start 06/10/17 at 07:00 Pantoprazole 40 mg 40 mg BID@06,18 IV Last administered on 06/11/17 17:10; Admin Dose 40 MG; Start 06/10/17 at 18:00 Vancomycin HCl 1.5 gm/Sodium Chloride 250 ml @ 83.333 mls/ hr Q48H IVPB ; Start 06/12/17 at 18:00 Meropenem/Sodium Chloride 50 ml @ 100 mls/hr Q24H IVPB ; Start 06/11/17 at 21: 00 Phenylephrine HCl/ Dextrose (Abner-Syneph/D5W) 500 ml @ 75 mls/hr TITRATE IV ; Start 06/11/17 at 17:30; Status [employer] [employer] Jun 11, 2017 17:41
[2017-06-11] MEDS ORDERED: PHENYLephrine 20MG IN 250 ML 250 ML ONE (17:52)
[2017-06-11] MEDS ORDERED: PHENYLephrine 40 MG in DEXTROSE 5% 496 ML IV SCH (18:00)
[2017-06-11] MEDS ORDERED: NORepinephrine 32 MG in DEXTROSE 5% 218 ML IV SCH (21:00)
[2017-06-11] MEDS ORDERED: MEROPENEM 1 GM/50ML(PMX) 50 ML IVPB SCH (21:00)
[2017-06-11] MEDS: PHENYLephrine 80 MG in DEXTROSE 5% 242 ML IV SCH (21:22)
[2017-06-12] VITALS (72 sets, daily range): BP systolic 48–110; BP diastolic 22–62; PULSE 0–138; RESP 0–38
[2017-06-12] MEDS: FENTAnyl (DRIP) 1000 mcg/100mL 100 ML IV SCH (00:49)
[2017-06-12] MEDS: SOD CHLORIDE 0.9% 1,000 ML IV SCH ×3 (00:50→12:38)
[2017-06-12] MEDS: PHENYLephrine 80 MG in DEXTROSE 5% 242 ML IV SCH ×3 (02:57→11:42)
[2017-06-12 05:15] LABS: ABNORMAL IP MESSAGE 1; HEMATOCRIT 28.9 % (42.0-52.0); HEMOGLOBIN 8.4 g/dl (14.0-18.0); MEAN CORPUSCULAR HEMOGLOBIN 26.6 pg (29.0-33.0); MEAN CORPUSCULAR HGB CONC 29.1 g/dl (32.0-37.0); MEAN CORPUSCULAR VOLUME 91.5 fl (82.0-101.0); POSITIVE DIFF @See below; RED BLOOD COUNT 3.16 10^6/ul (4.70-6.10); RED CELL DISTRIBUTION WIDTH 20.4 % (11.5-14.5); WHITE BLOOD COUNT 11.6 10^3/ul (4.8-10.8)
[2017-06-12 05:23] LABS: PLATELET COUNT 192 10^3/UL (140-415)
[2017-06-12 05:49] LABS: CALCIUM 8.8 mg/dl (8.4-10.2); CREATININE 3.77 mg/dl (0.61-1.24); MAGNESIUM 1.9 mg/dl (1.7-2.5); POTASSIUM 5.6 mmol/L (3.5-5.1)
[2017-06-12] MEDS: PANTOPRAZOLE 40 MG INJ IV SCH (05:55)
[2017-06-12 07:30] LABS: AADO2 Arterial 604.1 mmHg (7.0-24.0); Arterial Base Excess -11.8 mmol/L (-3.0-3); Arterial COHb 0.4 % (0.0-3.0); Arterial Fraction of Oxyhgb 85.2 % (93.0-99.0); Arterial MetHb 0.6 % (0.0-1.5); Arterial Total Hemglobin 9.9 g/dl (12.0-18.0); MODE VENT - AC
--- NOTE | 2017-06-12 07:38 | PN ---
Date/Time of Note Date/Time of Note DATE: 06/12/17 TIME: 07:34 Assessment/Plan Lines/Catheters IV [facility]ter Type (from [facility] PICC Line Urinary Cath still in place: Yes Assessment/Plan Chief Complaint/Hosp Course 1. Ventilator dependent hypoxemic respiratory failure. Etiology is likely multifactorial secondary to lymphoma, pulmonary with possible lymphangitic spread, pulmonary interstitial edema Chest x-ray ABG reviewed Follow-up with pulmonary recommendations 2. Oligo/anuic acute kidney injury with previously normal baseline creatinine Etiology was secondary to ATN due to hemodynamics, septic AK I Patient initiated on dialysis yesterday We will attempt dialysis today if patient is hemodynamically stable Monitor closely Hyperkalemia Plan for dialysis on a 2 potassium bath Septic shock, etiology likely multifactorial pneumonia, possible UTI Patient is currently on pressors, continue IV fluids normal saline, continue broad-spectrum antibiotics Cultures have been reviewed Follow-up with infectious disease Interstitial pulmonary edema/volume overload, worsening Etiology may be secondary to lymphoma and questionable congestive heart failure , capillary leak Monitor I's and O's closely Follow-up with cardiology Plan for ultrafiltration with dialysis if hemodynamically stable large Newly diagnosed lymphoma, pulmonary and gastric Anticipate chemotherapy once clinically stable Monitor closely Hypernatremia Continue free water flushes . Anemia, No evidence of GI bleed Hemoglobin levels continue to decline, Blood transfusion as needed Follow-up with hematology Acute encephalopathy, etiology is toxic metabolic. No significant change Continue to monitor Gastrointestinal and deep venous thrombosis prophylaxis. Patient will be placed on Proton-pump inhibitors , Sequential leg squeezers Patient has very poor prognosis unlikely to survive CODE STATUS has been changed to DNR I spoke with the patient's daughter Jane as stated above informing of the critical nature of her uncle Please note spent over 40 minutes critical care time with this patient Problems: Subjective 24 Hr Interval Summary Free Text/Dictation Patient critically ill on multiple pressors On full ventilatory support Patient hemodialysis yesterday Very poor prognosis unlikely to survive Exam/Review of Systems Vital Signs Vitals Vital Signs Date Time Temp Pulse Resp B/P Pulse Ox O2 Delivery O2 Flow Rate FiO2 06/12/17 07:15 117 21 75/23 06/12/17 07:00 101.1 06/12/17 06:15 93 06/12/17 05:19 100 06/11/17 23:00 Mechanical Ventilator Intake and Output 06/11/17 06/11/17 06/12/17 15:00 23:00 07:00 Intake Total 1989.99 ml 2682.87 ml 1693 ml Output Total 60 ml 3500 ml 0 ml Balance 1929.99 ml -817.13 ml 1693 ml Exam HEENT: Head is normocephalic, NECK: Supple. HEART: Irregular LUNGS: Show diminished breath sounds at base. ABDOMEN: Soft, nontender to palpation without rebound or guarding. EXTREMITIES: Negative for clubbing, cyanosis. Positive edema DERMATOLOGIC: No rashes. MUSCULOSKELETAL: No joint effusions, NEUROLOGIC: No change in exam. Results Result Diagram: 06/12/170 06/12/170 Results 24 hrs Laboratory Tests Test 06/12/17 04:00 06/12/17 07:00 White Blood Count 11.6 #H Red Blood Count 3.16 L Hemoglobin 8.4 L Hematocrit 28.9 L Mean Corpuscular Volume 91.5 Mean Corpuscular Hemoglobin 26.6 L Mean Corpuscular Hemoglobin Concent 29.1 L Red Cell Distribution Width 20.4 H Platelet Count 192 # Mean Platelet Volume Neutrophils % Lymphocytes % Monocytes % Eosinophils % Basophils % Nucleated Red Blood Cells % 0.0 Neutrophils # Lymphocytes # Monocytes # Eosinophils # Basophils # Nucleated Red Blood Cells # Sodium Level 140 Potassium Level 5.6 H Chloride Level 101 Carbon Dioxide Level 26 Anion Gap 19 H Blood Urea Nitrogen 66 H Creatinine 3.77 H Glucose Level 83 # Calcium Level 8.8 Phosphorus Level 5.0 H Magnesium Level 1.9 Blood Gas Specimen Source Blood arterial Arterial Blood Date Drawn 06/12/2017 7:20:46 AM Arterial Blood pH (Temp corrected) 7.127 *L Arterial Blood pCO2 (Temp correct) 52.7 H Arterial Blood pO2 (Temp corrected) 56.2 L Arterial Blood HCO3 17.0 L Arterial Blood Base Excess -11.8 L Arterial Blood Oxygen Saturation 86.1 L Bakari Test N/A Arterial Blood Gas Puncture Site Right Brachial Arterial Blood Carboxyhemoglobin 0.4 Arterial Blood Methemoglobin 0.6 Blood Gas A-a O2 Differential 604.1 H Oxyhemoglobin Percent 85.2 L Total Hemoglobin 9.9 L Blood Gas Temperature 37.0 Blood Gas Respiration Rate 22.0 Blood Gas Actual Respiration Rate 24 Blood Gas Modality VENT - AC FiO2 100.0 Blood Gas Tidal Volume 500.0 Blood Gas Low PEEP Setting 5.0 Blood Gas Critical Value Read Back A BERITIROTTI Blood Gas Notified Whom Leora ACOSTA Blood Gas Notified Time 06/12/2017 7:30:31 AM Medications Medications Current Medications Heparin Sodium (Porcine) (Heparin (5000 Units/0.5 ml)) 5,000 unit BID SC Last administered on 06/08/17 08:48; Admin Dose 5,000 UNIT; Start 06/02/17 at 09:00 ; Status Future Hold Acetaminophen/ Aspirin/Caffeine (Excedrin) 2 tab Q4 PRN PO ELEVATED TEMPERATURE ; Start 06/02/17 at 03:30 Aspirin (Aspirin) 81 mg DAILY PO Last administered on 06/11/17 08:27; Admin Dose 81 MG; Start 06/02/17 at 09:00 Multivitamins/ Minerals (Theragran-M) 1 tab DAILY PO Last administered on 08:27; Admin Dose 1 TAB; Start 06/02/17 at 09:00 Al Hydrox/Mg Hydrox/Simethicone (Mag-Al Plus) 30 ml Q6H PRN PO GASTROINTESTINAL UPSET; Start 06/02/17 at 03:30 Nitroglycerin (Nitroglycerin (Sl Tab) 0.4 Mg) 1 tab Q5M PRN SL ANGINA; Start at 03:30 Acetaminophen/ Hydrocodone Bitart ([place] (5/325)) 1 tab Q6H PRN PO MODERATE PAIN LEVEL 4-6; Start 06/02/17 at 03:30 Ascorbic Acid (Vitamin C) 500 mg DAILY PO Last administered on 06/11/17 08:27 ; Admin Dose 500 MG; Start 06/02/17 at 09:00 Ondansetron HCl (Zofran Tab) 4 mg Q6H PRN PO NAUSEA AND/OR VOMITING; Start at 04:00 Collagenase 1 applic 1 applic DAILY TOP Last administered on 06/11/17 10:03; Admin Dose 1 APPLIC; Start 06/03/17 at 09:00 Fentanyl (Sublimaze) 100 ml @ 2.5 mls/hr TITRATE IV Last administered on 00:49; Admin Dose 10 MLS/HR; Start 06/04/17 at 18:30 Allopurinol (Zyloprim) 100 mg DAILY PO Last administered on 06/11/17 08:27; Admin Dose 100 MG; Start 06/04/17 at 20:00 IV Flush (NS 10 ml) 10 ml PRN PRN IV IV PROTOCOL; Start 06/05/17 at 20:00 Docusate Sodium (Colace Liquid Cup) 100 mg BID NGT Last administered on 20:46; Admin Dose 100 MG; Start 06/09/17 at 21:00 Acetaminophen 650 mg 650 mg Q6H PRN NGT PAIN AND OR ELEVATED TEMP Last administered on 06/11/17 07:41; Admin Dose 650 MG; Start 06/09/17 at 20:30 Sodium Chloride (NS) 1,000 ml @ 100 mls/hr Q10H IV Last administered on 00:50; Admin Dose 100 MLS/HR; Start 06/10/17 at 07:00 Pantoprazole 40 mg 40 mg BID@06,18 IV Last administered on 06/12/17 05:55; Admin Dose 40 MG; Start 06/10/17 at 18:00 Vancomycin HCl 1.5 gm/Sodium Chloride 250 ml @ 83.333 mls/ hr Q48H IVPB ; Start 06/12/17 at 18:00 Meropenem/Sodium Chloride 50 ml @ 100 mls/hr Q24H IVPB Last administered on 20:46; Admin Dose 100 MLS/HR; Start 06/11/17 at 21:00 Norepinephrine 32 mg/Dextrose 250 ml @ 0.46 mls/hr TITRATE IV Last administered on 06/11/17 21:23; Admin Dose 7.5 MLS/HR; Start 06/11/17 at 21:00 Phenylephrine HCl 80 mg/Dextrose 250 ml @ 18.75 mls/ hr TITRATE IV Last administered on 06/12/17 07:15; Admin Dose 56.25 MLS/HR; Start 06/11/17 at 21: 00 Vasopressin/ Dextrose (Vasostrict/D5W) 60 ml @ 1.2 mls/hr Q12H IV Last administered on 06/12/17 07:32; Admin Dose 2.4 MLS/HR; Start 06/12/17 at 08:00 ERASTO GONZALEZ DO Jun 12, 2017 07:38
--- NOTE | 2017-06-12 07:39 | CONS ---
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 I had a phone conversation with patient's agent for healthcare. She is the only decision maker given authority to make decisions on patient's behalf by patient some years prior. There is no paperwork to that effect here but patient 's niece says she will try to find it and forward the advanced directive, power of assistant county attorney. Patient's brother has dementia lives in [place], patient has 2 grandchildren who is given authority to Jane the niece and prefer to stay out of any decision-making capacity. I have had an extensive conversation with her she understands the critical nature of his medical problems. She has given permission to change CODE STATUS to DO NOT RESUSCITATE but we will continue current level of care. I do not expect him to live for the next 24 hours and we have conveyed this to Jane. Consultation Date/Type/Reason Admit Date/Time Jun 01, 2017 at 22:01 Date of Consultation: Jun 10, 2017 Hx of Present Illness 86-year-old gentleman admitted [facility] in respiratory distress. Patient has recent history of diagnosed being diagnosed with lymphoma with rapid deterioration in his respiratory course presented to [facility] placed on BiPAP. He was admitted to the intensive care unit respiratory failure was intubated, diagnosis of sepsis was made, pulmonary edema, acute renal failure, probable lymphangitic spread of lymphoma to lungs. Patient's agent is niece who lives in [facility]. Social History Smoking Status: Unknown if ever smoked Exam/Review of Systems Vital Signs Vitals Vital Signs Date Time Temp Pulse Resp B/P Pulse Ox O2 Delivery O2 Flow Rate FiO2 06/12/17 06:45 120 23 81/48 06/12/17 06:15 93 06/12/17 05:19 100 06/12/17 00:00 99.4 06/11/17 23:00 Mechanical Ventilator Intake and Output 706/11/17 06/12/17 15:00 23:00 07:00 Intake Total 1989.99 ml 2682.87 ml 1693 ml Output Total 60 ml 3500 ml 0 ml Balance 1929.99 ml -817.13 ml 1693 ml Exam Constitutional: non-verbal, other (Intubated) Eyes: nl conjunctiva Neck: non-tender, supple Respiratory: congested cough, crackles/rales, diminished breath sounds Cardiovascular: nl pulses, regular rate and rhythm Neurological: unresponsive Results Result Diagram: 06/12/17 0400 06/12/17 0400 Results 24 hrs Laboratory Tests Test 06/12/17 04:00 White Blood Count 11.6 #H Red Blood Count 3.16 L Hemoglobin 8.4 L Hematocrit 28.9 L Mean Corpuscular Volume 91.5 Mean Corpuscular Hemoglobin 26.6 L Mean Corpuscular Hemoglobin Concent 29.1 L Red Cell Distribution Width 20.4 H Platelet Count 192 # Mean Platelet Volume Neutrophils % Lymphocytes % Monocytes % Eosinophils % Basophils % Nucleated Red Blood Cells % 0.0 Neutrophils # Lymphocytes # Monocytes # Eosinophils # Basophils # Nucleated Red Blood Cells # Sodium Level 140 Potassium Level 5.6 H Chloride Level 101 Carbon Dioxide Level 26 Anion Gap 19 H Blood Urea Nitrogen 66 H Creatinine 3.77 H Glucose Level 83 # Calcium Level 8.8 Phosphorus Level 5.0 H Magnesium Level 1.9 Medications Medications Current Medications Heparin Sodium (Porcine) (Heparin (5000 Units/0.5 ml)) 5,000 unit BID SC Last administered on 06/08/17 08:48; Admin Dose 5,000 UNIT; Start 06/02/17 at 09:00 ; Status Future Hold Acetaminophen/ Aspirin/Caffeine (Excedrin) 2 tab Q4 PRN PO ELEVATED TEMPERATURE ; Start 06/02/17 at 03:30 Aspirin (Aspirin) 81 mg DAILY PO Last administered on 06/11/17 08:27; Admin Dose 81 MG; Start 06/02/17 at 09:00 Multivitamins/ Minerals (Theragran-M) 1 tab DAILY PO Last administered on 08:27; Admin Dose 1 TAB; Start 06/02/17 at 09:00 Al Hydrox/Mg Hydrox/Simethicone (Mag-Al Plus) 30 ml Q6H PRN PO GASTROINTESTINAL UPSET; Start 06/02/17 at 03:30 Nitroglycerin (Nitroglycerin (Sl Tab) 0.4 Mg) 1 tab Q5M PRN SL ANGINA; Start at 03:30 Acetaminophen/ Hydrocodone Bitart ([place] (5/325)) 1 tab Q6H PRN PO MODERATE PAIN LEVEL 4-6; Start 06/02/17 at 03:30 Ascorbic Acid (Vitamin C) 500 mg DAILY PO Last administered on 06/11/17 08:27 ; Admin Dose 500 MG; Start 06/02/17 at 09:00 Ondansetron HCl (Zofran Tab) 4 mg Q6H PRN PO NAUSEA AND/OR VOMITING; Start at 04:00 Collagenase 1 applic 1 applic DAILY TOP Last administered on 06/11/17 10:03; Admin Dose 1 APPLIC; Start 06/03/17 at 09:00 Fentanyl (Sublimaze) 100 ml @ 2.5 mls/hr TITRATE IV Last administered on 00:49; Admin Dose 10 MLS/HR; Start 06/04/17 at 18:30 Allopurinol (Zyloprim) 100 mg DAILY PO Last administered on 06/11/17 08:27; Admin Dose 100 MG; Start 06/04/17 at 20:00 IV Flush (NS 10 ml) 10 ml PRN PRN IV IV PROTOCOL; Start 06/05/17 at 20:00 Docusate Sodium (Colace Liquid Cup) 100 mg BID NGT Last administered on 20:46; Admin Dose 100 MG; Start 06/09/17 at 21:00 Acetaminophen 650 mg 650 mg Q6H PRN NGT PAIN AND OR ELEVATED TEMP Last administered on 06/11/17 07:41; Admin Dose 650 MG; Start 06/09/17 at 20:30 Sodium Chloride (NS) 1,000 ml @ 100 mls/hr Q10H IV Last administered on 00:50; Admin Dose 100 MLS/HR; Start 06/10/17 at 07:00 Pantoprazole 40 mg 40 mg BID@06,18 IV Last administered on 06/12/17 05:55; Admin Dose 40 MG; Start 06/10/17 at 18:00 Vancomycin HCl 1.5 gm/Sodium Chloride 250 ml @ 83.333 mls/ hr Q48H IVPB ; Start 06/12/17 at 18:00 Meropenem/Sodium Chloride 50 ml @ 100 mls/hr Q24H IVPB Last administered on 20:46; Admin Dose 100 MLS/HR; Start 06/11/17 at 21:00 Norepinephrine 32 mg/Dextrose 250 ml @ 0.46 mls/hr TITRATE IV Last administered on 06/11/17 21:23; Admin Dose 7.5 MLS/HR; Start 06/11/17 at 21:00 Phenylephrine HCl 80 mg/Dextrose 250 ml @ 18.75 mls/ hr TITRATE IV Last administered on 06/12/17 07:15; Admin Dose 56.25 MLS/HR; Start 06/11/17 at 21: 00 Vasopressin/ Dextrose (Vasostrict/D5W) 60 ml @ 1.2 mls/hr Q12H IV ; Start 06/12 at 08:00 SHAMIR BARON Jun 12, 2017 07:39
--- NOTE | 2017-06-12 07:41 | CONS ---
Date/Time of Note Date/Time of Note DATE: 06/12/17 TIME: 07:39 Assessment/Plan Assessment/Plan Chief Complaint/Hosp Course 86-year-old gentleman admitted [facility] in respiratory distress. Patient has recent history of diagnosed being diagnosed with lymphoma with rapid deterioration in his respiratory course presented to [facility] placed on BiPAP. He was admitted to the intensive care unit respiratory failure was intubated, diagnosis of sepsis was made, pulmonary edema, acute renal failure, probable lymphangitic spread of lymphoma to lungs. Patient's agent is niece who lives in [facility]. Problems: Additional Assessment/Plan I given information to patient's niece Jane that Mr. Olson will within the next 24 hours and should expect a phone call unfortunately. She will contact patient's other niece who lives in the [facility] however I made it clear that he will not live very long. Consultation Date/Type/Reason Admit Date/Time Jun 01, 2017 at 22:01 Initial Consult Date 06/02/17 Type of Consultation: ID Referring Provider: ERASTO GONZALEZ DO Exam/Review of Systems Vital Signs Vitals Vital Signs Date Time Temp Pulse Resp B/P Pulse Ox O2 Delivery O2 Flow Rate FiO2 06/12/17 06:45 120 23 81/48 06/12/17 06:15 93 06/12/17 05:19 100 06/12/17 00:00 99.4 06/11/17 23:00 Mechanical Ventilator Intake and Output 06/11/17 06/11/17 06/12/17 15:00 23:00 07:00 Intake Total 1989.99 ml 2682.87 ml 1693 ml Output Total 60 ml 3500 ml 0 ml Balance 1929.99 ml -817.13 ml 1693 ml Results Result Diagram: 06/12/17 0400 06/12/17 0400 Results 24 hrs Laboratory Tests Test 06/12/17 04:00 06/12/17 07:00 White Blood Count 11.6 #H Red Blood Count 3.16 L Hemoglobin 8.4 L Hematocrit 28.9 L Mean Corpuscular Volume 91.5 Mean Corpuscular Hemoglobin 26.6 L Mean Corpuscular Hemoglobin Concent 29.1 L Red Cell Distribution Width 20.4 H Platelet Count 192 # Mean Platelet Volume Neutrophils % Lymphocytes % Monocytes % Eosinophils % Basophils % Nucleated Red Blood Cells % 0.0 Neutrophils # Lymphocytes # Monocytes # Eosinophils # Basophils # Nucleated Red Blood Cells # Sodium Level 140 Potassium Level 5.6 H Chloride Level 101 Carbon Dioxide Level 26 Anion Gap 19 H Blood Urea Nitrogen 66 H Creatinine 3.77 H Glucose Level 83 # Calcium Level 8.8 Phosphorus Level 5.0 H Magnesium Level 1.9 Blood Gas Specimen Source Blood arterial Arterial Blood Date Drawn 06/12/2017 7:20:46 AM Arterial Blood pH (Temp corrected) 7.127 *L Arterial Blood pCO2 (Temp correct) 52.7 H Arterial Blood pO2 (Temp corrected) 56.2 L Arterial Blood HCO3 17.0 L Arterial Blood Base Excess -11.8 L Arterial Blood Oxygen Saturation 86.1 L Bakari Test N/A Arterial Blood Gas Puncture Site Right Brachial Arterial Blood Carboxyhemoglobin 0.4 Arterial Blood Methemoglobin 0.6 Blood Gas A-a O2 Differential 604.1 H Oxyhemoglobin Percent 85.2 L Total Hemoglobin 9.9 L Blood Gas Temperature 37.0 Blood Gas Respiration Rate 22.0 Blood Gas Actual Respiration Rate 24 Blood Gas Modality VENT - AC FiO2 100.0 Blood Gas Tidal Volume 500.0 Blood Gas Low PEEP Setting 5.0 Blood Gas Critical Value Read Back A BERITIROTTI Blood Gas Notified Whom Leora ACOSTA Blood Gas Notified Time 06/12/2017 7:30:31 AM Medications Medications Current Medications Heparin Sodium (Porcine) (Heparin (5000 Units/0.5 ml)) 5,000 unit BID SC Last administered on 06/08/17 08:48; Admin Dose 5,000 UNIT; Start 06/02/17 at 09:00 ; Status Future Hold Acetaminophen/ Aspirin/Caffeine (Excedrin) 2 tab Q4 PRN PO ELEVATED TEMPERATURE ; Start 06/02/17 at 03:30 Aspirin (Aspirin) 81 mg DAILY PO Last administered on 06/11/17 08:27; Admin Dose 81 MG; Start 06/02/17 at 09:00 Multivitamins/ Minerals (Theragran-M) 1 tab DAILY PO Last administered on 08:27; Admin Dose 1 TAB; Start 06/02/17 at 09:00 Al Hydrox/Mg Hydrox/Simethicone (Mag-Al Plus) 30 ml Q6H PRN PO GASTROINTESTINAL UPSET; Start 06/02/17 at 03:30 Nitroglycerin (Nitroglycerin (Sl Tab) 0.4 Mg) 1 tab Q5M PRN SL ANGINA; Start at 03:30 Acetaminophen/ Hydrocodone Bitart ([place] (5/325)) 1 tab Q6H PRN PO MODERATE PAIN LEVEL 4-6; Start 06/02/17 at 03:30 Ascorbic Acid (Vitamin C) 500 mg DAILY PO Last administered on 06/11/17 08:27 ; Admin Dose 500 MG; Start 06/02/17 at 09:00 Ondansetron HCl (Zofran Tab) 4 mg Q6H PRN PO NAUSEA AND/OR VOMITING; Start at 04:00 Collagenase 1 applic 1 applic DAILY TOP Last administered on 06/11/17 10:03; Admin Dose 1 APPLIC; Start 06/03/17 at 09:00 Fentanyl (Sublimaze) 100 ml @ 2.5 mls/hr TITRATE IV Last administered on 00:49; Admin Dose 10 MLS/HR; Start 06/04/17 at 18:30 Allopurinol (Zyloprim) 100 mg DAILY PO Last administered on 06/11/17 08:27; Admin Dose 100 MG; Start 06/04/17 at 20:00 IV Flush (NS 10 ml) 10 ml PRN PRN IV IV PROTOCOL; Start 06/05/17 at 20:00 Docusate Sodium (Colace Liquid Cup) 100 mg BID NGT Last administered on 20:46; Admin Dose 100 MG; Start 06/09/17 at 21:00 Acetaminophen 650 mg 650 mg Q6H PRN NGT PAIN AND OR ELEVATED TEMP Last administered on 06/11/17 07:41; Admin Dose 650 MG; Start 06/09/17 at 20:30 Sodium Chloride (NS) 1,000 ml @ 100 mls/hr Q10H IV Last administered on 00:50; Admin Dose 100 MLS/HR; Start 06/10/17 at 07:00 Pantoprazole 40 mg 40 mg BID@06,18 IV Last administered on 06/12/17 05:55; Admin Dose 40 MG; Start 06/10/17 at 18:00 Vancomycin HCl 1.5 gm/Sodium Chloride 250 ml @ 83.333 mls/ hr Q48H IVPB ; Start 06/12/17 at 18:00 Meropenem/Sodium Chloride 50 ml @ 100 mls/hr Q24H IVPB Last administered on 20:46; Admin Dose 100 MLS/HR; Start 06/11/17 at 21:00 Norepinephrine 32 mg/Dextrose 250 ml @ 0.46 mls/hr TITRATE IV Last administered on 06/11/17 21:23; Admin Dose 7.5 MLS/HR; Start 06/11/17 at 21:00 Phenylephrine HCl 80 mg/Dextrose 250 ml @ 18.75 mls/ hr TITRATE IV Last administered on 06/12/17 07:15; Admin Dose 56.25 MLS/HR; Start 06/11/17 at 21: 00 Vasopressin/ Dextrose (Vasostrict/D5W) 60 ml @ 1.2 mls/hr Q12H IV ; Start 06/12 at 08:00 SHAMIR BARON Jun 12, 2017 07:41
[2017-06-12] MEDS ORDERED: VASOPRESSIN 60 UNIT in DEXTROSE 5% 57 ML IV SCH (08:00)
[2017-06-12] MEDS: ASCORBIC ACID 500 MG TAB PO SCH (08:01)
[2017-06-12] MEDS: DOCUSATE SODIUM 10 MG/ML (10ML CUP) NGT SCH (08:01)
[2017-06-12] MEDS: MULTIVITAMINS/MINERALS TAB PO SCH (08:01)
[2017-06-12] MEDS: ALLOPURINOL 100 MG TAB PO SCH (08:02)
[2017-06-12 08:04] LABS: ANISOCYTOSIS 1+ (0-0); BASOPHILS % (M) 1 % (0-2); GIANT THROMBO% (M) 21 % (0-0); HYPOCHROMASIA 1+ (0-0); MICROCYTOSIS 1+ (0-0); MONOCYTES % (M) 2 % (0-11); PLATELET ESTIMATE NORMAL; POIKILOCYTOSIS 1+ (0-0); POLYCHROMASIA 3+ (0-0)
[2017-06-12] MEDS: ACETAMINOPHEN 650MG/20.3ML CUP NGT PRN (08:05)
[2017-06-12] MEDS: COLLAGENASE 30 GM TUBE TOP SCH (08:05)
[2017-06-12] MEDS: ASPIRIN 81 MG TAB PO SCH (08:05)
--- NOTE | 2017-06-12 10:41 | CONS ---
Date/Time of Note Date/Time of Note DATE: 06/12/17 TIME: 10:38 Assessment/Plan Assessment/Plan Additional Assessment/Plan Ventilator setting; AC of 22, tidal volume 550, PEEP of 5, 100% FiO2. Patient currently on Levophed 30 mics per minute, phenylephrine 300 mics per minute, vasopressin .04 U/min. Assessment and recommendations; 1. Patient admitted for hypercapnic respiratory failure then developed acute decompensation requiring intubation. 2. History of extensive lymphoma with pulmonary involvement, superimposed pneumonia difficult to rule out. 3. Acute renal failure, patient underwent hemodialysis yesterday 4. Thrombocytopenia. 5. Poor mental status. 6. Profound shock. Continue current supportive care. Prognosis is very poor. Patient's family has appropriately signed a DNR form. 35 minutes of critical care time was spent evaluating the patient. Consultation Date/Type/Reason Admit Date/Time Jun 01, 2017 at 22:01 Initial Consult Date 06/02/17 Type of Consultation: Pulmonary/critical care Referring Provider: ERASTO GONZALEZ DO 24 HR Interval Summary Free Text/Dictation Patient condition is critical. Still on full ventilator support. Currently on multiple pressor agents for blood pressure maintenance. General exam; elderly male, on ventilator via endotracheal tube. Unresponsive. Exam/Review of Systems Vital Signs Vitals Vital Signs Date Time Temp Pulse Resp B/P Pulse Ox O2 Delivery O2 Flow Rate FiO2 06/12/17 10:30 92 28 72/51 Mechanical Ventilator 06/12/17 08:00 99.3 06/12/17 07:56 100 06/12/17 06:15 93 Intake and Output 06/11/17 06/11/17 06/12/17 15:00 23:00 07:00 Intake Total 1989.99 ml 2682.87 ml 1863.31 ml Output Total 60 ml 3500 ml 0 ml Balance 1929.99 ml -817.13 ml 1863.31 ml Exam HEENT exam; supple neck, positive JVD. No lymphadenopathy. Midline trachea. No thyromegaly. Orally intubated. Chest exam; diminished breath sounds. S1-S2 audible, no murmurs. Regular rhythm. Abdomen exam; soft, no organomegaly. Bowel sounds are absent. Extremity exam; trace edema. Next SPIRITUAL COUNSELOR exam; patient is unresponsive. Results Result Diagram: 06/12/17 0400 06/12/17 0400 Results 24 hrs Laboratory Tests Test 06/12/17 04:00 06/12/17 07:00 White Blood Count 11.6 #H Red Blood Count 3.16 L Hemoglobin 8.4 L Hematocrit 28.9 L Mean Corpuscular Volume 91.5 Mean Corpuscular Hemoglobin 26.6 L Mean Corpuscular Hemoglobin Concent 29.1 L Red Cell Distribution Width 20.4 H Platelet Count 192 # Mean Platelet Volume Neutrophils % Segmented Neutrophils % (Manual) 71 Band Neutrophils % (Manual) 21 H Lymphocytes % Lymphocytes % (Manual) 5 L Monocytes % Monocytes % (Manual) 2 Eosinophils % Basophils % Basophils % (Manual) 1 Nucleated Red Blood Cells % 0.0 Neutrophils # Neutrophils # (Manual) 8.5 H Band Neutrophils # 2.4 H Absolute Lymphocytes (Manual) 0.5 L Lymphocytes # Monocytes # Absolute Monocytes (Manual) 0.2 L Eosinophils # Basophils # Basophils # (Manual) 0.1 H Nucleated Red Blood Cells # Smudge Cells % 3 H Thrombocytosis 21 H Platelet Estimate NORMAL Polychromasia 3+ Hypochromasia 1+ Poikilocytosis 1+ Anisocytosis 1+ Microcytosis 1+ Sodium Level 140 Potassium Level 5.6 H Chloride Level 101 Carbon Dioxide Level 26 Anion Gap 19 H Blood Urea Nitrogen 66 H Creatinine 3.77 H Glucose Level 83 # Calcium Level 8.8 Phosphorus Level 5.0 H Magnesium Level 1.9 Blood Gas Specimen Source Blood arterial Arterial Blood Date Drawn 06/12/2017 7:20:46 AM Arterial Blood pH (Temp corrected) 7.127 *L Arterial Blood pCO2 (Temp correct) 52.7 H Arterial Blood pO2 (Temp corrected) 56.2 L Arterial Blood HCO3 17.0 L Arterial Blood Base Excess -11.8 L Arterial Blood Oxygen Saturation 86.1 L Bakari Test N/A Arterial Blood Gas Puncture Site Right Brachial Arterial Blood Carboxyhemoglobin 0.4 Arterial Blood Methemoglobin 0.6 Blood Gas A-a O2 Differential 604.1 H Oxyhemoglobin Percent 85.2 L Total Hemoglobin 9.9 L Blood Gas Temperature 37.0 Blood Gas Respiration Rate 22.0 Blood Gas Actual Respiration Rate 24 Blood Gas Modality VENT - AC FiO2 100.0 Blood Gas Tidal Volume 500.0 Blood Gas Low PEEP Setting 5.0 Blood Gas Critical Value Read Back A MYITIROTBREANA Blood Gas Notified Adarsh ACOSTA Blood Gas Notified Time 06/12/2017 7:30:31 AM Medications Medications Current Medications Heparin Sodium (Porcine) (Heparin (5000 Units/0.5 ml)) 5,000 unit BID SC Last administered on 06/08/17 08:48; Admin Dose 5,000 UNIT; Start 06/02/17 at 09:00 ; Status Future Hold Acetaminophen/ Aspirin/Caffeine (Excedrin) 2 tab Q4 PRN PO ELEVATED TEMPERATURE ; Start 06/02/17 at 03:30 Aspirin (Aspirin) 81 mg DAILY PO Last administered on 06/12/17 08:05; Admin Dose 81 MG; Start 06/02/17 at 09:00 Multivitamins/ Minerals (Theragran-M) 1 tab DAILY PO Last administered on 08:27; Admin Dose 1 TAB; Start 06/02/17 at 09:00 Al Hydrox/Mg Hydrox/Simethicone (Mag-Al Plus) 30 ml Q6H PRN PO GASTROINTESTINAL UPSET; Start 06/02/17 at 03:30 Nitroglycerin (Nitroglycerin (Sl Tab) 0.4 Mg) 1 tab Q5M PRN SL ANGINA; Start at 03:30 Acetaminophen/ Hydrocodone Bitart ([place] (5/325)) 1 tab Q6H PRN PO MODERATE PAIN LEVEL 4-6; Start 06/02/17 at 03:30 Ascorbic Acid (Vitamin C) 500 mg DAILY PO Last administered on 06/11/17 08:27 ; Admin Dose 500 MG; Start 06/02/17 at 09:00 Ondansetron HCl (Zofran Tab) 4 mg Q6H PRN PO NAUSEA AND/OR VOMITING; Start at 04:00 Collagenase 1 applic 1 applic DAILY TOP Last administered on 06/12/17 08:05; Admin Dose 1 APPLIC; Start 06/03/17 at 09:00 Fentanyl (Sublimaze) 100 ml @ 2.5 mls/hr TITRATE IV Last administered on 00:49; Admin Dose 10 MLS/HR; Start 06/04/17 at 18:30 Allopurinol (Zyloprim) 100 mg DAILY PO Last administered on 06/11/17 08:27; Admin Dose 100 MG; Start 06/04/17 at 20:00 IV Flush (NS 10 ml) 10 ml PRN PRN IV IV PROTOCOL; Start 06/05/17 at 20:00 Docusate Sodium (Colace Liquid Cup) 100 mg BID NGT Last administered on 20:46; Admin Dose 100 MG; Start 06/09/17 at 21:00 Acetaminophen 650 mg 650 mg Q6H PRN NGT PAIN AND OR ELEVATED TEMP Last administered on 06/12/17 08:05; Admin Dose 650 MG; Start 06/09/17 at 20:30 Sodium Chloride (NS) 1,000 ml @ 100 mls/hr Q10H IV Last administered on 00:50; Admin Dose 100 MLS/HR; Start 06/10/17 at 07:00 Pantoprazole 40 mg 40 mg BID@06,18 IV Last administered on 06/12/17 05:55; Admin Dose 40 MG; Start 06/10/17 at 18:00 Vancomycin HCl 1.5 gm/Sodium Chloride 250 ml @ 83.333 mls/ hr Q48H IVPB ; Start 06/12/17 at 18:00 Meropenem/Sodium Chloride 50 ml @ 100 mls/hr Q24H IVPB Last administered on 20:46; Admin Dose 100 MLS/HR; Start 06/11/17 at 21:00 Norepinephrine 32 mg/Dextrose 250 ml @ 0.46 mls/hr TITRATE IV Last administered on 06/11/17 21:23; Admin Dose 7.5 MLS/HR; Start 06/11/17 at 21:00 Phenylephrine HCl 80 mg/Dextrose 250 ml @ 18.75 mls/ hr TITRATE IV Last administered on 06/12/17 07:15; Admin Dose 56.25 MLS/HR; Start 06/11/17 at 21: 00 Vasopressin/ Dextrose (Vasostrict/D5W) 60 ml @ 1.2 mls/hr Q12H IV Last administered on 06/12/17 07:32; Admin Dose 2.4 MLS/HR; Start 06/12/17 at 08:00 CARMENCITA JAMESON Jun 12, 2017 10:41
--- NOTE | 2017-06-12 12:25 | CONS ---
Date/Time of Note Date/Time of Note DATE: 06/12/17 TIME: 12:21 Assessment/Plan Assessment/Plan Chief Complaint/Hosp Course ID PROGRESS NOTE TOTAL ABX DAY #12 => Vanco IV #3 + Merrem #3 CEFEPIME#9 + Azith #5 + Cancidas #5 => DC 06/10 24H INTERVAL SUMMARY * Severe septic shock w/multi-organ failure, poor prognosis despite ABX, code changed to DNR per family * Levophed 30 mics per minute, phenylephrine 300 mics per minute, vasopressin .04 U/min. * Ventilator setting; AC of 22, tidal volume 550, PEEP of 5, 100% FiO2. * Severe sepsis w/hypotension = multifactorial with lactic acidosis persisting @ 2.2 * Per notes: Acute respiratory failure secondary to lymphoma, pulmonary with possible lymphangitic spread, pulmonary interstitial edema PHYSICAL EXAMINATION: GENERAL: VSS,NAD,Awake, calm HEENT: NGT->Secure / ETT secure NECK: Supple, trach-> midline CHEST: Equal chest rise bilaterally, Vented w/scattered rhonchi HEART: Pulse RRR ABDOMEN: Soft EXTREMITIES: Warm, no edema SKIN: Warm, dry ID ASSESSMENT: 86 yo Obese M w/newly Dx LYMPHOMA admitted with: 1. Septic shock, on pressors, w/lactic acidosis 2.4, mild leukocytosis, tachycardia on admission => due to # 2. Acute respiratory failure/pulmonary edema * Per notes: Acute respiratory failure secondary to lymphoma, pulmonary with possible lymphangitic spread, pulmonary interstitial edema * 06/09/17 CXR: . Extensive interstitial opacities are unchanged which may represent pulmonary edema and/or chronic lung changes. 3. Acute CHF as evidenced by pulmonary edema and elevated BNP on admission 4. Bilateral pneumonia-> RESPIRATORY CULTURE Organism 1 PSAR Organism 2 YEAST 5. Yeast UTI w/pyuria 06/03/17 * Mixed GP Organisms on admission => DDx includes early UTI vs Prostatitis * FC Changed 06/06/17 due to yeast 6. Acute renal failure 7. Acute encephalopathy 8. GERD 9. Buttock decub (-)MRSA NARES INVASIVES: * PIV, ETT, FC, NGT ABX ALLERGIES: KNDA CURRENT ABX: #12 => Vanco IV #3 + Merrem #3 CEFEPIME#9 + Azith #5 + Cancidas #5 => DC 06/10 ID RECOMMENDATIONS: => Continue plan as below: 1. Worsening septic shock despite ABX coverage broadened due to worsening clinical status -> Needs HCAP VAP coverage w/Vanco + Merrem 2. Poor prognosis - unstable for chemo tx at this time - age 86 - palliative care appropriate . . . . Problems: Consultation Date/Type/Reason Admit Date/Time Jun 01, 2017 at 22:01 Initial Consult Date 06/02/17 Type of Consultation: ID Referring Provider: ERASTO GONZALEZ DO Exam/Review of Systems Vital Signs Vitals Vital Signs Date Time Temp Pulse Resp B/P Pulse Ox O2 Delivery O2 Flow Rate FiO2 06/12/17 11:45 108 30 67/48 Mechanical Ventilator 06/12/17 11:00 99.7 06/12/17 07:56 100 06/12/17 06:15 93 Intake and Output 06/11/17 06/11/17 06/12/17 15:00 23:00 07:00 Intake Total 1989.99 ml 2682.87 ml 1863.31 ml Output Total 60 ml 3500 ml 0 ml Balance 1929.99 ml -817.13 ml 1863.31 ml Results Result Diagram: 06/12/17 0400 06/12/17 0400 Results 24 hrs Laboratory Tests Test 06/12/17 04:00 06/12/17 07:00 White Blood Count 11.6 #H Red Blood Count 3.16 L Hemoglobin 8.4 L Hematocrit 28.9 L Mean Corpuscular Volume 91.5 Mean Corpuscular Hemoglobin 26.6 L Mean Corpuscular Hemoglobin Concent 29.1 L Red Cell Distribution Width 20.4 H Platelet Count 192 # Mean Platelet Volume Neutrophils % Segmented Neutrophils % (Manual) 71 Band Neutrophils % (Manual) 21 H Lymphocytes % Lymphocytes % (Manual) 5 L Monocytes % Monocytes % (Manual) 2 Eosinophils % Basophils % Basophils % (Manual) 1 Nucleated Red Blood Cells % 0.0 Neutrophils # Neutrophils # (Manual) 8.5 H Band Neutrophils # 2.4 H Absolute Lymphocytes (Manual) 0.5 L Lymphocytes # Monocytes # Absolute Monocytes (Manual) 0.2 L Eosinophils # Basophils # Basophils # (Manual) 0.1 H Nucleated Red Blood Cells # Smudge Cells % 3 H Thrombocytosis 21 H Platelet Estimate NORMAL Polychromasia 3+ Hypochromasia 1+ Poikilocytosis 1+ Anisocytosis 1+ Microcytosis 1+ Sodium Level 140 Potassium Level 5.6 H Chloride Level 101 Carbon Dioxide Level 26 Anion Gap 19 H Blood Urea Nitrogen 66 H Creatinine 3.77 H Glucose Level 83 # Calcium Level 8.8 Phosphorus Level 5.0 H Magnesium Level 1.9 Blood Gas Specimen Source Blood arterial Arterial Blood Date Drawn 06/12/2017 7:20:46 AM Arterial Blood pH (Temp corrected) 7.127 *L Arterial Blood pCO2 (Temp correct) 52.7 H Arterial Blood pO2 (Temp corrected) 56.2 L Arterial Blood HCO3 17.0 L Arterial Blood Base Excess -11.8 L Arterial Blood Oxygen Saturation 86.1 L Bakari Test N/A Arterial Blood Gas Puncture Site Right Brachial Arterial Blood Carboxyhemoglobin 0.4 Arterial Blood Methemoglobin 0.6 Blood Gas A-a O2 Differential 604.1 H Oxyhemoglobin Percent 85.2 L Total Hemoglobin 9.9 L Blood Gas Temperature 37.0 Blood Gas Respiration Rate 22.0 Blood Gas Actual Respiration Rate 24 Blood Gas Modality VENT - AC FiO2 100.0 Blood Gas Tidal Volume 500.0 Blood Gas Low PEEP Setting 5.0 Blood Gas Critical Value Read Back A BERITIROTTI Blood Gas Notified Whom Leora ACOSTA Blood Gas Notified Time 06/12/2017 7:30:31 AM Medications Medications Current Medications Heparin Sodium (Porcine) (Heparin (5000 Units/0.5 ml)) 5,000 unit BID SC Last administered on 06/08/17 08:48; Admin Dose 5,000 UNIT; Start 06/02/17 at 09:00 ; Status Future Hold Acetaminophen/ Aspirin/Caffeine (Excedrin) 2 tab Q4 PRN PO ELEVATED TEMPERATURE ; Start 06/02/17 at 03:30 Aspirin (Aspirin) 81 mg DAILY PO Last administered on 06/12/17 08:05; Admin Dose 81 MG; Start 06/02/17 at 09:00 Multivitamins/ Minerals (Theragran-M) 1 tab DAILY PO Last administered on 08:27; Admin Dose 1 TAB; Start 06/02/17 at 09:00 Al Hydrox/Mg Hydrox/Simethicone (Mag-Al Plus) 30 ml Q6H PRN PO GASTROINTESTINAL UPSET; Start 06/02/17 at 03:30 Nitroglycerin (Nitroglycerin (Sl Tab) 0.4 Mg) 1 tab Q5M PRN SL ANGINA; Start at 03:30 Acetaminophen/ Hydrocodone Bitart ([place] (5/325)) 1 tab Q6H PRN PO MODERATE PAIN LEVEL 4-6; Start 06/02/17 at 03:30 Ascorbic Acid (Vitamin C) 500 mg DAILY PO Last administered on 06/11/17 08:27 ; Admin Dose 500 MG; Start 06/02/17 at 09:00 Ondansetron HCl (Zofran Tab) 4 mg Q6H PRN PO NAUSEA AND/OR VOMITING; Start at 04:00 Collagenase 1 applic 1 applic DAILY TOP Last administered on 06/12/17 08:05; Admin Dose 1 APPLIC; Start 06/03/17 at 09:00 Fentanyl (Sublimaze) 100 ml @ 2.5 mls/hr TITRATE IV Last administered on 00:49; Admin Dose 10 MLS/HR; Start 06/04/17 at 18:30 Allopurinol (Zyloprim) 100 mg DAILY PO Last administered on 06/11/17 08:27; Admin Dose 100 MG; Start 06/04/17 at 20:00 IV Flush (NS 10 ml) 10 ml PRN PRN IV IV PROTOCOL; Start 06/05/17 at 20:00 Docusate Sodium (Colace Liquid Cup) 100 mg BID NGT Last administered on 20:46; Admin Dose 100 MG; Start 06/09/17 at 21:00 Acetaminophen 650 mg 650 mg Q6H PRN NGT PAIN AND OR ELEVATED TEMP Last administered on 06/12/17 08:05; Admin Dose 650 MG; Start 06/09/17 at 20:30 Sodium Chloride (NS) 1,000 ml @ 100 mls/hr Q10H IV Last administered on 00:50; Admin Dose 100 MLS/HR; Start 06/10/17 at 07:00 Pantoprazole 40 mg 40 mg BID@06,18 IV Last administered on 06/12/17 05:55; Admin Dose 40 MG; Start 06/10/17 at 18:00 Vancomycin HCl 1.5 gm/Sodium Chloride 250 ml @ 83.333 mls/ hr Q48H IVPB ; Start 06/12/17 at 18:00 Meropenem/Sodium Chloride 50 ml @ 100 mls/hr Q24H IVPB Last administered on 20:46; Admin Dose 100 MLS/HR; Start 06/11/17 at 21:00 Norepinephrine 32 mg/Dextrose 250 ml @ 0.46 mls/hr TITRATE IV Last administered on 06/11/17 21:23; Admin Dose 7.5 MLS/HR; Start 06/11/17 at 21:00 Phenylephrine HCl 80 mg/Dextrose 250 ml @ 18.75 mls/ hr TITRATE IV Last administered on 06/12/17 11:42; Admin Dose 56.25 MLS/HR; Start 06/11/17 at 21: 00 Vasopressin/ Dextrose (Vasostrict/D5W) 60 ml @ 1.2 mls/hr Q12H IV Last administered on 06/12/17 07:32; Admin Dose 2.4 MLS/HR; Start 06/12/17 at 08:00 LORETTA BUCIO NP Jun 12, 2017 12:25
--- NOTE | 2017-06-12 17:14 | CONS ---
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 + COMPONENT ACD Evaluation reveals a faint restricted band (M-spike) migrating in the gamma globulin region. - CAN BE SEEN IN NHL TRANSFUSE PRBC NEEDED INCREASED URIC ACID ALLOPURINOL, RENAL DOSE NO EVIDENCE OF TUMOR LYSIS S-M Acute hypoxemic respiratory failure. Etiology is likely multifactorial secondary to lymphoma, pulmonary with possible lymphangitic spread, congestive heart failure exacerbation. The patient currently is on BiPAP, receiving Bumex drip. pulmonary F-UP cardiology F-UP PER RN- WILL TRY WEANING TODAY Volume overload. Etiology may be multifactorial secondary to lymphoma and questionable congestive heart failure. Patient's chest x-ray shows pulmonary congestion. The patient had a recent cardiac cath which was negative, per patient's niece. Plan is continue diuretic regimen, monitor I and Os closely. Hypernatremia. Patient will be placed on D5W. Will monitor closely. Acute encephalopathy, etiology is toxic metabolic. We will continue to monitor. Gastrointestinal and deep venous thrombosis prophylaxis. Patient will be placed on Proton-pump inhibitors and heparin. ( IF NO EVIDENCE OF BLEEDING) Problems: Consultation Date/Type/Reason Admit Date/Time Jun 01, 2017 at 22:01 Initial Consult Date 06/02/17 Type of Consultation: hemeon Referring Provider: ERASTO GONZALEZ DO 24 HR Interval Summary Free Text/Dictation all noted Patient condition is critical. Still on full ventilator support. Currently on multiple pressor agents for blood pressure maintenance. Exam/Review of Systems Vital Signs Vitals Vital Signs Date Time Temp Pulse Resp B/P Pulse Ox O2 Delivery O2 Flow Rate FiO2 06/12/17 16:45 0 22 Mechanical Ventilator 06/12/17 11:00 99.7 06/12/17 07:56 100 06/12/17 06:15 93 Intake and Output 06/11/17 06/11/17 06/12/17 15:00 23:00 07:00 Intake Total 1989.99 ml 2682.87 ml 1863.31 ml Output Total 60 ml 3500 ml 0 ml Balance 1929.99 ml -817.13 ml 1863.31 ml Exam GENERAL: Elderly gentleman, intubated on mechanical ventilation, opens eyes , not agitated. Orally intubated. VITAL SIGNS: see below. HEENT: Pupils equal, round, and reactive to light. CARDIAC: S1, S2, 1/6 systolic ejection murmur CHEST: Diminished air entry bilaterally. ABDOMEN: Mildly distended. Bowel sounds present no guarding or rebound EXTREMITIES: No cyanosis, clubbing edema +1 NEUROLOGIC: Generalized weakness Results Result Diagram: 06/12/17 0400 06/12/17 0400 Results 24 hrs Laboratory Tests Test 06/12/17 04:00 06/12/17 07:00 White Blood Count 11.6 #H Red Blood Count 3.16 L Hemoglobin 8.4 L Hematocrit 28.9 L Mean Corpuscular Volume 91.5 Mean Corpuscular Hemoglobin 26.6 L Mean Corpuscular Hemoglobin Concent 29.1 L Red Cell Distribution Width 20.4 H Platelet Count 192 # Mean Platelet Volume Neutrophils % Segmented Neutrophils % (Manual) 71 Band Neutrophils % (Manual) 21 H Lymphocytes % Lymphocytes % (Manual) 5 L Monocytes % Monocytes % (Manual) 2 Eosinophils % Basophils % Basophils % (Manual) 1 Nucleated Red Blood Cells % 0.0 Neutrophils # Neutrophils # (Manual) 8.5 H Band Neutrophils # 2.4 H Absolute Lymphocytes (Manual) 0.5 L Lymphocytes # Monocytes # Absolute Monocytes (Manual) 0.2 L Eosinophils # Basophils # Basophils # (Manual) 0.1 H Nucleated Red Blood Cells # Smudge Cells % 3 H Thrombocytosis 21 H Platelet Estimate NORMAL Polychromasia 3+ Hypochromasia 1+ Poikilocytosis 1+ Anisocytosis 1+ Microcytosis 1+ Sodium Level 140 Potassium Level 5.6 H Chloride Level 101 Carbon Dioxide Level 26 Anion Gap 19 H Blood Urea Nitrogen 66 H Creatinine 3.77 H Glucose Level 83 # Calcium Level 8.8 Phosphorus Level 5.0 H Magnesium Level 1.9 Blood Gas Specimen Source Blood arterial Arterial Blood Date Drawn 06/12/2017 7:20:46 AM Arterial Blood pH (Temp corrected) 7.127 *L Arterial Blood pCO2 (Temp correct) 52.7 H Arterial Blood pO2 (Temp corrected) 56.2 L Arterial Blood HCO3 17.0 L Arterial Blood Base Excess -11.8 L Arterial Blood Oxygen Saturation 86.1 L Bakari Test N/A Arterial Blood Gas Puncture Site Right Brachial Arterial Blood Carboxyhemoglobin 0.4 Arterial Blood Methemoglobin 0.6 Blood Gas A-a O2 Differential 604.1 H Oxyhemoglobin Percent 85.2 L Total Hemoglobin 9.9 L Blood Gas Temperature 37.0 Blood Gas Respiration Rate 22.0 Blood Gas Actual Respiration Rate 24 Blood Gas Modality VENT - AC FiO2 100.0 Blood Gas Tidal Volume 500.0 Blood Gas Low PEEP Setting 5.0 Blood Gas Critical Value Read Back A BERITIROTTI Blood Gas Notified Whom Leora ACOSTA Blood Gas Notified Time 06/12/2017 7:30:31 AM Medications Medications Current Medications Heparin Sodium (Porcine) (Heparin (5000 Units/0.5 ml)) 5,000 unit BID SC Last administered on 06/08/17 08:48; Admin Dose 5,000 UNIT; Start 06/02/17 at 09:00 ; Status Future Hold Acetaminophen/ Aspirin/Caffeine (Excedrin) 2 tab Q4 PRN PO ELEVATED TEMPERATURE ; Start 06/02/17 at 03:30 Aspirin (Aspirin) 81 mg DAILY PO Last administered on 06/12/17 08:05; Admin Dose 81 MG; Start 06/02/17 at 09:00 Multivitamins/ Minerals (Theragran-M) 1 tab DAILY PO Last administered on 08:27; Admin Dose 1 TAB; Start 06/02/17 at 09:00 Al Hydrox/Mg Hydrox/Simethicone (Mag-Al Plus) 30 ml Q6H PRN PO GASTROINTESTINAL UPSET; Start 06/02/17 at 03:30 Nitroglycerin (Nitroglycerin (Sl Tab) 0.4 Mg) 1 tab Q5M PRN SL ANGINA; Start at 03:30 Acetaminophen/ Hydrocodone Bitart ([place] (5/325)) 1 tab Q6H PRN PO MODERATE PAIN LEVEL 4-6; Start 06/02/17 at 03:30 Ascorbic Acid (Vitamin C) 500 mg DAILY PO Last administered on 06/11/17 08:27 ; Admin Dose 500 MG; Start 06/02/17 at 09:00 Ondansetron HCl (Zofran Tab) 4 mg Q6H PRN PO NAUSEA AND/OR VOMITING; Start at 04:00 Collagenase 1 applic 1 applic DAILY TOP Last administered on 06/12/17 08:05; Admin Dose 1 APPLIC; Start 06/03/17 at 09:00 Fentanyl (Sublimaze) 100 ml @ 2.5 mls/hr TITRATE IV Last administered on 00:49; Admin Dose 10 MLS/HR; Start 06/04/17 at 18:30 Allopurinol (Zyloprim) 100 mg DAILY PO Last administered on 06/11/17 08:27; Admin Dose 100 MG; Start 06/04/17 at 20:00 IV Flush (NS 10 ml) 10 ml PRN PRN IV IV PROTOCOL; Start 06/05/17 at 20:00 Docusate Sodium (Colace Liquid Cup) 100 mg BID NGT Last administered on 20:46; Admin Dose 100 MG; Start 06/09/17 at 21:00 Acetaminophen 650 mg 650 mg Q6H PRN NGT PAIN AND OR ELEVATED TEMP Last administered on 06/12/17 08:05; Admin Dose 650 MG; Start 06/09/17 at 20:30 Sodium Chloride (NS) 1,000 ml @ 100 mls/hr Q10H IV Last administered on 12:38; Admin Dose 100 MLS/HR; Start 06/10/17 at 07:00 Pantoprazole 40 mg 40 mg BID@06,18 IV Last administered on 06/12/17 05:55; Admin Dose 40 MG; Start 06/10/17 at 18:00 Vancomycin HCl 1.5 gm/Sodium Chloride 250 ml @ 83.333 mls/ hr Q48H IVPB ; Start 06/12/17 at 18:00 Meropenem/Sodium Chloride 50 ml @ 100 mls/hr Q24H IVPB Last administered on 20:46; Admin Dose 100 MLS/HR; Start 06/11/17 at 21:00 Norepinephrine 32 mg/Dextrose 250 ml @ 0.46 mls/hr TITRATE IV Last administered on 06/11/17 21:23; Admin Dose 7.5 MLS/HR; Start 06/11/17 at 21:00 Phenylephrine HCl 80 mg/Dextrose 250 ml @ 18.75 mls/ hr TITRATE IV Last administered on 06/12/17 11:42; Admin Dose 56.25 MLS/HR; Start 06/11/17 at 21: 00 Vasopressin/ Dextrose (Vasostrict/D5W) 60 ml @ 1.2 mls/hr Q12H IV Last administered on 06/12/17 07:32; Admin Dose 2.4 MLS/HR; Start 06/12/17 at 08:00 SALOMON OVIEDO MD Jun 12, 2017 17:14
[2017-06-12] MEDS ORDERED: VANCOMYCIN 1.5 GM in SOD CHLORIDE 0.9% 250 ML IVPB SCH (18:00)
--- NOTE | 2017-06-13 07:48 | OPR ---
DATE OF OPERATION: 06/11/2017 PREOPERATIVE DIAGNOSIS: Renal failure. POSTOPERATIVE DIAGNOSIS: Renal failure. OPERATION PERFORMED: Right femoral hemodialysis access catheter placement. SURGEON: César Valdovinos MD. ANESTHESIA: Local. INDICATION: Risks, benefits, complications, and alternatives are explained to the patient and the family. Consent obtained. OPERATIVE PROCEDURE: The patient is placed in the supine position. Prepped and draped in the usual sterile fashion. One percent lidocaine was used to start the operation for local anesthesia. Access was obtained in the right common femoral vein. Guidewire was advanced without any difficulty. Subcutaneous tissue was dilated. A 20-cm dialysis catheter was advanced over a guidewire, secured to skin using silk sutures. Both ports of the catheter were aspirated and injected using saline solution. The patient tolerated the procedure well. Dictated By: César Valdovinos MD /[email or web address]/[email or web address] /Document#: [id number]
--- NOTE | 2017-06-13 10:48 | DES ---
DATE OF ADMISSION: 06/01/2017 DATE OF DISCHARGE: 06/12/2017 HOSPITAL COURSE: This was an 86-year-old male with a past medical history of lymphoma, recently diagnosed of gastric and lung, who presented to [facility] with respiratory failure. The patient was recently diagnosed with lymphoma at an outside hospital, [place], during the hospital course. The patient was planning for outpatient chemotherapy after patient clinically improved. The patient, however, upon arrival to a nursing facility was transferred to [facility] in respiratory failure. The patient upon arrival was placed on BiPAP, initially admitted to telemetry, but the patient was then subsequently transferred to the intensive care unit and intubated. The patient also during the course was septic due to underlying pneumonia. The patient was placed on broad-spectrum antibiotic therapy. Unfortunately, the patient also developed acute kidney injury during the hospital course. The patient's clinical condition further declined as the patient went into septic shock. The patient also became grossly volume overloaded and went into worsening renal failure necessitating dialysis. The patient's family was very supportive including her niece, Jane. The patient, however, with continued deterioration of his condition, the patient's code status was changed from full code to DNR. The patient then yesterday. FINAL DIAGNOSES: 1. Ventilator-dependent hypoxemic respiratory failure. 2. Aneuric acute kidney injury, on hemodialysis. 3. Hypokalemia. 4. Septic shock secondary to pneumonia, urinary tract infection. 5. Volume overload and interstitial edema. 6. Newly diagnosed lymphoma, pulmonary and gastric. 7. Hyponatremia. 8. Anemia. 9. Acute encephalopathy. Dictated By: Geoff Montiel DO /[email or web address]/jana /Document#: [id number]
== END 2017-06-12 17:12 | disposition expired | DRG 870 ==
LOC: E/R 20:09 → TEL 22:01 → ICU 06-03 16:11
PROVIDERS: ADMIT Internal Medicine; ATTEND Internal Medicine
PROC: 30233N1 Transfusion of Nonautologous Red Blood Cells into Peripheral Vein, Percutaneous Approach (ICD-10-PCS; 2017-06-02)
PROC: 5A1955Z Respiratory Ventilation, Greater than 96 Consecutive Hours (ICD-10-PCS; principal; 2017-06-04)
PROC: 0BH17EZ Insertion of Endotracheal Airway into Trachea, Via Natural or Artificial Opening (ICD-10-PCS; 2017-06-04)
PROC: 02HV33Z Insertion of Infusion Device into Superior Vena Cava, Percutaneous Approach (ICD-10-PCS; 2017-06-05)
PROC: 06HM33Z Insertion of Infusion Device into Right Femoral Vein, Percutaneous Approach (ICD-10-PCS; 2017-06-11)
DX: A41.9 Sepsis, unspecified organism (principal); J96.01 Acute respiratory failure with hypoxia; N17.0 Acute kidney failure with tubular necrosis; J18.9 Pneumonia, unspecified organism; G92 Toxic encephalopathy; R65.21 Severe sepsis with septic shock; I50.33 Acute on chronic diastolic (congestive) heart failure; L89.153 Pressure ulcer of sacral region, stage 3; I11.0 Hypertensive heart disease with heart failure; L89.313 Pressure ulcer of right buttock, stage 3; E87.0 Hyperosmolality and hypernatremia; C85.88 Other specified types of non-Hodgkin lymphoma, lymph nodes of multiple sites; E87.1 Hypo-osmolality and hyponatremia; B37.49 Other urogenital candidiasis; Z66 Do not resuscitate; N41.9 Inflammatory disease of prostate, unspecified; D63.8 Anemia in other chronic diseases classified elsewhere
CPT/HCPCS: 36415; 36430; 36569; 36600; 71010; 76775; 76937; 80048; 80053; 81001; 81003; 82043; 82270; 82306; 82607; 82728; 82746; 82803; 83010; 83540; 83605; 83615; 83735; 83880; 84100; 84153; 84154; 84155; 84165; 84300; 84443; 84484; 84560; 85014; 85018; 85025; 85045; 85610; 85651; 85730; 86850; 86900; 86901; 86920; 87040; 87070; 87081; 87086; 89220; 90935; 93005; 93306; 93970; 94002; 94003; 94660; 94770; 96374; J1940; C1752; C1769; C9113; J0456; J0692; J1644; J2185; J2370; J3010; J3370; J3475; J3480; J7030; J7040; J7050; J7060; J7070; P9016; P9047